=== PATIENT | female | born 1970 | race Two or more races ===

== ENCOUNTER 2017-01-31 11:36 | Inpatient (IN) | payer OTHER ==
[2017-01-30 14:07] VITALS: BMI 27.3
[2017-01-31] MEDS ORDERED: GENTAMICIN SO4 80 MG/2 ML VIAL ONE ×2 (12:17→13:50)
[2017-01-31] MEDS ORDERED: THROMBIN (BOVINE) 5,000 UNIT VIAL TP ONE ×2 (12:18→15:56)
[2017-01-31] MEDS ORDERED: BUPIVACAINE HCL/PF 0.5% (5MG/ML) 10 ML VIAL ONE (12:18)
[2017-01-31] MEDS ORDERED: LIDOCAINE 1%/EPI 1:100000 (20 ML MULTI DOSE VIAL) ONE (12:22)
[2017-01-31] MEDS ORDERED: DEXAMETHASONE SOD PHOSPHATE 4 MG/1 ML VIAL IVPUSH PRN (13:38)
[2017-01-31] MEDS ORDERED: PROMETHAZINE HCL 25 MG/1 ML VIAL IVPB PRN (13:38)
[2017-01-31] MEDS ORDERED: HYDROmorphone *PCA* 10MG/50ML DISP.SYRIN PCA SCH (13:45)
[2017-01-31] MEDS ORDERED: VANCOMYCIN 1,000 MG VIAL (RESTRICTED TO ID ONLY) ONE (13:51)
[2017-01-31] MEDS ORDERED: fentaNYL CITRATE 250 MCG/5 ML VIAL ONE (14:29)
[2017-01-31] MEDS ORDERED: PROPOFOL 20 ML ONE (14:29)
[2017-01-31] MEDS ORDERED: MIDAZOLAM HCL 2 MG/2 ML SINGLE DOSE VIAL ONE (14:29)
[2017-01-31] MEDS ORDERED: ROCURONIUM BROMIDE 50 MG/5 ML VIAL ONE ×2 (14:29→16:26)
[2017-01-31] MEDS ORDERED: LIDOCAINE HCL/PF 2% SDV 5ML VIAL ONE (14:30)
[2017-01-31] MEDS ORDERED: SODIUM CHLORIDE 0.9% P/F 10 ML VIAL IJ ONE ×2 (14:59→18:39)
[2017-01-31] MEDS ORDERED: ceFAZolin SODIUM 1 GM VIAL ONE ×2 (14:59→18:39)
[2017-01-31] MEDS ORDERED: GELATIN, ABSORBABLE 100 EACH SPONGE TP ONE (15:00)
[2017-01-31] MEDS ORDERED: ONDANSETRON 4 MG/2 ML VIAL ONE (15:02)
[2017-01-31] MEDS ORDERED: DEXAMETHASONE SOD PHOSPHATE 4 MG/1 ML VIAL ONE (15:02)
[2017-01-31] MEDS ORDERED: ceFAZolin SODIUM 1 GM VIAL IVPB ONE ×2 (15:12→18:40)
[2017-01-31] MEDS ORDERED: LIDOCAINE 1%/EPI 1:100000 (20 ML MULTI DOSE VIAL) IJ ONE ×2 (15:30)
[2017-01-31] MEDS ORDERED: BACITRACIN 50,000 UNITS VIAL TP ONE (15:56)
[2017-01-31] MEDS ORDERED: GENTAMICIN SO4 80 MG/2 ML VIAL IVPB ONE (16:47)
[2017-01-31] MEDS ORDERED: ePHEDrine SULFATE 50 MG/1 ML AMPULE ONE (17:22)
[2017-01-31] MEDS ORDERED: BUPIVACAINE HCL/PF 0.5% (5MG/ML) 10 ML VIAL IJ ONE (18:13)
[2017-01-31] MEDS ORDERED: GLYCOPYRROLATE 0.2 MG/1 ML VIAL ONE (18:27)
[2017-01-31] MEDS ORDERED: NEOSTIGMINE METHYLSULFATE 0.5 MG/ML - 10 ML MDV ONE (18:27)
[2017-01-31] MEDS ORDERED: oxyCODONE HCL 5 MG TABLET PO PRN ×2 (19:22)
[2017-01-31] MEDS ORDERED: LORATADINE 10 MG TABLET PO PRN (19:30)
[2017-01-31] MEDS ORDERED: HYDROmorphone *PCA* 10MG/50ML DISP.SYRIN PCA ONE (19:46)
[2017-01-31] MEDS: LACTATED RINGERS SOLUTION 1,000 ML IV SCH ×3 (20:35→22:47)
--- NOTE | 2017-01-31 20:51 | OP ---
Operative Note - Note: Operative Date: 01/31/17 Pre-Operative Diagnosis: Lumbar pseudoarthrosis with rostral instability and stenosis Operation: Exploration of spinal fusion with removal of hardware and reoperative L4/5 laminectomies with L3/4 laminectomies and transforaminal interbody cage and L3/5 PSF and repair of pseudomeningocele with bilateral soft tissue advancement flaps Post-Operative Diagnosis: Same as Pre-op Surgeon: Kimo Brown Driver Supervisor: Steven Rivers Anesthesiologist/BIOCHEMIST: Franko Blackburn Anesthesia: General Estimated Blood Loss (mls): 150 Fluid Volume Replaced (mls): 1,700 Operative Report Dictated: Yes
--- NOTE | 2017-01-31 20:52 | SURG ---
Surgery Business Information Analyst Note Business Information Analyst: Steven Rivers PA-C Date of Service: 01/31/17 Diagnosis: LUMBAR PSEUDOARTHOSIS WITH ROSTRAL INSTABILITY AND STENOSIS Procedure: Exploration of spinal fusion with removal of hardware and reoperative L4/5 laminectomies with L3/4 laminectomies and transforaminal interbody cage and L3/ 5 PSF and repair of pseudomeningocele with bilateral soft tissue advancement flaps I was present for the entirety of the operative procedure. For further detail, please refer to operative report. Visit type - Case Type Case Type: Scheduled Admission - New patient This patient is new to me today: Yes Date on this admission: 01/31/17
[2017-01-31] MEDS: diazePAM 2 MG TABLET PO SCH (22:47)
[2017-02-01] MEDS ORDERED: CEFAZOLIN 1 GM/D5W 1 GM/50 ML BAG IVPB SCH (02:00)
[2017-02-01] MEDS: CEFAZOLIN 1 GM PUSH 1 GM/10 ML DISP.SYRIN IVPUSH SCH ×3 (02:34→18:41)
[2017-02-01 08:09] LABS: MCH 33.3 pg (25.7-33.7); MCHC 34.5 g/dl (32.0-36.0); MEAN CELL VOLUME 96.7 fl (80-96); MEAN PLT VOLUME 8.6 fl (7.5-11.1); PLATELET COUNT 226 K/MM3 (134-434); RDW 12.6 % (11.6-15.6); WHITE BLOOD COUNT 7.1 K/mm3 (4.0-10.0)
[2017-02-01 08:48] LABS: ANION GAP 6 (8-16); CALCIUM 7.9 mg/dL (8.5-10.1); CO2 29 mmol/L (21-32); GLUCOSE,RANDOM 102 mg/dL (74-106)
--- NOTE | 2017-02-01 08:50 | PN ---
Progress Note (short form) - Note Progress Note: POD #1 46yo female s/p Exploration of spinal fusion with removal of hardware and reoperative L4/5 laminectomies with L3/4 laminectomies and transforaminal interbody cage and L3/5 PSF and repair of pseudomeningocele with bilateral soft tissue advancement flaps . Patient seen and examined at bedside, states pain with movement controlled with BELT CLEANER. Patient has not ambulated with PT yet. She Denies any b/l LE radicular pain or paresthesias, CP,SOB, N/V, fever or chills and she has not passed gas or had a BM. Vital Signs Temp 98.6 F 02/01/17 06:27 Pulse 84 02/01/17 06:27 Resp 20 02/01/17 06:27 BP 92/52 02/01/17 06:27 Pulse Ox 100 01/31/17 22:00 Intake & Output 01/31/17 01/31/17 02/01/17 11:59 23:59 11:59 Intake Total 1500 875 Output Total 665 605 Balance 835 270 Intake: IV 1500 875 Lactated Ringers Solution 875 1,000 ml @ 125 mls/hr IV ASDIR MENG Rx#: [id number] Output: Drainage 65 205 Right Lower Back 205 Urine 450 400 Patel 400 Estimated Blood Loss 150 Other: Voiding Method Indwelling Catheter CBC, BMP 02/01/17 06:00 PE: VSS, unlabored resp on RA Lumbar spine, dressing c/d/i with no evidence of d/c or tracking erythema in surrounding tissue, TOMASA drain right lumbar area, putting out serosanginous d/c 205ml post op-midnight. B/L LE compartments soft supple and non-tender to palpation, + dorsi and plantar flexion 5/5 bilaterally, NVID with sensation to light touch and +1 pedal pulses. feet are warm to touch and well perfused. POD #1 revision lumbar fusion and repair of pseudomeningocele doing well with stable post op anemia currently asymptomatic 1) OOB today with PT-OK without brace until available, then TLSO brace when OOB 2) D/c patel 3) Pain control with BELT CLEANER 4) DVT prophylaxis, b/l teds, scds and heparin 5) trend daily labs- Iron, folate and colace added Evaluation and plan discussed with Dr. Brown
[2017-02-01 08:51] LABS: CREATININE 0.5 mg/dL (0.55-1.02)
--- NOTE | 2017-02-01 09:17 | PN ---
Progress Note, Physician Chief Complaint: s/p lumbar revision fusion under general anesthesia History of Present Illness: post op day one, dilaudid landscape engineer for post op pain control - Current Medication List Current Medications: Active Medications Dexamethasone Sodium Phosphate (Decadron Injection -) 4 mg IVPUSH ONCE PRN PRN Reason: NAUSEA AND/OR VOMITING Diazepam (Valium -) 2 mg PO BID [facility] Last Admin: 01/31/17 22:47 Dose: 2 mg Diphenhydramine HCl (Benadryl Injection -) 12.5 mg IVPUSH ONCE PRN PRN Reason: FOR ITCHING Docusate Sodium (Colace -) 100 mg PO BID [facility] Fentanyl (Sublimaze Injection -) 50 mcg IVPUSH [id number] PRN PRN Reason: PAIN Ferrous Sulfate (Feosol -) 325 mg PO BIDWM [facility] Folic Acid (Folic Acid -) 1 mg PO DAILY [facility] Heparin Sodium (Porcine) (Heparin -) 5,000 unit SQ TID [facility] Hydromorphone HCl (Dilaudid Poultry Husbandman -) 0 mg FIRST PRESS OPERATOR FIRST PRESS OPERATOR [facility] PRN Reason: Protocol Stop: 02/07/17 13:39 Last Admin: 01/31/17 22:47 Dose: Not Given Lactated Ringer's (Lactated Ringers Solution) 1,000 mls @ 125 mls/hr IV ASDIR [facility] Last Admin: 01/31/17 22:47 Dose: 125 mls/hr Lactated Ringer's (Lactated Ringers Solution) 1,000 mls @ 125 mls/hr IV ASDIR [facility] Last Admin: 01/31/17 22:47 Dose: Not Given Cefazolin Sodium (Ancef -) 1 gm in 10 mls @ 120 mls/hr IVPUSH Q8H-IV [facility] Stop: 02/02/17 01:59 Last Admin: 02/01/17 02:34 Dose: 120 mls/hr Loratadine (Claritin -) 10 mg PO DAILY PRN PRN Reason: ALLERGIES Ondansetron HCl (Zofran Injection) 4 mg IVPUSH Q4H PRN PRN Reason: NAUSEA AND/OR VOMITING Promethazine HCl (Phenergan Injection -) 12.5 mg IVPB Q6H PRN PRN Reason: NAUSEA AND/OR VOMITING Valsartan (Diovan -) 160 mg PO DAILY [facility] - Objective Vital Signs: Vital Signs Temperature 98.6 F 11/30/17 06:27 Pulse Rate 84 02/01/17 06:27 Respiratory Rate 20 02/01/17 06:27 Blood Pressure 92/52 02/01/17 06:27 O2 Sat by Pulse Oximetry (%) 100 01/31/17 22:00 Constitutional: Yes: Well Nourished, No Distress Cardiovascular: Yes: WNL Respiratory: Yes: WNL Gastrointestinal: Yes: WNL Neurological: Yes: WNL Labs: CBC, BMP 02/01/17 06:00 02/01/17 06:00 Assessment/Plan No adverse effects of anesthetic, no nausea or vomiting, pain controlled with landscape engineer, not on diet yet. will continue landscape engineer until patient is tolerating PO. No other anesthetic concerns. Dept of anesthesia will continue to manage FIRST PRESS OPERATOR.
[2017-02-01] MEDS: HEPARIN NA (PORCINE) 5,000 UNITS/ML 1ML VIAL SQ SCH ×3 (10:02→21:51)
[2017-02-01] MEDS: DOCUSATE SODIUM 100 MG CAPSULE (FP) PO SCH ×2 (10:02→21:51)
[2017-02-01] MEDS: diazePAM 2 MG TABLET PO SCH ×2 (10:02→21:51)
[2017-02-01] MEDS: VALSARTAN 160 MG TABLET (UD) PO SCH (10:02)
[2017-02-01] MEDS: FERROUS SO4 325 MG TABLET (FP) PO SCH ×2 (10:02→18:33)
[2017-02-01] MEDS: FOLIC ACID 1 MG TABLET (FP) PO SCH ×2 (10:03)
[2017-02-01] MEDS: ACETAMINOPHEN 325 MG TABLET (FP) PO PRN ×2 (11:35→18:46)
[2017-02-01] MEDS: LACTATED RINGERS SOLUTION 1,000 ML IV SCH ×3 (11:40→21:12)
[2017-02-01] MEDS: ONDANSETRON 4 MG/2 ML VIAL IVPUSH PRN ×2 (11:41→17:06)
[2017-02-01] MEDS: HYDROmorphone *PCA* 10MG/50ML DISP.SYRIN PCA SCH (12:07)
--- NOTE | 2017-02-01 17:27 | PROC ---
Procedure Note Procedure: Patient seen and examined at bedside with Dr Martin. C/o headache and nausea. Drain to gravity with bloody CSF 300cc over 4 hours. Drain pulled with tip fully intact. Patient tolerated procedure and dry dressing applied to drain site. Surgery to follow.
[2017-02-01] MEDS ORDERED: PT OWN MED DRAWER 7, Y5N ONE (18:30)
[2017-02-02] MEDS: HEPARIN NA (PORCINE) 5,000 UNITS/ML 1ML VIAL SQ SCH ×3 (07:02→22:39)
[2017-02-02] MEDS: ACETAMINOPHEN 325 MG TABLET (FP) PO PRN ×2 (07:42→19:49)
[2017-02-02 08:06] LABS: BASOPHIL 0.4 % (0-2.0); EOSINOPHIL 0.1 % (0-4.5); MCH 32.8 pg (25.7-33.7); MCHC 34.2 g/dl (32.0-36.0); MEAN CELL VOLUME 95.8 fl (80-96); MEAN PLT VOLUME 8.7 fl (7.5-11.1); NEUTROPHILS 82.3 % (42.8-82.8); PLATELET COUNT 180 K/MM3 (134-434); WHITE BLOOD COUNT 7.8 K/mm3 (4.0-10.0)
[2017-02-02] MEDS ORDERED: VANCOMYCIN 1,000 MG in DEXTROSE 5%-WATER - 250 ML IVPB ONE (08:11)
[2017-02-02 08:32] LABS: ANION GAP 6 (8-16); CALCIUM 7.3 mg/dL (8.5-10.1); CO2 26 mmol/L (21-32); CREATININE 0.3 mg/dL (0.55-1.02); GLUCOSE,RANDOM 103 mg/dL (74-106)
[2017-02-02] MEDS: FOLIC ACID 1 MG TABLET (FP) PO SCH (09:36)
[2017-02-02] MEDS: VALSARTAN 160 MG TABLET (UD) PO SCH (09:36)
[2017-02-02] MEDS: diazePAM 2 MG TABLET PO SCH ×2 (09:36→22:38)
[2017-02-02] MEDS: DOCUSATE SODIUM 100 MG CAPSULE (FP) PO SCH ×2 (09:36→22:38)
[2017-02-02] MEDS: FERROUS SO4 325 MG TABLET (FP) PO SCH ×2 (09:37→18:41)
[2017-02-02 09:42] LABS: URINE APPEARANCE SLCLOUDY; URINE BILIRUBIN NEGATIVE (NEGATIVE); URINE BLOOD 3+ (NEGATIVE); URINE COLOR LTYELLOW; URINE GLUCOSE (UA) NEGATIVE (NEGATIVE); URINE KETONE TRACE (NEGATIVE); URINE NITRITE NEGATIVE (NEGATIVE); URINE PROTEIN NEGATIVE (NEGATIVE); URINE UROBILINOGEN NEGATIVE mg/dL (0.2-1.0)
[2017-02-02 09:47] LABS: URINE MUCUS RARE; URINE WBC 3 /hpf (3-5)
[2017-02-02] MEDS: HYDROmorphone *PCA* 10MG/50ML DISP.SYRIN PCA SCH ×2 (09:51→16:00)
--- NOTE | 2017-02-02 10:18 | PN ---
Progress Note (short form) - Note Progress Note: POD #2 46yo female s/p Exploration of spinal fusion with removal of hardware and reoperative L4/5 laminectomies with L3/4 laminectomies and transforaminal interbody cage and L3/5 PSF and repair of pseudomeningocele with bilateral soft tissue advancement flaps . Patient seen and examined at bedside, states Headache improved overnight and she was able to ambulate to the bathroom 2x last night without worsening symptoms. She is still using INSTRUCTIONAL DESIGN SPECIALIST but now states her headache has worsened this morning and she is having lots of pain with movement of her neck and worsening headache with head flexion. She is also having fever and chills this morning. She Denies any b/l LE radicular pain or paresthesias, CP, or SOB. Vital Signs Temp 101 F H 02/02/17 09:52 Pulse 112 H 02/02/17 09:52 Resp 18 02/02/17 09:52 BP 153/75 02/02/17 09:52 Pulse Ox 100 02/01/17 21:00 Intake & Output 02/01/17 02/01/17 02/02/17 11:59 23:59 11:59 Intake Total 875 1925 875 Output Total 605 1800 400 Balance 270 125 475 Intake: IV 875 1625 875 Lactated Ringers Solution 875 1625 875 1,000 ml @ 125 mls/hr IV ASDIR MENG Rx#: [id number] Oral 300 Output: Drainage 205 300 Right Lower Back 205 300 Urine 400 1300 400 [place] 400 Void 1300 400 Emesis 200 Other: Voiding Method Toilet Toilet CBC, BMP 02/02/17 06:00 02/02/17 06:00 PE: A&Ox3, with mild distress 2/2 pain unlabored resp on RA Febrile at 101.9 @ 7:30 this morning Lumbar spine, dressing removed and incision c/d/i with no evidence of d/c or tracking erythema in surrounding tissue, no fluctuance or evidence of collection , mild TTP at midline proximal to incision and over c-spine- pt unable to fully cooperate with c spine examination 2/2 pain. previous drain site dry with no active d/c. incision redressed with 4x4 and op sites. B/L LE compartments soft supple and non-tender to palpation, + dorsi and plantar flexion 5/5 bilaterally, NVID with sensation to light touch and +1 pedal pulses. feet are warm to touch and well perfused. A/P POD #2 revision lumbar fusion and repair of pseudomeningocele with headache and fever 1) Blood cultures x2 sites 2) U/A and urine cultures 3) vancomycin x 1 dose 4) OOB today with PT if stable 4) Pain control with INSTRUCTIONAL DESIGN SPECIALIST 5) DVT prophylaxis, b/l teds, scds and heparin 5) trend daily labs and follow up cultures and U/A Evaluation and plan discussed with Dr. Brown
--- NOTE | 2017-02-02 10:41 | PN ---
Progress Note, Physician Chief Complaint: Pt complains of BRUNO and neck pain that has worsened today. She also has a fever and was given tylenol this am. - Current Medication List Current Medications: Active Medications Acetaminophen (Tylenol -) 650 mg PO Q6H PRN PRN Reason: FEVER OR PAIN Last Admin: 02/02/17 07:42 Dose: 650 mg Dexamethasone Sodium Phosphate (Decadron Injection -) 4 mg IVPUSH ONCE PRN PRN Reason: NAUSEA AND/OR VOMITING Diazepam (Valium -) 2 mg PO BID [facility] Last Admin: 02/02/17 09:36 Dose: 2 mg Diphenhydramine HCl (Benadryl Injection -) 12.5 mg IVPUSH ONCE PRN PRN Reason: FOR ITCHING Docusate Sodium (Colace -) 100 mg PO BID [facility] Last Admin: 02/02/17 09:36 Dose: 100 mg Ferrous Sulfate (Feosol -) 325 mg PO BIDWM [facility] Last Admin: 02/02/17 09:37 Dose: Not Given Folic Acid (Folic Acid -) 1 mg PO DAILY [facility] Last Admin: 02/02/17 09:36 Dose: 1 mg Heparin Sodium (Porcine) (Heparin -) 5,000 unit SQ TID [facility] Last Admin: 02/02/17 07:02 Dose: 5,000 unit Hydromorphone HCl (Dilaudid Inward Toll Operator -) 10 mg SPRAY RIG OPERATOR SPRAY RIG OPERATOR [facility] PRN Reason: Protocol Stop: 02/07/17 13:39 Last Admin: 02/02/17 09:51 Dose: Not Given Lactated Ringer's (Lactated Ringers Solution) 1,000 mls @ 125 mls/hr IV ASDIR [facility] Last Admin: 02/01/17 14:09 Dose: Not Given Lactated Ringer's (Lactated Ringers Solution) 1,000 mls @ 125 mls/hr IV ASDIR [facility] Last Admin: 02/01/17 21:12 Dose: 125 mls/hr Loratadine (Claritin -) 10 mg PO DAILY PRN PRN Reason: ALLERGIES Last Admin: 02/02/17 09:36 Dose: 10 mg Ondansetron HCl (Zofran Injection) 4 mg IVPUSH Q4H PRN PRN Reason: NAUSEA AND/OR VOMITING Last Admin: 02/01/17 17:06 Dose: 4 mg Potassium Chloride (K-Dur -) 20 meq PO BID [facility] Stop: 02/03/17 22:01 Promethazine HCl (Phenergan Injection -) 12.5 mg IVPB Q6H PRN PRN Reason: NAUSEA AND/OR VOMITING Valsartan (Diovan -) 160 mg PO DAILY [facility] Last Admin: 02/02/17 09:36 Dose: 160 mg - Objective Vital Signs: Vital Signs Temperature 101 F H 02/02/17 09:52 Pulse Rate 112 H 02/02/17 09:52 Respiratory Rate 18 02/02/17 09:52 Blood Pressure 153/75 02/02/17 09:52 O2 Sat by Pulse Oximetry (%) 100 02/01/17 21:00 Constitutional: Yes: Well Nourished, No Distress, Calm Neurological: Yes: WNL, Alert, Oriented ...Motor Strength: WNL Labs: CBC, BMP 02/02/17 06:00 02/02/17 06:00 Assessment/Plan POD#2 s/p L3-5 posterior decompressionwith removal of hardware L3-4, instrumentation, fusion, and cage placement under GA. Dilaudid SPRAY RIG OPERATOR for pain. Having increasing headaches, neck pain, and fever. Treated with tylenol and Dr. Hensley notified. Continue SPRAY RIG OPERATOR
[2017-02-02] MEDS: POTASSIUM CHLORIDE TABS 20 MEQ TABLET.ER (FP) PO SCH ×2 (11:30→22:39)
[2017-02-02 12:49] LABS: URINE LEUK ESTERASE Negative (NEGATIVE)
--- NOTE | 2017-02-02 15:22 | PATH ---
Surgical Pathology Report Patient Name: CARLOS A GONG Med. Rec. #: [id number] /Age/Gender: 1970 (Age: 46) / F Account: [id number] Location: [facility] MED/SURG Taken: 01/31/2017 Received: 02/01/2017 Reported: 02/02/2017 Physicians: Kimo Poole M.D. 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 Electronically Signed Kana Becerril M.D. Gross Description Received in formalin labeled "juxta facet cyst," are 2 gillette-jack, irregular portions of soft tissue measuring 0.9 x 0.5 x 0.3 cm and 1.3 x 0.8 x 0.3 cm. The specimens are submitted in toto in one cassette. 02/01/201702/01/2017
[2017-02-02] MEDS: LACTATED RINGERS SOLUTION 1,000 ML IV SCH ×3 (15:54→22:00)
--- NOTE | 2017-02-02 20:49 | CONSULT ---
Consult - text type - Consultation Consultation Note: 46yo female with PMH of HTN (-well controlled on current meds), and chronic back pain, admitted for elective revision of laminectomy. She is s/p Exploration of spinal fusion with removal of hardware and reoperative L4/5 laminectomies with L3/4 laminectomies and transforaminal interbody cage and L3/ 5 PSF and repair of pseudomeningocele with bilateral soft tissue advancement flaps. She reports, except for severe headache, feeling much better w/r/t her back and her legs. She was able to ambulate POD #1 several times with minimal discomfort but developed progressively intense headache ( unlike previous migraines). These associated with nausea and vomiting -- no vomiting today, but remains nauseous. PMH HTN well controlled as out patient allergies Codeine Vital Signs Period Temp Pulse Resp BP Sys/Cook Pulse Ox Last 24 Hr 98.6 F-101.9 F 76-112 16-20 105-153/50-75 96-100 Patient examined in bed sitting at 45degrees ++ headaches neck supple -- lateral movements increases headache heart s1/S2 reg lungs clear bilat with deep inspiration abd soft non tender ext no calf tenderness / + pulses no edema FROM CBC, BMP 02/02/17 06:00 02/02/17 06:00 K replaced earlier today Active Medications Acetaminophen (Tylenol -) 650 mg PO Q6H PRN PRN Reason: FEVER OR PAIN Last Admin: 02/02/17 19:49 Dose: 650 mg Acetaminophen/Butalbital/Caffeine (Fioricet -) 1 tablet PO Q4H PRN PRN Reason: FEVER OR PAIN Dexamethasone Sodium Phosphate (Decadron Injection -) 4 mg IVPUSH ONCE PRN PRN Reason: NAUSEA AND/OR VOMITING Diazepam (Valium -) 2 mg PO BID [facility] Last Admin: 02/02/17 09:36 Dose: 2 mg Diphenhydramine HCl (Benadryl Injection -) 12.5 mg IVPUSH ONCE PRN PRN Reason: FOR ITCHING Docusate Sodium (Colace -) 100 mg PO BID [facility] Last Admin: 02/02/17 09:36 Dose: 100 mg Ferrous Sulfate (Feosol -) 325 mg PO BIDWM [facility] Last Admin: 02/02/17 18:41 Dose: Not Given Folic Acid (Folic Acid -) 1 mg PO DAILY [facility] Last Admin: 02/02/17 09:36 Dose: 1 mg Heparin Sodium (Porcine) (Heparin -) 5,000 unit SQ TID [facility] Last Admin: 02/02/17 16:12 Dose: 5,000 unit Hydromorphone HCl (Dilaudid Inspector Soldering -) 10 mg DATA COLLECTION ASSOCIATE DATA COLLECTION ASSOCIATE MENG PRN Reason: Protocol Stop: 02/07/17 13:39 Last Admin: 02/02/17 09:51 Dose: Not Given Lactated Ringer's (Lactated Ringers Solution) 1,000 mls @ 125 mls/hr IV ASDIR [facility] Last Admin: 02/02/17 15:54 Dose: 125 mls/hr Lactated Ringer's (Lactated Ringers Solution) 1,000 mls @ 125 mls/hr IV ASDIR [facility] Last Admin: 02/02/17 19:13 Dose: Not Given Loratadine (Claritin -) 10 mg PO DAILY PRN PRN Reason: ALLERGIES Last Admin: 02/02/17 09:36 Dose: 10 mg Ondansetron HCl (Zofran Injection) 4 mg IVPUSH Q4H PRN PRN Reason: NAUSEA AND/OR VOMITING Last Admin: 02/01/17 17:06 Dose: 4 mg Potassium Chloride (K-Dur -) 20 meq PO BID [facility] Stop: 02/03/17 22:01 Last Admin: 02/02/17 11:30 Dose: 20 meq Promethazine HCl (Phenergan Injection -) 12.5 mg IVPB Q6H PRN PRN Reason: NAUSEA AND/OR VOMITING Valsartan (Diovan -) 160 mg PO DAILY [facility] Last Admin: 02/02/17 09:36 Dose: 160 mg # POD #2 activity as per surgery pain management via DATA COLLECTION ASSOCIATE incentive spirometry -if poor compliance will recommend nebulizer tx # headache bp remains stable spinal fluid leak ? / on IV fluids / instructed to lay flat trial of Fiorcet # fever 101.9 incentive spirometry activity as per surgery if fever repeats c/s # HTN resume HTM meds Valsatran 160 qd # hypokalemia replaced ck Magnesium replace lytes PRN
[2017-02-02] MEDS: ACETAMINOPHEN/CAFFEINE/BUTALBITAL 1 TAB PO PRN (22:39)
[2017-02-03] MEDS: ACETAMINOPHEN 325 MG TABLET (FP) PO PRN ×3 (01:49→21:29)
[2017-02-03] MEDS: HEPARIN NA (PORCINE) 5,000 UNITS/ML 1ML VIAL SQ SCH ×3 (05:56→21:29)
[2017-02-03 08:17] LABS: BASOPHIL 0.2 % (0-2.0); MCH 32.8 pg (25.7-33.7); MCHC 34.1 g/dl (32.0-36.0); MEAN CELL VOLUME 96.3 fl (80-96); NEUTROPHILS 81.2 % (42.8-82.8); PLATELET COUNT 186 K/MM3 (134-434); RDW 11.9 % (11.6-15.6)
[2017-02-03 08:27] LABS: ANION GAP 8 (8-16); CALCIUM 8.1 mg/dL (8.5-10.1); CO2 29 mmol/L (21-32); GLUCOSE,RANDOM 96 mg/dL (74-106); MAGNESIUM 1.8 mg/dL (1.8-2.4)
[2017-02-03 08:29] LABS: CREATININE 0.4 mg/dL (0.55-1.02); PHOSPHOROUS 1.9 mg/dL (2.5-4.9)
--- NOTE | 2017-02-03 09:06 | PN ---
Progress Note (short form) - Note Progress Note: Anesthesia Post op/Pain Pt seen and examined S:awake and alert, c/o headache O: Vital Signs Temperature 101.1 F H 02/03/17 05:00 Pulse Rate 102 H 02/02/17 16:30 Respiratory Rate 20 02/03/17 05:00 Blood Pressure 129/75 02/03/17 05:00 O2 Sat by Pulse Oximetry (%) 96 02/02/17 21:00 CBC, BMP 02/03/17 06:00 02/03/17 06:00 A/P:s/p l3-L5 posterior decompression instrumentation Hypokalemia,Mild fever Condition guarded Continue STAINLESS STEEL FINISHER Derrick Rush MD
[2017-02-03] MEDS: FOLIC ACID 1 MG TABLET (FP) PO SCH (10:10)
[2017-02-03] MEDS: diazePAM 2 MG TABLET PO SCH ×2 (10:11→21:29)
[2017-02-03] MEDS: VALSARTAN 160 MG TABLET (UD) PO SCH (10:11)
[2017-02-03] MEDS: DOCUSATE SODIUM 100 MG CAPSULE (FP) PO SCH ×2 (10:11→21:29)
[2017-02-03] MEDS: POTASSIUM CHLORIDE TABS 20 MEQ TABLET.ER (FP) PO SCH (10:11)
[2017-02-03] MEDS: FERROUS SO4 325 MG TABLET (FP) PO SCH ×2 (10:12→18:28)
[2017-02-03] MEDS: POTASSIUM CHLORIDE ORAL LIQUID 20 MEQ/15 ML PO SCH ×3 (10:15→21:30)
[2017-02-03] MEDS: ACETAMINOPHEN/CAFFEINE/BUTALBITAL 1 TAB PO PRN ×2 (10:15→17:04)
[2017-02-03] MEDS: LACTATED RINGERS SOLUTION 1,000 ML IV SCH ×2 (14:20→23:23)
--- NOTE | 2017-02-03 14:50 | PN ---
Progress Note (short form) - Note Progress Note: Patient with fevers. Currently 101.8 with Tmax 102.7 All cultures negative. WBC is 11 Patient continues to have low ICP headaches but states that it is "a little better." Wound clean, dry and intact. Patient asking for coffee. I feel that her diet can be advanced as tolerated and have no objections to letting her have coffee. Patient with CSF drainage after repair of pseudomeningocele and with low ICP syndrome. Hopefully, with hydration, time and caffeine, these symptoms will leona. Fevers may be due to meningeal irritation from low ICP. Will continue to monitor and support with Acetominophen. Agree with Potassium supplementation. For now, would not transfuse PRBC, rather would continue Iron/Folate/Colace.
[2017-02-04] MEDS: ACETAMINOPHEN 325 MG TABLET (FP) PO PRN ×3 (05:56→17:20)
[2017-02-04] MEDS: HEPARIN NA (PORCINE) 5,000 UNITS/ML 1ML VIAL SQ SCH ×3 (05:56→22:09)
[2017-02-04 08:24] LABS: ANION GAP 6 (8-16); BASOPHIL 0.2 % (0-2.0); CALCIUM 7.6 mg/dL (8.5-10.1); CO2 26 mmol/L (21-32); CREATININE 0.4 mg/dL (0.55-1.02); EOSINOPHIL 0.2 % (0-4.5); GLUCOSE,RANDOM 106 mg/dL (74-106); MCH 32.9 pg (25.7-33.7); MCHC 34.6 g/dl (32.0-36.0); MEAN CELL VOLUME 95.2 fl (80-96); MEAN PLT VOLUME 9.2 fl (7.5-11.1); NEUTROPHILS 85.3 % (42.8-82.8); PLATELET COUNT 205 K/MM3 (134-434); WHITE BLOOD COUNT 12.5 K/mm3 (4.0-10.0)
[2017-02-04] MEDS: diazePAM 2 MG TABLET PO SCH ×2 (09:22→22:05)
[2017-02-04] MEDS: DOCUSATE SODIUM 100 MG CAPSULE (FP) PO SCH ×2 (09:23→22:05)
[2017-02-04] MEDS: VALSARTAN 160 MG TABLET (UD) PO SCH (09:23)
[2017-02-04] MEDS: NAPH,MB-DB/K PH,MBDB POWDER PACKET PO SCH ×3 (09:24→22:09)
[2017-02-04] MEDS: FOLIC ACID 1 MG TABLET (FP) PO SCH (09:24)
[2017-02-04] MEDS: FERROUS SO4 325 MG TABLET (FP) PO SCH ×2 (09:24→17:20)
[2017-02-04] MEDS: LACTATED RINGERS SOLUTION 1,000 ML IV SCH ×2 (09:26→14:12)
--- NOTE | 2017-02-04 10:44 | PN ---
Progress Note (short form) - Note Progress Note: POD #4 s/p L3-L5 decompression/instrumentation. On dilaudid RESIDENT MANAGER for post-op pain management. Headache and fever improved. Will discontinue RESIDENT MANAGER today and order po oxycodone. Continue current care.
[2017-02-04] MEDS: oxyCODONE HCL 5 MG TABLET PO PRN ×3 (12:27→22:06)
--- NOTE | 2017-02-04 15:47 | PN ---
Progress Note (short form) - Note Progress Note: seen and examined in room daughter at bedside headache much improved / was ambulating around well - using brace however fever 103 earlier today + chills Vital Signs Period Temp Pulse Resp BP Sys/Cook Pulse Ox Last 24 Hr 98.9 F-102.2 F 92-97 18-20 106-125/64-86 98 neck suppl e heart S1/S2 regular Lungs clear bilat no wheezing / bases clear abd soft non tender ext no calf tenderness no edema CBC, BMP 02/04/17 06:00 02/04/17 06:00 Phosphorus 1.9 K replacement again today Active Medications Acetaminophen (Tylenol -) 650 mg PO Q6H PRN PRN Reason: FEVER OR PAIN Last Admin: 02/04/17 12:28 Dose: 650 mg Acetaminophen/Butalbital/Caffeine (Fioricet -) 1 tablet PO Q4H PRN PRN Reason: FEVER OR PAIN Last Admin: 02/03/17 17:04 Dose: 1 tablet Dexamethasone Sodium Phosphate (Decadron Injection -) 4 mg IVPUSH ONCE PRN PRN Reason: NAUSEA AND/OR VOMITING Diazepam (Valium -) 2 mg PO BID [facility] Last Admin: 02/04/17 09:22 Dose: 2 mg Diphenhydramine HCl (Benadryl Injection -) 12.5 mg IVPUSH ONCE PRN PRN Reason: FOR ITCHING Docusate Sodium (Colace -) 100 mg PO BID [facility] Last Admin: 02/04/17 09:23 Dose: 100 mg Ferrous Sulfate (Feosol -) 325 mg PO BIDWM [facility] Last Admin: 02/04/17 09:24 Dose: 325 mg Folic Acid (Folic Acid -) 1 mg PO DAILY [facility] Last Admin: 02/04/17 09:24 Dose: 1 mg Heparin Sodium (Porcine) (Heparin -) 5,000 unit SQ TID [facility] Last Admin: 02/04/17 05:56 Dose: 5,000 unit Lactated Ringer's (Lactated Ringers Solution) 1,000 mls @ 125 mls/hr IV ASDIR [facility] Last Admin: 02/04/17 14:12 Dose: Not Given Lactated Ringer's (Lactated Ringers Solution) 1,000 mls @ 125 mls/hr IV ASDIR [facility] Last Admin: 02/03/17 23:23 Dose: 125 mls/hr Loratadine (Claritin -) 10 mg PO DAILY PRN PRN Reason: ALLERGIES Last Admin: 02/02/17 09:36 Dose: 10 mg Ondansetron HCl (Zofran Injection) 4 mg IVPUSH Q4H PRN PRN Reason: NAUSEA AND/OR VOMITING Last Admin: 02/01/17 17:06 Dose: 4 mg Oxycodone HCl (Roxicodone -) 5 mg PO Q4H PRN PRN Reason: PAIN Last Admin: 02/04/17 12:27 Dose: 5 mg Oxycodone HCl (Roxicodone -) 10 mg PO Q4H PRN PRN Reason: PAIN Potassium Chloride (Potassium Chloride Oral Liquid) 40 meq PO TID [facility] Potassium Phos/Sodium Phos (Phos-Nak Packet -) 1 packet PO BID [facility] Last Admin: 02/04/17 11:03 Dose: Not Given Promethazine HCl (Phenergan Injection -) 12.5 mg IVPB Q6H PRN PRN Reason: NAUSEA AND/OR VOMITING Valsartan (Diovan -) 160 mg PO DAILY [facility] Last Admin: 02/04/17 09:23 Dose: 160 mg Microbiology 02/02/17 08:30 Blood - Peripheral Venous Blood Culture - Preliminary NO GROWTH OBTAINED AFTER 48 HOURS, INCUBATION TO CONTINUE FOR 3 DAYS. 02/02/17 08:30 Blood - Peripheral Venous Blood Culture - Preliminary NO GROWTH OBTAINED AFTER 48 HOURS, INCUBATION TO CONTINUE FOR 3 DAYS. 02/02/17 09:00 Urine - Urine - Catheterized Urine Culture - Final NO GROWTH OBTAINED # POD #4 activity as per surgery pain management via MARINE INSULATOR incentive spirometry -good compliance lung exam clear will request CXR in am # headache improved -- almost resolved bp remains stable ICP / on IV fluids / instructed to lay flat On Fiorcet # fever 102.9 incentive spirometry activity as per surgery follow c/s # HTN resumed HTM meds Valsatran 160 qd # hypokalemia replaced yet remains low--add replacemet today ck Magnesium Low Phosphorus replace lytes PRN
[2017-02-04] MEDS: POTASSIUM CHLORIDE ORAL LIQUID 20 MEQ/15 ML PO SCH ×2 (15:49→22:12)
--- NOTE | 2017-02-04 19:24 | PN ---
Progress Note (short form) - Note Progress Note: Patient improved since yesterday in terms of headaches and incisional pain. Tolerating discontinuation of HEAD FILTER TANK TENDER HELPER. Incision is clean, dry and intact. Nuchal rigidity and photophobia reduced. All cultures negative to date. Patient continues to have fevers to 102.2 Although these likely are associated with menigismus from CSF drainage, agree with surveillance for potential infectious etiologies. Agree with Dr. Estrada' s plan for CXR in AM. Will continue with hydration and caffeine and I expect her menigismus will leona with CSF repletion.
[2017-02-05] MEDS: LACTATED RINGERS SOLUTION 1,000 ML IV SCH ×2 (02:16→02:17)
[2017-02-05] MEDS: oxyCODONE HCL 5 MG TABLET PO PRN ×2 (03:48→15:59)
[2017-02-05] MEDS: HEPARIN NA (PORCINE) 5,000 UNITS/ML 1ML VIAL SQ SCH ×3 (06:44→21:59)
[2017-02-05] MEDS: ACETAMINOPHEN 325 MG TABLET (FP) PO PRN (06:45)
[2017-02-05] MEDS: POTASSIUM CHLORIDE ORAL LIQUID 20 MEQ/15 ML PO SCH ×3 (06:45→21:58)
[2017-02-05] MEDS: ACETAMINOPHEN/CAFFEINE/BUTALBITAL 1 TAB PO PRN ×2 (06:53→14:29)
[2017-02-05 07:49] LABS: BASOPHIL 0.3 % (0-2.0); MCH 33.3 pg (25.7-33.7); MCHC 34.9 g/dl (32.0-36.0); MEAN CELL VOLUME 95.6 fl (80-96); MEAN PLT VOLUME 8.4 fl (7.5-11.1); NEUTROPHILS 75.2 % (42.8-82.8); PLATELET COUNT 222 K/MM3 (134-434); RDW 12.1 % (11.6-15.6); WHITE BLOOD COUNT 9.7 K/mm3 (4.0-10.0)
[2017-02-05 08:22] LABS: ANION GAP 8 (8-16); CALCIUM 7.5 mg/dL (8.5-10.1); CO2 24 mmol/L (21-32); GLUCOSE,RANDOM 94 mg/dL (74-106); MAGNESIUM 1.9 mg/dL (1.8-2.4)
[2017-02-05 08:24] LABS: CREATININE 0.4 mg/dL (0.55-1.02); PHOSPHOROUS 2.4 mg/dL (2.5-4.9)
[2017-02-05] MEDS: DOCUSATE SODIUM 100 MG CAPSULE (FP) PO SCH ×2 (09:51→21:59)
[2017-02-05] MEDS: FOLIC ACID 1 MG TABLET (FP) PO SCH (09:51)
[2017-02-05] MEDS: NAPH,MB-DB/K PH,MBDB POWDER PACKET PO SCH ×3 (09:52→21:59)
[2017-02-05] MEDS: VALSARTAN 160 MG TABLET (UD) PO SCH (09:52)
[2017-02-05] MEDS: FERROUS SO4 325 MG TABLET (FP) PO SCH ×2 (09:52→17:36)
[2017-02-05] MEDS: diazePAM 2 MG TABLET PO SCH ×2 (09:53→21:59)
[2017-02-05] MEDS ORDERED: SODIUM PHOSPHATE/NA BIPHOS 133 ML ENEMA RC ONE (17:00)
--- NOTE | 2017-02-05 18:19 | PN ---
Progress Note (short form) - Note Progress Note: Patient sitting comfortably in chair with complaints of constipation. Headaches are significantly improved. CXR is clear and patient is currently afebrile although she had a Tmax of 101.3 earlier today. Cultures are all negative to date. Incision is clean, dry and intact. Patient with only mild incisional/back pain and some discomfort in the gluteal region which she associates with her consitpation. Patient ambulating with assistance and feels better in TLSO brace. Plan - laxative regimen - follow cultures - follow wound healing - oral hydration (can heplock IV) - continue incentive spirometry - continue TLSO - continue Physical Therapy - will plan discharge after consultation with Dr. Estrada
[2017-02-05] MEDS ORDERED: MAGNESIUM CITRATE 300 ML BOTTLE PO SCH (19:23)
--- NOTE | 2017-02-05 23:39 | PN ---
Progress Note (short form) - Note Progress Note: sitting in bed no brace in place was able to ambulate within room c/o constipation -- no BM 5 days feels fatigued Vital Signs Period Temp Pulse Resp BP Sys/Cook Pulse Ox Last 24 Hr 98.3 F-101.3 F 82-96 18-18 100-106/60-63 97 neck suppl e heart S1/S2 regular Lungs clear bilat no wheezing / bases clear abd soft non tender ext no calf tenderness no edema CBC, BMP 02/05/17 06:40 02/05/17 06:40 phosphorus 2.4 K replacement Active Medications Acetaminophen (Tylenol -) 650 mg PO Q6H PRN PRN Reason: FEVER OR PAIN Last Admin: 02/05/17 06:45 Dose: 650 mg Acetaminophen/Butalbital/Caffeine (Fioricet -) 1 tablet PO Q4H PRN PRN Reason: FEVER OR PAIN Last Admin: 02/05/17 14:29 Dose: 1 tablet Dexamethasone Sodium Phosphate (Decadron Injection -) 4 mg IVPUSH ONCE PRN PRN Reason: NAUSEA AND/OR VOMITING Diazepam (Valium -) 2 mg PO BID [facility] Last Admin: 02/05/17 21:59 Dose: 2 mg Diphenhydramine HCl (Benadryl Injection -) 12.5 mg IVPUSH ONCE PRN PRN Reason: FOR ITCHING Docusate Sodium (Colace -) 100 mg PO BID [facility] Last Admin: 02/05/17 21:59 Dose: 100 mg Ferrous Sulfate (Feosol -) 325 mg PO BIDWM [facility] Last Admin: 02/05/17 17:36 Dose: 325 mg Folic Acid (Folic Acid -) 1 mg PO DAILY [facility] Last Admin: 02/05/17 09:51 Dose: 1 mg Heparin Sodium (Porcine) (Heparin -) 5,000 unit SQ TID [facility] Last Admin: 02/05/17 21:59 Dose: 5,000 unit Loratadine (Claritin -) 10 mg PO DAILY PRN PRN Reason: ALLERGIES Last Admin: 02/02/17 09:36 Dose: 10 mg Magnesium Citrate (Citroma -) 300 ml PO Q48H [facility] Stop: 02/07/17 19:24 Last Admin: 02/05/17 20:16 Dose: 300 ml Ondansetron HCl (Zofran Injection) 4 mg IVPUSH Q4H PRN PRN Reason: NAUSEA AND/OR VOMITING Last Admin: 02/01/17 17:06 Dose: 4 mg Oxycodone HCl (Roxicodone -) 5 mg PO Q4H PRN PRN Reason: PAIN Last Admin: 02/04/17 17:20 Dose: 5 mg Oxycodone HCl (Roxicodone -) 10 mg PO Q4H PRN PRN Reason: PAIN Last Admin: 02/05/17 15:59 Dose: 10 mg Polyethylene Glycol (Miralax (For Daily Use) -) 17 gm PO DAILY [facility] Potassium Chloride (Potassium Chloride Oral Liquid) 40 meq PO TID [facility] Last Admin: 02/05/17 21:58 Dose: 40 meq Potassium Phos/Sodium Phos (Phos-Nak Packet -) 1 packet PO TID [facility] Last Admin: 02/05/17 21:59 Dose: 1 packet Promethazine HCl (Phenergan Injection -) 12.5 mg IVPB Q6H PRN PRN Reason: NAUSEA AND/OR VOMITING Valsartan (Diovan -) 160 mg PO DAILY [facility] Last Admin: 02/05/17 09:52 Dose: Not Given Microbiology 02/02/17 08:30 Blood - Peripheral Venous Blood Culture - Preliminary NO GROWTH OBTAINED AFTER 48 HOURS, INCUBATION TO CONTINUE FOR 3 DAYS. 02/02/17 08:30 Blood - Peripheral Venous Blood Culture - Preliminary NO GROWTH OBTAINED AFTER 48 HOURS, INCUBATION TO CONTINUE FOR 3 DAYS. 02/02/17 09:00 Urine - Urine - Catheterized Urine Culture - Final NO GROWTH OBTAINED # POD activity as per surgery off [employer] incentive spirometry -good compliance lung exam clear c/o constipation -- 2/2 pain meds / fe supplement miralax / colace / mag citrte X1 today # headache almost resolved bp remains stable tylenol PRN # fever 102.9 incentive spirometry activity as per surgery follow c/s # HTN resumed HTM meds Valsatran 160 qd # hypokalemia replaced yet remain / MVI
[2017-02-05] MEDS ORDERED: POTASSIUM CHLORIDE ORAL LIQUID 20 MEQ/15 ML PO ONE (23:55)
[2017-02-06] MEDS: POTASSIUM CHLORIDE ORAL LIQUID 20 MEQ/15 ML PO SCH ×2 (06:34→13:27)
[2017-02-06] MEDS: HEPARIN NA (PORCINE) 5,000 UNITS/ML 1ML VIAL SQ SCH ×2 (06:34→13:27)
[2017-02-06] MEDS: oxyCODONE HCL 5 MG TABLET PO PRN ×2 (08:10→12:33)
[2017-02-06] MEDS: ACETAMINOPHEN/CAFFEINE/BUTALBITAL 1 TAB PO PRN ×2 (08:10→12:33)
[2017-02-06] MEDS: FERROUS SO4 325 MG TABLET (FP) PO SCH (10:00)
[2017-02-06] MEDS ORDERED: NAPH,MB-DB/K PH,MBDB POWDER PACKET PO SCH (10:00)
[2017-02-06] MEDS: FOLIC ACID 1 MG TABLET (FP) PO SCH (10:00)
[2017-02-06] MEDS: DOCUSATE SODIUM 100 MG CAPSULE (FP) PO SCH (10:00)
[2017-02-06] MEDS: diazePAM 2 MG TABLET PO SCH (10:00)
[2017-02-06] MEDS ORDERED: POLYETHYLENE GLYCOL 3350 119 GM BTL PO SCH (10:00)
[2017-02-06] MEDS: VALSARTAN 160 MG TABLET (UD) PO SCH (10:00)
--- NOTE | 2017-02-06 10:35 | PN ---
Progress Note (short form) - Note Progress Note: sitting in bed -- brace in place ambulating within room BM X3 overnight feeling much better Vital Signs Period Temp Pulse Resp BP Sys/Cook Pulse Ox Last 24 Hr 98.3 F-98.4 F 74-82 18-20 100-125/60-79 97 has remained afebrile neck -- able to move laterally without pain heart S1/S2 regular Lungs clear bilat no wheezing / bases clear abd soft non tender ext no calf tenderness no edema CBC, BMP 02/05/17 06:40 02/05/17 06:40 phosphorus 2.4 K replacement Active Medications Acetaminophen (Tylenol -) 650 mg PO Q6H PRN PRN Reason: FEVER OR PAIN Last Admin: 02/05/17 06:45 Dose: 650 mg Acetaminophen/Butalbital/Caffeine (Fioricet -) 1 tablet PO Q4H PRN PRN Reason: FEVER OR PAIN Last Admin: 02/05/17 14:29 Dose: 1 tablet Dexamethasone Sodium Phosphate (Decadron Injection -) 4 mg IVPUSH ONCE PRN PRN Reason: NAUSEA AND/OR VOMITING Diazepam (Valium -) 2 mg PO BID [facility] Last Admin: 02/05/17 21:59 Dose: 2 mg Diphenhydramine HCl (Benadryl Injection -) 12.5 mg IVPUSH ONCE PRN PRN Reason: FOR ITCHING Docusate Sodium (Colace -) 100 mg PO BID [facility] Last Admin: 02/05/17 21:59 Dose: 100 mg Ferrous Sulfate (Feosol -) 325 mg PO BIDWM [facility] Last Admin: 02/05/17 17:36 Dose: 325 mg Folic Acid (Folic Acid -) 1 mg PO DAILY [facility] Last Admin: 02/05/17 09:51 Dose: 1 mg Heparin Sodium (Porcine) (Heparin -) 5,000 unit SQ TID [facility] Last Admin: 02/05/17 21:59 Dose: 5,000 unit Loratadine (Claritin -) 10 mg PO DAILY PRN PRN Reason: ALLERGIES Last Admin: 02/02/17 09:36 Dose: 10 mg Magnesium Citrate (Citroma -) 300 ml PO Q48H [facility] Stop: 02/07/17 19:24 Last Admin: 02/05/17 20:16 Dose: 300 ml Ondansetron HCl (Zofran Injection) 4 mg IVPUSH Q4H PRN PRN Reason: NAUSEA AND/OR VOMITING Last Admin: 02/01/17 17:06 Dose: 4 mg Oxycodone HCl (Roxicodone -) 5 mg PO Q4H PRN PRN Reason: PAIN Last Admin: 02/04/17 17:20 Dose: 5 mg Oxycodone HCl (Roxicodone -) 10 mg PO Q4H PRN PRN Reason: PAIN Last Admin: 02/05/17 15:59 Dose: 10 mg Polyethylene Glycol (Miralax (For Daily Use) -) 17 gm PO DAILY [facility] Potassium Chloride (Potassium Chloride Oral Liquid) 40 meq PO TID [facility] Last Admin: 02/05/17 21:58 Dose: 40 meq Potassium Phos/Sodium Phos (Phos-Nak Packet -) 1 packet PO TID [facility] Last Admin: 02/05/17 21:59 Dose: 1 packet Promethazine HCl (Phenergan Injection -) 12.5 mg IVPB Q6H PRN PRN Reason: NAUSEA AND/OR VOMITING Valsartan (Diovan -) 160 mg PO DAILY [facility] Last Admin: 02/05/17 09:52 Dose: Not Given Microbiology 02/02/17 08:30 Blood - Peripheral Venous Blood Culture - Preliminary NO GROWTH OBTAINED AFTER 48 HOURS, INCUBATION TO CONTINUE FOR 3 DAYS. 02/02/17 08:30 Blood - Peripheral Venous Blood Culture - Preliminary NO GROWTH OBTAINED AFTER 48 HOURS, INCUBATION TO CONTINUE FOR 3 DAYS. 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
[2017-02-06 11:25] LABS: BASOPHIL 0.5 % (0-2.0); EOSINOPHIL 2.8 % (0-4.5); MCH 32.6 pg (25.7-33.7); MCHC 33.7 g/dl (32.0-36.0); MEAN CELL VOLUME 96.8 fl (80-96); MEAN PLT VOLUME 8.5 fl (7.5-11.1); NEUTROPHILS 76.6 % (42.8-82.8); PLATELET COUNT 366 K/MM3 (134-434); RDW 12.3 % (11.6-15.6); WHITE BLOOD COUNT 6.4 K/mm3 (4.0-10.0)
[2017-02-06 11:50] LABS: CALCIUM 8.5 mg/dL (8.5-10.1)
[2017-02-06 11:53] LABS: ANION GAP 6 (8-16); CO2 26 mmol/L (21-32); CREATININE 0.5 mg/dL (0.55-1.02); GLUCOSE,RANDOM 106 mg/dL (74-106); PHOSPHOROUS 3.1 mg/dL (2.5-4.9)
[2017-02-06 15:09] VITALS: BP 106/75; PULSE 76; TEMP 98.2
--- NOTE | 2017-02-06 15:09 | PN ---
Progress Note (short form) - Note Progress Note: Pt seen with Dr. Brown today. Her headache has improved. Last dressing changed yesterday after noon. Vital Signs Period Temp Pulse Resp BP Sys/Cook Pulse Ox Last 24 Hr 98.3 F-98.6 F 74-82 18-20 100-125/60-79 97 GEN: Appears comfortable, sitting upright at edge of bed eating lunch. Back: Incision dressing changed. Dressing dry, small to scant(dime sized) to superior aspect. No erythema, kelly intact. No bulging to the incision/skin. Dermabond and aquacel dressing reapplied. CBC, BMP 02/06/17 11:13 02/06/17 11:13 A/P: 46 yo female s/p exploration of spinal fusion with removal of hardware and reoperative L4/5 laminectomies with L3/4 laminectomies and transforaminal interbody cage and L3/5 PSF and repair of pseudomeningocele with bilateral soft tissue advancement flaps She remains afebrile with normal WBC count D/w Dr. Brown and plan is for discharge to home today, script given for pain medications, she has been tolerating oxycodone. The patient can continue iron and folic acid, stool softners over the counter Dressing care instruction and follow-up care completed
== END 2017-02-06 15:52 | disposition home or self-care (01) | DRG 455 ==
LOC: JSAMEDAYSX 11:36 → EDSTATUS 13:00 → J8W 21:41
PROVIDERS: ADMIT Neurological Surgery; ATTEND Neurological Surgery
PROC: 0SG1071 Fusion of 2 or more Lumbar Vertebral Joints with Autologous Tissue Substitute, Posterior Approach, Posterior Column, Open Approach (ICD-10-PCS; 2017-01-31)
PROC: 0SP20JZ Removal of Synthetic Substitute from Lumbar Vertebral Disc, Open Approach (ICD-10-PCS; 2017-01-31)
PROC: 00QT0ZZ Repair Spinal Meninges, Open Approach (ICD-10-PCS; 2017-01-31)
PROC: 0SB20ZZ Excision of Lumbar Vertebral Disc, Open Approach (ICD-10-PCS; 2017-01-31)
PROC: 0HX6XZZ Transfer Back Skin, External Approach (ICD-10-PCS; 2017-01-31)
PROC: 0SG10AJ Fusion of 2 or more Lumbar Vertebral Joints with Interbody Fusion Device, Posterior Approach, Anterior Column, Open Approach (ICD-10-PCS; principal; 2017-01-31 13:00)
DX: M51.26 Other intervertebral disc displacement, lumbar region (principal); M48.061 Spinal stenosis, lumbar region without neurogenic claudication; G96.19 Other disorders of meninges, not elsewhere classified; M47.896 Other spondylosis, lumbar region; R50.9 Fever, unspecified; R51 Headache; I10 Essential (primary) hypertension; M54.2 Cervicalgia; E87.6 Hypokalemia; D64.9 Anemia, unspecified; K59.09 Other constipation
CPT/HCPCS: 36415; 71010-TC; 72131-TC; 76000-TC; 80048; 81003; 81015; 83735; 84100; 84703; 85025; 85027; 86850; 86900; 86901; 87040; 87086; 88304-TC; 94760; 97116-GP; 97161-GP; J1644

== ENCOUNTER 2017-03-16 11:49 | Inpatient (IN) | payer OTHER ==
--- NOTE | 2017-03-16 13:27 | PDOC ---
History of Present Illness <Stacy Ball - Last Filed: 03/16/17 16:38> <Tim Turner - Last Filed: 03/16/17 18:57> - General History Source: Patient Exam Limitations: No Limitations - History of Present Illness Initial Comments: 03/16/17 13:15 46 yr female with neck pressure for one month after having neck surgery on 01/31. sent to ER by for ct head. Pt denies fever or any trauma. <Chanel Kimball - Last Filed: 03/20/17 15:00> - General Chief Complaint: Head/Neck problem Stated Complaint: NECK PRESSURE Time Seen by Provider: 03/16/17 12:24 Past History <Stacy Ball - Last Filed: 03/16/17 16:38> <Tim Turner - Last Filed: 03/16/17 18:57> - Past Medical History Anemia: No Asthma: No Cancer: No Cardiac Disorders: No CVA: No COPD: No CHF: No Dementia: No Diabetes: No GI Disorders: No Disorders: No HTN: Yes Hypercholesterolemia: No Liver Disease: No Seizures: No Thyroid Disease: No - Surgical History Abdominal Surgery: No Appendectomy: No Cardiac Surgery: No Cholecystectomy: No Lung Surgery: No Neurologic Surgery: Yes (BACK SURGERIES/neck surgery ) Orthopedic Surgery: No - Suicide/Smoking/Psychosocial Hx Smoking History: Never smoked Have you smoked in the past 12 months: No Hx Alcohol Use: Yes (OCCASIONAL) Drug/Substance Use Hx: No Substance Use Type: Alcohol Hx Substance Use Treatment: No <Chanel Kimball - Last Filed: 03/20/17 15:00> - Past Medical History Allergies/Adverse Reactions: Allergies Allergy/AdvReac Type Severity Reaction Status Date / Time codeine Allergy Severe Itching Verified 03/16/17 12:05 Home Medications: Ambulatory Orders Oxycodone HCl/Acetaminophen [Percocet 5-325 mg Tablet] 1 - 2 tab PO Q4H PRN #30 tablet MDD 8 02/06/17 Review of Systems - Review of Systems Able to Perform ROS?: Yes Is the patient limited Luxembourgish proficient: No Constitutional: No: Symptoms Reported HEENTM: No: Symptoms Reported Respiratory: No: Symptoms reported Cardiac (ROS): No: Symptoms Reported ABD/GI: No: Symptoms Reported Musculoskeletal: Yes: Symptoms Reported <Chanel Kimball - Last Filed: 03/20/17 15:00> *Physical Exam - Vital Signs Last Vital Signs Temp Pulse Resp BP Pulse Ox 98.7 F 77 19 103/69 100 03/16/17 12:05 03/16/17 12:05 03/16/17 12:05 03/16/17 12:05 03/16/17 12:05 <Stacy Ball - Last Filed: 03/16/17 16:38> - Vital Signs Last Vital Signs Temp Pulse Resp BP Pulse Ox 98.7 F 77 19 103/69 100 03/16/17 12:05 03/16/17 12:05 03/16/17 12:05 03/16/17 12:05 03/16/17 12:05 <Tim Turner - Last Filed: 03/16/17 18:57> - Vital Signs Last Vital Signs Temp Pulse Resp BP Pulse Ox 98.7 F 77 19 103/69 100 03/16/17 12:05 03/16/17 12:05 03/16/17 12:05 03/16/17 12:05 03/16/17 12:05 - Physical Exam General Appearance: Yes: Nourished, Other (appears uncomfortable ) HEENT: positive: EOMI, RANDELL, Normal ENT Inspection, TMs Normal, Pharynx Normal Neck: positive: Supple, Decreased range of motion, Tender midline Respiratory/Chest: positive: Lungs Clear, Normal Breath Sounds. negative: Chest Tender Cardiovascular: positive: Regular Rhythm, Regular Rate <Chanel Kimball - Last Filed: 03/20/17 15:00> ED Treatment Course - LABORATORY CBC & Chemistry Diagram: 03/16/17 16:00 03/16/17 16:00 - ADDITIONAL ORDERS Additional order review: Laboratory Results 03/16/17 01:45 Urine HCG, Qual Negative <Stacy Ball - Last Filed: 03/16/17 16:38> - LABORATORY CBC & Chemistry Diagram: 03/16/17 16:00 03/16/17 16:00 - ADDITIONAL ORDERS Additional order review: Laboratory Results 03/16/17 01:45 Urine HCG, Qual Negative - Medications Given in the ED: ED Medications Discontinued Medications Generic Name Dose Route Start Last Admin Trade Name Freq PRN Reason Stop Dose Admin Dexamethasone Sodium Phosphate 4 mg 03/16/17 15:17 03/16/17 15:50 Decadron Injection - IVPUSH 03/16/17 15:18 4 mg ONCE ONE Administration <Tim Turner - Last Filed: 03/16/17 18:57> - LABORATORY CBC & Chemistry Diagram: 03/19/17 06:00 03/20/17 06:00 <Chanel Kimball - Last Filed: 03/20/17 15:00> Medical Decision Making - Medical Decision Making 03/16/17 15:32 Dr. 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 Second page was placed at 16:38. <Stacy Ball - Last Filed: 03/16/17 16:38> - Medical Decision Making 03/16/17 18:[address] Martinez. Plan is or tomorrow for decompression of subdural hematoma Patient admitted to care of Dr. hanna. Preoperative labs have been ordered. Type and screen has been ordered. Patient made nothing by mouth. Patient updated on plan, all findings discussed at length with patient <Tim Turner - Last Filed: 03/16/17 18:57> - Medical Decision Making 03/16/17 13:28 cc: neck pain pressure for one month with intermittent headache no fever, denies any foreign travel or trauma in ER examined pt, would like head CT non contrast. pt to give urine and the ct if negative pt took percocet at home without relief 03/16/17 15:27 ct has been resulted and reviewed with , discussed on the phone, he will come see pt and admit her Pt transfered to the Main ER and endorsed to who will assume care in ED. <Chanel Kimball - Last Filed: 03/20/17 15:00> *DC/Admit/Observation/Transfer <Stacy Ball - Last Filed: 03/16/17 16:38> - Discharge Dispostion Admit: Yes <Tim Turner - Last Filed: 03/16/17 18:57> <Chanel Kimball - Last Filed: 03/20/17 15:00> Diagnosis at time of Disposition: Subdural hematoma - Discharge Dispostion Condition at time of disposition: Stable
[2017-03-16] MEDS ORDERED: DEXAMETHASONE SOD PHOSPHATE 4 MG/1 ML VIAL IVPUSH ONE (15:17)
[2017-03-16] MEDS ORDERED: DEXAMETHASONE SOD PHOSPHATE 4 MG/1 ML VIAL ONE (15:51)
[2017-03-16 16:20] LABS: BASO % 0.6 % (0-2.0); EOS % 1.3 % (0-4.5); HEMATOCRIT 33.3 % (32.4-45.2); HEMOGLOBIN 11.2 GM/dL (10.7-15.3); LYMPH % 23.4 % (8-40); MCH 31.5 pg (25.7-33.7); MCHC 33.5 g/dl (32.0-36.0); MEAN CELL VOLUME 94.1 fl (80-96); MEAN PLT VOLUME 8.2 fl (7.5-11.1); MONO % 9.6 % (3.8-10.2); NEUT % 65.1 % (42.8-82.8); PLATELET COUNT 403 K/MM3 (134-434); RBC 3.54 M/mm3 (3.60-5.2); WHITE BLOOD COUNT 3.5 K/mm3 (4.0-10.0)
[2017-03-16 16:43] LABS: INR 0.99 (0.82-1.09); PROTHROMBIN TIME (PATIENT) 11.2 SEC (9.98-11.88)
[2017-03-16 16:46] LABS: ACTIVATED PTT 23.8 SECONDS (26.9-34.4)
[2017-03-16 16:59] LABS: ALBUMIN 4.3 g/dl (3.4-5.0); ANION GAP 7 (8-16); BLOOD UREA NITROGEN 12 mg/dL (7-18); CALCIUM 9.2 mg/dL (8.5-10.1); CHLORIDE 106 mmol/L (98-107); CO2 26 mmol/L (21-32); CREATININE 0.6 mg/dL (0.55-1.02); GLUCOSE,RANDOM 100 mg/dL (74-106); POTASSIUM 3.3 mmol/L (3.5-5.1); SGOT/AST 10 U/L (15-37); SGPT/ALT 19 U/L (12-78); SODIUM 139 mmol/L (136-145)
[2017-03-16 17:01] LABS: ALK PHOS 91 U/L (45-117); BILIRUBIN,TOTAL 0.6 mg/dL (0.2-1.0); TOT PROT 8.8 g/dl (6.4-8.2)
--- NOTE | 2017-03-16 17:04 | PDOC ---
*Physical Exam - Vital Signs Last Vital Signs Temp Pulse Resp BP Pulse Ox 98.7 F 77 19 103/69 100 03/16/17 12:05 03/16/17 12:05 03/16/17 12:05 03/16/17 12:05 03/16/17 12:05 ED Treatment Course - LABORATORY CBC & Chemistry Diagram: 03/16/17 16:00 03/16/17 16:00 - ADDITIONAL ORDERS Additional order review: Laboratory Results 03/16/17 03/16/17 16:00 01:45 PT with INR 11.20 INR 0.99 PTT (Actin FS) 23.8 L Urine HCG, Qual Negative 03/16/17 16:00 RBC 3.54 L D MCV 94.1 MCHC 33.5 RDW 13.0 MPV 8.2 Neutrophils % 65.1 Lymphocytes % 23.4 D Monocytes % 9.6 Eosinophils % 1.3 Basophils % 0.6 - Medications Given in the ED: ED Medications Discontinued Medications Generic Name Dose Route Start Last Admin Trade Name Freq PRN Reason Stop Dose Admin Dexamethasone Sodium Phosphate 4 mg 03/16/17 15:17 03/16/17 15:50 Decadron Injection - IVPUSH 03/16/17 15:18 4 mg ONCE ONE Administration Medical Decision Making - Medical Decision Making 03/16/17 17:02 Subdural hematoma which shift. Patient complaining of headache. Otherwise neurovascularly intact Case discussed with surgery. Plan is for operating room tomorrow morning Decadron IV given. Coags screening ordered. Patient made nothing by mouth. Doctor Yonny to admit patient *DC/Admit/Observation/Transfer Diagnosis at time of Disposition: Subdural hematoma - Discharge Dispostion Condition at time of disposition: Stable Decision to Admit order Date/Time: Decision to Admit Order Category Date Time Status Decision to Admit to Hospital Routine Admission 03/16/17 16:44 Active - Referrals Referrals: Kimo Brown MD, [facility] [Staff Physician] - Kacey Estrada MD [Primary Care Provider] - - Patient Instructions - Post Discharge Activity
--- NOTE | 2017-03-16 19:29 | HP ---
Admitting History and Physical - Admission Chief Complaint: headache History of Present Illness: 46 y/o female s/p lumbar laminectomy 01/29/17--who developed post up headache which has persisted since discharge. She was referred for repeat CT of head by NS, done today which reviled subdural hematoma. Patient was referred to ER for further evaluation.- She shows no neurological deficits, only complaint of headache. NS to evacuate subdural in am. 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) ...LMP: 01/29/17 - Past Surgical History Past Surgical History: Yes: Laminectomy - Smoking History Smoking history: Never smoked Have you smoked in the past 12 months: No - Alcohol/Substance Use Hx Alcohol Use: Yes (OCCASIONAL) History of Substance Use: reports: None - Social History Usual Living Arrangement: Yes: With Spouse ADL: Independent History of Recent Travel: No Home Medications - Allergies Allergies/Adverse Reactions: Allergies Allergy/AdvReac Type Severity Reaction Status Date / Time codeine Allergy Severe Itching Verified 03/16/17 12:05 - Home Medications Home Medications: Ambulatory Orders Oxycodone HCl/Acetaminophen [Percocet 5-325 mg Tablet] 1 - 2 tab PO Q4H PRN #30 tablet MDD 8 02/06/17 Review of Systems - Review of Systems Constitutional: reports: No Symptoms Eyes: reports: No Symptoms HENT: reports: No Symptoms Neck: reports: No Symptoms Cardiovascular: reports: No Symptoms Respiratory: reports: No Symptoms Gastrointestinal: reports: No Symptoms Genitourinary: reports: No Symptoms Breasts: reports: No Symptoms Reported Musculoskeletal: reports: No Symptoms Integumentary: reports: No Symptoms Neurological: reports: Headache Endocrine: reports: No Symptoms Hematology/Lymphatic: reports: No Symptoms Psychiatric: reports: No Symptoms Physical Examination Vital Signs: Vital Signs Temperature 98.7 F 03/16/17 12:05 Pulse Rate 82 03/16/17 17:48 Respiratory Rate 19 03/16/17 12:05 Blood Pressure 127/83 03/16/17 17:48 O2 Sat by Pulse Oximetry (%) 100 03/16/17 12:05 Constitutional: Yes: Well Nourished, No Distress (bearly able to move her head due to pain orhostatic changes aggravate symptoms), Moderate Distress Eyes: Yes: Conjunctiva Clear, EOM Intact HENT: Yes: Atraumatic Neck: Yes: Supple, Trachea Midline Cardiovascular: Yes: Regular Rate and Rhythm Respiratory: Yes: Regular, CTA Bilaterally, Diminished, Hyperresonant Gastrointestinal: Yes: Normal Bowel Sounds, Soft ...Rectal Exam: Yes: Deferred Renal/: Yes: WNL Breast(s): Yes: WNL Musculoskeletal: Yes: WNL Extremities: Yes: WNL Edema: No Peripheral Pulses: Left Radial: 2+, Right Radial: 2+, Left Doralis Pedis: 2+, Right Dorsalis Pedis: 2+, Left Femoral: 2+, Right Femoral: 2+ Integumentary: Yes: WNL Wound/Incision: Yes: Clean/Dry, Well Approximated Neurological: Yes: Alert, Oriented ...Motor Strength: WNL Labs: CBC, BMP 03/16/17 16:00 03/16/17 16:00 Problem List - Problems (1) Subdural hematoma Assessment/Plan: CT with subdural hematoma Neurosurgical consult for evacuation in am NPO after midnight Iv fluids over night labs / coags / ekg Code(s): I62.00 - NONTRAUMATIC SUBDURAL HEMORRHAGE, UNSPECIFIED
[2017-03-16] MEDS ORDERED: ACETAMINOPHEN 1000 MG/100 ML VIAL (NON FORMULARY) IVPB ONE (20:24)
[2017-03-16] MEDS ORDERED: ACETAMINOPHEN INJECTION 100 ML IVPB ONE (20:26)
[2017-03-16] MEDS ORDERED: POTASSIUM CHLORIDE TABS 20 MEQ TABLET.ER (FP) PO ONE ×2 (20:26→20:30)
[2017-03-16] MEDS ORDERED: DEXTROSE 5%-0.45% SALINE 1,000 ML IV SCH (23:00)
[2017-03-17 08:17] LABS: ANION GAP 9 (8-16); BLOOD UREA NITROGEN 14 mg/dL (7-18); CALCIUM 8.6 mg/dL (8.5-10.1); CHLORIDE 109 mmol/L (98-107); CO2 21 mmol/L (21-32); CREATININE 0.5 mg/dL (0.55-1.02); GLUCOSE,RANDOM 103 mg/dL (74-106); MAGNESIUM 1.9 mg/dL (1.8-2.4); POTASSIUM 3.6 mmol/L (3.5-5.1); SODIUM 139 mmol/L (136-145)
[2017-03-17 08:23] LABS: PROTHROMBIN TIME (PATIENT) 11.3 SEC (9.98-11.88)
[2017-03-17 08:26] LABS: ACTIVATED PTT 23.6 SECONDS (26.9-34.4)
[2017-03-17 08:34] LABS: HEMATOCRIT 30.4 % (32.4-45.2); HEMOGLOBIN 10.1 GM/dL (10.7-15.3); MCH 31.4 pg (25.7-33.7); MCHC 33.3 g/dl (32.0-36.0); MEAN CELL VOLUME 94.1 fl (80-96); MEAN PLT VOLUME 8.2 fl (7.5-11.1); PLATELET COUNT 355 K/MM3 (134-434); RBC 3.23 M/mm3 (3.60-5.2); RDW 12.7 % (11.6-15.6); WHITE BLOOD COUNT 3.3 K/mm3 (4.0-10.0)
[2017-03-17] MEDS ORDERED: LIDOCAINE 1%/EPI 1:100000 (20 ML MULTI DOSE VIAL) ONE (09:27)
[2017-03-17] MEDS ORDERED: THROMBIN (BOVINE) 5,000 UNIT VIAL TP ONE ×2 (09:27→11:19)
[2017-03-17] MEDS ORDERED: ROCURONIUM BROMIDE 50 MG/5 ML VIAL ONE (10:55)
[2017-03-17] MEDS ORDERED: PROPOFOL 20 ML ONE (10:55)
[2017-03-17] MEDS ORDERED: LIDOCAINE HCL/PF 2% SDV 5ML VIAL ONE (10:55)
[2017-03-17] MEDS ORDERED: ceFAZolin SODIUM 1 GM VIAL IVPB ONE (11:14)
[2017-03-17] MEDS ORDERED: LIDOCAINE 1%/EPI 1:100000 (20 ML MULTI DOSE VIAL) INF ONE (11:19)
[2017-03-17] MEDS ORDERED: GLYCOPYRROLATE 0.2 MG/1 ML VIAL ONE ×2 (11:38)
[2017-03-17] MEDS ORDERED: KETOROLAC TROMETHAMINE 30 MG/1 ML VIAL ONE (11:38)
[2017-03-17] MEDS ORDERED: DEXAMETHASONE SOD PHOSPHATE 4 MG/1 ML VIAL ONE (11:38)
[2017-03-17] MEDS ORDERED: ONDANSETRON 4 MG/2 ML VIAL ONE (11:38)
[2017-03-17] MEDS ORDERED: NEOSTIGMINE METHYLSULFATE 0.5 MG/ML - 10 ML MDV ONE (11:38)
[2017-03-17] MEDS ORDERED: PROMETHAZINE HCL 25 MG/1 ML VIAL IVPUSH PRN (11:53)
[2017-03-17] MEDS ORDERED: ONDANSETRON 4 MG/2 ML VIAL IVPUSH PRN (11:53)
[2017-03-17] MEDS ORDERED: LACTATED RINGERS SOLUTION 1,000 ML IV SCH (12:00)
--- NOTE | 2017-03-17 17:00 | EKG ---
Test Reason : Blood Pressure : / mmHG Vent. Rate : 080 BPM Atrial Rate : 080 BPM P-R Int : 168 ms QRS Dur : 078 ms QT Int : 412 ms P-R-T Axes : 086 049 051 degrees QTc Int : 475 ms NORMAL SINUS RHYTHM NORMAL ECG NO PREVIOUS ECGS AVAILABLE Confirmed by SHELIA REDMOND MD ([id number]) on 03/17/2017 5:00:19 PM Referred By: Confirmed By:SHELIA REDMOND MD
--- NOTE | 2017-03-17 17:27 | PN ---
Progress Note (short form) - Note Progress Note: PostOp today Sitting up in bed tolerating PO liquids well significantly improved headache able to move her head laterally without pain No neurological deficitis Vital Signs Period Temp Pulse Resp BP Sys/Cook Pulse Ox Last 24 Hr 97.8 F-98.7 F 66-106 16-28 112-145/59-100 97-100 scalp dressing to parietal area no facial asymmetry neck supple heart S1/S2 reg lungs clear bilat abd soft non tender ext no edema / FROM CBC, BMP 03/17/17 06:00 03/17/17 06:00 s/p evacuation of subdural resolution of most of her symptoms continue to monitor pain management as needed Problem List - Problems (1) Subdural hematoma Code(s): I62.00 - NONTRAUMATIC SUBDURAL HEMORRHAGE, UNSPECIFIED
[2017-03-17] MEDS: oxyCODONE HCL 5 MG TABLET PO PRN (19:30)
[2017-03-17] MEDS: ACETAMINOPHEN 325 MG TABLET (FP) PO PRN ×2 (19:31→21:13)
[2017-03-18] MEDS: oxyCODONE HCL 5 MG TABLET PO PRN ×5 (00:11→22:49)
[2017-03-18] MEDS: ACETAMINOPHEN 325 MG TABLET (FP) PO PRN ×6 (00:13→22:48)
--- NOTE | 2017-03-18 10:30 | PN ---
Progress Note (short form) - Note Progress Note: pt day #1 s/p evacuation of subdural hematoma. Doing well, resting comfortably. Continue current care
--- NOTE | 2017-03-18 12:40 | PN ---
Progress Note (short form) - Note Progress Note: seen and examined in room per RN severe headaches last night emergent CT of head done today NS follow up this am now on 100% NRB still with headache / in bed mild -mod distress 2/2 to headache Vital Signs Period Temp Pulse Resp BP Sys/Cook Pulse Ox Last 24 Hr 97.7 F-98.9 F 52-75 18-20 119-152/67-84 100-100 in Bed in position mask in place neck + pain on movement heart reg S1/S2 lungs clear bilat abd soft on tender ext no edema / calf tenderness CBC, BMP 03/17/17 06:00 03/17/17 06:00 s/p evacuation of subdural resolution on back pain / now with severe BRUNO repeat CT done discussed with NS 100% NRB continue to monitor pain management as needed Problem List - Problems (1) Subdural hematoma Code(s): I62.00 - NONTRAUMATIC SUBDURAL HEMORRHAGE, UNSPECIFIED
[2017-03-19] MEDS: oxyCODONE HCL 5 MG TABLET PO PRN ×3 (05:33→19:38)
[2017-03-19] MEDS: ACETAMINOPHEN 325 MG TABLET (FP) PO PRN ×3 (05:34→19:39)
[2017-03-19 07:56] LABS: BASO % 0.5 % (0-2.0); HEMOGLOBIN 10.4 GM/dL (10.7-15.3); LYMPH % 18.6 % (8-40); MCH 31.3 pg (25.7-33.7); MCHC 33.7 g/dl (32.0-36.0); MEAN PLT VOLUME 8.6 fl (7.5-11.1); MONO % 12.5 % (3.8-10.2); NEUT % 62.4 % (42.8-82.8); PLATELET COUNT 315 K/MM3 (134-434); RBC 3.34 M/mm3 (3.60-5.2); RDW 12.7 % (11.6-15.6); WHITE BLOOD COUNT 5.5 K/mm3 (4.0-10.0)
[2017-03-19 08:21] LABS: ANION GAP 10 (8-16); BLOOD UREA NITROGEN 7 mg/dL (7-18); CALCIUM 8.8 mg/dL (8.5-10.1); CHLORIDE 103 mmol/L (98-107); CO2 26 mmol/L (21-32); CREATININE 0.4 mg/dL (0.55-1.02); GLUCOSE,RANDOM 98 mg/dL (74-106); POTASSIUM 3.1 mmol/L (3.5-5.1); SODIUM 139 mmol/L (136-145)
--- NOTE | 2017-03-19 08:40 | PN ---
Progress Note (short form) - Note Progress Note: Patient resting in bed. When awakened, patient complains of headache, which she feels is somewhat better. She was doing extremely well after drainage of Left Subdural Hygroma on Sunday, however, overnight developed significant headaches which she describes as "pressure." CT done yesterday demonstrates no acute blood and some persisting air. Patient placed on 100% Oxygen with non- rebreather to help quench the Nitrogen in this collection and patient indicates that it does help. Patient also with partial response to Percocet 10/325. PLAN -continue supportive care with 100% Oxygen -will follow exam -Repeat CT planned for Sunday (March 20, 2017)
--- NOTE | 2017-03-19 11:21 | PN ---
Progress Note (short form) - Note Progress Note: seen and examined in room persistent headache although clinically appears more comfortable continues with NRB case discussed with NS yesterday further explained to patient Vital Signs Period Temp Pulse Resp BP Sys/Cook Pulse Ox Last 24 Hr 97.7 F-98.9 F 52-75 18-20 119-152/67-84 100-100 in Bed HOB elevated mask in place heart reg S1/S2 lungs clear bilat abd soft on tender ext no edema / calf tenderness CBC, BMP 03/19/17 06:00 03/19/17 06:00 s/p evacuation of subdural Headaches post op clinically improved continue with 100% NRB HypoKalemia replace PO CK MAG Problem List - Problems (1) Subdural hematoma Code(s): I62.00 - NONTRAUMATIC SUBDURAL HEMORRHAGE, UNSPECIFIED
[2017-03-19] MEDS: POTASSIUM CHLORIDE TABS 20 MEQ TABLET.ER (FP) PO SCH ×2 (12:31→21:14)
[2017-03-20] MEDS: oxyCODONE HCL 5 MG TABLET PO PRN ×3 (00:24→20:05)
[2017-03-20] MEDS: ACETAMINOPHEN 325 MG TABLET (FP) PO PRN ×3 (00:25→20:06)
[2017-03-20 08:04] LABS: ANION GAP 8 (8-16); BLOOD UREA NITROGEN 9 mg/dL (7-18); CALCIUM 8.6 mg/dL (8.5-10.1); CHLORIDE 107 mmol/L (98-107); CO2 24 mmol/L (21-32); GLUCOSE,RANDOM 86 mg/dL (74-106); POTASSIUM 4.2 mmol/L (3.5-5.1); SODIUM 139 mmol/L (136-145)
[2017-03-20 08:05] LABS: CREATININE 0.4 mg/dL (0.55-1.02); MAGNESIUM 2.1 mg/dL (1.8-2.4)
--- NOTE | 2017-03-20 10:29 | PN ---
Progress Note (short form) - Note Progress Note: seen and examined in room persistent headache although clinically appears improved continues with NRB c/o constipation discussed care with RN Vital Signs Period Temp Pulse Resp BP Sys/Cook Pulse Ox Last 24 Hr 97.7 F-98.9 F 52-75 18-20 119-152/67-84 100-100 in Bed HOB elevated mask in place heart reg S1/S2 lungs clear bilat abd soft on tender ext no edema / calf tenderness / FROM motor / sensory intact CBC, BMP 03/19/17 06:00 03/20/17 06:00 # s/p evacuation of subdural Headaches post op clinically improved continue with 100% NRB # constipation miralax colace further management per NS Problem List - Problems (1) Subdural hematoma Code(s): I62.00 - NONTRAUMATIC SUBDURAL HEMORRHAGE, UNSPECIFIED
[2017-03-20] MEDS: POTASSIUM CHLORIDE TABS 20 MEQ TABLET.ER (FP) PO SCH (10:38)
[2017-03-20] MEDS: POLYETHYLENE GLYCOL 3350 119 GM BTL PO SCH ×2 (10:38→23:06)
[2017-03-20] MEDS: DOCUSATE SODIUM 100 MG CAPSULE (FP) PO SCH ×2 (10:40→23:06)
--- NOTE | 2017-03-20 11:06 | PN ---
Progress Note (short form) - Note Progress Note: Patient resting comfortably and when asked how she is feeling, states: "I'm much better." She is declining pain medication since she feels that she is improving. Dressing clean, dry and intact. Lumbar wound is well healed and flat, however, the patient reports that she noted swelling when she went to the bathroom. PLAN -continue supportive care -abdominal binder with foam over Lumbar wound to reduce possible pseudomeningocele filling upon standing/exertion which may be contributing to intermittent low pressure (ICP). -GI/DVT prophylaxis -Will evaluate in AM and consider repeat CT. If patient continues to improve, she may be ready for discharge soon
[2017-03-21] MEDS: oxyCODONE HCL 5 MG TABLET PO PRN ×5 (00:13→22:28)
[2017-03-21] MEDS: ACETAMINOPHEN 325 MG TABLET (FP) PO PRN ×4 (00:13→18:44)
[2017-03-21] MEDS: POLYETHYLENE GLYCOL 3350 119 GM BTL PO SCH ×2 (10:47→21:27)
[2017-03-21] MEDS: DOCUSATE SODIUM 100 MG CAPSULE (FP) PO SCH ×2 (10:48→21:28)
--- NOTE | 2017-03-21 11:53 | PN ---
Progress Note (short form) - Note Progress Note: seen and examined in room persistent headache seems worse today continues with NRB constipation resolved discussed care with RN Vital Signs Period Temp Pulse Resp BP Sys/Cook Pulse Ox Last 24 Hr 97.7 F-98.9 F 52-75 18-20 119-152/67-84 100-100 in Bed HOB elevated mask in place heart reg S1/S2 lungs clear bilat abd soft on tender ext no edema / calf tenderness / FROM motor / sensory intact CBC, BMP 03/19/17 06:00 03/20/17 06:00 # s/p evacuation of subdural Headaches post op continue with 100% NRB agree with repeat CT of head today # constipation - resolved miralax colace further management per NS Problem List - Problems (1) Subdural hematoma Code(s): I62.00 - NONTRAUMATIC SUBDURAL HEMORRHAGE, UNSPECIFIED
--- NOTE | 2017-03-21 12:17 | PN ---
Progress Note (short form) - Note Progress Note: POD #4 46 y/o female s/p lumbar laminectomy 01/29/17--who developed post up headache which has persisted since discharge. Now s/p drainage of subdural hyfroma. She continues to c/o BRUNO which has progressively gotten worse since I examined her yesterday. States bright lights make it worse. Unable to get out of supine position secondary to pain. If she tries to stand it increases the BRUNO. Denies n/v Last Vital Signs Temp Pulse Resp BP Pulse Ox 98.3 F 61 20 125/76 100 03/21/17 05:35 03/21/17 05:35 03/21/17 05:35 03/21/17 05:35 03/20/17 21:00 Problem List - Problems (1) Subdural hematoma Assessment/Plan: Recommend HEAD CT Medical management Above discussed with Dr. Brown and agrees Code(s): I62.00 - NONTRAUMATIC SUBDURAL HEMORRHAGE, UNSPECIFIED
[2017-03-21] MEDS ORDERED: ACETAMINOPHEN 325 MG TABLET (FP) PO PRN (21:19)
[2017-03-22] MEDS ORDERED: VANCOMYCIN 1,000 MG VIAL (RESTRICTED TO ID ONLY) IVPB ONE
[2017-03-22 07:27] LABS: BASO % 1.2 % (0-2.0); EOS % 2.4 % (0-4.5); HEMATOCRIT 31.8 % (32.4-45.2); HEMOGLOBIN 10.6 GM/dL (10.7-15.3); LYMPH % 24.4 % (8-40); MCHC 33.3 g/dl (32.0-36.0); MEAN CELL VOLUME 93.1 fl (80-96); MEAN PLT VOLUME 8.6 fl (7.5-11.1); PLATELET COUNT 298 K/MM3 (134-434); RBC 3.41 M/mm3 (3.60-5.2); RDW 12.4 % (11.6-15.6); WHITE BLOOD COUNT 4.1 K/mm3 (4.0-10.0)
[2017-03-22 08:22] LABS: ANION GAP 9 (8-16); BLOOD UREA NITROGEN 7 mg/dL (7-18); CALCIUM 9.2 mg/dL (8.5-10.1); CHLORIDE 101 mmol/L (98-107); CO2 28 mmol/L (21-32); CREATININE 0.5 mg/dL (0.55-1.02); GLUCOSE,RANDOM 103 mg/dL (74-106); POTASSIUM 4.2 mmol/L (3.5-5.1); SODIUM 138 mmol/L (136-145)
[2017-03-22] MEDS: POLYETHYLENE GLYCOL 3350 119 GM BTL PO SCH ×2 (10:00→21:45)
[2017-03-22] MEDS: DOCUSATE SODIUM 100 MG CAPSULE (FP) PO SCH ×2 (10:00→21:45)
[2017-03-22] MEDS ORDERED: GENTAMICIN SO4 80 MG/2 ML VIAL ONE (10:37)
[2017-03-22] MEDS ORDERED: LIDOCAINE 1%/EPI 1:100000 (20 ML MULTI DOSE VIAL) ONE (10:37)
[2017-03-22] MEDS ORDERED: VANCOMYCIN 1,000 MG VIAL (RESTRICTED TO ID ONLY) ONE (10:38)
[2017-03-22] MEDS ORDERED: BUPIVACAINE HCL/PF 0.5% (5MG/ML) 10 ML VIAL ONE (10:38)
[2017-03-22] MEDS ORDERED: THROMBIN (BOVINE) 5,000 UNIT VIAL TP ONE ×3 (10:38→17:29)
[2017-03-22] MEDS ORDERED: CHLORHEXIDINE GLUCONATE 4% CLEANSER FOR DECOLONIZATION TP SCH (11:00)
[2017-03-22] MEDS: ACETAMINOPHEN 325 MG TABLET (FP) PO PRN (12:49)
[2017-03-22] MEDS: oxyCODONE HCL 5 MG TABLET PO PRN ×2 (12:50→22:00)
[2017-03-22] MEDS ORDERED: MIDAZOLAM HCL 2 MG/2 ML SINGLE DOSE VIAL ONE (14:48)
[2017-03-22] MEDS ORDERED: ROCURONIUM BROMIDE 50 MG/5 ML VIAL ONE ×2 (14:48→16:34)
[2017-03-22] MEDS ORDERED: LIDOCAINE HCL/PF 2% SDV 5ML VIAL ONE (14:48)
[2017-03-22] MEDS ORDERED: fentaNYL CITRATE 250 MCG/5 ML VIAL ONE (14:48)
[2017-03-22] MEDS ORDERED: PROPOFOL 20 ML ONE ×2 (14:48)
[2017-03-22] MEDS ORDERED: ceFAZolin SODIUM 1 GM VIAL ONE (15:42)
[2017-03-22] MEDS ORDERED: ONDANSETRON 4 MG/2 ML VIAL ONE (15:43)
[2017-03-22] MEDS ORDERED: DEXAMETHASONE SOD PHOSPHATE 4 MG/1 ML VIAL ONE (15:43)
[2017-03-22] MEDS ORDERED: ceFAZolin SODIUM 1 GM VIAL IVPB ONE ×2 (15:55)
[2017-03-22] MEDS ORDERED: LIDOCAINE 1%/EPI 1:100000 (50 ML MULTI DOSE VIAL) INF ONE ×2 (16:05)
[2017-03-22] MEDS ORDERED: NEOSTIGMINE METHYLSULFATE 0.5 MG/ML - 10 ML MDV ONE (17:54)
[2017-03-22] MEDS ORDERED: ONDANSETRON 4 MG/2 ML VIAL IVPUSH PRN (18:54)
[2017-03-22] MEDS ORDERED: LACTATED RINGERS SOLUTION 1,000 ML IV SCH (19:00)
--- NOTE | 2017-03-22 19:04 | OP ---
Operative Note - Note: Operative Date: 03/22/17 Pre-Operative Diagnosis: Arachnoid cyst Operation: Left craniotomy and fenestration or arachnoid cyst. Post-Operative Diagnosis: Same as Pre-op Surgeon: Kimo Brown Skeins Yarn Examiner: Kelly Chavez Anesthesia: General Specimens Removed: hydroma membrane Estimated Blood Loss (mls): 100 Drains & Tubes with Location: Size 7 TOMASA Fluid Volume Replaced (mls): 900 Operative Report Dictated: Yes
--- NOTE | 2017-03-22 19:08 | SURG ---
Surgery Bat Boy/Girl Note Bat Boy/Girl: Kelly Chavez PA-C Date of Service: 03/22/17 Diagnosis: arachnoid cyst Procedure: left craniotomy and fenestration of arachnoid cyst I was present for the entirety of the operative procedure. For further detail, please refer to operative report. Visit type - Case Type Case Type: ED Admission - Emergency Emergency Visit: Yes ED Registration Date: 03/16/17 Care time: The patient presented to the Emergency Department on the above date and was hospitalized for further evaluation of their emergent condition. - New patient This patient is new to me today: Yes Date on this admission: 03/22/17
[2017-03-22] MEDS ORDERED: ACETAMINOPHEN 1000 MG/100 ML VIAL (NON FORMULARY) IVPB ONE (19:16)
[2017-03-22] MEDS: LACTATED RINGERS SOLUTION 1,000 ML/1,000 ML INFUS.BAG IV SCH ×2 (19:45→21:44)
[2017-03-22] MEDS: MUPIROCIN 2% TOPICAL OINTMENT FOR DECOLONIZATION NS SCH (21:44)
[2017-03-22] MEDS: CHLORHEXIDINE GLUCONATE 4% CLEANSER FOR DECOLONIZATION TP SCH (21:45)
[2017-03-22 21:55] LABS: HEMATOCRIT 29.8 % (32.4-45.2); HEMOGLOBIN 9.9 GM/dL (10.7-15.3); MCH 30.9 pg (25.7-33.7); MCHC 33.2 g/dl (32.0-36.0); MEAN CELL VOLUME 93.3 fl (80-96); MEAN PLT VOLUME 8.5 fl (7.5-11.1); PLATELET COUNT 315 K/MM3 (134-434); RDW 12.3 % (11.6-15.6); WHITE BLOOD COUNT 5.9 K/mm3 (4.0-10.0)
[2017-03-22 22:35] LABS: ALBUMIN 3.3 g/dl (3.4-5.0); ANION GAP 6 (8-16); BILIRUBIN,TOTAL 0.5 mg/dL (0.2-1.0); BLOOD UREA NITROGEN 10 mg/dL (7-18); CALCIUM 8.5 mg/dL (8.5-10.1); CHLORIDE 103 mmol/L (98-107); CO2 27 mmol/L (21-32); CREATININE 0.6 mg/dL (0.55-1.02); GLUCOSE,RANDOM 113 mg/dL (74-106); POTASSIUM 4.5 mmol/L (3.5-5.1); SGOT/AST 16 U/L (15-37); SGPT/ALT 29 U/L (12-78); SODIUM 136 mmol/L (136-145); TOT PROT 7.5 g/dl (6.4-8.2)
[2017-03-22 22:36] LABS: ALK PHOS 87 U/L (45-117)
--- NOTE | 2017-03-22 23:04 | CONSULT ---
Consult Consult Specialty:: PULM/CCM Referred by:: Dr. Kacey Estrada Reason for Consultation:: SDH now s/p Crani - History of Present Illness Chief Complaint: BRUNO History of Present Illness: Ms. Cabrera is a 46 y/o woman s/p lumbar laminectomy 01/29/17. Pt presents to the ED on 03/16 for a BRUNO (which has persisted since d/c from spinal Sx). NCHCT shows SDH. Pt is is now s/p Left craniotomy and fenestration of arachnoid cyst, extubated, doing well, no neurological deficit. Pt is admitted to the ICU O/N for frequent NEURO checks. 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) ...LMP: 01/29/17 - Past Surgical History Past Surgical History: Yes: Laminectomy - Alcohol/Substance Use Hx Alcohol Use: Yes (OCCASIONAL) History of Substance Use: reports: None - Smoking History Smoking history: Never smoked Have you smoked in the past 12 months: No If you are a former smoker, when did you quit?: 15 yrs ago - Social History ADL: Independent History of Recent Travel: No Home Medications - Allergies Allergies/Adverse Reactions: Allergies Allergy/AdvReac Type Severity Reaction Status Date / Time codeine Allergy Severe Itching Verified 03/16/17 12:05 - Home Medications Home Medications: Ambulatory Orders Oxycodone HCl/Acetaminophen [Percocet 5-325 mg Tablet] 1 - 2 tab PO Q4H PRN #30 tablet MDD 8 02/06/17 Family Disease History - Family Disease History Family History: Unremarkable Review of Systems - Review of Systems Constitutional: reports: Loss of Appetite Eyes: reports: No Symptoms HENT: reports: No Symptoms, Other (BRUNO) Neck: reports: No Symptoms Cardiovascular: reports: No Symptoms Respiratory: reports: No Symptoms Gastrointestinal: denies: Abdominal Pain, Nausea, Vomiting Genitourinary: reports: No Symptoms Breasts: reports: No Symptoms Reported Musculoskeletal: reports: No Symptoms Integumentary: reports: No Symptoms Neurological: reports: Headache Endocrine: reports: No Symptoms Hematology/Lymphatic: reports: No Symptoms Psychiatric: reports: No Symptoms Pain Intensity: 10 Physical Exam Vital Signs: Vital Signs Temperature 98.7 F 03/22/17 21:00 Pulse Rate 68 03/22/17 21:00 Respiratory Rate 12 03/22/17 21:00 Blood Pressure 146/75 03/22/17 21:00 O2 Sat by Pulse Oximetry (%) 100 03/22/17 22:14 Constitutional: Yes: Well Nourished, No Distress, Calm Eyes: Yes: Conjunctiva Clear, EOM Intact HENT: Yes: Other (Carniotomy Bandage.) Cardiovascular: Yes: WNL, Regular Rate and Rhythm Respiratory: Yes: WNL, Regular, CTA Bilaterally Gastrointestinal: Yes: WNL, Normal Bowel Sounds, Soft ...Rectal Exam: Yes: Deferred Renal/: Yes: WNL Breast(s): Yes: WNL, Skin Changes Extremities: Yes: WNL Edema: No Peripheral Pulses WNL: No Integumentary: Yes: Incision, Laceration Wound/Incision: Yes: Clean/Dry, Well Approximated, Sutures Intact, [place] Intact, Dressing Dry and Intact. No: Draining, Reddened, Bleeding, Excoriated Neurological: Yes: WNL, Alert, Oriented ...Motor Strength: WNL Psychiatric: Yes: WNL, Alert, Oriented Labs: CBC, BMP 03/22/17 21:35 03/22/17 21:35 Imaging - Results Chest X-ray: Image Reviewed (CXR 02/05: Imaging reveals clear lungs, prominent mediastinum and sharp angles. The bones and soft tissues are intact. Impression : No acute chest pathology.) Cat Scan: Report Reviewed ([facility] 03/21: 1. Interval reaccumulation of hypoattenuating fluid within the left frontoparietal convexity subdural fluid collection, measuring up to 16 mm in maximum thickness (previously measured up to 7 mm in maximum thickness), most likely a subdural hygroma. Increased mass effects on the left cerebral hemisphere with compression of the left frontoparietal parenchyma, effacement of the left cerebral sulci, partial effacement of the left lateral ventricle and 10 mm left to right midline shift (previously measured up to 4 mm). No hydrocephalus. 2. Approximately 1.2 x 0.8 cm rounded fat attenuation lesion in the right cavernous sinus is presumably an epidermoid. Retrospectively this is similar dating back to 2016 cervical spine MRI.) EKG: Image Reviewed (12-Lead EKG 1/12: RSR in the 80's w/o ectopy, normal axis, no ST or T-wave aberration, QTc = 475ms, no acute process (my Read).) Problem List - Problems (1) Subdural hematoma Code(s): I62.00 - NONTRAUMATIC SUBDURAL HEMORRHAGE, UNSPECIFIED Assessment/Plan ASSESS: This is a 46 y/o woman s/p lumbar laminectomy 01/29/17 c/b SDH, now s/p Left craniotomy and fenestration of arachnoid cyst, extubated, doing well, no neurological deficit. Pt is admitted to the ICU O/N for frequent NEURO checks. PLAN: -Supp FiO2 for an SpO2 > 92% -HOB > 309 -Dressing care a/p NS -Tylenol for mild Post-Op Pain -OXY for mod -IV Dilaudid for breakthrough -IV Labetalol for Breakthrough ZIA control -FSs -Advance Diet a/p NS -Ancef -Zofran -BR -SQH -Pepcid -NS Following -Transfer to NEURO SDU [facility] - ICU 44
[2017-03-22] MEDS ORDERED: HYDROmorphone HCL CARPU-JECT 1 MG/1 ML DISP.SYRIN ONE (23:07)
[2017-03-22] MEDS ORDERED: HYDROmorphone HCL CARPU-JECT 2 MG/1 ML DISP.SYRIN IVPUSH ONE (23:15)
--- NOTE | 2017-03-23 00:26 | PN ---
Progress Note (short form) - Note Progress Note: s/p craniotomy --now in ICU feeling much better alert awake interactive Vital Signs Period Temp Pulse Resp BP Sys/Cook Pulse Ox Last 24 Hr 98.1 F-99.1 F 53-81 10-20 115-165/63-98 100-100 in Bed HOB elevated head dressing in place / drain with bloody d/c neck supple heart reg S1/S2 lungs clear bilat abd soft on tender ext no edema / calf tenderness / FROM motor / sensory intact CBC, BMP 03/22/17 21:35 03/22/17 21:35 # Left craniotomy and fenestration of arachnoid cyst. in ICU monitor status pain management significant clinical improvement further management per NS Problem List - Problems (1) Subdural hematoma Code(s): I62.00 - NONTRAUMATIC SUBDURAL HEMORRHAGE, UNSPECIFIED
[2017-03-23] MEDS: CEFAZOLIN 1 GM PUSH 1 GM/10 ML DISP.SYRIN IVPUSH SCH ×3 (00:28→19:29)
[2017-03-23] MEDS: HYDROmorphone HCL CARPU-JECT 2 MG/1 ML DISP.SYRIN IVPUSH PRN ×5 (02:25→22:16)
[2017-03-23] MEDS: HEPARIN NA (PORCINE) 5,000 UNITS/ML 1ML VIAL SQ SCH ×2 (06:20→14:47)
[2017-03-23] MEDS: LACTATED RINGERS SOLUTION 1,000 ML/1,000 ML INFUS.BAG IV SCH ×2 (06:21→22:20)
[2017-03-23] MEDS: LABETALOL HCL 5 MG/1 ML (100MG/20 ML VIAL) IVPUSH PRN ×3 (08:16→15:59)
[2017-03-23] MEDS: ACETAMINOPHEN 325 MG TABLET (FP) PO PRN ×2 (08:24→14:51)
[2017-03-23] MEDS: oxyCODONE HCL 5 MG TABLET PO PRN ×3 (08:24→19:37)
--- NOTE | 2017-03-23 08:37 | PN ---
Physical Exam: SUBJECTIVE: Patient seen and examined this am. On her way for a repeat CT head. Still complained of headache, but is awake, oriented, able to communicate and move all limbs. OBJECTIVE: Vital Signs Period Temp Pulse Resp BP Sys/Cook Pulse Ox Last 24 Hr 98 F-99.1 F 56-81 10-20 115-165/69-98 100-100 Vital Signs Temp 98 F 03/23/17 06:00 Pulse 56 L 03/23/17 06:00 Resp 14 03/23/17 06:00 BP 158/87 03/23/17 06:00 Pulse Ox 100 03/22/17 22:14 Intake & Output 03/22/17 03/22/17 03/23/17 11:59 23:59 11:59 Intake Total 0 1150 1150 Output Total 620 1040 Balance 0 530 110 Weight 64.892 kg Intake: IV 1150 750 Lactated Ringers Solution 750 1,000 ml @ 75 mls/hr IV ASDIR MENG Rx#:[id number] IVPB 0 Oral 400 Output: Drainage 20 40 Left Head 40 Urine 500 1000 Patel 1000 Estimated Blood Loss 100 Other: Voiding Method Bedpan Indwelling Catheter Bowel Movement No Weight Measurement Method Built in [facility] GENERAL: The patient is awake, alert, and fully oriented, in no acute distress. HEAD: Head wrapped with drain containing serosanguinous fluid from back of the head . EYES: PERRL, extraocular movements intact, no ptosis. ENT: NC, sating well NECK: supple. LUNGS: Breath sounds equal bilaterally, no wheezes, no crackles, no accessory muscle use. HEART: Regular rate and rhythm, S1, S2 without murmur, rub or gallop. ABDOMEN: Soft, nontender, nondistended, normoactive bowel sounds EXTREMITIES: 2+ pulses, warm, well-perfused, no edema. NEUROLOGICAL: No facial droop, able to move all extremities. Normal speech, gait not observed. PSYCH: Normal mood, normal affect. Lines: NC, L posterior head drain, patel in place Laboratory Results - last [address] head 03/23/16: Smaller anterior/lateral /frontal subdural collection with decreased mass effect . Extra-axial subdural air is present. 03/22/17 03/22/17 03/22/17 06:30 06:30 06:30 WBC 4.1 RBC 3.41 L Hgb 10.6 L Hct 31.8 L MCV 93.1 MCH 31.0 MCHC 33.3 RDW 12.4 Plt Count 298 MPV 8.6 Neutrophils % 65.0 Lymphocytes % 24.4 D Monocytes % 7.0 Eosinophils % 2.4 Basophils % 1.2 Sodium 138 Potassium 4.2 Chloride 101 Carbon Dioxide 28 Anion Gap 9 BUN 7 Creatinine 0.5 L Creat Clearance w eGFR Random Glucose 103 Calcium 9.2 Total Bilirubin AST ALT Alkaline Phosphatase Total Protein Albumin Blood Type O NEGATIVE Antibody Screen Negative 03/22/17 03/22/17 21:35 21:35 WBC 5.9 D RBC 3.20 L Hgb 9.9 L Hct 29.8 L MCV 93.3 MCH 30.9 MCHC 33.2 RDW 12.3 Plt Count 315 MPV 8.5 Neutrophils % Lymphocytes % Monocytes % Eosinophils % Basophils % Sodium 136 Potassium 4.5 Chloride 103 Carbon Dioxide 27 Anion Gap 6 L BUN 10 Creatinine 0.6 Creat Clearance w eGFR > 60 Random Glucose 113 H Calcium 8.5 Total Bilirubin 0.5 AST 16 ALT 29 Alkaline Phosphatase 87 Total Protein 7.5 Albumin 3.3 L Blood Type Antibody Screen Active Medications Generic Name Dose Route Start Last Admin Trade Name Freq PRN Reason Stop Dose Admin Acetaminophen 650 mg 03/22/17 19:12 Tylenol - PO Q6H PRN PAIN LEVEL 1-5 (MILD PAIN) Chlorhexidine Gluconate 1 applic 03/22/17 22:00 03/22/17 21:45 Hibiclens For Decolonization - TP 1 applic HS MENG Administration Docusate Sodium 200 mg 03/22/17 22:00 03/22/17 21:45 Colace - PO Not Given BID MENG Heparin Sodium (Porcine) 5,000 unit 03/23/17 06:00 03/23/17 06:20 Heparin - SQ 5,000 unit TID MENG Administration Hydromorphone HCl 1 mg 03/22/17 23:06 03/23/17 06:20 Dilaudid Injection - IVPUSH 1 mg Q4H PRN Administration HEADACHE Lactated Ringer's 1,000 ml in 1,000 mls @ 75 mls/hr 03/22/17 18:45 03/23/17 06:21 Lactated Ringers Solution IV 75 mls/hr ASDIR MENG Administration Cefazolin Sodium 1 gm in 10 mls @ 120 mls/hr 03/22/17 23:45 03/23/17 00:28 Ancef - IVPUSH 120 mls/hr Q8H-IV MENG Administration Labetalol HCl 10 mg 03/22/17 19:09 Normodyne Injection - IVPUSH Q1H PRN systolic b/p over 160 Mupirocin 1 applic 03/22/17 22:00 03/22/17 21:44 Bactroban Ointment (For Decolonization) - NS 03/27/17 21:59 1 applic BID MENG Administration Ondansetron HCl 4 mg 03/22/17 18:54 Zofran Injection IVPUSH Q6H PRN NAUSEA AND/OR VOMITING Oxycodone HCl 10 mg 03/22/17 19:12 03/22/17 22:00 Roxicodone - PO 10 mg Q4H PRN Administration PAIN LEVEL 6-10 Polyethylene Glycol 17 gm 03/22/17 22:00 03/22/17 21:45 Miralax (For Daily Use) - PO Not Given BID MENG ASSESSMENT/PLAN: 46 y/o woman s/p lumbar laminectomy 01/29/17. Pt presented to the ED on 03/16 for a persistent BRUNO post- spinal Sx, now s/p Left craniotomy, evacuation of subdural hematoma 03/18/17 and fenestration of arachnoid cyst, extubated, no neurological deficit. Neuro: Headaches s/p lumbar laminectomy 01/29/17 s/p Left craniotomy, evacuation of subdural hematoma 03/18/17 and fenestration of arachnoid cyst AAOx3 , no lateralizing signs CT -decrased subdural collection on CT Pain mx- D/W Dr Poole Continue ICU mx To commence heparin SQ tomorrow Resume feeds Incentive Spirometry Continue Cefazolin Cont LR @ 75/hr FEN: Cont LR @ 75/hr Monitor lytes and replete KCL PO 40meq stat CMP Resume regular diet Prophylaxis: Mechanical prophylaxis for today- per Dr Poole Resume heparin SQ tomorrow Dispo: Monitor ICU Visit type - Emergency Visit Emergency Visit: Yes ED Registration Date: 03/16/17 Care time: The patient presented to the Emergency Department on the above date and was hospitalized for further evaluation of their emergent condition. - New Patient This patient is new to me today: Yes Date on this admission: 03/23/17 - Critical Care Critical Care patient: Yes Total Critical Care Time (in minutes): 45 Critical Care Statement: The care of this patient involved high complexity decision making to prevent further life threatening deterioration of the patient 's condition and/or to evaluate & treat vital organ system(s) failure or risk of failure. - Discharge Referral Referred to [facility] Med P.C.: No
[2017-03-23 09:01] LABS: BASO % 0.5 % (0-2.0); EOS % 1.4 % (0-4.5); HEMATOCRIT 28.3 % (32.4-45.2); HEMOGLOBIN 9.3 GM/dL (10.7-15.3); LYMPH % 17.5 % (8-40); MCH 30.7 pg (25.7-33.7); MCHC 32.8 g/dl (32.0-36.0); MEAN CELL VOLUME 93.5 fl (80-96); MEAN PLT VOLUME 8.4 fl (7.5-11.1); MONO % 10.1 % (3.8-10.2); NEUT % 70.5 % (42.8-82.8); PLATELET COUNT 285 K/MM3 (134-434); RBC 3.03 M/mm3 (3.60-5.2); RDW 12.2 % (11.6-15.6); WHITE BLOOD COUNT 7.7 K/mm3 (4.0-10.0)
[2017-03-23] MEDS: MUPIROCIN 2% TOPICAL OINTMENT FOR DECOLONIZATION NS SCH ×2 (09:28→22:19)
[2017-03-23 09:31] LABS: ALBUMIN 3.1 g/dl (3.4-5.0); ANION GAP 7 (8-16); BILIRUBIN,TOTAL 0.4 mg/dL (0.2-1.0); BLOOD UREA NITROGEN 7 mg/dL (7-18); CALCIUM 8.2 mg/dL (8.5-10.1); CHLORIDE 102 mmol/L (98-107); CO2 29 mmol/L (21-32); CREATININE 0.4 mg/dL (0.55-1.02); GLUCOSE,RANDOM 94 mg/dL (74-106); POTASSIUM 3.4 mmol/L (3.5-5.1); SGOT/AST 17 U/L (15-37); SGPT/ALT 27 U/L (12-78); SODIUM 138 mmol/L (136-145); TOT PROT 6.9 g/dl (6.4-8.2)
[2017-03-23 09:32] LABS: ALK PHOS 82 U/L (45-117)
[2017-03-23] MEDS: DOCUSATE SODIUM 100 MG CAPSULE (FP) PO SCH ×2 (09:34→22:18)
[2017-03-23] MEDS: POLYETHYLENE GLYCOL 3350 119 GM BTL PO SCH ×2 (09:41→22:18)
[2017-03-23 10:24] LABS: MAGNESIUM 1.8 mg/dL (1.8-2.4); PHOSPHOROUS 3.6 mg/dL (2.5-4.9)
--- NOTE | 2017-03-23 10:50 | PN ---
Progress Note (short form) - Note Progress Note: Anesthesia post op note, POD#1. S/P craniotomy. Pat seen and examined. VSS. AAOX3 .No apparent anesthesia related complications. Signed off.
--- NOTE | 2017-03-23 12:06 | PN ---
Teaching Attending Note Name of Resident: Dori King ATTENDING PHYSICIAN STATEMENT I saw and evaluated the patient. I reviewed the resident's note and discussed the case with the resident. I agree with the resident's findings and plan as documented. SUBJECTIVE: Patient seen and examined in the ICU. Awake and alert. BRUNO somewhat better. No CP or SOB. CT Head: decreased size of SDH / post op air noted. Constitutional: Yes: Well Nourished, No Distress, Calm Eyes: Yes: Conjunctiva Clear, EOM Intact HENT: Yes: Other (Carniotomy Bandage.) Cardiovascular: Yes: WNL, Regular Rate and Rhythm Respiratory: Yes: WNL, Regular, CTA Bilaterally Gastrointestinal: Yes: WNL, Normal Bowel Sounds, Soft ...Rectal Exam: Yes: Deferred Renal/: Yes: WNL Breast(s): Yes: WNL, Skin Changes Extremities: Yes: WNL Edema: No Peripheral Pulses WNL: No Integumentary: Yes: Incision, Laceration Wound/Incision: Yes: Clean/Dry, Well Approximated, Sutures Intact, [place] Intact, Dressing Dry and Intact. No: Draining, Reddened, Bleeding, Excoriated Neurological: Yes: WNL, Alert, Oriented ...Motor Strength: WNL Psychiatric: Yes: WNL, Alert, Oriented Labs: Laboratory Results - last 24 hr 03/22/17 03/22/17 03/23/17 21:35 21:35 08:48 WBC 5.9 D RBC 3.20 L Hgb 9.9 L Hct 29.8 L MCV 93.3 MCH 30.9 MCHC 33.2 RDW 12.3 Plt Count 315 MPV 8.5 Neutrophils % Lymphocytes % Monocytes % Eosinophils % Basophils % Sodium 136 Potassium 4.5 Chloride 103 Carbon Dioxide 27 Anion Gap 6 L BUN 10 Creatinine 0.6 Creat Clearance w eGFR > 60 Random Glucose 113 H Calcium 8.5 Phosphorus Cancelled Magnesium Cancelled Total Bilirubin 0.5 AST 16 ALT 29 Alkaline Phosphatase 87 Total Protein 7.5 Albumin 3.3 L 03/23/17 03/23/17 08:48 08:48 WBC 7.7 D RBC 3.03 L Hgb 9.3 L Hct 28.3 L MCV 93.5 MCH 30.7 MCHC 32.8 RDW 12.2 Plt Count 285 MPV 8.4 Neutrophils % 70.5 Lymphocytes % 17.5 D Monocytes % 10.1 Eosinophils % 1.4 Basophils % 0.5 Sodium 138 Potassium 3.4 L Chloride 102 Carbon Dioxide 29 Anion Gap 7 L BUN 7 Creatinine 0.4 L Creat Clearance w eGFR > 60 Random Glucose 94 Calcium 8.2 L Phosphorus 3.6 Magnesium 1.8 Total Bilirubin 0.4 AST 17 ALT 27 Alkaline Phosphatase 82 Total Protein 6.9 Albumin 3.1 L Problem List - Problems (1) Subdural hematoma Code(s): I62.00 - NONTRAUMATIC SUBDURAL HEMORRHAGE, UNSPECIFIED Assessment/Plan HOB elevation Pain control Follow Neuro exam O2 as needed Incentive Spirometry PO per Neurosurgery Monitor Blood Pressure SCDs for mechanical VTE prophylaxis Dr Foote Critical care time spent in reviewing chart, evaluating patient and formulating plan - 36 minutes.
[2017-03-23] MEDS ORDERED: POTASSIUM CHLORIDE TABS 20 MEQ TABLET.ER (FP) PO ONE (14:11)
[2017-03-23] MEDS ORDERED: PT OWN MED DRAWER 7, Y5N ONE (19:06)
[2017-03-23 21:24] LABS: HEMATOCRIT 27.9 % (32.4-45.2); HEMOGLOBIN 9.4 GM/dL (10.7-15.3); MCH 31.2 pg (25.7-33.7); MCHC 33.7 g/dl (32.0-36.0); MEAN CELL VOLUME 92.4 fl (80-96); MEAN PLT VOLUME 8.3 fl (7.5-11.1); PLATELET COUNT 283 K/MM3 (134-434); RBC 3.02 M/mm3 (3.60-5.2); RDW 12.3 % (11.6-15.6); WHITE BLOOD COUNT 6.1 K/mm3 (4.0-10.0)
[2017-03-23 21:55] LABS: ALBUMIN 3.2 g/dl (3.4-5.0); ANION GAP 8 (8-16); BILIRUBIN,TOTAL 0.5 mg/dL (0.2-1.0); BLOOD UREA NITROGEN 6 mg/dL (7-18); CALCIUM 8.3 mg/dL (8.5-10.1); CHLORIDE 96 mmol/L (98-107); CO2 29 mmol/L (21-32); CREATININE 0.5 mg/dL (0.55-1.02); GLUCOSE,RANDOM 123 mg/dL (74-106); POTASSIUM 3.9 mmol/L (3.5-5.1); SGOT/AST 19 U/L (15-37); SGPT/ALT 29 U/L (12-78); SODIUM 133 mmol/L (136-145)
[2017-03-23 21:57] LABS: ALK PHOS 90 U/L (45-117); TOT PROT 7.3 g/dl (6.4-8.2)
[2017-03-23] MEDS: CHLORHEXIDINE GLUCONATE 4% CLEANSER FOR DECOLONIZATION TP SCH (22:18)
[2017-03-24] MEDS ORDERED: PT OWN MED DRAWER 7, Y5N ONE ×3 (00:40→19:58)
[2017-03-24] MEDS: oxyCODONE HCL 5 MG TABLET PO PRN ×4 (00:41→22:48)
[2017-03-24] MEDS: CEFAZOLIN 1 GM PUSH 1 GM/10 ML DISP.SYRIN IVPUSH SCH ×3 (02:00→17:32)
--- NOTE | 2017-03-24 02:07 | PN ---
Progress Note (short form) - Note Progress Note: s/p craniotomy - in ICU reports development of headache - similar to preop no nausea / vomiting Vital Signs Period Temp Pulse Resp BP Sys/Cook Pulse Ox Last 24 Hr 98.1 F-99.1 F 53-81 10-20 115-165/63-98 100-100 in Bed HOB elevated head dressing in place / drain with bloody d/c neck supple heart reg S1/S2 lungs clear bilat abd soft on tender ext no edema / calf tenderness / FROM motor / sensory intact CBC, BMP 03/23/17 19:50 03/23/17 19:50 # Left craniotomy and fenestration of arachnoid cyst. in ICU reoccurance of headache CT of head repeat ordered to discuss with NS monitor status pain management would continue to manage in ICU further management per NS Problem List - Problems (1) Subdural hematoma Code(s): I62.00 - NONTRAUMATIC SUBDURAL HEMORRHAGE, UNSPECIFIED
[2017-03-24 06:46] LABS: MAGNESIUM 1.9 mg/dL (1.8-2.4); PHOSPHOROUS 3.1 mg/dL (2.5-4.9)
[2017-03-24] MEDS: HEPARIN NA (PORCINE) 5,000 UNITS/ML 1ML VIAL SQ SCH ×3 (07:04→22:48)
--- NOTE | 2017-03-24 09:21 | PN ---
Progress Note (short form) - Note Progress Note: Patient seen and examined in the ICU. Awake and alert. BRUNO somewhat better. Slight with light sensitivity. No CP or SOB. Intake & Output 03/21/17 03/22/17 03/23/17 03/24/17 23:59 23:59 23:59 23:59 Intake Total 240 1150 1750 480 Output Total 620 1885 820 Balance 240 530 -135 -340 Weight 143 lb 1 oz Last Vital Signs Temp Pulse Resp BP Pulse Ox 98.8 F 62 14 153/72 100 03/24/17 02:00 03/24/17 06:00 03/24/17 06:00 03/24/17 06:00 03/23/17 21:00 Active Medications Acetaminophen (Tylenol -) 650 mg PO Q6H PRN PRN Reason: PAIN LEVEL 1-5 (MILD PAIN) Last Admin: 03/23/17 14:51 Dose: 650 mg Chlorhexidine Gluconate (Hibiclens For Decolonization -) 1 applic TP HS [facility] Last Admin: 03/23/17 22:18 Dose: 1 applic Docusate Sodium (Colace -) 200 mg PO BID [facility] Last Admin: 03/23/17 22:18 Dose: 200 mg Heparin Sodium (Porcine) (Heparin -) 5,000 unit SQ TID [facility] Last Admin: 03/24/17 07:04 Dose: 5,000 unit Hydromorphone HCl (Dilaudid Injection -) 1 mg IVPUSH Q4H PRN PRN Reason: HEADACHE Last Admin: 03/23/17 22:16 Dose: 1 mg Lactated Ringer's (Lactated Ringers Solution) 1,000 ml in 1,000 mls @ 75 mls/ hr IV ASDIR [facility] Last Admin: 03/23/17 22:20 Dose: 75 mls/hr Cefazolin Sodium (Ancef -) 1 gm in 10 mls @ 120 mls/hr IVPUSH Q8H-IV [facility] Last Admin: 03/24/17 02:00 Dose: 120 mls/hr Labetalol HCl (Normodyne Injection -) 10 mg IVPUSH Q1H PRN PRN Reason: systolic b/p over 160 Last Admin: 03/23/17 15:59 Dose: 10 mg Mupirocin (Bactroban Ointment (For Decolonization) -) 1 applic NS BID [facility] Stop: 03/27/17 21:59 Last Admin: 03/23/17 22:19 Dose: 1 applic Ondansetron HCl (Zofran Injection) 4 mg IVPUSH Q6H PRN PRN Reason: NAUSEA AND/OR VOMITING Last Admin: 03/23/17 09:27 Dose: 4 mg Oxycodone HCl (Roxicodone -) 10 mg PO Q4H PRN PRN Reason: PAIN LEVEL 6-10 Last Admin: 03/24/17 00:41 Dose: 10 mg Polyethylene Glycol (Miralax (For Daily Use) -) 17 gm PO BID [facility] Last Admin: 03/23/17 22:18 Dose: Not Given Constitutional: Yes: Well Nourished, No Distress, Calm Eyes: Yes: Conjunctiva Clear, EOM Intact HENT: Yes: Other (Carniotomy Bandage.) Cardiovascular: Yes: WNL, Regular Rate and Rhythm Respiratory: Yes: WNL, Regular, CTA Bilaterally Gastrointestinal: Yes: WNL, Normal Bowel Sounds, Soft ...Rectal Exam: Yes: Deferred Renal/: Yes: WNL Breast(s): Yes: WNL, Skin Changes Extremities: Yes: WNL Edema: No Peripheral Pulses WNL: No Integumentary: Yes: Incision, Laceration Wound/Incision: Yes: Clean/Dry, Well Approximated, Sutures Intact, [place] Intact, Dressing Dry and Intact. No: Draining, Reddened, Bleeding, Excoriated Neurological: Yes: WNL, Alert, Oriented ...Motor Strength: WNL Psychiatric: Yes: WNL, Alert, Oriented Labs: Laboratory Results - last 24 hr 03/23/17 03/23/17 03/23/17 08:48 08:48 19:50 WBC 7.7 D 6.1 RBC 3.03 L 3.02 L Hgb 9.3 L 9.4 L Hct 28.3 L 27.9 L MCV 93.5 92.4 MCH 30.7 31.2 MCHC 32.8 33.7 RDW 12.2 12.3 Plt Count 285 283 MPV 8.4 8.3 Neutrophils % 70.5 Lymphocytes % 17.5 D Monocytes % 10.1 Eosinophils % 1.4 Basophils % 0.5 Sodium 138 Potassium 3.4 L Chloride 102 Carbon Dioxide 29 Anion Gap 7 L BUN 7 Creatinine 0.4 L Creat Clearance w eGFR > 60 Random Glucose 94 Calcium 8.2 L Phosphorus 3.6 Magnesium 1.8 Total Bilirubin 0.4 AST 17 ALT 27 Alkaline Phosphatase 82 Total Protein 6.9 Albumin 3.1 L 03/23/17 03/24/17 19:50 05:30 WBC RBC Hgb Hct MCV MCH MCHC RDW Plt Count MPV Neutrophils % Lymphocytes % Monocytes % Eosinophils % Basophils % Sodium 133 L Potassium 3.9 Chloride 96 L Carbon Dioxide 29 Anion Gap 8 BUN 6 L Creatinine 0.5 L Creat Clearance w eGFR > 60 Random Glucose 123 H Calcium 8.3 L Phosphorus 3.1 Magnesium 1.9 Total Bilirubin 0.5 D AST 19 ALT 29 Alkaline Phosphatase 90 Total Protein 7.3 Albumin 3.2 L Problem List - Problems (1) Subdural hematoma Code(s): I62.00 - NONTRAUMATIC SUBDURAL HEMORRHAGE, UNSPECIFIED Assessment/Plan HOB elevation Pain control Follow Neuro exam O2 as needed Incentive Spirometry PO per Neurosurgery Close monitoring of Blood Pressure SCDs for mechanical VTE prophylaxis Dr Foote Critical care time spent in reviewing chart, evaluating patient and formulating plan - 36 minutes.
[2017-03-24] MEDS: DOCUSATE SODIUM 100 MG CAPSULE (FP) PO SCH ×2 (10:24→22:50)
[2017-03-24] MEDS: MUPIROCIN 2% TOPICAL OINTMENT FOR DECOLONIZATION NS SCH ×2 (10:24→22:50)
[2017-03-24] MEDS: POLYETHYLENE GLYCOL 3350 119 GM BTL PO SCH ×2 (10:25→22:52)
[2017-03-24 19:10] LABS: HEMATOCRIT 29.9 % (32.4-45.2); HEMOGLOBIN 10.1 GM/dL (10.7-15.3); MCH 30.9 pg (25.7-33.7); MCHC 33.8 g/dl (32.0-36.0); MEAN CELL VOLUME 91.6 fl (80-96); MEAN PLT VOLUME 8.8 fl (7.5-11.1); PLATELET COUNT 280 K/MM3 (134-434); RBC 3.27 M/mm3 (3.60-5.2); RDW 12.1 % (11.6-15.6); WHITE BLOOD COUNT 5.8 K/mm3 (4.0-10.0)
[2017-03-24 19:50] LABS: ALBUMIN 3.4 g/dl (3.4-5.0); ANION GAP 8 (8-16); BILIRUBIN,TOTAL 0.5 mg/dL (0.2-1.0); BLOOD UREA NITROGEN 5 mg/dL (7-18); CALCIUM 8.3 mg/dL (8.5-10.1); CHLORIDE 100 mmol/L (98-107); CO2 29 mmol/L (21-32); CREATININE 0.5 mg/dL (0.55-1.02); GLUCOSE,RANDOM 118 mg/dL (74-106); POTASSIUM 3.6 mmol/L (3.5-5.1); SGOT/AST 21 U/L (15-37); SGPT/ALT 33 U/L (12-78); SODIUM 137 mmol/L (136-145); TOT PROT 7.4 g/dl (6.4-8.2)
[2017-03-24 19:51] LABS: ALK PHOS 94 U/L (45-117)
[2017-03-24] MEDS: ACETAMINOPHEN 325 MG TABLET (FP) PO PRN (22:47)
[2017-03-24] MEDS: CHLORHEXIDINE GLUCONATE 4% CLEANSER FOR DECOLONIZATION TP SCH (22:51)
--- NOTE | 2017-03-24 23:40 | PN ---
Progress Note (short form) - Note Progress Note: s/p craniotomy - in ICU case discussed with NS yesterday Head ache persisted / eyes closed + photophobia no nausea / vomiting Vital Signs Period Temp Pulse Resp BP Sys/Cook Pulse Ox Last 24 Hr 98.1 F-99.1 F 53-81 10-20 115-165/63-98 100-100 in Bed HOB elevated head dressing in place / drain with bloody d/c neck supple heart reg S1/S2 lungs clear bilat abd soft on tender ext no edema / calf tenderness / FROM motor / sensory intact CBC, BMP 03/24/17 18:20 03/24/17 18:20 # Left craniotomy and fenestration of arachnoid cyst. in ICU reoccurance of headache continue to monitor status ICU pain management imaging per NS further management per NS Problem List - Problems (1) Subdural hematoma Code(s): I62.00 - NONTRAUMATIC SUBDURAL HEMORRHAGE, UNSPECIFIED
[2017-03-25] MEDS: CEFAZOLIN 1 GM PUSH 1 GM/10 ML DISP.SYRIN IVPUSH SCH ×3 (02:06→18:37)
[2017-03-25 06:02] LABS: HEMATOCRIT 28.9 % (32.4-45.2); HEMOGLOBIN 9.6 GM/dL (10.7-15.3); MCHC 33.4 g/dl (32.0-36.0); MEAN CELL VOLUME 92.8 fl (80-96); MEAN PLT VOLUME 9.3 fl (7.5-11.1); PLATELET COUNT 282 K/MM3 (134-434); RBC 3.11 M/mm3 (3.60-5.2); RDW 12.3 % (11.6-15.6); WHITE BLOOD COUNT 6.4 K/mm3 (4.0-10.0)
[2017-03-25 06:51] LABS: ALBUMIN 3.2 g/dl (3.4-5.0); ALK PHOS 92 U/L (45-117); ANION GAP 8 (8-16); BILIRUBIN,TOTAL 0.5 mg/dL (0.2-1.0); BLOOD UREA NITROGEN 7 mg/dL (7-18); CALCIUM 8.3 mg/dL (8.5-10.1); CHLORIDE 101 mmol/L (98-107); CO2 30 mmol/L (21-32); CREATININE 0.5 mg/dL (0.55-1.02); GLUCOSE,RANDOM 82 mg/dL (74-106); MAGNESIUM 2.2 mg/dL (1.8-2.4); PHOSPHOROUS 3.7 mg/dL (2.5-4.9); POTASSIUM 3.4 mmol/L (3.5-5.1); SGOT/AST 19 U/L (15-37); SGPT/ALT 32 U/L (12-78); SODIUM 139 mmol/L (136-145); TOT PROT 7.2 g/dl (6.4-8.2)
[2017-03-25] MEDS: HEPARIN NA (PORCINE) 5,000 UNITS/ML 1ML VIAL SQ SCH ×3 (06:59→21:45)
--- NOTE | 2017-03-25 09:16 | PN ---
Progress Note (short form) - Note Progress Note: Patient seen and examined in the ICU. Awake and alert. BRUNO about the same. Slight with light sensitivity. No gross change in Neuro exam. No CP or SOB. Intake & Output 03/22/17 03/23/17 03/24/17 03/25/17 23:59 23:59 23:59 23:59 Intake Total 1150 1750 1020 120 Output Total 620 1885 1890 310 Balance 530 -135 -870 -190 Weight 143 lb 1 oz Last Vital Signs Temp Pulse Resp BP Pulse Ox 98 F 69 16 130/94 100 03/25/17 02:00 03/25/17 06:00 03/25/17 06:00 03/25/17 06:00 03/24/17 19:36 Active Medications Acetaminophen (Tylenol -) 650 mg PO Q6H PRN PRN Reason: PAIN LEVEL 1-5 (MILD PAIN) Last Admin: 03/24/17 22:47 Dose: 650 mg Chlorhexidine Gluconate (Hibiclens For Decolonization -) 1 applic TP HS [facility] Last Admin: 03/24/17 22:51 Dose: 1 applic Docusate Sodium (Colace -) 200 mg PO BID [facility] Last Admin: 03/24/17 22:50 Dose: 200 mg Heparin Sodium (Porcine) (Heparin -) 5,000 unit SQ TID [facility] Last Admin: 03/25/17 06:59 Dose: 5,000 unit Hydromorphone HCl (Dilaudid Injection -) 1 mg IVPUSH Q4H PRN PRN Reason: HEADACHE Last Admin: 03/23/17 22:16 Dose: 1 mg Cefazolin Sodium (Ancef -) 1 gm in 10 mls @ 120 mls/hr IVPUSH Q8H-IV [facility] Last Admin: 03/25/17 02:06 Dose: 120 mls/hr Labetalol HCl (Normodyne Injection -) 10 mg IVPUSH Q1H PRN PRN Reason: systolic b/p over 160 Last Admin: 03/23/17 15:59 Dose: 10 mg Mupirocin (Bactroban Ointment (For Decolonization) -) 1 applic NS BID [facility] Stop: 03/27/17 21:59 Last Admin: 03/24/17 22:50 Dose: 1 applic Ondansetron HCl (Zofran Injection) 4 mg IVPUSH Q6H PRN PRN Reason: NAUSEA AND/OR VOMITING Last Admin: 03/23/17 09:27 Dose: 4 mg Oxycodone HCl (Roxicodone -) 10 mg PO Q4H PRN PRN Reason: PAIN LEVEL 6-10 Last Admin: 03/24/17 22:48 Dose: 10 mg Polyethylene Glycol (Miralax (For Daily Use) -) 17 gm PO BID [facility] Last Admin: 03/24/17 22:52 Dose: Not Given Constitutional: Yes: Well Nourished, No Distress, Calm Eyes: Yes: Conjunctiva Clear, EOM Intact HENT: Yes: Other (Carniotomy Bandage.) Cardiovascular: Yes: WNL, Regular Rate and Rhythm Respiratory: Yes: WNL, Regular, CTA Bilaterally Gastrointestinal: Yes: WNL, Normal Bowel Sounds, Soft ...Rectal Exam: Yes: Deferred Renal/: Yes: WNL Breast(s): Yes: WNL, Skin Changes Extremities: Yes: WNL Edema: No Peripheral Pulses WNL: No Integumentary: Yes: Incision, Laceration Wound/Incision: Yes: Clean/Dry, Well Approximated, Sutures Intact, Warren Intact, Dressing Dry and Intact. No: Draining, Reddened, Bleeding, Excoriated Neurological: Yes: WNL, Alert, Oriented ...Motor Strength: WNL Psychiatric: Yes: WNL, Alert, Oriented Labs: Laboratory Results - last 24 hr 03/24/17 03/24/17 03/25/17 18:20 18:20 05:00 WBC 5.8 6.4 RBC 3.27 L 3.11 L Hgb 10.1 L 9.6 L Hct 29.9 L 28.9 L MCV 91.6 92.8 MCH 30.9 31.0 MCHC 33.8 33.4 RDW 12.1 12.3 Plt Count 280 282 MPV 8.8 9.3 Sodium 137 Potassium 3.6 Chloride 100 Carbon Dioxide 29 Anion Gap 8 BUN 5 L Creatinine 0.5 L Creat Clearance w eGFR > 60 Random Glucose 118 H Calcium 8.3 L Phosphorus Magnesium Total Bilirubin 0.5 AST 21 ALT 33 Alkaline Phosphatase 94 Total Protein 7.4 Albumin 3.4 03/25/17 05:00 WBC RBC Hgb Hct MCV MCH MCHC RDW Plt Count MPV Sodium 139 Potassium 3.4 L Chloride 101 Carbon Dioxide 30 Anion Gap 8 BUN 7 Creatinine 0.5 L Creat Clearance w eGFR > 60 Random Glucose 82 Calcium 8.3 L Phosphorus 3.7 Magnesium 2.2 Total Bilirubin 0.5 AST 19 ALT 32 Alkaline Phosphatase 92 Total Protein 7.2 Albumin 3.2 L Problem List - Problems (1) Subdural hematoma Code(s): I62.00 - NONTRAUMATIC SUBDURAL HEMORRHAGE, UNSPECIFIED Assessment/Plan HOB elevation Pain control Follow Neuro exam O2 as needed Incentive Spirometry PO per Neurosurgery Close monitoring of Blood Pressure SCDs for mechanical VTE prophylaxis Replace misha Foote Critical care time spent in reviewing chart, evaluating patient and formulating plan - 36 minutes.
[2017-03-25] MEDS ORDERED: POTASSIUM CHLORIDE TABS 20 MEQ TABLET.ER (FP) PO ONE (10:00)
[2017-03-25] MEDS ORDERED: PT OWN MED DRAWER 7, Y5N ONE (10:24)
[2017-03-25] MEDS: oxyCODONE HCL 5 MG TABLET PO PRN ×2 (10:29→18:35)
[2017-03-25] MEDS: MUPIROCIN 2% TOPICAL OINTMENT FOR DECOLONIZATION NS SCH ×2 (10:30→21:45)
[2017-03-25] MEDS: DOCUSATE SODIUM 100 MG CAPSULE (FP) PO SCH ×2 (10:36→21:45)
[2017-03-25] MEDS: POLYETHYLENE GLYCOL 3350 119 GM BTL PO SCH ×2 (10:47→21:46)
[2017-03-25] MEDS: ACETAMINOPHEN 325 MG TABLET (FP) PO PRN (14:11)
--- NOTE | 2017-03-25 14:59 | PN ---
Progress Note (short form) - Note Progress Note: s/p craniotomy - in ICU case discussed with NS yesterday Head ache persisted / eyes closed + photophobia no nausea / vomiting Vital Signs Period Temp Pulse Resp BP Sys/Cook Pulse Ox Last 24 Hr 98.1 F-99.1 F 53-81 10-20 115-165/63-98 100-100 in Bed HOB elevated head dressing in place / drain with bloody d/c neck supple heart reg S1/S2 lungs clear bilat abd soft on tender ext no edema / calf tenderness / FROM motor / sensory intact CBC, BMP 03/25/17 05:00 03/25/17 05:00 # Left craniotomy and fenestration of arachnoid cyst. in ICU reoccurance of headache continue to monitor status ICU pain management imaging per NS # hypokalemia replace further management per NS Problem List - Problems (1) Subdural hematoma Code(s): I62.00 - NONTRAUMATIC SUBDURAL HEMORRHAGE, UNSPECIFIED
[2017-03-25] MEDS: CHLORHEXIDINE GLUCONATE 4% CLEANSER FOR DECOLONIZATION TP SCH (21:45)
[2017-03-26] MEDS: CEFAZOLIN 1 GM PUSH 1 GM/10 ML DISP.SYRIN IVPUSH SCH ×3 (02:00→17:44)
[2017-03-26] MEDS: HEPARIN NA (PORCINE) 5,000 UNITS/ML 1ML VIAL SQ SCH ×3 (06:16→21:39)
[2017-03-26 06:29] LABS: EOS % 10.5 % (0-4.5); HEMOGLOBIN 9.5 GM/dL (10.7-15.3); LYMPH % 23.3 % (8-40); MCH 30.7 pg (25.7-33.7); MCHC 32.8 g/dl (32.0-36.0); MEAN CELL VOLUME 93.6 fl (80-96); MEAN PLT VOLUME 9.3 fl (7.5-11.1); MONO % 14.1 % (3.8-10.2); NEUT % 51.1 % (42.8-82.8); PLATELET COUNT 292 K/MM3 (134-434); RBC 3.09 M/mm3 (3.60-5.2); RDW 12.1 % (11.6-15.6); WHITE BLOOD COUNT 6.2 K/mm3 (4.0-10.0)
[2017-03-26 06:54] LABS: ANION GAP 7 (8-16); BLOOD UREA NITROGEN 8 mg/dL (7-18); CALCIUM 8.9 mg/dL (8.5-10.1); CHLORIDE 102 mmol/L (98-107); CO2 30 mmol/L (21-32); CREATININE 0.5 mg/dL (0.55-1.02); GLUCOSE,RANDOM 94 mg/dL (74-106); POTASSIUM 3.8 mmol/L (3.5-5.1); SODIUM 139 mmol/L (136-145)
[2017-03-26] MEDS ORDERED: PT OWN MED DRAWER 7, Y5N ONE ×2 (09:22→17:30)
[2017-03-26] MEDS: MUPIROCIN 2% TOPICAL OINTMENT FOR DECOLONIZATION NS SCH (09:44)
[2017-03-26] MEDS: ACETAMINOPHEN 325 MG TABLET (FP) PO PRN ×2 (09:45→16:49)
[2017-03-26] MEDS: POLYETHYLENE GLYCOL 3350 119 GM BTL PO SCH ×2 (09:45→21:40)
[2017-03-26] MEDS: DOCUSATE SODIUM 100 MG CAPSULE (FP) PO SCH ×2 (09:45→21:39)
--- NOTE | 2017-03-26 12:00 | PN ---
Teaching Attending Note Name of Resident: Zeyad Robert ATTENDING PHYSICIAN STATEMENT I saw and evaluated the patient. I reviewed the resident's note and discussed the case with the resident. I agree with the resident's findings and plan as documented. SUBJECTIVE: Patient seen and examined in the ICU. Awake and alert. Looks clinically better today. BRUNO is also better. Less light sensitivity. No CP or SOB. Intake & Output 03/23/17 03/24/17 03/25/17 03/26/17 23:59 23:59 23:59 23:59 Intake Total 1750 1020 970 50 Output Total 1885 1890 1210 10 Balance -693 -870 -240 40 Weight 143 lb 1 oz Last Vital Signs Temp Pulse Resp BP Pulse Ox 98.7 F 83 13 116/72 100 03/26/17 10:00 03/26/17 10:00 03/26/17 10:00 03/26/17 10:00 03/25/17 19:48 Active Medications Acetaminophen (Tylenol -) 650 mg PO Q6H PRN PRN Reason: PAIN LEVEL 1-5 (MILD PAIN) Last Admin: 03/26/17 09:45 Dose: 650 mg Chlorhexidine Gluconate (Hibiclens For Decolonization -) 1 applic TP HS [facility] Last Admin: 03/25/17 21:45 Dose: 1 applic Docusate Sodium (Colace -) 200 mg PO BID [facility] Last Admin: 03/26/17 09:45 Dose: 200 mg Heparin Sodium (Porcine) (Heparin -) 5,000 unit SQ TID [facility] Last Admin: 03/26/17 06:16 Dose: 5,000 unit Cefazolin Sodium (Ancef -) 1 gm in 10 mls @ 120 mls/hr IVPUSH Q8H-IV [facility] Last Admin: 03/26/17 09:44 Dose: 120 mls/hr Labetalol HCl (Normodyne Injection -) 10 mg IVPUSH Q1H PRN PRN Reason: systolic b/p over 160 Last Admin: 03/23/17 15:59 Dose: 10 mg Mupirocin (Bactroban Ointment (For Decolonization) -) 1 applic NS BID [facility] Stop: 03/27/17 21:59 Last Admin: 03/26/17 09:44 Dose: 1 applic Ondansetron HCl (Zofran Injection) 4 mg IVPUSH Q6H PRN PRN Reason: NAUSEA AND/OR VOMITING Last Admin: 03/23/17 09:27 Dose: 4 mg Polyethylene Glycol (Miralax (For Daily Use) -) 17 gm PO BID [facility] Last Admin: 03/26/17 09:45 Dose: 17 gm Constitutional: Yes: Well Nourished, No Distress, Calm Eyes: Yes: Conjunctiva Clear, EOM Intact HENT: Yes: Other (Carniotomy Bandage.) Cardiovascular: Yes: WNL, Regular Rate and Rhythm Respiratory: Yes: WNL, Regular, CTA Bilaterally Gastrointestinal: Yes: WNL, Normal Bowel Sounds, Soft ...Rectal Exam: Yes: Deferred Renal/: Yes: WNL Breast(s): Yes: WNL, Skin Changes Extremities: Yes: WNL Edema: No Peripheral Pulses WNL: No Integumentary: Yes: Incision, Laceration Wound/Incision: Yes: Clean/Dry, Well Approximated, Sutures Intact, Charity Intact, Dressing Dry and Intact. No: Draining, Reddened, Bleeding, Excoriated Neurological: Yes: WNL, Alert, Oriented ...Motor Strength: WNL Psychiatric: Yes: WNL, Alert, Oriented Labs: Laboratory Results - last 24 hr 03/26/17 03/26/17 05:10 05:10 WBC 6.2 RBC 3.09 L Hgb 9.5 L Hct 29.0 L MCV 93.6 MCH 30.7 MCHC 32.8 RDW 12.1 Plt Count 292 MPV 9.3 Neutrophils % 51.1 D Lymphocytes % 23.3 D Monocytes % 14.1 H Eosinophils % 10.5 H D Basophils % 1.0 Sodium 139 Potassium 3.8 Chloride 102 Carbon Dioxide 30 Anion Gap 7 L BUN 8 Creatinine 0.5 L Random Glucose 94 Calcium 8.9 Problem List - Problems (1) Subdural hematoma Code(s): I62.00 - NONTRAUMATIC SUBDURAL HEMORRHAGE, UNSPECIFIED Assessment/Plan HOB elevation Pain control Follow Neuro exam O2 as needed Incentive Spirometry PO as tolerated SCDs for mechanical VTE prophylaxis Dr Foote
--- NOTE | 2017-03-26 12:03 | PN ---
Progress Note (short form) - Note Progress Note: s/p craniotomy - in ICU significant improvement able to engage in conversation less photophobia still with residual BRUNO and "somr" neck pain has been OOB to chair and ambulated to bathroom Vital Signs Period Temp Pulse Resp BP Sys/Cook Pulse Ox Last 24 Hr 98.1 F-99.1 F 53-81 10-20 115-165/63-98 100-100 in Bed HOB elevated head dressing in place / drain with bloody d/c neck supple heart reg S1/S2 lungs clear bilat abd soft on tender ext no edema / calf tenderness / FROM motor / sensory intact CBC, BMP 03/26/17 05:10 03/26/17 05:10 # Left craniotomy and fenestration of arachnoid cyst. in ICU reoccurance of headache clinically improved pain management imaging per NS # hypokalemia replace further management per NS Problem List - Problems (1) Subdural hematoma Code(s): I62.00 - NONTRAUMATIC SUBDURAL HEMORRHAGE, UNSPECIFIED
--- NOTE | 2017-03-26 13:09 | PN ---
Physical Exam: SUBJECTIVE: Patient seen and examined in ICU. Patient feels much better today. Patient states headache is improved and photophobia has also improved. OBJECTIVE: Vital Signs Period Temp Pulse Resp BP Sys/Cook Pulse Ox Last 24 Hr 98 F-98.7 F 63-83 13-20 97-150/53-94 100-100 GENERAL: The patient is awake, alert, and fully oriented, in no acute distress. HEAD: Normal with no signs of trauma. EYES: PERRL, extraocular movements intact, sclera anicteric, conjunctiva clear. No ptosis. ENT: Ears normal, nares patent, oropharynx clear without exudates, moist mucous membranes. NECK: Trachea midline, full range of motion, supple. LUNGS: Breath sounds equal, clear to auscultation bilaterally, no wheezes, no crackles, no accessory muscle use. HEART: Regular rate and rhythm, S1, S2 without murmur, rub or gallop. ABDOMEN: Soft, nontender, nondistended, normoactive bowel sounds, no guarding, no rebound, no hepatosplenomegaly, no masses. EXTREMITIES: 2+ pulses, warm, well-perfused, no edema. NEUROLOGICAL: Cranial nerves II through XII grossly intact. Normal speech, gait not observed. PSYCH: Normal mood, normal affect. SKIN: Warm, dry, normal turgor, no rashes or lesions noted Laboratory Results - last 24 hr 03/26/17 03/26/17 05:10 05:10 WBC 6.2 RBC 3.09 L Hgb 9.5 L Hct 29.0 L MCV 93.6 MCH 30.7 MCHC 32.8 RDW 12.1 Plt Count 292 MPV 9.3 Neutrophils % 51.1 D Lymphocytes % 23.3 D Monocytes % 14.1 H Eosinophils % 10.5 H D Basophils % 1.0 Sodium 139 Potassium 3.8 Chloride 102 Carbon Dioxide 30 Anion Gap 7 L BUN 8 Creatinine 0.5 L Random Glucose 94 Calcium 8.9 Active Medications Generic Name Dose Route Start Last Admin Trade Name Freq PRN Reason Stop Dose Admin Acetaminophen 650 mg 03/22/17 19:12 03/26/17 09:45 Tylenol - PO 650 mg Q6H PRN Administration PAIN LEVEL 1-5 (MILD PAIN) Chlorhexidine Gluconate 1 applic 03/22/17 22:00 03/25/17 21:45 Hibiclens For Decolonization - TP 1 applic HS [facility] Administration Docusate Sodium 200 mg 03/22/17 22:00 03/26/17 09:45 Colace - PO 200 mg BID [facility] Administration Heparin Sodium (Porcine) 5,000 unit 03/23/17 06:00 03/26/17 06:16 Heparin - SQ 5,000 unit TID [facility] Administration Cefazolin Sodium 1 gm in 10 mls @ 120 mls/hr 03/22/17 23:45 03/26/17 09:44 Ancef - IVPUSH 120 mls/hr Q8H-IV [facility] Administration Labetalol HCl 10 mg 03/22/17 19:09 03/23/17 15:59 Normodyne Injection - IVPUSH 10 mg Q1H PRN Administration systolic b/p over 160 Mupirocin 1 applic 03/22/17 22:00 03/26/17 09:44 Bactroban Ointment (For Decolonization) - NS 03/27/17 21:59 1 applic BID [facility] Administration Ondansetron HCl 4 mg 03/22/17 18:54 03/23/17 09:27 Zofran Injection IVPUSH 4 mg Q6H PRN Administration NAUSEA AND/OR VOMITING Polyethylene Glycol 17 gm 03/22/17 22:00 03/26/17 09:45 Miralax (For Daily Use) - PO 17 gm BID [facility] Administration ASSESSMENT/PLAN: 46 y/o woman s/p lumbar laminectomy 01/29/17. Pt presented to the ED on 03/16 for a persistent BRUNO post- spinal Sx, now s/p Left craniotomy, evacuation of subdural hematoma 03/18/17 and fenestration of arachnoid cyst, extubated, no neurological deficit. Neuro: Headaches improved s/p lumbar laminectomy 01/29/17 s/p Left craniotomy, evacuation of subdural hematoma 03/18/17 and fenestration of arachnoid cyst -Incentive Spirometer -Continue Cefazolin 1g q8h IV -No IVF -Neuro checks -Tylenol 650 mg po q6h prn FEN: -No IVF -Wnl -Regular diet Prophylaxis: -Heparin sq TID Dispo: -Transfer to M/S Visit type - Emergency Visit Emergency Visit: Yes ED Registration Date: 03/16/17 Care time: The patient presented to the Emergency Department on the above date and was hospitalized for further evaluation of their emergent condition. - New Patient This patient is new to me today: Yes Date on this admission: 03/26/17 - Critical Care Critical Care patient: Yes Total Critical Care Time (in minutes): 35 Critical Care Statement: The care of this patient involved high complexity decision making to prevent further life threatening deterioration of the patient 's condition and/or to evaluate & treat vital organ system(s) failure or risk of failure.
--- NOTE | 2017-03-26 14:22 | PN ---
Progress Note (short form) - Note Progress Note: Pt with improved headaches today. OOB and ambulating. Had bowel movement today. Vital Signs Period Temp Pulse Resp BP Sys/Cook Pulse Ox Last 24 Hr 98 F-98.7 F 66-83 13-20 103-150/59-94 100-100 TOMASA-20 ml serosangrenous GEN: appears comfortable Inc: c/d/i with kelly. No drainage or erythema. Tomasa removed intact and new dressing and dermabond to wound applied. back : incision healed well. no evidence of drainage or fullness. CBC, BMP 03/26/17 05:10 03/26/17 05:10 A/P: 46 yo female s/p Left craniotomy and fenestration or arachnoid cyst pt with improved headaches D/w Dr Brown-TOMASA removed S/w ICU team, may transfer pt to monitored floor when cleared by the ICU team
--- NOTE | 2017-03-26 17:28 | PN ---
Progress Note (short form) - Note Progress Note: Patient sitting up in no distress. Alert and awake, smiling and states : "I feel , much, much better." CT shows resolving arachnoid cyst PLAN -Transfer to regular room -continue abdominal binder and foam over Lumbar incision -TOMASA removed, continue dry sterile dressing -Physical Therapy -Will follow exam
[2017-03-26] MEDS ORDERED: LABETALOL HCL 5 MG/1 ML (100MG/20 ML VIAL) IVPUSH PRN (19:07)
[2017-03-26] MEDS ORDERED: ONDANSETRON 4 MG/2 ML VIAL IVPUSH PRN (19:07)
[2017-03-26] MEDS ORDERED: HYDROmorphone HCL CARPU-JECT 1 MG/1 ML DISP.SYRIN ONE (21:18)
[2017-03-26] MEDS ORDERED: HYDROmorphone HCL CARPU-JECT 1 MG/1 ML DISP.SYRIN IVPUSH ONE (21:27)
[2017-03-27] MEDS: ACETAMINOPHEN 325 MG TABLET (FP) PO PRN ×2 (00:25→21:26)
[2017-03-27] MEDS ORDERED: CEFAZOLIN 1 GM PUSH 1 GM/10 ML DISP.SYRIN IVPUSH SCH (02:00)
[2017-03-27] MEDS: HEPARIN NA (PORCINE) 5,000 UNITS/ML 1ML VIAL SQ SCH ×3 (06:06→21:25)
--- NOTE | 2017-03-27 08:33 | PN ---
Progress Note (short form) - Note Progress Note: surgery POD #5 craniotomy with arachnoid cyst excision. Patient seen and examined at the bedside. Patient states that her headache continues to improve and is dull this morning. She also states there is pain and fullness around the incision sites. She has been tolerating a regular diet, voiding and having bowel movements. She denies any radicular symptoms in any extremities, CP, SOB, N/V/D , Blurred vision or dizziness. She is not wearing he abdominal binder and I reminded her of the importance of wearing the binder 23 hours/day. Vital Signs Temp 98.2 F 03/27/17 05:47 Pulse 68 03/27/17 05:47 Resp 20 03/27/17 05:47 BP 124/72 03/27/17 05:47 Pulse Ox 100 03/26/17 21:00 Intake & Output 03/26/17 03/26/17 03/27/17 11:59 23:59 11:59 Intake Total 50 840 Output Total 10 Balance 40 840 Intake: IVPB 0 Oral 50 840 Output: Drainage 10 Left Head 10 Other: Voiding Method Toilet Toilet # Unmeasured Voids Void 1 2 1 Bowel Movement No No # Bowel Movements 1 PE: A&O x 3 NAD unlabored resp on RA CN grossly intact, EOM WNL with no evidence of nystagmus, Tounge protrudes at midline with no deviation. No facial edema, trachea midline incisions, C/D/I with no evidence of edema, erythema or d/c, kelly insitu Moving all extremities without restriction or limitation. Problem List - Problems (1) Subdural hematoma Assessment/Plan: POD # 5 craniotomy with excision of arachnoid cyst doing well. 1) continue dvt prophylaxis with b/l scds and SQ heaprin 2) OOB as tolerated 3) May shower but should not submerge the incision, can keep open to air or cover with dry dressing. 4) abdominal binder 23 hours/day 5) d/c planing Code(s): I62.00 - NONTRAUMATIC SUBDURAL HEMORRHAGE, UNSPECIFIED
[2017-03-27 08:52] LABS: BASO % 1.1 % (0-2.0); EOS % 11.5 % (0-4.5); HEMATOCRIT 27.4 % (32.4-45.2); MCH 30.4 pg (25.7-33.7); MCHC 32.7 g/dl (32.0-36.0); MEAN CELL VOLUME 93.1 fl (80-96); MEAN PLT VOLUME 8.9 fl (7.5-11.1); MONO % 13.5 % (3.8-10.2); NEUT % 45.9 % (42.8-82.8); PLATELET COUNT 303 K/MM3 (134-434); RBC 2.95 M/mm3 (3.60-5.2); RDW 12.3 % (11.6-15.6); WHITE BLOOD COUNT 5.3 K/mm3 (4.0-10.0)
[2017-03-27 09:24] LABS: ANION GAP 9 (8-16); BLOOD UREA NITROGEN 6 mg/dL (7-18); CALCIUM 8.8 mg/dL (8.5-10.1); CHLORIDE 104 mmol/L (98-107); CO2 26 mmol/L (21-32); GLUCOSE,RANDOM 80 mg/dL (74-106); POTASSIUM 3.9 mmol/L (3.5-5.1); SODIUM 139 mmol/L (136-145)
[2017-03-27 09:27] LABS: CREATININE 0.4 mg/dL (0.55-1.02)
[2017-03-27] MEDS: oxyCODONE HCL 5 MG TABLET PO PRN ×3 (11:20→21:27)
[2017-03-27] MEDS: DOCUSATE SODIUM 100 MG CAPSULE (FP) PO SCH ×2 (11:22→21:24)
[2017-03-27] MEDS: POLYETHYLENE GLYCOL 3350 119 GM BTL PO SCH ×2 (11:23→21:30)
--- NOTE | 2017-03-27 12:23 | PN ---
Progress Note (short form) - Note Progress Note: transfered to med /surg floor headache resolved residual surgical site pain Vital Signs Period Temp Pulse Resp BP Sys/Cook Pulse Ox Last 24 Hr 98.1 F-99.1 F 53-81 10-20 115-165/63-98 100-100 in Bed neck supple FROM heart reg S1/S2 lungs clear bilat abd soft on tender ext no edema / calf tenderness / FROM motor / sensory intact CBC, BMP 03/27/17 07:30 03/27/17 07:30 # Left craniotomy and fenestration of arachnoid cyst. headache resolved clinically improved pain management inc activity as tolerated continued improvement possible d/c in am Problem List - Problems (1) Subdural hematoma Code(s): I62.00 - NONTRAUMATIC SUBDURAL HEMORRHAGE, UNSPECIFIED
--- NOTE | 2017-03-27 14:35 | PN ---
Progress Note (short form) - Note Progress Note: Patient doing very well. Incision is clean, dry and intact. Pain level appropriate given nature of surgery. Discussed wound care and bathing regimen. PLAN -pain control -Physical Therapy -Consider discharge in AM if she continues to do well -Skin clip removal in my office the week of April 09
[2017-03-28] MEDS: HEPARIN NA (PORCINE) 5,000 UNITS/ML 1ML VIAL SQ SCH ×3 (06:29→21:10)
[2017-03-28] MEDS: oxyCODONE HCL 5 MG TABLET PO PRN ×4 (07:44→21:09)
[2017-03-28] MEDS: ACETAMINOPHEN 325 MG TABLET (FP) PO PRN (07:45)
--- NOTE | 2017-03-28 11:28 | PN ---
Progress Note (short form) - Note Progress Note: transfered to med /surg floor developed headache and neck pain early this am good response to pain meds -- unlike previously no nausea / vomiting residual surgical site pain Vital Signs Period Temp Pulse Resp BP Sys/Cook Pulse Ox Last 24 Hr 98.1 F-99.1 F 53-81 10-20 115-165/63-98 100-100 in Bed neck supple limited lateral movement 2/2 to pain worse on left side heart reg S1/S2 lungs clear bilat abd soft on tender ext no edema / calf tenderness / FROM motor / sensory intact CBC, BMP 03/27/17 07:30 03/27/17 07:30 # Left craniotomy and fenestration of arachnoid cyst. headache / neck pain discussed with NS pain management / continue to monitor inc activity as tolerated Problem List - Problems (1) Subdural hematoma Code(s): I62.00 - NONTRAUMATIC SUBDURAL HEMORRHAGE, UNSPECIFIED
[2017-03-28] MEDS: POLYETHYLENE GLYCOL 3350 119 GM BTL PO SCH ×2 (11:40→21:09)
[2017-03-28] MEDS: DOCUSATE SODIUM 100 MG CAPSULE (FP) PO SCH ×2 (12:37→21:08)
--- NOTE | 2017-03-28 13:23 | PATH ---
Surgical Pathology Report Patient Name: CARLOS A GONG Med. Rec. #: [id number] /Age/Gender: 1970 (Age: 46) / F Account: [id number] Location: [facility] MED/SURG Taken: 03/22/2017 Received: 03/23/2017 Reported: 03/28/2017 Physicians: Bridger Rangel MD Specimen(s) Received SUBDURAL HYGROMA MEMBRANE Clinical History Left hygroma arachnoid cyst Final Diagnosis SUBDURAL HYGROMA MEMBRANE, EXCISION: GRANULATION TISSUE WITH PROMINENT LYMPHOID AND EOSINOPHILIC INFILTRATE. Comment: Recommend correlation with clinical and radiologic findings and follow up as clinically indicated. Electronically Signed Kana Becerril M.D. Gross Description Received in formalin labeled "subdural hygroma membrane," is a 1.7 x 1.3 x 0.2 cm portion of gillette-jack soft tissue, possibly consistent with a disrupted cyst. The specimen is sectioned and entirely submitted in one cassette. /03/23/2017 [facility]03/23/2017
[2017-03-29] MEDS: oxyCODONE HCL 5 MG TABLET PO PRN ×5 (00:13→22:06)
[2017-03-29] MEDS: HEPARIN NA (PORCINE) 5,000 UNITS/ML 1ML VIAL SQ SCH ×3 (06:59→22:07)
[2017-03-29] MEDS: POLYETHYLENE GLYCOL 3350 119 GM BTL PO SCH ×2 (09:34→22:06)
[2017-03-29] MEDS: DOCUSATE SODIUM 100 MG CAPSULE (FP) PO SCH ×2 (09:34→22:06)
--- NOTE | 2017-03-29 13:41 | PN ---
Progress Note (short form) - Note Progress Note: Pt found sitting on edge of bed. MD and residents present and report change in speech. Pt going for stat CT scan of head. Neuro exam normal except Triceps 4/5. 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 Intact Ext- Neg Edema CBC, BMP 03/27/17 07:30 03/27/17 07:30 Active Medications Acetaminophen (Tylenol -) 650 mg PO Q6H PRN PRN Reason: PAIN LEVEL 1-5 (MILD PAIN) Last Admin: 03/28/17 07:45 Dose: 650 mg Docusate Sodium (Colace -) 200 mg PO BID [facility] Last Admin: 03/29/17 09:34 Dose: 200 mg Heparin Sodium (Porcine) (Heparin -) 5,000 unit SQ TID [facility] Last Admin: 03/29/17 13:30 Dose: 5,000 unit Labetalol HCl (Normodyne Injection -) 10 mg IVPUSH Q1H PRN PRN Reason: systolic b/p over 160 Ondansetron HCl (Zofran Injection) 4 mg IVPUSH Q6H PRN PRN Reason: NAUSEA AND/OR VOMITING Oxycodone HCl (Roxicodone -) 5 mg PO Q4H PRN PRN Reason: PAIN LEVEL 1-5 Last Admin: 03/29/17 11:59 Dose: 5 mg Oxycodone HCl (Roxicodone -) 10 mg PO Q4H PRN PRN Reason: PAIN LEVEL 6-10 Last Admin: 03/29/17 00:13 Dose: 10 mg Polyethylene Glycol (Miralax (For Daily Use) -) 17 gm PO BID [facility] Last Admin: 03/29/17 09:34 Dose: 17 gm #Altered Speech Stat CT scan Shows decrease in lt subdural extra axial air at surgical site No acute hemorrhage #Left Craniotomy and Fenestration of Arachnoid Cyst Continue to assess pain mgmt/ mental / Neuro status Subdural Hematomas Code I62.00- Nontraumatic Subdural Hemorrhage
--- NOTE | 2017-03-29 16:34 | PN ---
Progress Note (short form) - Note Progress Note: Events of the day noted. Patient was apparently up and about this AM preparing to go home. Reported to be in a cheerful mood. After her activity which was described as somewhat vigorous, patient returned to the bed and wasn't feeling well. She denied headache or neck pain, but complained of incisional pain and was medicated for this. Abdominal binder and foam were in place. Patient was found to be somewhat confused when conversing with her spouse and caregivers and had some difficulty in finding the correct words to say. Patient taken for stat Head CT which showed interval improvement in her fluid collection and no worrisome findings. I saw her around 2 PM and she was awake and alert and smiling in bed. She had a supple neck and denied headaches. She did appear to have slight difficulty in word finding and some degree of confusion, but her speech was clear to me. Incision was clean, dry and intact. PLAN -follow exam -pain control -await Dr. Estrada's opinion on her mental state
--- NOTE | 2017-03-29 18:29 | HOSP ---
Subjective - Review of Symptoms Events since last encounter: Rapid response was called around 11am. Per nurse, patient's speech was becoming garbled and her mental status also deviated from her baseline. Arrived at scene and patient to be hemodynamically stable, AAO x 3, neuro exam essential normal except 4/5 tricep strength. Neurosurgery (Dr. Brown) made aware and stat head CT was ordered. Nurse practioner later arrived at scene and case was signed out to her. She took over the patient management subsequently. HEENT: No: Head Aches, Visual Changes, Dysphasia Cardiovascular: No: Chest Pain, Palpitations Gastrointestinal: No: Nausea, Vomiting Musculoskeletal: Yes: No Symptoms Neurological: Yes: Change in speech. No: Weakness, Numbness Physical Examination Vital Signs: Vital Signs Temperature 997.9 F H 03/29/17 16:20 Pulse Rate 84 03/29/17 16:20 Respiratory Rate 20 03/29/17 16:20 Blood Pressure 129/79 03/29/17 16:20 O2 Sat by Pulse Oximetry (%) 100 03/29/17 09:00 Constitutional: Yes: Calm HENT: Yes: Atraumatic, Normocephalic Neck: Yes: Trachea Midline Cardiovascular: Yes: Regular Rate and Rhythm Respiratory: Yes: CTA Bilaterally Neurological: Yes: Alert, Oriented, Cran Nerves II-XII Intact, Weakness (4/5 L tricep). No: Aphasia, Confusion, Dysarthria, Facial Droop, Loss of Sensation, Numbness ...Motor Strength: WNL Psychiatric: Yes: Alert, Oriented. No: Agitated Labs: CBC, BMP 03/27/17 07:30 03/27/17 07:30 Hospitalist Encounter Assessment: Slurred speech - Clinically unremarkable - Edema vs. stroke vs. incracranial bleed vs. Language barrier - Stat head CT Visit type - Emergency Visit Emergency Visit: No - New Patient This patient is new to me today: Yes Date on this admission: 03/29/17 - Critical Care Critical Care patient: No
[2017-03-29] MEDS: ACETAMINOPHEN 325 MG TABLET (FP) PO PRN (22:07)
[2017-03-30] MEDS: HEPARIN NA (PORCINE) 5,000 UNITS/ML 1ML VIAL SQ SCH ×3 (06:56→23:48)
[2017-03-30] MEDS: oxyCODONE HCL 5 MG TABLET PO PRN (06:56)
[2017-03-30] MEDS: POLYETHYLENE GLYCOL 3350 119 GM BTL PO SCH ×2 (09:31→23:48)
[2017-03-30] MEDS: DOCUSATE SODIUM 100 MG CAPSULE (FP) PO SCH ×2 (09:31→23:47)
[2017-03-30] MEDS ORDERED: levETIRAcetam 500 MG TABLET (FP) PO SCH (12:00)
--- NOTE | 2017-03-30 13:40 | PN ---
Progress Note (short form) - Note Progress Note: examined in room aphasic follows commands / motor intact answers by nodding her head Vital Signs Period Temp Pulse Resp BP Sys/Cook Pulse Ox Last 24 Hr 98.1 F-99.1 F 53-81 10-20 115-165/63-98 100-100 in Bed heart reg S1/S2 lungs clear bilat abd soft on tender ext no edema / calf tenderness / FROM motor / sensory intact CBC, BMP 03/27/17 07:30 03/27/17 07:30 # aphasic ? increased ICP / imflammatory / ischemic event ? discussed with NS consult with neurology consult with speech start Keppra - 1st dose now MRI ? kelly in place s/p craniotomy # Left craniotomy and fenestration of arachnoid cyst. headache / neck pain discussed with NS pain management / continue to monitor inc activity as tolerated Problem List - Problems (1) Subdural hematoma Code(s): I62.00 - NONTRAUMATIC SUBDURAL HEMORRHAGE, UNSPECIFIED (2) Aphasia determined by examination Code(s): R47.01 - APHASIA
--- NOTE | 2017-03-30 18:37 | PN ---
Progress Note (short form) - Note Progress Note: Patient is awake and alert, yet is demonstrating progressive aphasia. Yesterday she was a bit confused and had some word finding difficulty, but could name objects and speak clearly. Today she cannot state her name and cannot protrude her tongue. I am concerned for possible seizures. Agree with plans for Neurology evaluation. I discussed the case in detail with Dr. Rome Will follow
--- NOTE | 2017-03-30 20:15 | CON.NEURO ---
Consult Consult Specialty:: NEUROLOGY-RADHA DE DIOS Reason for Consultation:: Aphasia - History of Present Illness History of Present Illness: Chart/hx. reviewed.Admission note 03/16/17-46 y/o female s/p lumbar laminectomy 01/29/17--who developed post up headache which has persisted since discharge. She was referred for repeat CT of head by NS, done today which reviled subdural hematoma. Patient was referred to ER for further evaluation.- She shows no neurological deficits, only complaint of headache. NS to evacuate subdural in am. Hx. obtained from Dr. Delgado, NS- pt. had a lumbar fusion in [place] 3 years ago followed by a dural tear and headaches, 2 months later was dx,with a pseudomeningocoele that was operated upon a few weeks ago and repaired. She subsequently developed headaches, a CT head revealed a large left SDH with mass effect that was evacuated on 03/16/17(no dural tear noted). She felt well but BRUNO recurred, the next day she developed BRUNO again-she was found on CT head to have another collection at site of left SDH-Dr. Delgado perceived a possible arachnoid cyst given clarity of fluid- a left pterional craniotomy performed a few days ago with drainage of cyst in to basal cistern. She improved, yesterday was well untyil 1030 am when her noted she was not able to complete sentences, thought to have a motor aphasia with likely etiology being electrical (seizures)-placed on Keppra. As per she has been completely mute since this morning, follows command, comprehends well but has no speech. Pt. is unable to relate hx. just smiles and follows commands. - Past Medical History [employer]: Yes: Other (headache) ...LMP: 01/29/17 - Past Surgical History Past Surgical History: Yes: Laminectomy - Alcohol/Substance Use Hx Alcohol Use: Yes (OCCASIONAL) History of Substance Use: reports: None - Smoking History Smoking history: Never smoked Have you smoked in the past 12 months: No If you are a former smoker, when did you quit?: 15 yrs ago - Social History ADL: Independent History of Recent Travel: No Home Medications - Allergies Allergies/Adverse Reactions: Allergies Allergy/AdvReac Type Severity Reaction Status Date / Time codeine Allergy Severe Itching Verified 03/16/17 12:05 - Home Medications Home Medications: Ambulatory Orders Oxycodone HCl/Acetaminophen [Percocet 5-325 mg Tablet] 1 - 2 tab PO Q4H PRN #30 tablet MDD 8 02/06/17 Physical Exam-Neuro Vital Signs: Vital Signs Temperature 99.9 F H 03/30/17 15:41 Pulse Rate 67 03/30/17 15:41 Respiratory Rate 20 03/30/17 15:41 Blood Pressure 123/54 03/30/17 15:41 O2 Sat by Pulse Oximetry (%) 100 03/30/17 09:00 Labs: CBC, BMP 03/27/17 07:30 03/27/17 07:30 INR, PTT INR 1.00 (0.82-1.09) 03/17/17 06:00 - Neuro Exam Level Of Consciousness: Yes: Alert (Mute) Eyes: Yes: PERRL (?? right homonymous hemianposia) Speech: Other (Pt. is mute, her comprehension is intact, does not even mouth words when prompted.) Dominant Hand: Right Mini Mental Exam: Awake, alert, unable to test rest of MS details Cranial Nerves II-XII Intact: Yes Gag: Present DTR's: 2+ Left Bicep, 2+ Right Bicep, 2+ Left Tricep, 2+ Right Tricep, 2+ Left Brachioradialis, 2+ Right Brachioradialis, 2+ Left Achilles, 2+ Right Achilles ( Right knee jerk is trace present, left is 3+) Babinski: Present (Bilateral upgoing toes) Response to light touch: Normal (Sensation symmetrically intact to touch/pin) Motor Strength: 4/5: Right Leg ( Right IP-4/5, rest 5/5, Left- at least 4/5 but pt. not exerting enough effort.), 5/5: Left Arm, Right Arm, Left Leg Gait: Deferred Imaging - Results Cat Scan: Report Reviewed (No sig. interval change from previous scan. A left SDH seen with mass effect and mild shift of midline structures without gross interval change. Slight decrease in amount of previously visualized left SDH/ extraaxial air at surgical site.) Assessment/Plan Pt. with left SDH with recurrent accumulation of fluid in SD space, now with what appears to have been a pure motor aphasia yesterday, now mute with bilateral upgoing toes, motor strength as per exam, right UE sensory drift. CSF with eosinophils?? reactive processPt. has increased intracranial pressure, the ddx.for her aphasia/mutism includes focal seizures(less likely) ischemic event now presenting with aphemia, simple pressure on language area causing current state and very less likely "catatonic mutism(can be seen in bifrontal pathology, increase in ICP). + peripheral eosinophilia- 11.5%. CT Head with air compressing temporal lobe tip? to my review. Suggest: 1) Cont Keppra but at 750mg bid 2) Ativan 1mg hs. 3) MRI/MRA(if she can have it with cranial kelly, if not repeat CT head 4) CSF analysis-cell count, chemistry. 5) Will d/w Dr. Brown possibility of CSF drainage/shunting. Thanks, will follow. Rui Rome MD [phone]
[2017-03-30] MEDS ORDERED: LORazepam 1 MG TABLET PO ONE ×2 (21:30→23:45)
[2017-03-30] MEDS: levETIRAcetam 500 MG TABLET (FP) PO SCH (23:48)
[2017-03-30] MEDS: levETIRAcetam 250 MG TABLET (FP) PO SCH (23:48)
[2017-03-31] MEDS: HEPARIN NA (PORCINE) 5,000 UNITS/ML 1ML VIAL SQ SCH ×3 (07:05→21:48)
[2017-03-31] MEDS: DOCUSATE SODIUM 100 MG CAPSULE (FP) PO SCH ×2 (10:23→21:48)
[2017-03-31] MEDS: levETIRAcetam 500 MG TABLET (FP) PO SCH ×2 (10:23→21:49)
[2017-03-31] MEDS: POLYETHYLENE GLYCOL 3350 119 GM BTL PO SCH ×2 (10:23→21:49)
[2017-03-31] MEDS: levETIRAcetam 250 MG TABLET (FP) PO SCH ×2 (10:23→21:49)
--- NOTE | 2017-03-31 14:27 | PN ---
Progress Note (short form) - Note Progress Note: examined in room aphasic daughter at bedside follows commands / motor intact answers by nodding her head / speaks yes and No appropriately Vital Signs Period Temp Pulse Resp BP Sys/Cook Pulse Ox Last 24 Hr 98.1 F-99.1 F 53-81 10-20 115-165/63-98 100-100 in Bed heart reg S1/S2 lungs clear bilat abd soft on tender ext no edema / calf tenderness / FROM motor / sensory intact CBC, BMP 03/27/17 07:30 03/27/17 07:30 # aphasic ? increased ICP / imflammatory / ischemic event ? discussed with NS / and Neurology consult with speech Continue Keppra -increased dose per neuro MRI today # Left craniotomy and fenestration of arachnoid cyst. aphasic discussed with NS pain management / continue to monitor Problem List - Problems (1) Subdural hematoma Code(s): I62.00 - NONTRAUMATIC SUBDURAL HEMORRHAGE, UNSPECIFIED (2) Aphasia determined by examination Code(s): R47.01 - APHASIA
[2017-03-31 16:04] LABS: COCAINE, UR NEGATIVE ng/ml (CUTOFF=300); METHADONE, UR NEGATIVE ng/ml (CUTOFF=300); OPIATES, URI NEGATIVE ng/ml (CUTOFF=300); PHENCYCLIDINE,URINE NEGATIVE ng/ml (CUTOFF=25); URINE AMPHETAMINES NEGATIVE ng/ml (CUTOFF=500); URINE BARBITURATES NEGATIVE ng/ml (CUTOFF=200); URINE BENZODIAZEPINES NEGATIVE ng/ml (CUTOFF=200)
[2017-03-31] MEDS ORDERED: LORazepam 2 MG/ML SDV VIAL ONE (17:31)
--- NOTE | 2017-03-31 19:15 | PN ---
Progress Note, Physician History of Present Illness: Chart/hx. reviewed.Admission note 03/16/17-46 y/o female s/p lumbar laminectomy 01/29/17--who developed post up headache which has persisted since discharge. She was referred for repeat CT of head by NS, done today which reviled subdural hematoma. Patient was referred to ER for further evaluation.- She shows no neurological deficits, only complaint of headache. NS to evacuate subdural in am. Hx. obtained from [facility] [place]- pt. had a lumbar fusion in [place] 3 years ago followed by a dural tear and headaches, 2 months later was dx,with a pseudomeningocoele that was operated upon a few weeks ago and repaired. She subsequently developed headaches, a CT head revealed a large left SDH with mass effect that was evacuated on 03/16/17(no dural tear noted). She felt well but BRUNO recurred, the next day she developed BRUNO again-she was found on CT head to have another collection at site of left SDH-Dr. Delgado perceived a possible arachnoid cyst given clarity of fluid- a left pterional craniotomy performed a few days ago with drainage of cyst in to basal cistern. She improved, yesterday was well untyil 1030 am when her noted she was not able to complete sentences, thought to have a motor aphasia with likely etiology being electrical (seizures)-placed on Keppra. As per she has been completely mute since this morning, follows command, comprehends well but has no speech. Pt. is unable to relate hx. just smiles and follows commands. 03/31/17 As per pt. attempted to mouth words today, she was also pointing at objects and could name a few. At this time sedated fro Ativan given for MRI, pt. still did not tolerate it. Is asleep, easily arousable but falls asleep, inattentive. -Given pts. attempts to talk (as compared to yesterday when she was mute) she may very well have aphemia due to pessure on the articulatory area of the mouth. Plan: 1) Will attempt MRI brain again tomorrow, if unable to tolerate will obtain CT head. 2) Empiric steroids- Decadron 6mg ivss with gastric protection- may help reduce edema -D/W pts. . - Current Medication List Current Medications: Active Medications Acetaminophen (Tylenol -) 650 mg PO Q6H PRN PRN Reason: PAIN LEVEL 1-5 (MILD PAIN) Last Admin: 03/29/17 22:07 Dose: 650 mg Docusate Sodium (Colace -) 200 mg PO BID [facility] Last Admin: 03/31/17 10:23 Dose: 200 mg Heparin Sodium (Porcine) (Heparin -) 5,000 unit SQ TID [facility] Last Admin: 03/31/17 14:16 Dose: 5,000 unit Labetalol HCl (Normodyne Injection -) 10 mg IVPUSH Q1H PRN PRN Reason: systolic b/p over 160 Levetiracetam (Keppra -) 500 mg PO BID [facility] Last Admin: 03/31/17 10:23 Dose: 500 mg Levetiracetam (Keppra -) 250 mg PO BID [facility] Last Admin: 03/31/17 10:23 Dose: 250 mg Ondansetron HCl (Zofran Injection) 4 mg IVPUSH Q6H PRN PRN Reason: NAUSEA AND/OR VOMITING Polyethylene Glycol (Miralax (For Daily Use) -) 17 gm PO BID [facility] Last Admin: 03/31/17 10:23 Dose: 17 gm - Objective Vital Signs: Vital Signs Temperature 97.5 F L 03/31/17 15:32 Pulse Rate 79 03/31/17 15:32 Respiratory Rate 18 03/31/17 15:32 Blood Pressure 111/74 03/31/17 15:32 O2 Sat by Pulse Oximetry (%) 100 03/31/17 09:00 Labs: CBC, BMP 03/27/17 07:30 03/27/17 07:30 INR, PTT INR 1.00 (0.82-1.09) 03/17/17 06:00
[2017-03-31] MEDS: PANTOPRAZOLE SOD 40 MG SUSPENSION PACKET PO SCH (20:07)
[2017-03-31] MEDS: DEXAMETHASONE SOD PHOSPHATE 10 MG/1 ML VIAL IVPB SCH (20:08)
[2017-03-31] MEDS: ACETAMINOPHEN 325 MG TABLET (FP) PO PRN (22:42)
[2017-04-01] MEDS: DEXAMETHASONE SOD PHOSPHATE 10 MG/1 ML VIAL IVPB SCH ×4 (02:22→21:28)
[2017-04-01] MEDS: HEPARIN NA (PORCINE) 5,000 UNITS/ML 1ML VIAL SQ SCH ×3 (06:37→21:29)
[2017-04-01] MEDS: levETIRAcetam 500 MG TABLET (FP) PO SCH ×2 (09:49→21:30)
[2017-04-01] MEDS: ACETAMINOPHEN 325 MG TABLET (FP) PO PRN ×2 (09:49→18:34)
[2017-04-01] MEDS: PANTOPRAZOLE SOD 40 MG SUSPENSION PACKET PO SCH (09:49)
[2017-04-01] MEDS: DOCUSATE SODIUM 100 MG CAPSULE (FP) PO SCH ×2 (09:50→21:28)
[2017-04-01] MEDS: levETIRAcetam 250 MG TABLET (FP) PO SCH ×2 (09:50→21:30)
[2017-04-01] MEDS: POLYETHYLENE GLYCOL 3350 119 GM BTL PO SCH ×2 (10:01→21:30)
--- NOTE | 2017-04-01 12:44 | PN ---
Progress Note (short form) - Note Progress Note: Patient seen and examined. She is ambulating in bhatia fluidly with minimal assist for safety. Back wound is clean, dry and intact and the patient continues to use the abdominal binder and foam to reduce potential for sudden intracranial hypotension. No complaints of back pain. The patient has mild headaches, but moves her neck freely. Patient has slight improvement in her aphasia and says a few simple words. She appears cognizant of her difficulties and is able to answer yes/no questions appropriately. She is able to stick out her tongue which she wasn't able to do on Sunday. Dr. Rome's input is greatly appreciated. MRI was not possible yesterday and attempts will be made again today. I informed the patient that I will be away for several days, but will continue to monitor her care and discuss the plans and review studies with Drs. Estrada and Latricia. No Neurosurgical intervention is planned and treatment for her aphasia will be primarily medical for the upcoming few days. Hopefully, she will continue to show improvement and be able to go to Rehabilitation. Her skin clips can be removed the week of April 09. If she is in Rehabilitation, the treating physician should contact our office to coordinate, otherwise, I will see her in the office to remove them myself.
--- NOTE | 2017-04-01 14:26 | PN ---
Progress Note, Physician History of Present Illness: Pt. condition appears improved further today, she is able to mouth words and verbalizes broken sentences. ambulates without assistance. Unable to have MRI yesterday.Awake, alert, follows all commands. Will hold off on MRI if patient continues to improve as far as her aphemia/ aphasia is concerned. Cont Decadron/Keppra. - Current Medication List Current Medications: Active Medications Acetaminophen (Tylenol -) 650 mg PO Q6H PRN PRN Reason: PAIN LEVEL 1-5 (MILD PAIN) Last Admin: 04/01/17 09:49 Dose: 650 mg Dexamethasone Sodium Phosphate (Decadron Injection -) 6 mg IVPB Q6H-IV [facility] Last Admin: 04/01/17 09:49 Dose: 6 mg Docusate Sodium (Colace -) 200 mg PO BID [facility] Last Admin: 04/01/17 09:50 Dose: 200 mg Heparin Sodium (Porcine) (Heparin -) 5,000 unit SQ TID [facility] Last Admin: 04/01/17 06:37 Dose: 5,000 unit Labetalol HCl (Normodyne Injection -) 10 mg IVPUSH Q1H PRN PRN Reason: systolic b/p over 160 Levetiracetam (Keppra -) 500 mg PO BID [facility] Last Admin: 04/01/17 09:49 Dose: 500 mg Levetiracetam (Keppra -) 250 mg PO BID [facility] Last Admin: 04/01/17 09:50 Dose: 250 mg Ondansetron HCl (Zofran Injection) 4 mg IVPUSH Q6H PRN PRN Reason: NAUSEA AND/OR VOMITING Pantoprazole Sodium (Protonix Packets For Oral Suspension -) 40 mg PO DAILY [facility] Last Admin: 04/01/17 09:49 Dose: 40 mg Polyethylene Glycol (Miralax (For Daily Use) -) 17 gm PO BID [facility] Last Admin: 04/01/17 10:01 Dose: 17 gm - Objective Vital Signs: Vital Signs Temperature 98.4 F 04/01/17 10:00 Pulse Rate 79 04/01/17 10:00 Respiratory Rate 16 04/01/17 10:00 Blood Pressure 103/62 04/01/17 10:00 O2 Sat by Pulse Oximetry (%) 100 03/31/17 21:00 Labs: CBC, BMP 03/27/17 07:30 03/27/17 07:30 INR, PTT INR 1.00 (0.82-1.09) 03/17/17 06:00
--- NOTE | 2017-04-01 14:28 | PN ---
Progress Note (short form) - Note Progress Note: examined in room at bedside case discussed with NS and neurology able to speak isolated words follows commands / motor intact attempts to talk / communicate Vital Signs Period Temp Pulse Resp BP Sys/Cook Pulse Ox Last 24 Hr 98.1 F-99.1 F 53-81 10-20 115-165/63-98 100-100 in Bed heart reg S1/S2 lungs clear bilat abd soft on tender ext no edema / calf tenderness / FROM motor / sensory intact CBC, BMP 03/27/17 07:30 03/27/17 07:30 # aphemia / aphasia ? increased ICP / imflammatory / ischemic event -less likely as patietn is improving discussed with NS / and Neurology consult with speech Continue Keppra -increased dose per neuro started on decadron yesterday unable to do MRI yesterday IF needed will arrange with anesthesia with conscious sedation / if continued improvement will d/c # Left craniotomy and fenestration of arachnoid cyst. Problem List - Problems (1) Subdural hematoma Code(s): I62.00 - NONTRAUMATIC SUBDURAL HEMORRHAGE, UNSPECIFIED (2) Aphasia determined by examination Code(s): R47.01 - APHASIA
[2017-04-02] MEDS: ACETAMINOPHEN 325 MG TABLET (FP) PO PRN ×2 (02:08→20:13)
[2017-04-02] MEDS: DEXAMETHASONE SOD PHOSPHATE 10 MG/1 ML VIAL IVPB SCH ×4 (03:15→21:36)
[2017-04-02] MEDS: HEPARIN NA (PORCINE) 5,000 UNITS/ML 1ML VIAL SQ SCH ×2 (06:14→15:04)
--- NOTE | 2017-04-02 08:46 | PN ---
Progress Note (short form) - Note Progress Note: Chart/hx. reviewed.Admission note 03/16/17-46 y/o female s/p lumbar laminectomy 01/29/17--who developed post up headache which has persisted since discharge. She was referred for repeat CT of head by NS, done today which reviled subdural hematoma. Patient was referred to ER for further evaluation.- NS to evacuate subdural in am. NS- pt. had a lumbar fusion in [place] 3 years ago followed by a dural tear and headaches, 2 months later was dx,with a pseudomeningocoele that was operated upon a few weeks ago and repaired. She subsequently developed headaches , a CT head revealed a large left SDH with mass effect that was evacuated on 02/19(no dural tear noted). She felt well but BRUNO recurred, the next day she developed RBUNO again-she was found on CT head to have another collection at site of left SDH-Dr. Delgado perceived a possible arachnoid cyst given clarity of fluid- a left pterional craniotomy performed a few days ago with drainage of cyst in to basal cistern. 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 As per she has been completely mute since follows command, comprehends well but has no speech. Pt. is unable to relate hx. just smiles and follows commands. FU : as of 04/01/17 was Awake, alert, follows all commands. this AM, doing well, able to converse, + Naming, min issue with repetition (vs language barrrier), follows 3 steps, no focal weakness CT HD 03/29/17 IMPRESSION: No significant interval change. A left subdural collection is again seen with mass effect and mild shift of the midline structures , without gross interval change. Slight decrease in the amount of previously visualized left subdural/extra-axial air at the site of surgery. No interval acute intracranial hemorrhage is seen. Continued close follow-up is needed - Past Medical History [employer]: Yes: Other (headache) ...LMP: 01/29/17 - Past Surgical History Past Surgical History: Yes: Laminectomy - Alcohol/Substance Use Hx Alcohol Use: Yes (OCCASIONAL) History of Substance Use: reports: None - Smoking History Smoking history: Never smoked Have you smoked in the past 12 months: No If you are a former smoker, when did you quit?: 15 yrs ago - Social History ADL: Independent History of Recent Travel: No Home Medications - Allergies Allergies/Adverse Reactions: Allergies Allergy/AdvReac Type Severity Reaction Status Date / Time codeine Allergy Severe Itching Verified 03/16/17 12:05 - Home Medications Home Medications: Ambulatory Orders Oxycodone HCl/Acetaminophen [Percocet 5-325 mg Tablet] 1 - 2 tab PO Q4H PRN #30 tablet MDD 8 02/06/17 Physical Exam-Neuro Vital Signs: Vital Signs Temperature 97.7 F 04/02/17 06:22 Pulse Rate 72 04/02/17 06:22 Respiratory Rate 20 04/02/17 06:22 Blood Pressure 98/58 04/01/17 22:00 O2 Sat by Pulse Oximetry (%) 98 04/01/17 21:00 Labs: 03/27/17 07:30 03/27/17 07:30 - Neuro Exam on 03/30/17 Level Of Consciousness: Yes: Alert Eyes: Yes: PERRL (?? right homonymous hemianposia) Speech: Other (Pt. is mute, her comprehension is intact, does not even mouth words when prompted.) Dominant Hand: Right Mini Mental Exam: Awake, alert, unable to test rest of MS details Cranial Nerves II-XII Intact: Yes Gag: Present DTR's: 2+ Left Bicep, 2+ Right Bicep, 2+ Left Tricep, 2+ Right Tricep, 2+ Left Brachioradialis, 2+ Right Brachioradialis, 2+ Left Achilles, 2+ Right Achilles ( Right knee jerk is trace present, left is 3+) Babinski: Present (Bilateral upgoing toes) Response to light touch: Normal (Sensation symmetrically intact to touch/pin) Motor Strength: 4/5: Right Leg ( Right IP-4/5, rest 5/5, Left- at least 4/5 but pt. not exerting enough effort.), 5/5: Left Arm, Right Arm, Left Leg Gait: Deferred exam : see above 04/01/17 Imaging - Results Cat Scan: Report Reviewed (No sig. interval change from previous scan. A left SDH seen with mass effect and mild shift of midline structures without gross interval change. Slight decrease in amount of previously visualized left SDH/ extraaxial air at surgical site.) Assessment/Plan Pt. with left SDH with recurrent accumulation of fluid in SD space, now with what appears to have been a pure motor aphasia 03/30/17, now mute with bilateral upgoing toes, motor strength as per exam, right UE sensory drift. the ddx.for her aphasia/mutism includes focal seizures(less likely) ischemic event now presenting with aphemia, simple pressure on language area causing current state + peripheral eosinophilia- 11.5%. CT Head with air compressing temporal lobe tip? to my review. she appears to be doing much better and minimal aphasia seen now --close to baseline compressive effects vs cortical irritation vs seizure Cont Keppra 750mg bid and will do slow taper decadron Dr Dugan
[2017-04-02] MEDS: DOCUSATE SODIUM 100 MG CAPSULE (FP) PO SCH ×2 (11:06→21:37)
[2017-04-02] MEDS: levETIRAcetam 500 MG TABLET (FP) PO SCH ×2 (11:06→21:37)
[2017-04-02] MEDS: PANTOPRAZOLE 40 MG TABLET (FP) PO SCH ×2 (11:07→21:38)
[2017-04-02] MEDS: levETIRAcetam 250 MG TABLET (FP) PO SCH ×2 (11:07→21:37)
[2017-04-02] MEDS: POLYETHYLENE GLYCOL 3350 119 GM BTL PO SCH ×2 (12:25→21:38)
--- NOTE | 2017-04-02 17:30 | PN ---
Progress Note (short form) - Note Progress Note: examined in room case discussed with neurology able to speak isolated partial sentences follows commands / motor intact attempts to talk / communicate ambulates well Vital Signs Period Temp Pulse Resp BP Sys/Cook Pulse Ox Last 24 Hr 97.7 F-98.0 F 58-73 18-20 98-109/58-69 98 in Bed comfortable / able to c/o headache heart reg S1/S2 lungs clear bilat abd soft on tender ext no edema / calf tenderness / FROM motor / sensory intact CBC, BMP 03/27/17 07:30 03/27/17 07:30 # aphemia / aphasia ? increased ICP / imflammatory / ischemic event -less likely as patietn is improving discussed with Neurology consult with speech Continue Kekevin / Jeramy will defer MRI in view of clinical improvement IF needed will arrange with anesthesia with conscious sedation # s/p Left craniotomy and fenestration of arachnoid cyst. Problem List - Problems (1) Subdural hematoma Code(s): I62.00 - NONTRAUMATIC SUBDURAL HEMORRHAGE, UNSPECIFIED (2) Aphasia determined by examination Code(s): R47.01 - APHASIA
[2017-04-03] MEDS: DEXAMETHASONE SOD PHOSPHATE 10 MG/1 ML VIAL IVPB SCH ×4 (02:12→21:49)
[2017-04-03] MEDS: DOCUSATE SODIUM 100 MG CAPSULE (FP) PO SCH ×2 (10:32→21:50)
[2017-04-03] MEDS: POLYETHYLENE GLYCOL 3350 119 GM BTL PO SCH ×2 (10:32→21:51)
[2017-04-03] MEDS: levETIRAcetam 250 MG TABLET (FP) PO SCH ×2 (10:32→21:49)
[2017-04-03] MEDS: levETIRAcetam 500 MG TABLET (FP) PO SCH ×2 (10:32→21:49)
[2017-04-03] MEDS: PANTOPRAZOLE 40 MG TABLET (FP) PO SCH ×2 (10:32→21:49)
--- NOTE | 2017-04-03 10:38 | PN ---
Progress Note (short form) - Note Progress Note: examined in room case discussed with nurse able to speak isolated partial sentences follows commands / motor intact able to converse with short answers both Citizen Of [place] and [place] ambulates well Vital Signs Period Temp Pulse Resp BP Sys/Cook Pulse Ox Last 24 Hr 98.0 F-98.3 F 58-77 18-58 101-135/64-95 [address] gait normal / no motor deficits noted neck supple - nodes heart reg S1/S2 lungs clear bilat abd soft on tender ext no edema / calf tenderness / FROM motor / sensory intact CBC, BMP 03/27/17 07:30 03/27/17 07:30 # aphemia / aphasia ? increased ICP / imflammatory / ischemic event -less likely as patient is improving will discussed with Neurology need for MRI consult with speech Continue Keppra / Decadron / PPI will defer MRI in view of clinical improvement IF needed will arrange with anesthesia with conscious sedation # s/p Left craniotomy and fenestration of arachnoid cyst. Problem List - Problems (1) Subdural hematoma Code(s): I62.00 - NONTRAUMATIC SUBDURAL HEMORRHAGE, UNSPECIFIED (2) Aphasia determined by examination Code(s): R47.01 - APHASIA
[2017-04-03] MEDS: ACETAMINOPHEN 325 MG TABLET (FP) PO PRN (10:39)
--- NOTE | 2017-04-03 11:02 | PN ---
Progress Note (short form) - Note Progress Note: Progress Note: Chart/hx. reviewed.Admission note 03/16/17-46 y/o female s/p lumbar laminectomy 01/29/17--who developed post up headache which has persisted since discharge. She was referred for repeat CT of head by NS, done today which reviled subdural hematoma. Patient was referred to ER for further evaluation.- NS to evacuate subdural in am. NS- pt. had a lumbar fusion in [place] 3 years ago followed by a dural tear and headaches, 2 months later was dx,with a pseudomeningocoele that was operated upon a few weeks ago and repaired. She subsequently developed headaches , a CT head revealed a large left SDH with mass effect that was evacuated on 02/19(no dural tear noted). She felt well but BRUNO recurred, the next day she developed BRUNO again-she was found on CT head to have another collection at site of left SDH-Dr. Delgado perceived a possible arachnoid cyst given clarity of fluid- a left pterional craniotomy performed a few days ago with drainage of cyst in to basal cistern. 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 As per she has been completely mute since follows command, comprehends well but has no speech. Pt. is unable to relate hx. just smiles and follows commands. FU : as of 04/01/17 was Awake, alert, follows all commands. Yesterday AM, doing well, able to converse, + Naming, min issue with repetition (vs language barrrier), follows 3 steps, no focal weakness 04/03 continued improvement in language, no motor deficit. CT HD 03/29/17 IMPRESSION: No significant interval change. A left subdural collection is again seen with mass effect and mild shift of the midline structures , without gross interval change. Slight decrease in the amount of previously visualized left subdural/extra-axial air at the site of surgery. No interval acute intracranial hemorrhage is seen. 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 [employer]: Yes: Other (headache) ...LMP: 01/29/17 - Past Surgical History Past Surgical History: Yes: Laminectomy - Alcohol/Substance Use Hx Alcohol Use: Yes (OCCASIONAL) History of Substance Use: reports: None - Smoking History Smoking history: Never smoked Have you smoked in the past 12 months: No If you are a former smoker, when did you quit?: 15 yrs ago - Social History ADL: Independent History of Recent Travel: No Home Medications - Allergies Allergies/Adverse Reactions: Allergies Allergy/AdvReac Type Severity Reaction Status Date / Time codeine Allergy Severe Itching Verified 03/16/17 12:05 - Home Medications Home Medications: Ambulatory Orders Oxycodone HCl/Acetaminophen [Percocet 5-325 mg Tablet] 1 - 2 tab PO Q4H PRN #30 tablet MDD 8 02/06/17 Physical Exam-Neuro Vital Signs: Vital Signs Temperature 97.7 F 04/02/17 06:22 Pulse Rate 72 04/02/17 06:22 Respiratory Rate 20 04/02/17 06:22 Blood Pressure 98/58 04/01/17 22:00 O2 Sat by Pulse Oximetry (%) 98 04/01/17 21:00 Labs: 03/27/17 07:30 03/27/17 07:30 - Neuro Exam on 03/30/17 Level Of Consciousness: Yes: Alert Eyes: Yes: PERRL (?? right homonymous hemianposia) Speech: Other (Pt. is mute, her comprehension is intact, does not even mouth words when prompted.) Dominant Hand: Right Mini Mental Exam: Awake, alert, unable to test rest of MS details Cranial Nerves II-XII Intact: Yes Gag: Present DTR's: 2+ Left Bicep, 2+ Right Bicep, 2+ Left Tricep, 2+ Right Tricep, 2+ Left Brachioradialis, 2+ Right Brachioradialis, 2+ Left Achilles, 2+ Right Achilles ( Right knee jerk is trace present, left is 3+) Babinski: Present (Bilateral upgoing toes) Response to light touch: Normal (Sensation symmetrically intact to touch/pin) Motor Strength: 4/5: Right Leg ( Right IP-4/5, rest 5/5, Left- at least 4/5 but pt. not exerting enough effort.), 5/5: Left Arm, Right Arm, Left Leg Gait: Deferred exam : see above 04/01/17 Imaging - Results Cat Scan: Report Reviewed (No sig. interval change from previous scan. A left SDH seen with mass effect and mild shift of midline structures without gross interval change. Slight decrease in amount of previously visualized left SDH/ extraaxial air at surgical site.) Assessment/Plan Pt. with left SDH with recurrent accumulation of fluid in SD space, now with what appears to have been a pure motor aphasia 03/30/17, now mute with bilateral upgoing toes, motor strength as per exam, right UE sensory drift. the ddx.for her aphasia/mutism includes focal seizures(less likely) ischemic event now presenting with aphemia, simple pressure on language area causing current state + peripheral eosinophilia- 11.5%. CT Head with air compressing temporal lobe tip? to my review. she appears to be doing much better and aphasia appears to be resolving --close to baseline compressive effects vs cortical irritation vs seizure Cont Keppra 750mg bid and will do slow taper decadron Discussed issue of MRI with Dr. Estrada. She would require sedation for MRI and as she is clinically improving, risk benefit ratio favors avoiding sedation and getting repeat CT scan instead. I ordered this and we'll follow up. Kailee covering Sun, and I'll be back and Sunday.
--- NOTE | 2017-04-03 11:47 | CONSULT ---
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 History of Recent Travel: No History - Admission Reason For Visit: SUBDURAL HEMATOMA - Diagnostics X-ray: Report Reviewed CT Scan: Report Reviewed (Left subdural collection. Repeat pending.) - General Mental Status: Awake and Alert, Able to Follow Commands (1 stage, not 2 stage simple commands) Attention: Intact Ability to Follow Directions: Fair Head/Neck Control: WFL - Hearing Hearing: Functional Hearing: Normal Speech Evaluation - Communication Primary Language: NEPALESE Secondary Language: TRINIDADIAN Communication: Yes: Aphasia Oral Expression Ability: Yes: Moderate Impairment - Speech Production Able to Make Needs Known: Yes: Mildly Impaired, Moderately Impaired Intelligibility: Yes: WNL - Speech Characteristics Voice Loudness: Normal Voice Pitch: Yes: Normal Voice Phonatory-based Quality: Yes: Normal Speech Pattern: Impaired Speech Clarity: < 100% Nasal Resonance: Normal Articulation: Yes: Precise - Language/Auditory Comprehension Follows: Yes: 1 Stage Simple Commands Observation: Comprehends Conversational Speech: Yes (1 stage, not 2 stage commands), Benefits from Slow Speech: Yes, Benefits from Repetiton: Yes, Benefits from Increased Volume of Speech: No - Language/Verbal Expression Aphasia: Yes: Nonfluent, Anomia, Impaired Repetition, Grammatic Errors Able to Respond to Simple Queries: Yes: Mildly Impaired, Moderately Impaired Able to Communicate Wants and Needs: Yes: Mildly Impaired, Moderately Impaired Functional Communication Status: Yes: Mildly Impaired, Moderately Impaired Aware of Errors: No Attempts to Correct Errors: No Written Expression: Unable to write in ENG or Croatian. A few letters, unable to complete words. Attention: Yes: Intact - Swallow Evaluation/Bedside Assessment Current Nutritional Intake: Regular Oral Secretions: Yes: WFL Dentition: Yes: Adequate Facial Symmetry at Rest: Symmetrical Facial Symmetry on Retraction: Symmetrical Sensation: Normal Against Resistance Opening: Normal Against Resistance Closing: Normal Pucker Lips: Normal Smile: Normal Lingual Movement: Normal, Symmetric Lingual Speed of Movement: Normal Lingual Movement Strgth Against Opposition: Normal Lingual Movement Characteristics: Normal Velopharyngeal Movement: Normal Laryngeal Elevation: WFL Laryngeal Movement: Able to Palpate Rate of Intake: WFL Bolus Size: WFL Labial Seal: WFL Chewing: WFL Oral Prep Time: WFL A-P Transit: WFL Pocketing: None Timing of Swallow: WFL Coughing/Throat Clear: No Change in Voice: No Recommendations - Speech Evaluation, Impression/Plan Impression: Significant improvement in speech production, language expression. Although pt's primary language is Croatian, she is unable to respond in Croatian or name. She can repeat on sentence level but with errors. Interestingly, language expression is much more functional in Bahamian, with non fluent pattern , with impaired grammar, and frequent omission of Subject in sentence,2-4 word sentences, anomia. Graphic skills are non functional, producing letters but unable to write her thoughts. Auditory comprehension is impaired, unable to follow 2 step commands eg "Throw a kiss but first raise your hand" No dysarthria /Apraxia noted. Swallowing intact. Good prognosis for continued improvement. Recommended Therapies: Language - Dysphagia Impressions/Plan Swallowing Skills: WFL Dysphagia Impressions: No Impairment *Silent aspiration: cannot be R/O at bedside Recommendations: Other (Intensive Language therapy including auditory comprehension, language formulation in both Bahamian and Croatian, Graphic formulation,naming etc. Will benfeit from tx upon d/c via homecare or local out pt reheb in [place].)
[2017-04-04] MEDS: DEXAMETHASONE SOD PHOSPHATE 10 MG/1 ML VIAL IVPB SCH ×2 (02:47→09:23)
[2017-04-04] MEDS ORDERED: PT OWN MED DRAWER 7, Y5N ONE (09:19)
[2017-04-04] MEDS: DOCUSATE SODIUM 100 MG CAPSULE (FP) PO SCH ×2 (09:24→22:00)
[2017-04-04] MEDS: PANTOPRAZOLE 40 MG TABLET (FP) PO SCH ×2 (09:24→22:00)
[2017-04-04] MEDS: levETIRAcetam 250 MG TABLET (FP) PO SCH ×2 (09:24→22:00)
[2017-04-04] MEDS: levETIRAcetam 500 MG TABLET (FP) PO SCH ×2 (09:24→22:00)
[2017-04-04] MEDS: ACETAMINOPHEN 325 MG TABLET (FP) PO PRN (09:24)
[2017-04-04] MEDS: POLYETHYLENE GLYCOL 3350 119 GM BTL PO SCH ×2 (09:33→22:01)
--- NOTE | 2017-04-04 10:43 | PN ---
Progress Note (short form) - Note Progress Note: Chart/hx. reviewed.Admission note 03/16/17-46 y/o female s/p lumbar laminectomy 01/29/17--who developed post up headache which has persisted since discharge. She was referred for repeat CT of head by NS, done today which reviled subdural hematoma. Patient was referred to ER for further evaluation.- NS to evacuate subdural in am. NS- pt. had a lumbar fusion in [place] 3 years ago followed by a dural tear and headaches, 2 months later was dx,with a pseudomeningocoele that was operated upon a few weeks ago and repaired. She subsequently developed headaches , a CT head revealed a large left SDH with mass effect that was evacuated on 02/19(no dural tear noted). She felt well but BRUNO recurred, the next day she developed BRUNO again-she was found on CT head to have another collection at site of left SDH-Dr. Delgado perceived a possible arachnoid cyst given clarity of fluid- a left pterional craniotomy performed a few days ago with drainage of cyst in to basal cistern. 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 As per she has been completely mute since follows command, comprehends well but has no speech. Pt. is unable to relate hx. just smiles and follows commands. FU : pt awake but has some residual verbal outpt--speaks in few words , but limited sentence structure residual mild expressive aphasia , no focal weakness, field cut CT HD 04/03/17 IMPRESSION: Interval decrease in size of previously visualized left subdural collection now measuring 6 mm in width with interval decrease in the degree of mass effect and shift of the midline structures. Residual minimal shift of the midline structures towards the right side is present as well as residual minimal extra-axial air at the site of surgery No interval acute intracranial hemorrhage is seen. Continued follow-up is needed CT HD 03/29/17 IMPRESSION: No significant interval change. A left subdural collection is again seen with mass effect and mild shift of the midline structures , without gross interval change. Slight decrease in the amount of previously visualized left subdural/extra-axial air at the site of surgery. No interval acute intracranial hemorrhage is seen. Continued close follow-up is needed - Past Medical History SLPS: Yes: Other (headache) ...LMP: 01/29/17 - Past Surgical History Past Surgical History: Yes: Laminectomy - Alcohol/Substance Use Hx Alcohol Use: Yes (OCCASIONAL) History of Substance Use: reports: None - Smoking History Smoking history: Never smoked Have you smoked in the past 12 months: No If you are a former smoker, when did you quit?: 15 yrs ago - Social History ADL: Independent History of Recent Travel: No Home Medications - Allergies Allergies/Adverse Reactions: Allergies Allergy/AdvReac Type Severity Reaction Status Date / Time codeine Allergy Severe Itching Verified 03/16/17 12:05 - Home Medications Home Medications: Ambulatory Orders Oxycodone HCl/Acetaminophen [Percocet 5-325 mg Tablet] 1 - 2 tab PO Q4H PRN #30 tablet MDD 8 02/06/17 Physical Exam-Neuro Vital Signs: Vital Signs Temperature 98.5 F 04/04/17 08:52 Pulse Rate 76 04/04/17 08:52 Respiratory Rate 18 04/04/17 08:52 Blood Pressure 133/94 04/04/17 08:52 O2 Sat by Pulse Oximetry (%) 98 04/03/17 21:00 Labs: 03/27/17 07:30 03/27/17 07:30 - Neuro Exam on 03/30/17 Level Of Consciousness: Yes: Alert Eyes: Yes: PERRL (?? right homonymous hemianposia) Speech: Other (Pt. is mute, her comprehension is intact, does not even mouth words when prompted.) Dominant Hand: Right Mini Mental Exam: Awake, alert, unable to test rest of MS details Cranial Nerves II-XII Intact: Yes Gag: Present DTR's: 2+ Left Bicep, 2+ Right Bicep, 2+ Left Tricep, 2+ Right Tricep, 2+ Left Brachioradialis, 2+ Right Brachioradialis, 2+ Left Achilles, 2+ Right Achilles ( Right knee jerk is trace present, left is 3+) Babinski: Present (Bilateral upgoing toes) Response to light touch: Normal (Sensation symmetrically intact to touch/pin) Motor Strength: 4/5: Right Leg ( Right IP-4/5, rest 5/5, Left- at least 4/5 but pt. not exerting enough effort.), 5/5: Left Arm, Right Arm, Left Leg Gait: Deferred exam : see above 04/01/17 Imaging - Results Cat Scan: Report Reviewed (No sig. interval change from previous scan. A left SDH seen with mass effect and mild shift of midline structures without gross interval change. Slight decrease in amount of previously visualized left SDH/ extraaxial air at surgical site.) Assessment/Plan Pt. with left SDH with recurrent accumulation of fluid in SD space, now with what appears to have been a pure motor aphasia 03/30/17, now mute with bilateral upgoing toes, motor strength as per exam, right UE sensory drift. the ddx.for her aphasia/mutism includes focal seizures(less likely) ischemic event now presenting with aphemia, simple pressure on language area causing current state + peripheral eosinophilia- 11.5%. CT Head with air compressing temporal lobe tip? to my review. mild residual expressive aphasia will start taper DECAdron 4 q8 can maintain keppra suggest REHAB, needs speech tx Dr Dugan
[2017-04-04] MEDS: DEXAMETHASONE SOD PHOSPHATE 4 MG/1 ML VIAL IVPUSH SCH ×2 (11:51→17:41)
--- NOTE | 2017-04-04 12:24 | PN ---
Progress Note (short form) - Note Progress Note: Patient seen at bedside today and evaluated. She is ambulating well with some assistance. She denies pain or discomfort; rate 2/10 headache otherwise feeling well. She was able to engage in conversation and reported recognizing GOLD CHARMER from ED. Answered questions appropriately. Her surgical incision is clean and dry; no exudate; tenderness with light palpation; or erythema. Granulation tissue noted. She had head CT on 04/03/17 - Impression: Interval decrease in size of previously visualized left subdural collection now measuring 6 mm in width with interval decrease in the degree of mass effect and shift of the midline structures. Residual minimal shift of the midline structures towards the right side is present as well as residual minimal extra-axial air at the site of surgery. no interval acute intracranial hemorrhage is seen. She was seen by Dr. Dugan this morning who will make his recommendation after his evaluation. Neurosurgery will continue to monitor. Awaiting decision for rehab vs. home.
--- NOTE | 2017-04-04 12:33 | PN ---
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 Pt was unable to respond to questions regarding work, how she got there, what she did. Difficulty comprehending wh-questions. Language function in Peruvian has improved significantly, from mute to Moderate Aphasia. Sammarinese expressive language is rarely elicited. W/u for cognitive deficits is also indicated. Perceptual deficits noted, drawing a clock with nos. 1-9 only, all skewed around without pt awareness. Prognosis for improvement is excellent. Pt will benefit from intensive language/ cognitive tx upon d/c.
[2017-04-05] MEDS: DEXAMETHASONE SOD PHOSPHATE 4 MG/1 ML VIAL IVPUSH SCH ×3 (02:55→17:44)
[2017-04-05] MEDS: ACETAMINOPHEN 325 MG TABLET (FP) PO PRN ×4 (04:20→22:28)
[2017-04-05 07:52] LABS: BASO % 0.1 % (0-2.0); HEMATOCRIT 30.8 % (32.4-45.2); HEMOGLOBIN 10.2 GM/dL (10.7-15.3); LYMPH % 19.9 % (8-40); MCHC 33.1 g/dl (32.0-36.0); MEAN CELL VOLUME 90.8 fl (80-96); MEAN PLT VOLUME 8.4 fl (7.5-11.1); PLATELET COUNT 446 K/MM3 (134-434); RBC 3.39 M/mm3 (3.60-5.2); RDW 12.3 % (11.6-15.6); WHITE BLOOD COUNT 6.1 K/mm3 (4.0-10.0)
[2017-04-05 08:18] LABS: ANION GAP 11 (8-16); BLOOD UREA NITROGEN 21 mg/dL (7-18); CALCIUM 8.6 mg/dL (8.5-10.1); CHLORIDE 106 mmol/L (98-107); CO2 22 mmol/L (21-32); CREATININE 0.6 mg/dL (0.55-1.02); GLUCOSE,RANDOM 96 mg/dL (74-106); MAGNESIUM 2.5 mg/dL (1.8-2.4); POTASSIUM 4.3 mmol/L (3.5-5.1); SODIUM 139 mmol/L (136-145)
[2017-04-05] MEDS ORDERED: levETIRAcetam 250 MG TABLET (FP) PO ONE (09:43)
[2017-04-05] MEDS: levETIRAcetam 250 MG TABLET (FP) PO SCH ×2 (09:57→22:27)
[2017-04-05] MEDS: PANTOPRAZOLE 40 MG TABLET (FP) PO SCH ×2 (09:58→22:27)
[2017-04-05] MEDS: DOCUSATE SODIUM 100 MG CAPSULE (FP) PO SCH ×2 (09:58→22:27)
[2017-04-05] MEDS: levETIRAcetam 500 MG TABLET (FP) PO SCH ×2 (09:59→22:27)
[2017-04-05] MEDS: POLYETHYLENE GLYCOL 3350 119 GM BTL PO SCH ×2 (10:02→22:27)
--- NOTE | 2017-04-05 11:08 | PN ---
Progress Note (short form) - Note Progress Note: Patient seen at bedside and evaluated. She reported doing well. Denies pain or discomfort. Surgical incisions are healing well; no noted signs and symptoms of infection. Granulation tissue noted. Patient on telephone speaking with family. Nursing reported persistent expressive and receptive verbiage deficits moreso when asking generalized questions, regarding weather; what is going on outside of her current environment. She has been ambulating well with minimal assistance and remain stable otherwise. Awaiting discharge to rehab as soon as bed is available - possible today. If discharged to rehab, team can coordinate with Dr. Brown or BECCA Laguerre for staple/skin clips removal for next week.
[2017-04-05] MEDS ORDERED: LORazepam 1 MG TABLET PO PRN (11:33)
--- NOTE | 2017-04-05 11:44 | PN ---
Progress Note (short form) - Note Progress Note: Pt found sitting in bed , looking at papers/ bills. She states that she feels better. Able to follow simple commands but expressive aphasia continues. Reports unable to sleep x 4 days. Vital Signs Period Temp Pulse Resp BP Sys/Cook Pulse Ox Last 24 Hr 98.1 F-98.4 F 46-75 16-20 99-151/65-97 98 HEENT- Normocephalic Neck-supple Lungs- CTAB Heart- RRR ABd- Soft, NT, pos BS x 4 Ext- Neg LE edema CBC, BMP 04/05/17 06:15 04/05/17 06:15 Active Medications Acetaminophen (Tylenol -) 650 mg PO Q6H PRN PRN Reason: PAIN LEVEL 1-5 (MILD PAIN) Last Admin: 04/05/17 09:58 Dose: 650 mg Dexamethasone Sodium Phosphate (Decadron Injection -) 4 mg IVPUSH Q8H-IV [facility] Last Admin: 04/05/17 10:00 Dose: 4 mg Docusate Sodium (Colace -) 200 mg PO BID [facility] Last Admin: 04/05/17 09:58 Dose: 200 mg Labetalol HCl (Normodyne Injection -) 10 mg IVPUSH Q1H PRN PRN Reason: systolic b/p over 160 Levetiracetam (Keppra -) 500 mg PO BID [facility] Last Admin: 04/05/17 09:59 Dose: 500 mg Levetiracetam (Keppra -) 250 mg PO BID [facility] Last Admin: 04/05/17 09:57 Dose: 250 mg Lorazepam (Ativan -) 1 mg PO DAILY PRN PRN Reason: INSOMNIA Ondansetron HCl (Zofran Injection) 4 mg IVPUSH Q6H PRN PRN Reason: NAUSEA AND/OR VOMITING Pantoprazole Sodium (Protonix -) 40 mg PO BID [facility] Last Admin: 04/05/17 09:58 Dose: 40 mg Polyethylene Glycol (Miralax (For Daily Use) -) 17 gm PO BID [facility] Last Admin: 04/05/17 10:02 Dose: 17 gm # Insomnia Ativan 1 mg ordered # aphemia / aphasia Continues but improving Speech consult appreciated Continue Keppra / Decadron / PPI # s/p Left craniotomy and fenestration of arachnoid cyst. Problem List - Problems (1) Subdural hematoma Code(s): I62.00 - NONTRAUMATIC SUBDURAL HEMORRHAGE, UNSPECIFIED (2) Aphasia determined by examination Code(s): R47.01 - APHASIA
--- NOTE | 2017-04-05 12:52 | PN ---
Progress Note, FISH HEADER - Note Progress Note: Persistent expressive and receptive language deficits, especially evident in conversation. Pt was unable to respond to questions regarding work, how she got there, what she did. Difficulty comprehending wh-questions. Language function in Rwandan has improved significantly, from mute to Moderate Aphasia. Sammarinese expressive language is rarely elicited. Continues to be unable to retrieve words in Sammarinese, upon confrontation naming or spontaneously or in social speech. She can repeat Sammarinese words but with no retention. W/u for cognitive deficits is also indicated. Perceptual deficits noted Prognosis for improvement is excellent. Pt will benefit from intensive language/ cognitive tx upon d/c. Suggest d/c with homecare speech tx to start, followed by referral to out speech /cognitive pt tx at local head injury center or hospital.
[2017-04-06] MEDS: DEXAMETHASONE SOD PHOSPHATE 4 MG/1 ML VIAL IVPUSH SCH ×3 (02:11→17:20)
--- NOTE | 2017-04-06 07:22 | PN ---
Progress Note (short form) - Note Progress Note: Progress Note: Chart/hx. reviewed.Admission note 03/16/17-46 y/o female s/p lumbar laminectomy 01/29/17--who developed post up headache which has persisted since discharge. She was referred for repeat CT of head by NS, done today which reviled subdural hematoma. Patient was referred to ER for further evaluation.- NS to evacuate subdural in am. NS- pt. had a lumbar fusion in [place] 3 years ago followed by a dural tear and headaches, 2 months later was dx,with a pseudomeningocoele that was operated upon a few weeks ago and repaired. She subsequently developed headaches , a CT head revealed a large left SDH with mass effect that was evacuated on 02/19(no dural tear noted). She felt well but BRUNO recurred, the next day she developed BRUNO again-she was found on CT head to have another collection at site of left SDH-Dr. Delgado perceived a possible arachnoid cyst given clarity of fluid- a left pterional craniotomy performed a few days ago with drainage of cyst in to basal cistern. 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 As per she has been completely mute since follows command, comprehends well but has no speech. Pt. is unable to relate hx. just smiles and follows commands. FU : as of 04/01/17 was Awake, alert, follows all commands. Yesterday AM, doing well, able to converse, + Naming, min issue with repetition (vs language barrrier), follows 3 steps, no focal weakness 04/03 continued improvement in language, no motor deficit. CT HD 03/29/17 IMPRESSION: No significant interval change. A left subdural collection is again seen with mass effect and mild shift of the midline structures , without gross interval change. Slight decrease in the amount of previously visualized left subdural/extra-axial air at the site of surgery. No interval acute intracranial hemorrhage is seen. 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) ...LMP: 01/29/17 - Past Surgical History Past Surgical History: Yes: Laminectomy - Alcohol/Substance Use Hx Alcohol Use: Yes (OCCASIONAL) History of Substance Use: reports: None - Smoking History Smoking history: Never smoked Have you smoked in the past 12 months: No If you are a former smoker, when did you quit?: 15 yrs ago - Social History ADL: Independent History of Recent Travel: No Home Medications - Allergies Allergies/Adverse Reactions: Allergies Allergy/AdvReac Type Severity Reaction Status Date / Time codeine Allergy Severe Itching Verified 03/16/17 12:05 - Home Medications Home Medications: Ambulatory Orders Oxycodone HCl/Acetaminophen [Percocet 5-325 mg Tablet] 1 - 2 tab PO Q4H PRN #30 tablet MDD 8 02/06/17 Physical Exam-Neuro Vital Signs: Vital Signs Temperature 97.7 F 04/02/17 06:22 Pulse Rate 72 04/02/17 06:22 Respiratory Rate 20 04/02/17 06:22 Blood Pressure 98/58 04/01/17 22:00 O2 Sat by Pulse Oximetry (%) 98 04/01/17 21:00 Labs: - Neuro Exam on 03/30/17 Level Of Consciousness: Yes: Alert Eyes: Yes: PERRL (?? right homonymous hemianposia) Speech: Other (Pt. is mute, her comprehension is intact, does not even mouth words when prompted.) Dominant Hand: Right Mini Mental Exam: Awake, alert, some telegraphing of speech. Some stuttering. Much improved. Cranial Nerves II-XII Intact: Yes Gag: Present DTR's: 2+ Left Bicep, 2+ Right Bicep, 2+ Left Tricep, 2+ Right Tricep, 2+ Left Brachioradialis, 2+ Right Brachioradialis, 2+ Left Achilles, 2+ Right Achilles ( Right knee jerk is trace present, left is 3+) Babinski: Present (Bilateral upgoing toes) Response to light touch: Normal (Sensation symmetrically intact to touch/pin) Motor Strength: 4/5: Right Leg ( Right IP-4/5, rest 5/5, Left- at least 4/5 but pt. not exerting enough effort.), 5/5: Left Arm, Right Arm, Left Leg Gait: Deferred exam : see above 04/01/17 Imaging - Results Cat Scan: Report Reviewed reduced size of subdural collection Assessment/Plan Pt. with left SDH with recurrent accumulation of fluid in SD space, now with what appears to have been a pure motor aphasia 03/30/17, now mute with bilateral upgoing toes, motor strength as per exam, right UE sensory drift. the ddx.for her aphasia/mutism includes focal seizures(less likely) ischemic event now presenting with aphemia, simple pressure on language area causing current state + peripheral eosinophilia- 11.5%. CT Head with air compressing temporal lobe tip? to my review. she appears to be doing much better and aphasia appears to be resolving --close to baseline, aphasia most likely due to compressive effects. Cont Keppra 750mg bid and will do slow taper decadron
[2017-04-06] MEDS: ACETAMINOPHEN 325 MG TABLET (FP) PO PRN ×3 (08:35→21:42)
[2017-04-06] MEDS: levETIRAcetam 500 MG TABLET (FP) PO SCH ×2 (09:29→21:41)
[2017-04-06] MEDS: DOCUSATE SODIUM 100 MG CAPSULE (FP) PO SCH ×2 (09:29→21:41)
[2017-04-06] MEDS: PANTOPRAZOLE 40 MG TABLET (FP) PO SCH ×2 (09:29→21:41)
[2017-04-06] MEDS: POLYETHYLENE GLYCOL 3350 119 GM BTL PO SCH ×2 (09:29→21:41)
[2017-04-06] MEDS: levETIRAcetam 250 MG TABLET (FP) PO SCH ×2 (09:29→21:41)
--- NOTE | 2017-04-06 10:49 | PN ---
Progress Note, LINE LEAD - Note Progress Note: Improving verbal expression, with more difficulty with propositional language tasks on more complex level. Beginning to respond with some social speech in [place]. Still unable to name objects in [place], but can repeat. Poor ability to retain and name following 30 sec without distraction. Pt will benefit from speech tx upon d/c, ideally from a bilingual speech pathologist.
--- NOTE | 2017-04-06 16:23 | PN ---
Progress Note (short form) - Note Progress Note: examined in room case discussed with nurse speech improved however does not speak in burkinan which is primary language follows commands / motor intact able to converse with short sentences ambulates well Vital Signs Period Temp Pulse Resp BP Sys/Cook Pulse Ox Last 24 Hr 98.0 F-98.3 F 58-77 18-58 101-135/64-95 [address] in [address] gait normal / no motor deficits noted neck supple - nodes heart reg S1/S2 lungs clear bilat abd soft on tender ext no edema / calf tenderness / FROM motor / sensory intact CBC, BMP 03/27/17 07:30 03/27/17 07:30 # aphemia / aphasia ? increased ICP / imflammatory / ischemic event -less likely as patient is improving consult with speech Continue Keppra / Decadron / PPI will defer MRI in view of clinical improvement taper decadron slowly # s/p Left craniotomy and fenestration of arachnoid cyst. Problem List - Problems (1) Subdural hematoma Code(s): I62.00 - NONTRAUMATIC SUBDURAL HEMORRHAGE, UNSPECIFIED (2) Aphasia determined by examination Code(s): R47.01 - APHASIA
[2017-04-07] MEDS: DEXAMETHASONE SOD PHOSPHATE 4 MG/1 ML VIAL IVPUSH SCH ×3 (01:40→22:43)
[2017-04-07] MEDS: ACETAMINOPHEN 325 MG TABLET (FP) PO PRN (07:42)
[2017-04-07] MEDS: levETIRAcetam 500 MG TABLET (FP) PO SCH ×2 (09:33→22:43)
[2017-04-07] MEDS: DOCUSATE SODIUM 100 MG CAPSULE (FP) PO SCH ×2 (09:33→22:43)
[2017-04-07] MEDS: POLYETHYLENE GLYCOL 3350 119 GM BTL PO SCH ×2 (09:33→22:44)
[2017-04-07] MEDS: PANTOPRAZOLE 40 MG TABLET (FP) PO SCH ×2 (09:33→22:43)
[2017-04-07] MEDS: levETIRAcetam 250 MG TABLET (FP) PO SCH ×2 (09:33→22:43)
--- NOTE | 2017-04-07 09:59 | PN ---
Progress Note (short form) - Note Progress Note: examined in room case discussed with nurse speech improved however does not speak in vietnamese which is primary language will repeat phrases in vietnamese/ but all answers in Kazakh follows commands / motor intact able to converse with short sentences ambulates well Vital Signs Period Temp Pulse Resp BP Sys/Cook Pulse Ox Last 24 Hr 98.0 F-98.3 F 58-77 18-58 101-135/64-95 98 [address] in hallway gait normal / no motor deficits noted neck supple - nodes heart reg S1/S2 lungs clear bilat abd soft on tender ext no edema / calf tenderness / FROM motor / sensory intact CBC, BMP 03/27/17 07:30 03/27/17 07:30 # aphemia / aphasia ? increased ICP / imflammatory / ischemic event -less likely as patient is improving consult with speech Continue Keppra / Decadron / PPI will defer MRI in view of clinical improvement taper decadron slowly # s/p Left craniotomy and fenestration of arachnoid cyst. Problem List - Problems (1) Subdural hematoma Code(s): I62.00 - NONTRAUMATIC SUBDURAL HEMORRHAGE, UNSPECIFIED (2) Aphasia determined by examination Code(s): R47.01 - APHASIA
--- NOTE | 2017-04-07 13:25 | PN ---
Progress Note (short form) - Note Progress Note: Chart/hx. reviewed.Admission note 03/16/17-46 y/o female s/p lumbar laminectomy 01/29/17--who developed post up headache which has persisted since discharge. She was referred for repeat CT of head by NS, done today which reviled subdural hematoma. Patient was referred to ER for further evaluation.- NS to evacuate subdural in am. NS- pt. had a lumbar fusion in [place] 3 years ago followed by a dural tear and headaches, 2 months later was dx,with a pseudomeningocoele that was operated upon a few weeks ago and repaired. She subsequently developed headaches , a CT head revealed a large left SDH with mass effect that was evacuated on 02/19(no dural tear noted). She felt well but BRUNO recurred, the next day she developed BRUNO again-she was found on CT head to have another collection at site of left SDH-Dr. Delgado perceived a possible arachnoid cyst given clarity of fluid- a left pterional craniotomy performed a few days ago with drainage of cyst in to basal cistern. 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 As per she has been completely mute since follows command, comprehends well but has no speech. Pt. is unable to relate hx. just smiles and follows commands. FU : pt awake but has some residual verbal outpt--speaks in few words , but limited sentence structure residual mild expressive aphasia, difficulty with sentence structure , no focal weakness or field cut CT HD 04/03/17 IMPRESSION: Interval decrease in size of previously visualized left subdural collection now measuring 6 mm in width with interval decrease in the degree of mass effect and shift of the midline structures. Residual minimal shift of the midline structures towards the right side is present as well as residual minimal extra-axial air at the site of surgery No interval acute intracranial hemorrhage is seen. Continued follow-up is needed CT HD 03/29/17 IMPRESSION: No significant interval change. A left subdural collection is again seen with mass effect and mild shift of the midline structures , without gross interval change. Slight decrease in the amount of previously visualized left subdural/extra-axial air at the site of surgery. No interval acute intracranial hemorrhage is seen. 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) ...LMP: 01/29/17 - Past Surgical History Past Surgical History: Yes: Laminectomy - Alcohol/Substance Use Hx Alcohol Use: Yes (OCCASIONAL) History of Substance Use: reports: None - Smoking History Smoking history: Never smoked Have you smoked in the past 12 months: No If you are a former smoker, when did you quit?: 15 yrs ago - Social History ADL: Independent History of Recent Travel: No Home Medications - Allergies Allergies/Adverse Reactions: Allergies Allergy/AdvReac Type Severity Reaction Status Date / Time codeine Allergy Severe Itching Verified 03/16/17 12:05 - Home Medications Home Medications: Ambulatory Orders Oxycodone HCl/Acetaminophen [Percocet 5-325 mg Tablet] 1 - 2 tab PO Q4H PRN #30 tablet MDD 8 02/06/17 Physical Exam-Neuro Vital Signs: Vital Signs Temperature 97.4 F L 04/07/17 10:00 Pulse Rate 81 04/07/17 10:00 Respiratory Rate 18 04/07/17 10:00 Blood Pressure 111/66 04/07/17 10:00 O2 Sat by Pulse Oximetry (%) 100 04/07/17 09:00 Labs: CBCD WBC 6.1 K/mm3 (4.0-10.0) 04/05/17 06:15 RBC 3.39 M/mm3 (3.60-5.2) L 04/05/17 06:15 Hgb 10.2 GM/dL (10.7-15.3) L D 04/05/17 06:15 Hct 30.8 % (32.4-45.2) L 04/05/17 06:15 MCV 90.8 fl (80-96) 04/05/17 06:15 MCHC 33.1 g/dl (32.0-36.0) 04/05/17 06:15 RDW 12.3 % (11.6-15.6) 04/05/17 06:15 Plt Count 446 K/MM3 (134-434) H D 04/05/17 06:15 MPV 8.4 fl (7.5-11.1) 04/05/17 06:15 CMP Sodium 139 mmol/L (136-145) 04/05/17 06:15 Potassium 4.3 mmol/L (3.5-5.1) 04/05/17 06:15 Chloride 106 mmol/L (98-107) 04/05/17 06:15 Carbon Dioxide 22 mmol/L (21-32) 04/05/17 06:15 Anion Gap 11 (8-16) 04/05/17 06:15 BUN 21 mg/dL (7-18) H 04/05/17 06:15 Creatinine 0.6 mg/dL (0.55-1.02) 04/05/17 06:15 Creat Clearance w eGFR > 60 (>60) 03/25/17 05:00 Calcium 8.6 mg/dL (8.5-10.1) 04/05/17 06:15 Total Bilirubin 0.5 mg/dL (0.2-1.0) 03/25/17 05:00 AST 19 U/L (15-37) 03/25/17 05:00 ALT 32 U/L (12-78) 03/25/17 05:00 Alkaline Phosphatase 92 U/L (45-117) 03/25/17 05:00 Total Protein 7.2 g/dl (6.4-8.2) 03/25/17 05:00 Albumin 3.2 g/dl (3.4-5.0) L 03/25/17 05:00 - Neuro Exam on 03/30/17 Level Of Consciousness: Yes: Alert Eyes: Yes: PERRL (?? right homonymous hemianposia) Speech: Other (Pt. is mute, her comprehension is intact, does not even mouth words when prompted.) Dominant Hand: Right Mini Mental Exam: Awake, alert, unable to test rest of MS details Cranial Nerves II-XII Intact: Yes Gag: Present DTR's: 2+ Left Bicep, 2+ Right Bicep, 2+ Left Tricep, 2+ Right Tricep, 2+ Left Brachioradialis, 2+ Right Brachioradialis, 2+ Left Achilles, 2+ Right Achilles ( Right knee jerk is trace present, left is 3+) Babinski: Present (Bilateral upgoing toes) Response to light touch: Normal (Sensation symmetrically intact to touch/pin) Motor Strength: 4/5: Right Leg ( Right IP-4/5, rest 5/5, Left- at least 4/5 but pt. not exerting enough effort.), 07/07: Left Arm, Right Arm, Left Leg Gait: Deferred exam : see above 04/01/17 Imaging - Results Cat Scan: Report Reviewed (No sig. interval change from previous scan. A left SDH seen with mass effect and mild shift of midline structures without gross interval change. Slight decrease in amount of previously visualized left SDH/ extraaxial air at surgical site.) Assessment/Plan Pt. with left SDH with recurrent accumulation of fluid in SD space, now with what appears to have been a pure motor aphasia 03/30/17, now mute with bilateral upgoing toes, motor strength as per exam, right UE sensory drift. the ddx.for her aphasia/mutism includes focal seizures(less likely) ischemic event now presenting with aphemia, simple pressure on language area causing current state + peripheral eosinophilia- 11.5%. CT Head with air compressing temporal lobe tip to review. mild residual expressive aphasia to get MRI BRAIN when sutures removed (Can be done outpt) will need speech rehab Dr Dugan
[2017-04-08] MEDS: levETIRAcetam 250 MG TABLET (FP) PO SCH ×2 (09:34→21:10)
[2017-04-08] MEDS: DOCUSATE SODIUM 100 MG CAPSULE (FP) PO SCH ×2 (09:34→21:10)
[2017-04-08] MEDS: POLYETHYLENE GLYCOL 3350 119 GM BTL PO SCH ×2 (09:34→21:10)
[2017-04-08] MEDS: PANTOPRAZOLE 40 MG TABLET (FP) PO SCH ×2 (09:34→21:10)
[2017-04-08] MEDS: DEXAMETHASONE SOD PHOSPHATE 4 MG/1 ML VIAL IVPUSH SCH ×2 (09:34→21:10)
[2017-04-08] MEDS: levETIRAcetam 500 MG TABLET (FP) PO SCH ×2 (09:34→21:10)
--- NOTE | 2017-04-08 20:40 | PN ---
Progress Note (short form) - Note Progress Note: seen and examined in room present case discussed plans for d/c in am -- will need therapy at home and close follow up Vital Signs Period Temp Pulse Resp BP Sys/Cook Pulse Ox Last 24 Hr 97.9 F-98.5 F 64-85 16-20 100-111/59-71 100-100 stated to speak short sentences in paraguayan remains more fluent in [place] although unable to complete sentences ambulating in hallway gait normal / no motor deficits noted neck supple - nodes heart reg S1/S2 lungs clear bilat abd soft on tender ext no edema / calf tenderness / FROM motor / sensory intact CBC, BMP 03/27/17 07:30 03/27/17 07:30 # aphasia 2/2 increased ICP / imflammatory / ischemic event -less likely as patient is improving Continue Keppra / Decadron / PPI will defer MRI --will schedule as out patient taping decadron slowly possible d/c in am # s/p Left craniotomy and fenestration of arachnoid cyst. Problem List - Problems (1) Subdural hematoma Code(s): I62.00 - NONTRAUMATIC SUBDURAL HEMORRHAGE, UNSPECIFIED (2) Aphasia determined by examination Code(s): R47.01 - APHASIA
--- NOTE | 2017-04-09 08:57 | DS ---
Physical Examination Vital Signs: Vital Signs Temperature 97.9 F 04/09/17 07:51 Pulse Rate 67 04/09/17 07:51 Respiratory Rate 20 04/09/17 07:51 Blood Pressure 139/78 04/09/17 07:51 O2 Sat by Pulse Oximetry (%) 97 04/08/17 21:00 Findings/Remarks: 46 y/o female s/p lumbar laminectomy 01/29/17--who developed post up headache which had persisted since discharge. She was referred for repeat CT of head by NS, done which reviled subdural hematoma. Patient was referred to ER for further evaluation.- She shows no neurological deficits, only complaint of headache. NS evacuated subdural following am Distant hx --- pt. had a lumbar fusion in [place] 3 years ago followed by a dural tear and headaches, 2 months later was dx,with a pseudomeningocoele that was operated upon a few weeks later and repaired. She underwent laminectomy 01/29/17 and subsequently developed headaches,which lasted several weeks, a CT head revealed a large left SDH with mass effect that was evacuated on 03/16/17(no dural tear noted). She felt well but BRUNO recurred, the next day she developed BRUNO again-she was found on CT head to have another collection at site of left SDH-Dr. Delgado perceived a possible arachnoid cyst given clarity of fluid- a left pterional craniotomy performed with drainage of cyst in to basal cistern. 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 She was able to follows command, comprehends well but had no speech. CT of head was repeated with persistent SD collection, started on Decadron-- will slow recovery of speech. Remains non fluent / but improved. Decadon tapered slowly, without regression of symptoms. Case discussed extensively on several occasion with . Both, Patient and , understand for need for close follow up and intensive speech therapy-- arrangements in process at time of discharge. Plans for neuro follow up and out patient imaging also discussed with . Plans for MRI as out patient. Constitutional: Yes: Well Nourished, No Distress, Calm Eyes: Yes: Conjunctiva Clear, EOM Intact HENT: Yes: Other (craniotomy / charity in place) Neck: Yes: Supple, Trachea Midline Cardiovascular: Yes: WNL, Regular Rate and Rhythm Respiratory: Yes: Regular, CTA Bilaterally Gastrointestinal: Yes: Normal Bowel Sounds, Soft ...Rectal Exam: Yes: WNL Renal/: Yes: WNL Breast(s): Yes: WNL Musculoskeletal: Yes: WNL Extremities: Yes: WNL Edema: No Peripheral Pulses: Left Radial: 2+, Right Radial: 2+, Left Doralis Pedis: 2+, Right Dorsalis Pedis: 2+, Left Femoral: 2+, Right Femoral: 2+ Integumentary: Yes: WNL Wound/Incision: Yes: Clean/Dry, Well Approximated, Charity Intact Neurological: Yes: Alert, Oriented, Aphasia. No: Facial Droop, Loss of Sensation, Numbness, Unsteady Gait ...Motor Strength: WNL Psychiatric: Yes: Alert, Oriented Labs: CBC, BMP 04/05/17 06:15 04/05/17 06:15 Discharge Summary Reason For Visit: SUBDURAL HEMATOMA Current Active Problems Aphasia determined by examination (Acute) Subdural hematoma (Acute) Other Procedures: craniotomy Hospital Course: see above Condition: Stable - Instructions Referrals: Kimo Brown MD, FA[facility] [Staff Physician] - Kacey Estrada MD [Primary Care Provider] - Tyler Rome MD [Staff Physician] - Disposition: HOME - Home Medications Comprehensive Discharge Medication List: Ambulatory Orders Oxycodone HCl/Acetaminophen [Percocet 5-325 mg Tablet] 1 - 2 tab PO Q4H PRN #30 tablet MDD 8 02/06/17
[2017-04-09] MEDS: DEXAMETHASONE SOD PHOSPHATE 4 MG/1 ML VIAL IVPUSH SCH (10:48)
[2017-04-09] MEDS: PANTOPRAZOLE 40 MG TABLET (FP) PO SCH (10:48)
[2017-04-09] MEDS: levETIRAcetam 500 MG TABLET (FP) PO SCH (10:48)
[2017-04-09] MEDS: levETIRAcetam 250 MG TABLET (FP) PO SCH (10:48)
[2017-04-09] MEDS: DOCUSATE SODIUM 100 MG CAPSULE (FP) PO SCH (10:48)
[2017-04-09] MEDS: POLYETHYLENE GLYCOL 3350 119 GM BTL PO SCH (11:04)
[2017-04-09 16:58] VITALS: BP 117/72; PULSE 64; TEMP 98.2
== END 2017-04-09 13:25 | disposition home or self-care (01) | DRG 27 ==
LOC: JERFT 11:49 → JER 11:49 → JERBED 16:44 → J7W 03-17 00:09 → JSAMEDAYSX 03-22 13:00 → JICU 03-22 20:44 → J8W 03-26 22:44
PROVIDERS: ADMIT Family Medicine; ATTEND Family Medicine
PROC: 00940ZZ Drainage of Intracranial Subdural Space, Open Approach (ICD-10-PCS; 2017-03-17)
PROC: 00C40ZZ Extirpation of Matter from Intracranial Subdural Space, Open Approach (ICD-10-PCS; principal; 2017-03-17 11:13)
DX: I62.00 Nontraumatic subdural hemorrhage, unspecified (principal); G93.0 Cerebral cysts; R47.01 Aphasia; D18.1 Lymphangioma, any site; G89.18 Other acute postprocedural pain; E87.6 Hypokalemia; K59.09 Other constipation; G44.89 Other headache syndrome; M54.2 Cervicalgia; R47.81 Slurred speech; G47.09 Other insomnia; D72.1 Eosinophilia
CPT/HCPCS: 36415; 70450-TC; 80048; 80053; 80307; 83735; 84100; 84703; 85025; 85027; 85610; 85730; 86850; 86900; 86901; 93005; 93010; 94760; 97116-GP; 97161-GP; 99285-25; J1100; J1644

== ENCOUNTER 2018-12-24 06:38 | Inpatient (IN) | payer BC ==
[2018-12-24] MEDS ORDERED: VANCOMYCIN 1,000 MG VIAL (RESTRICTED TO ID ONLY) ONE ×2 (07:09→09:28)
[2018-12-24] MEDS ORDERED: THROMBIN (BOVINE) 5,000 UNIT VIAL TP ONE ×2 (07:09→09:20)
[2018-12-24] MEDS ORDERED: BUPIVACAINE HCL/PF 0.5% (5 MG/ML) 30 ML VIAL IJ ONE (07:09)
[2018-12-24] MEDS ORDERED: GENTAMICIN SO4 80 MG/2 ML VIAL ONE (07:11)
[2018-12-24] MEDS ORDERED: NEOSTIGMINE METHYLSULFATE 0.5 MG/1 ML - 10 ML MDV ONE (07:30)
[2018-12-24] MEDS ORDERED: MIDAZOLAM HCL 2 MG/2 ML SINGLE DOSE VIAL ONE ×2 (07:31→12:24)
[2018-12-24] MEDS ORDERED: PROPOFOL 20 ML ONE ×5 (07:31→10:28)
[2018-12-24] MEDS ORDERED: fentaNYL CITRATE 250 MCG/5 ML VIAL ONE (07:31)
[2018-12-24] MEDS ORDERED: ROCURONIUM BROMIDE 50 MG/5 ML SYRINGE ONE ×2 (07:31→09:28)
[2018-12-24] MEDS ORDERED: LIDOCAINE 1%-EPI 1:100,000 30 ML MDV IJ ONE (07:55)
[2018-12-24] MEDS ORDERED: BUPIVACAINE LIPOSOME/PF (EXPAREL) 266 MG/20 ML VIAL ONE (07:55)
--- NOTE | 2018-12-24 08:09 | HP ---
History & Physical Update - History History: No Change - Physical Physical: No Change - Assessment Assessment: No Change - Plan Plan: No Change
[2018-12-24] MEDS ORDERED: ceFAZolin SODIUM 1 GM VIAL IVPB ONE (08:40)
[2018-12-24] MEDS ORDERED: VANCOMYCIN 1,000 MG VIAL (RESTRICTED TO ID ONLY) IVPB ONE (08:42)
[2018-12-24] MEDS ORDERED: LIDOCAINE HCL 1%, 10 MG/ML (20ML VIAL) NR ONE (09:20)
[2018-12-24] MEDS ORDERED: BUPIVACAINE HCL/PF 0.25% (2.5MG/ML) 10 ML VIAL ONE (09:21)
[2018-12-24] MEDS ORDERED: BUPIVACAINE HCL/PF 2.5 MG/ML - 30 ML VIAL IJ ONE ×2 (09:26→10:19)
[2018-12-24] MEDS ORDERED: BUPIVACAINE LIPOSOME/PF (EXPAREL) 266 MG/20 ML VIAL NR ONE ×2 (09:27→10:19)
[2018-12-24] MEDS ORDERED: BACITRACIN 50,000 UNITS VIAL NR ONE (09:27)
[2018-12-24] MEDS ORDERED: GENTAMICIN SO4 80 MG/2 ML VIAL IVPB ONE (09:27)
[2018-12-24] MEDS ORDERED: ONDANSETRON 4 MG/2 ML VIAL ONE (09:28)
[2018-12-24] MEDS ORDERED: ceFAZolin SODIUM 1 GM VIAL ONE ×4 (09:28→23:30)
[2018-12-24] MEDS ORDERED: LIDOCAINE HCL/PF 2% SDV 5ML VIAL ONE (09:28)
[2018-12-24] MEDS ORDERED: DEXAMETHASONE SOD PHOSPHATE 4 MG/1 ML VIAL ONE (09:28)
[2018-12-24] MEDS ORDERED: LIDOCAINE HCL 2% JELLY (5 ML/TUBE) ONE (09:29)
[2018-12-24] MEDS ORDERED: GLYCOPYRROLATE 0.2 MG/1 ML VIAL ONE ×2 (09:30)
[2018-12-24] MEDS ORDERED: EPHEDRINE SULFATE/0.9% NACL/PF 50 MG/10 ML SYRINGE NR ONE (10:28)
[2018-12-24] MEDS ORDERED: ONDANSETRON 4 MG/2 ML VIAL IVPUSH PRN (11:20)
[2018-12-24] MEDS ORDERED: diphenhydrAMINE HCL 25 MG CAPSULE (FP) PO PRN (11:20)
[2018-12-24] MEDS ORDERED: ACETAMINOPHEN 1000 MG/100 ML VIAL (NON FORMULARY) IVPB ONE ×2 (11:20→11:52)
--- NOTE | 2018-12-24 11:37 | OP ---
Operative Note - Note: Operative Date: 12/24/18 Pre-Operative Diagnosis: pseudomenigocele Operation: spinal fusion wound exploration, removal of hardware L3 thru L5, repair of pseudomenigocele with duraseal. Surgeon: Kimo Brown Uke Driver: Lola Bryant Anesthesiologist/STONE POLISHER HAND: Carmelita Gay Anesthesia: General Specimens Removed: L3 thru L5 hardware Estimated Blood Loss (mls): 15 Drains, Volume Out (mls): 900 (patel) Fluid Volume Replaced (mls): 1,500 Operative Report Dictated: Yes
[2018-12-24] MEDS ORDERED: ACETAMINOPHEN INJECTION 100 ML IVPB ONE (11:41)
[2018-12-24] MEDS ORDERED: levETIRAcetam 500 MG/5 ML INJECTION VIAL IVPB ONE ×2 (12:14→12:21)
[2018-12-24] MEDS: LACTATED RINGERS SOLUTION 1,000 ML/1,000 ML INFUS.BAG IV SCH (12:55)
[2018-12-24 13:22] LABS: BLOOD UREA NITROGEN 8.8 mg/dL (7-18); CALCIUM 8.7 mg/dL (8.5-10.1); CREATININE 0.8 mg/dL (0.55-1.3); MAGNESIUM 1.8 mg/dL (1.8-2.4); PHOSPHOROUS 2.4 mg/dL (2.5-4.9); POTASSIUM 3.7 mmol/L (3.5-5.1)
--- NOTE | 2018-12-24 13:32 | HP ---
CHIEF COMPLAINT: PCP: HISTORY OF PRESENT ILLNESS: Galina Cabrera is a 48yF w PMHx hx lumbar vertebral fractures s/p repair, brain clot s/p removal, seizures, HTN admitted for elective pseudomeningocele drainage and repair w duraseal, removal of hardware L3 - L5, POD 1. In PACU, staff noted progressively worsening involuntary twitching R arm, stiffness L arm while pt was lucid. No post ictal period. Seizure like episode broken w propofol and 500 IV keppra. Subsequent head CT did not show acute bleed/infarct/ lesion/fracture. Currently complaining of back pain at surgical site. Denies CP, SOB, AB pain. Recent Travel: none PAST MEDICAL HISTORY: lumbar vertebral fractures, brain clot, HTN. Had 1 episode of seizure last year s/p brain surgery. PAST SURGICAL HISTORY: lumbar vertebral repair, brain clot removal Social History: Smoking: none Alcohol: social Drugs: none Allergies codeine Allergy (Severe, Verified 12/24/18 07:18) Itching pollen extracts Allergy (Severe, Verified 12/24/18 07:18) Itching HOME MEDICATIONS: Home Medications Medication Instructions Recorded levETIRAcetam [Keppra -] 500 mg PO BID #60 tablet 04/09/17 Acetaminophen [Tylenol -] 1,000 mg PO Q6H 12/23/18 Levothyroxine [Synthroid -] 100 mcg PO DAILY 12/23/18 REVIEW OF SYSTEMS CONSTITUTIONAL: Absent: fever, chills, malaise, HEENT: Absent: rhinorrhea, nasal congestion, ear pain, eye pain, visual changes CARDIOVASCULAR: Absent: chest pain, syncope, palpitations, RESPIRATORY: Absent: cough, shortness of breath, GASTROINTESTINAL: Absent: abdominal pain, abdominal distension, nausea, vomiting GENITOURINARY: Absent: dysuria, frequency, urgency MUSCULOSKELETAL: Positive: back pain Absent: myalgia, neck pain SKIN: Absent: rash, itching, pallor HEMATOLOGIC/IMMUNOLOGIC: Absent: easy bleeding, easy bruising ENDOCRINE: Absent: heat intolerance, cold intolerance NEUROLOGIC: Absent: headache, focal weakness or paresthesias PSYCHIATRIC: Absent: anxiety, depression, hallucinations. PHYSICAL EXAMINATION Vital Signs - 24 hr 12/24/18 12/24/18 07:12 07:13 Temperature 98.3 F Pulse Rate 64 Respiratory 16 Rate Blood Pressure 123/77 O2 Sat by Pulse 100 Oximetry (%) GENERAL: Sleepy, in no acute distress. HEAD: Normal with no signs of trauma. EYES: Pupils equal, round and reactive to light, extraocular movements intact, sclera anicteric, conjunctiva clear. No lid lag. LUNGS: Breath sounds equal, clear to auscultation bilaterally. No wheezes, and no crackles. No accessory muscle use. HEART: Regular rate and rhythm, normal S1 and S2 without murmur, rub or gallop. ABDOMEN: Soft, nontender, not distended, normoactive bowel sounds, no guarding, no rebound, no masses. No hepatomegaly or splenomegaly. In abdominal binder BACK: bloody drainage in drain from lumbar surgical site NEUROLOGICAL: A&Ox3, normal speech. SKIN: Warm, dry, normal turgor, no rashes or lesions noted, normal capillary refill. Laboratory Results - last 24 hr 12/24/18 12/24/18 12/24/18 06:48 06:48 12:00 Sodium 138 Potassium 3.7 Chloride 106 Carbon Dioxide 25 Anion Gap 7 L BUN 8.8 Creatinine 0.8 Est GFR (CKD-EPI)AfAm 100.33 Est GFR (CKD-EPI)NonAf 86.57 Random Glucose 147 H Calcium 8.7 Phosphorus 2.4 L Magnesium 1.8 Serum , Qual Negative Blood Type O NEGATIVE Antibody Screen Negative ASSESSMENT/PLAN: Galina Cabrera is a 48yF w PMHx hx lumbar vertebral fractures s/p repair, brain clot s/p removal, seizures, HTN admitted for elective pseudomeningocele drainage and repair w duraseal, removal of hardware L3 - L5, POD 1. Cardiac - normotensive, no active issues - DVT ppx Pulm - normal O2sat on RA, no active issues - incentive spirometry Neuro - post op seizure episode d/t true seizure vs medication side effect ( lidocaine and exparel) vs CSF drainage (100mL removed) - Head CT 12/24 did not show acute bleed/infarct/lesion/fracture - pain control w oxycodone PRN - keppra 500 BID - pending keppra level - appreciate neuro recs GI - NPO, advance diet after flatus/BM - colace PRN constipation Endo - levothyroxine 100 qD - LR @125mL/hr, 1000mL - I/O - patel in place ID - 1g ancef q8h FEN - Fluids: LR @125mL/hr, 1000mL - Electrolyte abnormalities: none - Nutrition: NPO PPX DVT - SCDs, heparin SQ GI - none Dispo - ICU Jc MAJOR Resident PGY1 Discussed w attending Dr Foote Visit type - Emergency Visit Emergency Visit: Yes ED Registration Date: 12/24/18 Care time: The patient presented to the Emergency Department on the above date and was hospitalized for further evaluation of their emergent condition. - New Patient This patient is new to me today: Yes Date on this admission: 12/24/18 - Critical Care Critical Care patient: Yes Total Critical Care Time (in minutes): 36 Critical Care Statement: The care of this patient involved high complexity decision making to prevent further life threatening deterioration of the patient 's condition and/or to evaluate & treat vital organ system(s) failure or risk of failure. ATTENDING PHYSICIAN STATEMENT I saw and evaluated the patient. I reviewed the resident's note and discussed the case with the resident. I agree with the resident's findings and plan as documented. SUBJECTIVE: OBJECTIVE: ASSESSMENT AND PLAN:
--- NOTE | 2018-12-24 14:05 | SURG ---
Surgery Director Of Consulting Services Note Director Of Consulting Services: Lola Bryant PA-C Date of Service: 12/24/18 Diagnosis: pseudomenigocele Procedure: spinal fusion wound exploration, removal of hardware L3 thru L5, repair of pseudomenigocele with duraseal. I was present for the entirety of the operative procedure. For further detail, please refer to operative report. Visit type - Case Type Case Type: Scheduled - Emergency Emergency Visit: No - New patient This patient is new to me today: Yes Date on this admission: 12/24/18
[2018-12-24] MEDS ORDERED: oxyCODONE HCL 5 MG TABLET PO PRN (14:15)
--- NOTE | 2018-12-24 15:17 | PN ---
Teaching Attending Note Name of Resident: Jc Batista ATTENDING PHYSICIAN STATEMENT I saw and evaluated the patient. I reviewed the resident's note and discussed the case with the resident. I agree with the resident's findings and plan as documented. SUBJECTIVE: Patient seen and examined in the ICU. POD #0: spinal fusion wound exploration, removal of hardware L3 thru L5, repair of pseudomenigocele with duraseal. In PACU developed focal seizure of the RUE. She was apparently lucid during the event. The event was terminated with propofol and Keppra. CT Head; No acute process. Intake & Output 12/21/18 12/22/18 12/23/18 12/24/18 23:59 23:59 23:59 23:59 Intake Total 1700 Output Total 2115 Balance -415 Weight 115 lb Last Vital Signs Temp Pulse Resp BP Pulse Ox 98.6 F 84 16 145/80 100 12/24/18 12:30 12/24/18 12:30 12/24/18 12:30 12/24/18 12:30 12/24/18 13:48 Active Medications Acetaminophen (Ofirmev Injection -) 1,000 mg IVPB Q6H MENG Stop: 12/25/18 04:01 Chlorhexidine Gluconate (Hibiclens For Decolonization -) 1 applic TP HS MENG Diphenhydramine HCl (Benadryl -) 25 mg PO Q6H PRN PRN Reason: FOR ITCHING Docusate Sodium (Colace -) 100 mg PO TID MENG Heparin Sodium (Porcine) (Heparin -) 5,000 unit SQ TID MENG Cefazolin Sodium 1 gm/ (Dextrose) 50 mls @ 100 mls/hr IVPB Q8H MENG Stop: 12/25/18 16:29 Lactated Ringer's (Lactated Ringers Solution) 1,000 ml in 1,000 mls @ 125 mls/ hr IV ASDIR MENG Levetiracetam (Keppra -) 500 mg PO BID MENG Levothyroxine Sodium (Synthroid -) 100 mcg PO DAILY@0700 MENG Mupirocin (Bactroban Ointment (For Decolonization) -) 1 applic NS BID [facility]1983 Stop: 12/29/18 21:59 Ondansetron HCl (Zofran Injection) 4 mg IVPUSH Q6H PRN PRN Reason: NAUSEA Oxycodone HCl (Roxicodone -) 5 mg PO Q6H PRN PRN Reason: PAIN LEVEL 1-5 Oxycodone HCl (Roxicodone -) 10 mg PO Q6H PRN PRN Reason: PAIN LEVEL 6-10 GENERAL: Sleepy, in no acute distress. HEAD: Normal with no signs of trauma. EYES: Pupils equal, round and reactive to light, extraocular movements intact, sclera anicteric, conjunctiva clear. No lid lag. LUNGS: Breath sounds equal, clear to auscultation bilaterally. No wheezes, and no crackles. No accessory muscle use. HEART: Regular rate and rhythm, normal S1 and S2 without murmur, rub or gallop. ABDOMEN: Soft, nontender, not distended, normoactive bowel sounds, no guarding, no rebound, no masses. No hepatomegaly or splenomegaly. In abdominal binder BACK: bloody drainage in drain from lumbar surgical site NEUROLOGICAL: A&Ox3, nonfocal SKIN: Warm, dry, normal turgor, no rashes or lesions noted, normal capillary refill. Laboratory Results - last 24 hr 12/24/18 12/24/18 12/24/18 06:48 06:48 12:00 Sodium 138 Potassium 3.7 Chloride 106 Carbon Dioxide 25 Anion Gap 7 L BUN 8.8 Creatinine 0.8 Est GFR (CKD-EPI)AfAm 100.33 Est GFR (CKD-EPI)NonAf 86.57 Random Glucose 147 H Calcium 8.7 Phosphorus 2.4 L Magnesium 1.8 Serum , Qual Negative Blood Type O NEGATIVE Antibody Screen Negative ASSESSMENT/PLAN: POD #0: spinal fusion wound exploration, removal of hardware L3 thru L5, repair of pseudomenigocele with duraseal. History of lumbar vertebral fractures s/p repair History of cerebral hemorrhage S/P removal Seizure DO HTN Pain control O2 as needed Neurology evaluation has been called VTE prophylaxis Continue home meds PO as tolerated once more awake [facility] Monitored setting for frequent Neuro checks and for recurrent seizures Dr Foote
[2018-12-24] MEDS ORDERED: DEXTROSE 5%-WATER - 50 ML IVPB ONE ×2 (15:30→23:30)
[2018-12-24] MEDS: ACETAMINOPHEN 1000 MG/100 ML VIAL (NON FORMULARY) IVPB SCH ×2 (15:38→22:10)
[2018-12-24] MEDS: DOCUSATE SODIUM 100 MG CAPSULE (FP) PO SCH ×2 (16:09→22:10)
[2018-12-24] MEDS: CEFAZOLIN 1 GM in DEXTROSE 5%-WATER - 50 ML IVPB SCH ×2 (16:10→23:36)
--- NOTE | 2018-12-24 16:18 | CON.NEURO ---
Consult Consult Specialty:: NEUROLOGY-RADHA DE DIOS - History of Present Illness History of Present Illness: Galina Cabrera is a 48yF w PMHx hx lumbar vertebral fractures s/p repair, brain clot s/p removal, seizures, HTN admitted for elective pseudomeningocele drainage and repair w duraseal, removal of hardware L3 - L5, POD 1. In PACU, staff noted progressively worsening involuntary twitching R arm, stiffness L arm while pt was lucid. No post ictal period. Seizure like episode broken w propofol and 500 IV keppra. Subsequent head CT did not show acute bleed/infarct/ lesion/fracture.Today s/p-spinal fusion wound exploration, removal of hardware L3 thru L5, repair of pseudomenigocele with duraseal. c/o back pain at sx. site only. States she does not feel confused. 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 History of Recent Travel: No Home Medications - Allergies Allergies/Adverse Reactions: Allergies Allergy/AdvReac Type Severity Reaction Status Date / Time codeine Allergy Severe Itching Verified 12/24/18 07:18 pollen extracts Allergy Severe Itching Verified 12/24/18 07:18 - Home Medications Home Medications: Ambulatory Orders levETIRAcetam [Keppra -] 500 mg PO BID #60 tablet 04/09/17 Acetaminophen [Tylenol -] 1,000 mg PO Q6H 12/23/18 Levothyroxine [Synthroid -] 100 mcg PO DAILY 12/23/18 Physical Exam-Neuro Vital Signs: Vital Signs Temperature 98.6 F 12/24/18 12:30 Pulse Rate 84 12/24/18 12:30 Respiratory Rate 16 12/24/18 12:30 Blood Pressure 145/80 12/24/18 12:30 O2 Sat by Pulse Oximetry (%) 100 12/24/18 13:48 Labs: CBC, BMP 12/24/18 12:00 - Neuro Exam Level Of Consciousness: Yes: Alert, Oriented to Person, Oriented to Place Eyes: Yes: RANDELL Speech: WNL Dominant Hand: Right Mini Mental Exam: Impaired concentration only. DTR's: 0 Left Achilles, 0 Right Achilles, 2+ Left Bicep, 2+ Right Bicep, 2+ Left Tricep, 2+ Right Tricep, 2+ Left Brachioradialis, 2+ Right Brachioradialis (Right knee-2+ absent left knee jerk) Motor Strength: 5/5: Left Arm, Right Arm, Left Leg, Right Leg Gait: Deferred Assessment/Plan S/P-removal of hardware L3 thru L5, repair of pseudomenigocele with duraseal. Pt. appears to be recovering well. Would keep on Keppra 750mg bid, her mental status has improved since right after anesthesia. Thank you, Rui Rome MD
[2018-12-24] MEDS: oxyCODONE HCL 5 MG TABLET PO PRN ×2 (17:31→23:35)
[2018-12-24] MEDS ORDERED: levETIRAcetam 500 MG TABLET (FP) PO SCH ×2 (22:00)
[2018-12-24] MEDS: MUPIROCIN 2% TOPICAL OINTMENT FOR DECOLONIZATION NS SCH (22:09)
[2018-12-24] MEDS: HEPARIN NA (PORCINE) 5,000 UNITS/ML 1ML VIAL SQ SCH (22:10)
[2018-12-24] MEDS: CHLORHEXIDINE GLUCONATE 4% CLEANSER FOR DECOLONIZATION TP SCH (22:14)
--- NOTE | 2018-12-25 00:13 | CONSULT ---
Consult - History of Present Illness History of Present Illness: History of Present Illness: Galina Cabrera is a 48yF w PMHx hx lumbar vertebral fractures s/p repair, brain clot s/p removal, seizures, HTN admitted for elective pseudomeningocele drainage and repair w duraseal, removal of hardware L3 - L5, POD 1. In PACU, staff noted progressively worsening involuntary twitching R arm, stiffness L arm while pt was lucid. No post ictal period. Seizure like episode broken w propofol and 500 IV keppra[address] Subsequent head CT did not show acute bleed/infarct/ lesion/fracture.Today s/p-spinal fusion wound exploration, removal of hardware L3 thru L5, repair of pseudomenigocele with duraseal. c/o back pain at sx. site only. States she does not feel confused. Denies weakness/numbness Patient seen and examined late in the evening -- report all uncontrolled activity seized in right arm she is Lucid / able to move all extremities / speech intact both Latvian and Portuguese - History Source History Provided By: Patient, Medical Record Limitations to Obtaining History: No Limitations - Past Medical History Cardio/Vascular: Yes: HTN ...LMP: 12/16/18 ...: No Endocrine: Yes: Hypothyroidism - Past Surgical History Past Surgical History: Yes: Laminectomy - Alcohol/Substance Use Hx Alcohol Use: No History of Substance Use: reports: None - Smoking History Smoking history: Never smoked Have you smoked in the past 12 months: No If you are a former smoker, when did you quit?: 15 yrs ago - Social History ADL: Independent 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 History of Recent Travel: No Home Medications - Allergies Allergies/Adverse Reactions: Allergies Allergy/AdvReac Type Severity Reaction Status Date / Time codeine Allergy Severe Itching Verified 12/24/18 07:18 pollen extracts Allergy Severe Itching Verified 12/24/18 07:18 - Home Medications Home Medications: Ambulatory Orders levETIRAcetam [Keppra -] 500 mg PO BID #60 tablet 04/09/17 Acetaminophen [Tylenol -] 1,000 mg PO Q6H 12/23/18 Levothyroxine [Synthroid -] 100 mcg PO DAILY 12/23/18 Review of Systems - Review of Systems Constitutional: reports: Weakness (LE), Other (headaches) Eyes: reports: No Symptoms Neck: reports: No Symptoms Cardiovascular: reports: No Symptoms Respiratory: reports: No Symptoms Gastrointestinal: reports: No Symptoms Genitourinary: reports: No Symptoms Breasts: reports: No Symptoms Reported Musculoskeletal: reports: Back Pain, Muscle Pain, Muscle Cramps Integumentary: reports: No Symptoms Neurological: reports: Parasthesia Endocrine: reports: No Symptoms Hematology/Lymphatic: reports: No Symptoms Psychiatric: reports: No Symptoms Physical Exam Vital Signs: Vital Signs Temperature 98.3 F 12/24/18 22:00 Pulse Rate 71 12/24/18 22:00 Respiratory Rate 14 12/24/18 22:00 Blood Pressure 146/83 12/24/18 22:00 O2 Sat by Pulse Oximetry (%) 100 12/24/18 20:42 Constitutional: Yes: Well Nourished, No Distress, Calm Eyes: Yes: Conjunctiva Clear, EOM Intact HENT: Yes: Atraumatic, Normocephalic Neck: Yes: Supple, Trachea Midline Cardiovascular: Yes: Regular Rate and Rhythm Respiratory: Yes: Regular, CTA Bilaterally Gastrointestinal: Yes: Normal Bowel Sounds, Soft ...Rectal Exam: Yes: Deferred Renal/: Yes: WNL Breast(s): Yes: WNL Musculoskeletal: Yes: Back Pain (appropriate surgery ealier today) Extremities: Yes: WNL Edema: No Peripheral Pulses WNL: Yes Wound/Incision: Yes: Other (surgical site not visiualized drainage with bloody d/c) Neurological: Yes: Alert, Oriented. No: Aphasia, Confusion, Dysarthria, Loss of Sensation, Tremors Psychiatric: Yes: Alert, Oriented Labs: CBC, BMP 12/24/18 12:00 Problem List - Problems (1) History of lumbar laminectomy for spinal cord decompression Code(s): Z98.890 - OTHER SPECIFIED POSTPROCEDURAL STATES (2) H/O laminectomy Code(s): Z98.890 - OTHER SPECIFIED POSTPROCEDURAL STATES (3) HTN (hypertension) Code(s): I10 - ESSENTIAL (PRIMARY) HYPERTENSION (4) Hypothyroid Code(s): E03.9 - HYPOTHYROIDISM, UNSPECIFIED (5) Seizure Code(s): R56.9 - UNSPECIFIED CONVULSIONS Assessment/Plan Galina Cabrera is a 48yF w PMHx HTN / Hypothyroid / hx lumbar vertebral fractures s/p repair, brain clot s/p removal, seizures, admitted for elective pseudomeningocele drainage and repair w duraseal, removal of hardware L3 - L5, POD 0. In PACU, staff noted progressively worsening involuntary twitching R arm , stiffness L arm while pt was lucid. No post ictal period. Seizure like episode broken w propofol and 500 [address]ra[address] Subsequent head CT did not show acute bleed/infarct/lesion/fracture.Today s/p-spinal fusion wound exploration, removal of hardware L3 thru L5, repair of pseudomenigocele with duraseal. c/o back pain at sx. site only. States she does not feel confused. Denies weakness/ numbness At time of exam - late evening, all uncontrolled movement seized. able to move all extremities equally / speech fluent
[2018-12-25] MEDS: ACETAMINOPHEN 1000 MG/100 ML VIAL (NON FORMULARY) IVPB SCH ×4 (03:44→21:17)
[2018-12-25] MEDS: LACTATED RINGERS SOLUTION 1,000 ML/1,000 ML INFUS.BAG IV SCH ×2 (06:00→17:05)
[2018-12-25] MEDS ORDERED: PT OWN MED DRAWER 7, Y5N ONE ×2 (06:08→21:14)
[2018-12-25] MEDS: HEPARIN NA (PORCINE) 5,000 UNITS/ML 1ML VIAL SQ SCH ×3 (06:12→21:21)
[2018-12-25] MEDS: DOCUSATE SODIUM 100 MG CAPSULE (FP) PO SCH ×3 (06:12→21:21)
[2018-12-25] MEDS: LEVOTHYROXINE NA 100 MCG TABLET (FP) PO SCH (06:12)
[2018-12-25 06:21] LABS: HEMATOCRIT 29.9 % (32.4-45.2); HEMOGLOBIN 10.3 GM/dL (10.7-15.3); MCH 33.8 pg (25.7-33.7); MCHC 34.6 g/dl (32.0-36.0); MEAN CELL VOLUME 97.7 fl (80-96); MEAN PLT VOLUME 8.8 fl (7.5-11.1); PLATELET COUNT 229 K/MM3 (134-434); RBC 3.06 M/mm3 (3.60-5.2); RDW 12.5 % (11.6-15.6); WHITE BLOOD COUNT 6.7 K/mm3 (4.0-10.0)
[2018-12-25 07:10] LABS: CALCIUM 8.3 mg/dL (8.5-10.1); CREATININE 0.6 mg/dL (0.55-1.3); PHOSPHOROUS 3.8 mg/dL (2.5-4.9); POTASSIUM 3.5 mmol/L (3.5-5.1)
--- NOTE | 2018-12-25 08:11 | PN ---
Progress Note (short form) - Note Progress Note: Anesthesia post op Pt seen and examined S:alert and awake O: Vital Signs Temperature 98.1 F 12/25/18 06:00 Pulse Rate 59 L 12/25/18 06:00 Respiratory Rate 14 12/25/18 06:00 Blood Pressure 140/77 12/25/18 06:00 O2 Sat by Pulse Oximetry (%) 100 12/24/18 20:42 CBC, BMP 12/25/18 05:50 a/p: Current Active Problems H/O laminectomy (Acute) HTN (hypertension) (Acute) History of lumbar laminectomy for spinal cord decompression (Acute) Hypothyroid (Acute) Seizure (Acute) s/p L3-5 TLIF redo post op seizure doing well in ICU Continue current care Derrick Rush MD
[2018-12-25] MEDS ORDERED: ceFAZolin SODIUM 1 GM VIAL ONE ×2 (08:26→16:52)
[2018-12-25] MEDS ORDERED: DEXTROSE 5%-WATER - 50 ML IVPB ONE ×2 (08:26→16:52)
--- NOTE | 2018-12-25 08:26 | PN ---
Progress Note (short form) - Note Progress Note: POD 1, s/p spinal fusion wound exploration, removal of hardware L3 thru L5, repair of pseudomenigocele with duraseal Pt seen and examined. Reports she doing "okay" this morning. Has not been oob yet. Tolerating clears. Reports incisional pain. Had a h/a overnight which has resolved with an ice pack to the back of her neck. Drain and patel in place. Denies cp/sob, n/v/d, calf pain, h/a, dizziness. Vital Signs Temp 98.1 F 12/25/18 06:00 Pulse 68 12/25/18 08:00 Resp 12 12/25/18 08:00 BP 140/71 12/25/18 08:00 Pulse Ox 99 12/25/18 08:20 Intake & Output 12/24/18 12/24/18 12/25/18 11:59 23:59 11:59 Intake Total 1500 1700 1035 Output Total 915 3020 1020 Balance 585 -1320 15 Weight 122 lb 9.6 oz Intake: IV 1500 1450 875 LACTATED RINGERS SOLUTION 1250 875 1,000 ml In 1,000 ml @ 125 mls/hr IV ASDIR MENG Rx#:[id number] IVPB 250 150 Oral 0 10 Output: Drainage 220 120 Lower Back 220 120 Urine 900 2800 900 Patel 1600 900 Estimated Blood Loss 15 Other: Voiding Method Indwelling Catheter Indwelling Catheter Bowel Movement No No Weight Measurement Method Built in [facility] CBC, BMP 12/25/18 05:50 12/25/18 05:50 Gen: awake, alert, nad Resp: Unlabored on RA Back: dressing c/d/i, drain in place to bile bag with minimal serosanguinous drainage in bag. Neuro: 5/5 dorsi/plantarflexion, SILT b/l les. A/P: 48 y/o F w/ PMHx hx lumbar vertebral fractures s/p repair, brain clot s/p removal, seizures, HTN admitted for elective pseudomeningocele drainage and repair w duraseal, now POD 1, s/p spinal fusion wound exploration, removal of hardware L3 thru L5, repair of pseudomenigocele with duraseal c/b seizure like episode in PACU. Stable this AM. No issues overnight Afebrile, VSS Labs stable -Continue to monitor in ICU until tomorrow -D/C patel -Pain regimen with Oxy 5/10 q4h prn, Ofirmev 1g q6hrs scheduled -OOB with PT -Keep drain to bile bag -Monitor and record I&Os -Continue Ancef 1g q8h while drain is in place -DVT prophylaxis with Heparin 5000 units TID, b/l scds d/w attending Dr Abbasi
[2018-12-25] MEDS: CEFAZOLIN 1 GM in DEXTROSE 5%-WATER - 50 ML IVPB SCH ×2 (08:34→16:53)
[2018-12-25] MEDS ORDERED: levETIRAcetam 500 MG TABLET (FP) PO ONE ×2 (09:48→21:14)
[2018-12-25] MEDS ORDERED: levETIRAcetam 250 MG TABLET (FP) PO ONE ×2 (09:48→21:14)
[2018-12-25] MEDS: oxyCODONE HCL 5 MG TABLET PO PRN ×2 (10:02→14:44)
[2018-12-25] MEDS: MUPIROCIN 2% TOPICAL OINTMENT FOR DECOLONIZATION NS SCH ×2 (10:03→21:21)
--- NOTE | 2018-12-25 11:39 | PN ---
Progress Note (short form) - Note Progress Note: 48yF w PMHx hx lumbar vertebral fractures s/p repair, brain clot s/p removal, seizures, HTN admitted for elective pseudomeningocele drainage and repair w duraseal, removal of hardware L3 - L5, POD 1. In PACU, staff noted progressively worsening involuntary twitching R arm, stiffness L arm while pt was lucid. No post ictal period. Seizure like episode broken w propofol and 500 [address]ra[address] Subsequent head CT did not show acute bleed/infarct/lesion/ fracture.Today s/p-spinal fusion wound exploration, removal of hardware L3 thru L5, repair of pseudomenigocele with duraseal. c/o back pain at sx. site only. States she does not feel confused. 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 History of Recent Travel: No Home Medications - Allergies Allergies/Adverse Reactions: Allergies Allergy/AdvReac Type Severity Reaction Status Date / Time codeine Allergy Severe Itching Verified 12/24/18 07:18 pollen extracts Allergy Severe Itching Verified 12/24/18 07:18 - Home Medications Home Medications: Ambulatory Orders levETIRAcetam [Keppra -] 500 mg PO BID #60 tablet 04/09/17 Acetaminophen [Tylenol -] 1,000 mg PO Q6H 12/23/18 Levothyroxine [Synthroid -] 100 mcg PO DAILY 12/23/18 Physical Exam-Neuro Vital Signs: Vital Signs Temperature 98.4 F 12/25/18 10:00 Pulse Rate 60 12/25/18 10:00 Respiratory Rate 12 12/25/18 10:00 Blood Pressure 148/83 12/25/18 10:00 O2 Sat by Pulse Oximetry (%) 99 12/25/18 08:20 Labs: CBC, BMP 12/24/18 12:00 - Neuro Exam Level Of Consciousness: Yes: Alert, Oriented to Person, Oriented to Place Eyes: Yes: RANDELL Speech: WNL Dominant Hand: Right Mini Mental Exam: Impaired concentration only. DTR's: 0 Left Achilles, 0 Right Achilles, 2+ Left Bicep, 2+ Right Bicep, 2+ Left Tricep, 2+ Right Tricep, 2+ Left Brachioradialis, 2+ Right Brachioradialis (Right knee-2+ absent left knee jerk) Motor Strength: 5/5: Left Arm, Right Arm, Left Leg, Right Leg Gait: Deferred Assessment/Plan S/P-removal of hardware L3 thru L5, repair of pseudomenigocele with duraseal. Pt. appears to be recovering well. POD 1 maintain Keppra 750mg bid, continue pain control and wound /post op care DR BROWN
--- NOTE | 2018-12-25 11:44 | PN ---
Teaching Attending Note Name of Resident: Nuha Riggins ATTENDING PHYSICIAN STATEMENT I saw and evaluated the patient. I reviewed the resident's note and discussed the case with the resident. I agree with the resident's findings and plan as documented. SUBJECTIVE: Pt seen and examined in the ICU. Had seizure episode overnight. c/o nausea. OBJECTIVE: Vital Signs Period Temp Pulse Resp BP Sys/Cook Pulse Ox Last 24 Hr 97.8 F-98.7 F 53-86 11-16 107-169/60-100 99-100 Intake & Output 12/22/18 12/23/18 12/24/18 12/25/18 23:59 23:59 23:59 23:59 Intake Total 3200 1035 Output Total 3935 1020 Balance -735 15 Weight 52.163 kg 55.61 kg Gen: NAD at rest Heart: RRR Lung: decreased breath sounds at the bases Abd: soft, nontender Ext: no edema CBC, BMP 12/25/18 05:50 12/25/18 05:50 Active Medications Acetaminophen (Ofirmev Injection -) 1,000 mg IVPB Q6H [facility] Stop: 12/26/18 03:01 Last Admin: 12/25/18 10:00 Dose: 1,000 mg Chlorhexidine Gluconate (Hibiclens For Decolonization -) 1 applic TP HS [facility] Last Admin: 12/24/18 22:14 Dose: 1 applic Diphenhydramine HCl (Benadryl -) 25 mg PO Q6H PRN PRN Reason: FOR ITCHING Docusate Sodium (Colace -) 100 mg PO TID [facility] Last Admin: 12/25/18 06:12 Dose: 100 mg Heparin Sodium (Porcine) (Heparin -) 5,000 unit SQ TID [facility] Last Admin: 12/25/18 06:12 Dose: 5,000 unit Cefazolin Sodium 1 gm/ (Dextrose) 50 mls @ 100 mls/hr IVPB Q8H [facility] Stop: 12/25/18 16:29 Last Admin: 12/25/18 08:34 Dose: 100 mls/hr Lactated Ringer's (Lactated Ringers Solution) 1,000 ml in 1,000 mls @ 125 mls/ hr IV ASDIR [facility] Last Admin: 12/25/18 06:00 Dose: 125 mls/hr Levetiracetam 250 mg/ (Levetiracetam 500 mg) 750 mg PO BID [facility] Last Admin: 12/25/18 09:58 Dose: 750 mg Levothyroxine Sodium (Synthroid -) 100 mcg PO DAILY@0700 [facility] Last Admin: 12/25/18 06:12 Dose: 100 mcg Mupirocin (Bactroban Ointment (For Decolonization) -) 1 applic NS BID [facility] Stop: 12/29/18 21:59 Last Admin: 12/25/18 10:03 Dose: 1 applic Ondansetron HCl (Zofran Injection) 4 mg IVPUSH Q6H PRN PRN Reason: NAUSEA Last Admin: 12/25/18 08:39 Dose: 4 mg Oxycodone HCl (Roxicodone -) 5 mg PO Q4H PRN PRN Reason: PAIN LEVEL 1-5 Oxycodone HCl (Roxicodone -) 10 mg PO Q4H PRN PRN Reason: PAIN LEVEL 6-10 Last Admin: 12/25/18 10:02 Dose: 10 mg ASSESSMENT AND PLAN: s/p Pseudomeningocele Drainage/Repair/GEORGE L3-L5 Seizure Disorder Hypothyroidism HTN Anemia - continue antiepileptics - antiemetics - IVF - PO as tolerated - d/c patel when OOB - monitor drain output - pain control - incentive spirometry - DVT prophylaxis
--- NOTE | 2018-12-25 11:46 | PN ---
Physical Exam: SUBJECTIVE: Patient seen and examined. No events overnight. Patient now eating. POD# 1 OBJECTIVE: Vital Signs Period Temp Pulse Resp BP Sys/Cook Pulse Ox Last 24 Hr 97.8 F-98.7 F 53-88 11-16 107-169/60-100 99-100 GENERAL: a/o x 3 HEAD: Normal with no signs of trauma. EYES: Pupils equal, round and reactive to light, extraocular movements intact, sclera anicteric, conjunctiva clear. No lid lag. LUNGS: Breath sounds equal, clear to auscultation bilaterally. No wheezes, and no crackles. No accessory muscle use. HEART: RRR, no MGR ABDOMEN: Soft, nontender, not distended, +BS. +abdominal binder BACK: bloody drainage in drain from lumbar surgical site NEUROLOGICAL: A&Ox3, normal speech. SKIN: Warm, dry, normal turgor, no rashes or lesions noted, normal capillary refill. Laboratory Results - last 24 hr 12/24/18 12/25/18 12/25/18 12:00 05:50 05:50 WBC 6.7 RBC 3.06 L Hgb 10.3 L Hct 29.9 L MCV 97.7 H MCH 33.8 H D MCHC 34.6 RDW 12.5 Plt Count 229 D MPV 8.8 Sodium 138 138 Potassium 3.7 3.5 Chloride 106 104 Carbon Dioxide 25 26 Anion Gap 7 L 7 L BUN 8.8 6.0 L Creatinine 0.8 0.6 Est GFR (CKD-EPI)AfAm 100.33 124.05 Est GFR (CKD-EPI)NonAf 86.57 107.03 Random Glucose 147 H 90 Calcium 8.7 8.3 L Phosphorus 2.4 L 3.8 Magnesium 1.8 2.0 Active Medications Generic Name Dose Route Start Last Admin Trade Name Freq PRN Reason Stop Dose Admin Acetaminophen 1,000 mg 12/25/18 09:00 12/25/18 10:00 Ofirmev Injection - IVPB 12/26/18 03:01 1,000 mg Q6H [facility]ENG Administration Chlorhexidine Gluconate 1 applic 12/24/18 22:00 12/24/18 22:14 Hibiclens For Decolonization - TP 1 applic HS MENG Administration Diphenhydramine HCl 25 mg 12/24/18 11:20 Benadryl - PO Q6H PRN FOR ITCHING Docusate Sodium 100 mg 12/24/18 14:00 12/25/18 06:12 Colace - PO 100 mg TID [facility]ENG Administration Heparin Sodium (Porcine) 5,000 unit 12/24/18 22:00 12/25/18 06:12 Heparin - SQ 5,000 unit TID [facility]ENG Administration Cefazolin Sodium 1 gm/ 50 mls @ 100 mls/hr 12/24/18 16:00 12/25/18 08:34 Dextrose IVPB 12/25/18 16:29 100 mls/hr Q8H [facility] Administration Lactated Ringer's 1,000 ml in 1,000 mls @ 125 mls/hr 12/24/18 11:30 12/25/18 06:00 Lactated Ringers Solution IV 125 mls/hr ASDIR [facility]ENG Administration Levetiracetam 250 mg/ 750 mg 12/24/18 22:00 12/25/18 09:58 Levetiracetam 500 mg PO 750 mg BID [facility]ENG Administration Levothyroxine Sodium 100 mcg 12/25/18 07:00 12/25/18 06:12 Synthroid - PO 100 mcg DAILY@0700 [facility] Administration Mupirocin 1 applic 12/24/18 22:00 12/25/18 10:03 Bactroban Ointment (For Decolonization) - NS 12/29/18 21:59 1 applic BID [facility] Administration Ondansetron HCl 4 mg 12/24/18 11:20 12/25/18 08:39 Zofran Injection IVPUSH 4 mg Q6H PRN Administration NAUSEA Oxycodone HCl 5 mg 12/25/18 08:03 Roxicodone - PO Q4H PRN PAIN LEVEL 1-5 Oxycodone HCl 10 mg 12/25/18 08:03 12/25/18 10:02 Roxicodone - PO 10 mg Q4H PRN Administration PAIN LEVEL 6-10 ASSESSMENT/PLAN: Galina Cabrera is a 48yF w PMHx hx lumbar vertebral fractures s/p repair, brain clot s/p removal, seizures, HTN admitted for elective pseudomeningocele drainage and repair w duraseal, removal of hardware L3 - L5, POD 1. #Cardiac - normotensive, no active issues #Pulm - normal O2sat on RA - incentive spirometry #Neuro -POD 1, s/p spinal fusion wound exploration, removal of hardware L3 thru L5, repair of pseudomenigocele with duraseal -OOB w/ PT -pain regimen with Oxy 5/10 q4h prn -post op seizure episode. no events since -Head CT 12/24 did not show acute bleed/infarct/lesion/fracture -keppra 750 BID -neuro checks -appreciate neuro recs -PT order #GI - Now regular diet - colace PRN constipation #Endo - levothyroxine 100 qD # - IV fluids stopped. patient now eating - patel in place #FEN - IV fluids now stopped - Electrolyte abnormalities: none - Regular diet PPX DVT - SCDs, heparin SQ GI - none Dispo - continue ICU monitoring Visit type - Emergency Visit Emergency Visit: Yes ED Registration Date: 12/24/18 Care time: The patient presented to the Emergency Department on the above date and was hospitalized for further evaluation of their emergent condition. - New Patient This patient is new to me today: Yes Date on this admission: 12/25/18 - Critical Care Critical Care patient: Yes Total Critical Care Time (in minutes): 40 Critical Care Statement: The care of this patient involved high complexity decision making to prevent further life threatening deterioration of the patient 's condition and/or to evaluate & treat vital organ system(s) failure or risk of failure. ATTENDING PHYSICIAN STATEMENT I saw and evaluated the patient. I reviewed the resident's note and discussed the case with the resident. I agree with the resident's findings and plan as documented. SUBJECTIVE: OBJECTIVE: ASSESSMENT AND PLAN:
--- NOTE | 2018-12-25 12:34 | PN ---
Progress Note (short form) - Note Progress Note: seen and examined in ICU Awake O X3 moves all extremities speech intact Vital Signs Period Temp Pulse Resp BP Sys/Cook Pulse Ox Last 24 Hr 97.8 F-98.4 F 53-78 11-16 107-148/60-87 99-100 neck supple heart S1/S2 reg lungs clear bilat abd soft binder in place drain sero-sanguineous ext no edema / motor sensory intact equal CBC, BMP 12/25/18 05:50 12/25/18 05:50 Active Medications Acetaminophen (Ofirmev Injection -) 1,000 mg IVPB Q6H [facility] Stop: 12/26/18 03:01 Last Admin: 12/25/18 10:00 Dose: 1,000 mg Chlorhexidine Gluconate (Hibiclens For Decolonization -) 1 applic TP HS [facility] Last Admin: 12/24/18 22:14 Dose: 1 applic Diphenhydramine HCl (Benadryl -) 25 mg PO Q6H PRN PRN Reason: FOR ITCHING Docusate Sodium (Colace -) 100 mg PO TID [facility] Last Admin: 12/25/18 06:12 Dose: 100 mg Heparin Sodium (Porcine) (Heparin -) 5,000 unit SQ TID [facility] Last Admin: 12/25/18 06:12 Dose: 5,000 unit Cefazolin Sodium 1 gm/ (Dextrose) 50 mls @ 100 mls/hr IVPB Q8H [facility] Stop: 12/25/18 16:29 Last Admin: 12/25/18 08:34 Dose: 100 mls/hr Levetiracetam 250 mg/ (Levetiracetam 500 mg) 750 mg PO BID [facility] Last Admin: 12/25/18 09:58 Dose: 750 mg Levothyroxine Sodium (Synthroid -) 100 mcg PO DAILY@0700 [facility] Last Admin: 12/25/18 06:12 Dose: 100 mcg Mupirocin (Bactroban Ointment (For Decolonization) -) 1 applic NS BID [facility] Stop: 12/29/18 21:59 Last Admin: 12/25/18 10:03 Dose: 1 applic Ondansetron HCl (Zofran Injection) 4 mg IVPUSH Q6H PRN PRN Reason: NAUSEA Last Admin: 12/25/18 08:39 Dose: 4 mg Oxycodone HCl (Roxicodone -) 5 mg PO Q4H PRN PRN Reason: PAIN LEVEL 1-5 Oxycodone HCl (Roxicodone -) 10 mg PO Q4H PRN PRN Reason: PAIN LEVEL 6-10 Last Admin: 12/25/18 10:02 Dose: 10 mg Galina Cabrera is a 48yF w PMHx HTN / Hypothyroid / hx lumbar vertebral fractures s/p repair, brain clot s/p removal, seizures, admitted for elective pseudomeningocele drainage and repair w duraseal, removal of hardware L3 - L5, POD 0. In PACU, staff noted progressively worsening involuntary twitching R arm , stiffness L arm while pt was lucid. No post ictal period. Seizure like episode broken w propofol and 500 IV [address]ra. Subsequent head CT did not show acute bleed/infarct/lesion/fracture.Today s/p-spinal fusion wound exploration, removal of hardware L3 thru L5, repair of pseudomenigocele with duraseal. c/o back pain at sx. site only. States she does not feel confused. Denies weakness/ numbness OR 12/24/18 POD1 activity per surgery pain mamgement observe for neurological Sx d/c patel Hypothyroid HTN monitor BP - resume bp meds when stable Problem List - Problems (1) History of lumbar laminectomy for spinal cord decompression Code(s): Z98.890 - OTHER SPECIFIED POSTPROCEDURAL STATES (2) H/O laminectomy Code(s): Z98.890 - OTHER SPECIFIED POSTPROCEDURAL STATES (3) HTN (hypertension) Code(s): I10 - ESSENTIAL (PRIMARY) HYPERTENSION (4) Hypothyroid Code(s): E03.9 - HYPOTHYROIDISM, UNSPECIFIED (5) Seizure Code(s): R56.9 - UNSPECIFIED CONVULSIONS
[2018-12-25] MEDS: CHLORHEXIDINE GLUCONATE 4% CLEANSER FOR DECOLONIZATION TP SCH (21:21)
[2018-12-26] MEDS: oxyCODONE HCL 5 MG TABLET PO PRN ×5 (01:17→21:17)
[2018-12-26] MEDS: ACETAMINOPHEN 1000 MG/100 ML VIAL (NON FORMULARY) IVPB SCH (02:38)
[2018-12-26] MEDS ORDERED: PT OWN MED DRAWER 7, Y5N ONE ×3 (06:01→21:06)
[2018-12-26] MEDS: DOCUSATE SODIUM 100 MG CAPSULE (FP) PO SCH ×3 (06:09→21:16)
[2018-12-26] MEDS: HEPARIN NA (PORCINE) 5,000 UNITS/ML 1ML VIAL SQ SCH ×3 (06:10→21:16)
[2018-12-26] MEDS: LEVOTHYROXINE NA 100 MCG TABLET (FP) PO SCH (06:11)
[2018-12-26 06:43] LABS: BASO % 0.3 % (0-2.0); EOS % 0.9 % (0-4.5); HEMATOCRIT 28.5 % (32.4-45.2); HEMOGLOBIN 9.7 GM/dL (10.7-15.3); LYMPH % 20.1 % (8-40); MCH 33.6 pg (25.7-33.7); MCHC 34.2 g/dl (32.0-36.0); MEAN CELL VOLUME 98.4 fl (80-96); MEAN PLT VOLUME 8.7 fl (7.5-11.1); MONO % 10.6 % (3.8-10.2); NEUT % 68.1 % (42.8-82.8); PLATELET COUNT 206 K/MM3 (134-434); RBC 2.89 M/mm3 (3.60-5.2); RDW 12.5 % (11.6-15.6); WHITE BLOOD COUNT 6.7 K/mm3 (4.0-10.0)
[2018-12-26 07:17] LABS: BLOOD UREA NITROGEN 8.7 mg/dL (7-18); CALCIUM 7.9 mg/dL (8.5-10.1); CREATININE 0.6 mg/dL (0.55-1.3); PHOSPHOROUS 3.2 mg/dL (2.5-4.9); POTASSIUM 3.5 mmol/L (3.5-5.1)
[2018-12-26] MEDS ORDERED: levETIRAcetam 500 MG TABLET (FP) PO ONE ×2 (08:06→21:04)
[2018-12-26] MEDS ORDERED: levETIRAcetam 250 MG TABLET (FP) PO ONE ×2 (08:06→21:05)
--- NOTE | 2018-12-26 09:37 | PN ---
Progress Note (short form) - Note Progress Note: POD 2, s/p spinal fusion wound exploration, removal of hardware L3 thru L5, repair of pseudomenigocele with duraseal Pt seen and examined. Reports she doing better this morning. Has not been oob yet. Tolerating regular diet. Reports incisional pain. Drain and patel in place. Denies cp/sob, n/v/d, calf pain, h/a, dizziness. Vital Signs Temp 98.2 F 12/25/18 18:00 Pulse 75 12/26/18 08:00 Resp 15 12/26/18 08:00 BP 119/75 12/26/18 08:00 Pulse Ox 100 12/26/18 04:01 Intake & Output 12/25/18 12/25/18 12/26/18 11:59 23:59 11:59 Intake Total 1035 1595 500 Output Total 1020 1790 1100 Balance 15 -195 -600 Weight 122 lb 9.6 oz 121 lb 4.8 oz Intake: IV 875 625 30 LACTATED RINGERS SOLUTION 875 625 1,000 ml In 1,000 ml @ 125 mls/hr IV ASDIR [facility] Rx#:[id number] Saline Lock 30 IVPB 150 500 100 Oral 10 470 370 Output: Drainage 120 190 200 Lower Back 120 190 200 Urine 900 1600 900 Patel 900 1600 900 Other: Voiding Method Indwelling Catheter Indwelling Catheter Bowel Movement No No No Weight Measurement Method [facility] CBC, BMP 12/26/18 06:16 12/26/18 06:16 PE; Gen; a&O x3 Resp: breathing comfortably Back: dressin in place clean, drain in place with serosanguinous drainage Ext: no weakness or numbness Problem List - Problems (1) History of lumbar laminectomy for spinal cord decompression Assessment/Plan: Plan -pt is cleared for transfer to floor from neurosurgical standpoint -OOB/ambulate -D/C patel once ambulating -pain control -follow drain output Pt seen and examined with Dr. Brown, who agrees with plan Code(s): Z98.890 - OTHER SPECIFIED POSTPROCEDURAL STATES
[2018-12-26] MEDS: MUPIROCIN 2% TOPICAL OINTMENT FOR DECOLONIZATION NS SCH ×2 (11:00→21:17)
--- NOTE | 2018-12-26 11:09 | PN ---
Teaching Attending Note Name of Resident: Ángel Almanza ATTENDING PHYSICIAN STATEMENT I saw and evaluated the patient. I reviewed the resident's note and discussed the case with the resident. I agree with the resident's findings and plan as documented. SUBJECTIVE: Patient seen and examined in the ICU. Awake and alert. No further seizure episodes overnight. No CP or SOB. OBJECTIVE: Intake & Output 12/23/18 12/24/18 12/25/18 12/26/18 23:59 23:59 23:59 23:59 Intake Total 3200 2630 500 Output Total 3935 2810 1100 Balance -735 -180 -600 Weight 115 lb 122 lb 9.6 oz 121 lb 4.8 oz Last Vital Signs Temp Pulse Resp BP Pulse Ox 98.7 F 71 18 121/77 100 12/26/18 10:00 12/26/18 10:00 12/26/18 10:00 12/26/18 10:00 12/26/18 04:01 Active Medications Chlorhexidine Gluconate (Hibiclens For Decolonization -) 1 applic TP HS [facility] Last Admin: 12/25/18 21:21 Dose: 1 applic Diphenhydramine HCl (Benadryl -) 25 mg PO Q6H PRN PRN Reason: FOR ITCHING Docusate Sodium (Colace -) 100 mg PO TID [facility] Last Admin: 12/26/18 06:09 Dose: 100 mg Heparin Sodium (Porcine) (Heparin -) 5,000 unit SQ TID [facility] Last Admin: 12/26/18 06:10 Dose: 5,000 unit Levetiracetam 250 mg/ (Levetiracetam 500 mg) 750 mg PO BID [facility] Last Admin: 12/26/18 10:08 Dose: 750 mg Levothyroxine Sodium (Synthroid -) 100 mcg PO DAILY@0700 [facility] Last Admin: 12/26/18 06:11 Dose: 100 mcg Mupirocin (Bactroban Ointment (For Decolonization) -) 1 applic NS BID [facility] Stop: 12/29/18 21:59 Last Admin: 12/25/18 21:21 Dose: 1 applic Ondansetron HCl (Zofran Injection) 4 mg IVPUSH Q6H PRN PRN Reason: NAUSEA Last Admin: 12/25/18 08:39 Dose: 4 mg Oxycodone HCl (Roxicodone -) 5 mg PO Q4H PRN PRN Reason: PAIN LEVEL 1-5 Last Admin: 12/26/18 06:09 Dose: 5 mg Oxycodone HCl (Roxicodone -) 10 mg PO Q4H PRN PRN Reason: PAIN LEVEL 6-10 Last Admin: 12/26/18 10:12 Dose: 10 mg Gen: mildly uncomfortable due to pain, NAD a Heart: RRR Lung: decreased breath sounds at the bases Abd: soft, nontender Ext: no edema Neuro: non-focal Laboratory Results - last 24 hr 12/24/18 12/26/18 12/26/18 12:00 06:16 06:16 WBC 6.7 RBC 2.89 L Hgb 9.7 L Hct 28.5 L MCV 98.4 H MCH 33.6 MCHC 34.2 RDW 12.5 Plt Count 206 MPV 8.7 Absolute Neuts (auto) 4.6 Neutrophils % 68.1 Lymphocytes % 20.1 Monocytes % 10.6 H Eosinophils % 0.9 D Basophils % 0.3 Nucleated RBC % 0 Sodium 140 Potassium 3.5 Chloride 107 Carbon Dioxide 25 Anion Gap 7 L BUN 8.7 Creatinine 0.6 Est GFR (CKD-EPI)AfAm 124.05 Est GFR (CKD-EPI)NonAf 107.03 Random Glucose 104 Calcium 7.9 L Phosphorus 3.2 Magnesium 2.0 Levetiracetam None detected ASSESSMENT AND PLAN: s/p Pseudomeningocele Drainage/Repair/GEORGE L3-L5 Seizure Disorder Hypothyroidism HTN Anemia - continue antiepileptics - antiemetics - IVF - PO as tolerated - d/c patel when OOB - monitor drain output - pain control - incentive spirometry - DVT prophylaxis - Floor Dr Foote
[2018-12-26] MEDS ORDERED: POTASSIUM CHLORIDE TABS 20 MEQ TABLET.ER (FP) PO ONE (11:13)
--- NOTE | 2018-12-26 13:20 | PN ---
Physical Exam: SUBJECTIVE: Patient seen and examined at bedside. Complains of headache overnight that resolved on its own and back pain due to being uncomfortable in bed. No acute events overnight. No seizure episodes since being post op. POD#2. OBJECTIVE: Vital Signs Period Temp Pulse Resp BP Sys/Cook Pulse Ox Last 24 Hr 98.1 F-98.7 F 63-75 11-18 99-135/59-80 98-100 GENERAL: The patient is awake, alert, and fully oriented, in no acute distress. HEAD: Normal with no signs of trauma. EYES: PERRL, EOMI, no scleral icterus ENT: Ears normal, nares patent, oropharynx clear without exudates, moist mucous membranes. NECK: supple no cervical lymphadenopathy LUNGS: Breath sounds equal, clear to auscultation bilaterally, no wheezes, no crackles, no accessory muscle use. HEART: Regular rate and rhythm, S1, S2 without murmur, rub or gallop. ABDOMEN: Soft, nontender, nondistended, normoactive bowel sounds, no guarding, no rebound. abdominal binder in place EXTREMITIES: 2+ pulses, warm, well-perfused, no edema. NEUROLOGICAL: normal speech, gait not observed. grossly normal sensation. PSYCH: Normal mood, normal affect. SKIN: Warm, dry, normal turgor, no rashes or lesions noted Laboratory Results - last 24 hr 12/24/18 12/26/18 12/26/18 12:00 06:16 06:16 WBC 6.7 RBC 2.89 L Hgb 9.7 L Hct 28.5 L MCV 98.4 H MCH 33.6 MCHC 34.2 RDW 12.5 Plt Count 206 MPV 8.7 Absolute Neuts (auto) 4.6 Neutrophils % 68.1 Lymphocytes % 20.1 Monocytes % 10.6 H Eosinophils % 0.9 D Basophils % 0.3 Nucleated RBC % 0 Sodium 140 Potassium 3.5 Chloride 107 Carbon Dioxide 25 Anion Gap 7 L BUN 8.7 Creatinine 0.6 Est GFR (CKD-EPI)AfAm 124.05 Est GFR (CKD-EPI)NonAf 107.03 Random Glucose 104 Calcium 7.9 L Phosphorus 3.2 Magnesium 2.0 Levetiracetam None detected Active Medications Generic Name Dose Route Start Last Admin Trade Name Freq PRN Reason Stop Dose Admin Chlorhexidine Gluconate 1 applic 12/24/18 22:00 12/25/18 21:21 Hibiclens For Decolonization - TP 1 applic HS MENG Administration Diphenhydramine HCl 25 mg 12/24/18 11:20 Benadryl - PO Q6H PRN FOR ITCHING Docusate Sodium 100 mg 12/24/18 14:00 12/26/18 06:09 Colace - PO 100 mg TID [facility]ENG Administration Folic Acid/Iron 1 each 12/26/18 11:15 Folitab 500 Caplet - PO DAILY [facility] Heparin Sodium (Porcine) 5,000 unit 12/24/18 22:00 12/26/18 06:10 Heparin - SQ 5,000 unit TID [facility]ENG Administration Levetiracetam 250 mg/ 750 mg 12/24/18 22:00 12/26/18 10:08 Levetiracetam 500 mg PO 750 mg BID MENG Administration Levothyroxine Sodium 100 mcg 12/25/18 07:00 12/26/18 06:11 Synthroid - PO 100 mcg DAILY@0700 [facility]ENG Administration Mupirocin 1 applic 12/24/18 22:00 12/26/18 11:00 Bactroban Ointment (For Decolonization) - NS 12/29/18 21:59 1 applic BID [facility]ENG Administration Ondansetron HCl 4 mg 12/24/18 11:20 12/25/18 08:39 Zofran Injection IVPUSH 4 mg Q6H PRN Administration NAUSEA Oxycodone HCl 5 mg 12/25/18 08:03 12/26/18 06:09 Roxicodone - PO 5 mg Q4H PRN Administration PAIN LEVEL 1-5 Oxycodone HCl 10 mg 12/25/18 08:03 12/26/18 10:12 Roxicodone - PO 10 mg Q4H PRN Administration PAIN LEVEL 6-10 Polyethylene Glycol 17 gm 12/27/18 10:00 Miralax (For Daily Use) - PO DAILY [facility] ASSESSMENT/PLAN: Galina Cabrera is a 48yF w PMHx hx lumbar vertebral fractures s/p repair, brain clot s/p removal, seizures, HTN admitted for elective pseudomeningocele drainage and repair w duraseal, removal of hardware L3 - L5. POD#2. #Cardiac - normotensive, no active issues #Pulm - normal O2sat on RA - encouraging incentive spirometry #Neuro - POD 2, s/p spinal fusion wound exploration, removal of hardware L3 thru L5, repair of pseudomenigocele with duraseal - OOB w/ PT - pain regimen with Oxy 5/10 q4h prn - post op seizure episode. no events since - Head CT 12/24 did not show acute bleed/infarct/lesion/fracture - keppra 750 BID - neuro checks - appreciate neuro recs - PT order #GI - Regular diet - colace PRN constipation #Endo - levothyroxine 100 qD # - IV fluids stopped. patient now eating - July D/C patel. Patient states she is ambulating in room with PT #FEN - IV fluids now stopped - Regular diet #PPX - DVT - SCDs, heparin SQ #Disposition - Patient cleared to be transferred to med/surg Visit type - Emergency Visit Emergency Visit: No - New Patient This patient is new to me today: Yes Date on this admission: 12/26/18 - Critical Care Critical Care patient: Yes Total Critical Care Time (in minutes): 36 Critical Care Statement: The care of this patient involved high complexity decision making to prevent further life threatening deterioration of the patient 's condition and/or to evaluate & treat vital organ system(s) failure or risk of failure. ATTENDING PHYSICIAN STATEMENT I saw and evaluated the patient. I reviewed the resident's note and discussed the case with the resident. I agree with the resident's findings and plan as documented. SUBJECTIVE: OBJECTIVE: ASSESSMENT AND PLAN:
[2018-12-26] MEDS: FERROUS SO4/VIT C/FA 1 EACH TABLET.ER PO SCH (14:32)
[2018-12-26 14:47] VITALS: BMI 27.1
[2018-12-26] MEDS: ACETAMINOPHEN 325 MG TABLET (FP) PO PRN (19:07)
[2018-12-26] MEDS: CHLORHEXIDINE GLUCONATE 4% CLEANSER FOR DECOLONIZATION TP SCH (21:16)
--- NOTE | 2018-12-27 01:11 | PN ---
Progress Note (short form) - Note Progress Note: seen and examined in ICU Awake O X3 moves all extremities speech intact Vital Signs Period Temp Pulse Resp BP Sys/Cook Pulse Ox Last 24 Hr 98.1 F-99.6 F 62-77 12-20 99-125/57-79 100-100 neck supple heart S1/S2 reg lungs clear bilat abd soft binder in place drain sero-sanguineous ext no edema / motor sensory intact equal CBC, BMP 12/26/18 06:16 12/26/18 06:16 CBC, BMP 12/25/18 05:50 12/25/18 05:50 Active Medications Acetaminophen (Tylenol -) 650 mg PO Q4H PRN PRN Reason: Headache Last Admin: 12/26/18 19:07 Dose: 650 mg Chlorhexidine Gluconate (Hibiclens For Decolonization -) 1 applic TP HS [facility] Last Admin: 12/26/18 21:16 Dose: 1 applic Diphenhydramine HCl (Benadryl -) 25 mg PO Q6H PRN PRN Reason: FOR ITCHING Docusate Sodium (Colace -) 100 mg PO TID [facility] Last Admin: 12/26/18 21:16 Dose: 100 mg Folic Acid/Iron (Folitab 500 Caplet -) 1 each PO DAILY [facility] Last Admin: 12/26/18 14:32 Dose: 1 each Heparin Sodium (Porcine) (Heparin -) 5,000 unit SQ TID [facility] Last Admin: 12/26/18 21:16 Dose: 5,000 unit Levetiracetam 250 mg/ (Levetiracetam 500 mg) 750 mg PO BID [facility] Last Admin: 12/26/18 21:16 Dose: 750 mg Levothyroxine Sodium (Synthroid -) 100 mcg PO DAILY@0700 [facility] Last Admin: 12/26/18 06:11 Dose: 100 mcg Mupirocin (Bactroban Ointment (For Decolonization) -) 1 applic NS BID [facility] Stop: 12/29/18 21:59 Last Admin: 12/26/18 21:17 Dose: 1 applic Ondansetron HCl (Zofran Injection) 4 mg IVPUSH Q6H PRN PRN Reason: NAUSEA Last Admin: 12/25/18 08:39 Dose: 4 mg Oxycodone HCl (Roxicodone -) 5 mg PO Q4H PRN PRN Reason: PAIN LEVEL 1-5 Last Admin: 12/26/18 21:17 Dose: 5 mg Oxycodone HCl (Roxicodone -) 10 mg PO Q4H PRN PRN Reason: PAIN LEVEL 6-10 Last Admin: 12/26/18 14:21 Dose: 10 mg Polyethylene Glycol (Miralax (For Daily Use) -) 17 gm PO DAILY [facility] Hudson is a 48yF w PMHx HTN / Hypothyroid / hx lumbar vertebral fractures s/p repair, brain clot s/p removal, seizures, admitted for elective pseudomeningocele drainage and repair w duraseal, removal of hardware L3 - L5, POD 0 - In PACU, staff noted progressively worsening involuntary twitching R arm, stiffness L arm while pt was lucid. No post ictal period. Seizure like episode broken w propofol and 500 IV ke[address]ra. Subsequent head CT did not show acute bleed/infarct/lesion/fracture. POD#2 #s/p-spinal fusion wound exploration, removal of hardware L3 thru L5, repair of pseudomenigocele with duraseal. activity per surgery pain mamgement observe for neurological Sx d/c patel #Hypothyroid #HTN monitor BP - resume bp meds when stable Problem List - Problems (1) History of lumbar laminectomy for spinal cord decompression Code(s): Z98.890 - OTHER SPECIFIED POSTPROCEDURAL STATES (2) H/O laminectomy Code(s): Z98.890 - OTHER SPECIFIED POSTPROCEDURAL STATES (3) HTN (hypertension) Code(s): I10 - ESSENTIAL (PRIMARY) HYPERTENSION (4) Hypothyroid Code(s): E03.9 - HYPOTHYROIDISM, UNSPECIFIED (5) Seizure Code(s): R56.9 - UNSPECIFIED CONVULSIONS
[2018-12-27] MEDS ORDERED: ONDANSETRON 4 MG/2 ML VIAL IVPUSH PRN (03:26)
[2018-12-27] MEDS ORDERED: diphenhydrAMINE HCL 25 MG CAPSULE (FP) PO PRN (03:26)
[2018-12-27] MEDS ORDERED: oxyCODONE HCL 5 MG TABLET PO PRN (03:26)
[2018-12-27] MEDS: LEVOTHYROXINE NA 100 MCG TABLET (FP) PO SCH (06:04)
[2018-12-27] MEDS: HEPARIN NA (PORCINE) 5,000 UNITS/ML 1ML VIAL SQ SCH ×3 (06:04→21:35)
[2018-12-27] MEDS: DOCUSATE SODIUM 100 MG CAPSULE (FP) PO SCH ×3 (06:04→21:36)
[2018-12-27 07:03] LABS: HEMATOCRIT 31.2 % (32.4-45.2); HEMOGLOBIN 10.7 GM/dL (10.7-15.3); MCH 33.6 pg (25.7-33.7); MCHC 34.2 g/dl (32.0-36.0); MEAN CELL VOLUME 98.3 fl (80-96); MEAN PLT VOLUME 8.5 fl (7.5-11.1); PLATELET COUNT 234 K/MM3 (134-434); RBC 3.18 M/mm3 (3.60-5.2); RDW 12.2 % (11.6-15.6); WHITE BLOOD COUNT 6.4 K/mm3 (4.0-10.0)
[2018-12-27 07:35] LABS: BLOOD UREA NITROGEN 6.7 mg/dL (7-18); CALCIUM 8.8 mg/dL (8.5-10.1); CREATININE 0.5 mg/dL (0.55-1.3); MAGNESIUM 2.2 mg/dL (1.8-2.4); PHOSPHOROUS 3.4 mg/dL (2.5-4.9); POTASSIUM 3.9 mmol/L (3.5-5.1)
[2018-12-27] MEDS: ACETAMINOPHEN 325 MG TABLET (FP) PO PRN ×2 (07:57→18:54)
[2018-12-27] MEDS ORDERED: PT OWN MED DRAWER 7, Y5N ONE ×2 (10:36→18:37)
[2018-12-27] MEDS ORDERED: levETIRAcetam 500 MG TABLET (FP) PO ONE ×2 (10:36→21:16)
[2018-12-27] MEDS ORDERED: levETIRAcetam 250 MG TABLET (FP) PO ONE ×2 (10:36→21:17)
--- NOTE | 2018-12-27 10:37 | PN ---
Progress Note (short form) - Note Progress Note: POD # 3 spinal fusion wound exploration, removal of hardware L3 thru L5, repair of pseudomenigocele with duraseal. Patient seen and at bedside c/o a dull headache at base of skull. She is tolerating her diet and has been OOB with assist and she denies any blurred vision, CP, SOB, N,V. Vital Signs Temp 98 F 12/27/18 06:00 Pulse 72 12/27/18 06:00 Resp 18 12/27/18 06:00 BP 123/73 12/27/18 06:00 Pulse Ox 100 12/26/18 20:30 Intake & Output 12/26/18 12/26/18 12/27/18 11:59 23:59 11:59 Intake Total 500 180 Output Total 1100 1750 100 Balance -600 -1570 -100 Weight 121 lb 4.8 oz 121 lb Intake: IV 30 Saline Lock 30 IVPB 100 Oral 370 180 Output: Drainage 200 350 100 Lower Back 200 350 100 Urine 900 1400 [place] 900 1000 Void 400 Other: Voiding Method Indwelling Catheter Bedside Commode # Unmeasured Voids Void 1 Bowel Movement No No Height 4 ft 8 in Body Mass Index (BMI) 27.1 Weight Measurement Method Built in [facility] CBC, BMP 12/27/18 06:45 12/27/18 06:45 PE: A&Ox3, NAD Unlabored resp on RA Incision c/d/i with surrounding tissue intact with no tracking erythema, or evidence of collection or active d/c. Dermabond applied to wound. Drain secured in good position at Right lower paravetebral with SS d/c in bile bag B/L LE Compartments soft supple and non-tender with 5/5 trevin/plantar flexion with +2 DP pulses. Problem List - Problems (1) History of lumbar laminectomy for spinal cord decompression Assessment/Plan: POD #1 patient doing well with mild headache. -maintain bile bag -continue DVT and GI prophylaxis -OOB with TLSO brace and PT -encourage oral hydration -encourage IS -d/c planning for home sunday after drain removed Evaluation and plan discussed with Dr Brown Code(s): Z98.890 - OTHER SPECIFIED POSTPROCEDURAL STATES
[2018-12-27] MEDS: FERROUS SO4/VIT C/FA 1 EACH TABLET.ER PO SCH (10:50)
[2018-12-27] MEDS: oxyCODONE HCL 5 MG TABLET PO PRN ×2 (13:58→21:37)
[2018-12-27] MEDS: POLYETHYLENE GLYCOL 3350 119 GM BTL PO SCH (13:58)
--- NOTE | 2018-12-27 23:03 | PN ---
Progress Note (short form) - Note Progress Note: seen and examined on medical sewell speech intact ambulating in the room Vital Signs Period Temp Pulse Resp BP Sys/Cook Pulse Ox Last 24 Hr 97.9 F-98.7 F 68-72 18-20 106-123/47-73 94 neck supple heart S1/S2 reg lungs clear bilat abd soft binder in place drain sero-sanguineous ext no edema / motor sensory intact equal CBC, BMP 12/27/18 06:45 12/27/18 06:45 CBC, BMP 12/26/18 06:16 12/26/18 06:16 Active Medications Acetaminophen (Tylenol -) 650 mg PO Q4H PRN PRN Reason: Headache Last Admin: 12/27/18 18:54 Dose: 650 mg Diphenhydramine HCl (Benadryl -) 25 mg PO Q6H PRN PRN Reason: FOR ITCHING Docusate Sodium (Colace -) 100 mg PO TID [facility] Last Admin: 12/27/18 21:36 Dose: 100 mg Folic Acid/Iron (Folitab 500 Caplet -) 1 each PO DAILY [facility] Last Admin: 12/27/18 10:50 Dose: 1 each Heparin Sodium (Porcine) (Heparin -) 5,000 unit SQ TID [facility] Last Admin: 12/27/18 21:35 Dose: 5,000 unit Levetiracetam 250 mg/ (Levetiracetam 500 mg) 750 mg PO BID [facility] Last Admin: 12/27/18 21:36 Dose: 750 mg Levothyroxine Sodium (Synthroid -) 100 mcg PO DAILY@0700 [facility] Last Admin: 12/27/18 06:04 Dose: 100 mcg Ondansetron HCl (Zofran Injection) 4 mg IVPUSH Q6H PRN PRN Reason: NAUSEA Oxycodone HCl (Roxicodone -) 5 mg PO Q4H PRN PRN Reason: PAIN LEVEL 1-5 Oxycodone HCl (Roxicodone -) 10 mg PO Q4H PRN PRN Reason: PAIN LEVEL 6-10 Last Admin: 12/27/18 21:37 Dose: 10 mg Polyethylene Glycol (Miralax (For Daily Use) -) 17 gm PO DAILY [facility] Last Admin: 12/27/18 13:58 Dose: 17 grams Galina Cabrera is a 48yF w PMHx HTN / Hypothyroid / hx lumbar vertebral fractures s/p repair, brain clot s/p removal, seizures, admitted for elective pseudomeningocele drainage and repair w duraseal, removal of hardware L3 - L5, POD 0 - In PACU, staff noted progressively worsening involuntary twitching R arm, stiffness L arm while pt was lucid. No post ictal period. Seizure like episode broken w propofol and 500 IV keppra. Subsequent head CT did not show acute bleed/infarct/lesion/fracture.. POD#3 #s/p-spinal fusion wound exploration, removal of hardware L3 thru L5, repair of pseudomenigocele with duraseal. -- activity per surgery --pain management --observe for neurological Sx #Hypothyroid #HTN monitor BP - resume bp meds when stable Problem List - Problems (1) History of lumbar laminectomy for spinal cord decompression Code(s): Z98.890 - OTHER SPECIFIED POSTPROCEDURAL STATES (2) H/O laminectomy Code(s): Z98.890 - OTHER SPECIFIED POSTPROCEDURAL STATES (3) HTN (hypertension) Code(s): I10 - ESSENTIAL (PRIMARY) HYPERTENSION (4) Hypothyroid Code(s): E03.9 - HYPOTHYROIDISM, UNSPECIFIED (5) Seizure Code(s): R56.9 - UNSPECIFIED CONVULSIONS
[2018-12-28] MEDS: HEPARIN NA (PORCINE) 5,000 UNITS/ML 1ML VIAL SQ SCH ×3 (06:28→21:11)
[2018-12-28] MEDS: DOCUSATE SODIUM 100 MG CAPSULE (FP) PO SCH ×3 (06:29→21:13)
[2018-12-28] MEDS: LEVOTHYROXINE NA 100 MCG TABLET (FP) PO SCH (06:29)
[2018-12-28 08:01] LABS: BASO % 0.5 % (0-2.0); EOS % 3.8 % (0-4.5); HEMATOCRIT 30.9 % (32.4-45.2); HEMOGLOBIN 10.7 GM/dL (10.7-15.3); LYMPH % 26.1 % (8-40); MCH 33.9 pg (25.7-33.7); MCHC 34.7 g/dl (32.0-36.0); MEAN CELL VOLUME 97.8 fl (80-96); MEAN PLT VOLUME 9.3 fl (7.5-11.1); MONO % 15.8 % (3.8-10.2); NEUT % 53.8 % (42.8-82.8); PLATELET COUNT 256 K/MM3 (134-434); RBC 3.16 M/mm3 (3.60-5.2); RDW 12.1 % (11.6-15.6); WHITE BLOOD COUNT 4.6 K/mm3 (4.0-10.0)
[2018-12-28 08:17] LABS: BLOOD UREA NITROGEN 10.6 mg/dL (7-18); CALCIUM 9.1 mg/dL (8.5-10.1); CREATININE 0.5 mg/dL (0.55-1.3); POTASSIUM 3.8 mmol/L (3.5-5.1)
[2018-12-28] MEDS ORDERED: PT OWN MED DRAWER 7, Y5N ONE ×2 (09:44→10:25)
[2018-12-28] MEDS ORDERED: levETIRAcetam 500 MG TABLET (FP) PO ONE ×2 (10:25→20:30)
[2018-12-28] MEDS ORDERED: levETIRAcetam 250 MG TABLET (FP) PO ONE ×2 (10:25→20:30)
[2018-12-28] MEDS: FERROUS SO4/VIT C/FA 1 EACH TABLET.ER PO SCH (10:28)
[2018-12-28] MEDS: POLYETHYLENE GLYCOL 3350 119 GM BTL PO SCH (10:28)
[2018-12-28] MEDS: oxyCODONE HCL 5 MG TABLET PO PRN ×2 (10:28→21:12)
[2018-12-28] MEDS: ACETAMINOPHEN 325 MG TABLET (FP) PO PRN (18:12)
--- NOTE | 2018-12-28 22:17 | PN ---
Progress Note (short form) - Note Progress Note: Patient with expected discomfort after surgery. Headaches responding to cold compresses. TOMASA in place, draining as expected. Patient able to ambulate independently. Patient complains of constipation - Fleets enemas - GI/DVT prophylaxis - Continue PT - Plan to remove TOMASA Sunday morning and then patient should be clear for discharge to home from Neurosurgery standpoint - Continue dry dressing on wound
--- NOTE | 2018-12-29 00:26 | PN ---
Progress Note (short form) - Note Progress Note: seen and examined on medical sewell Awake O X3 / ambulating in the room Vital Signs Period Temp Pulse Resp BP Sys/Cook Pulse Ox Last 24 Hr 97.9 F-98.7 F 68-72 18-20 106-123/47-73 94 neck supple heart S1/S2 reg lungs clear bilat abd soft binder in place drain sero-sanguineous ext no edema / motor sensory intact equal / FROM CBC, BMP 12/28/18 06:30 12/28/18 06:30 CBC, BMP 12/27/18 06:45 12/27/18 06:45 Active Medications Acetaminophen (Tylenol -) 650 mg PO Q4H PRN PRN Reason: Headache Last Admin: 12/27/18 18:54 Dose: 650 mg Diphenhydramine HCl (Benadryl -) 25 mg PO Q6H PRN PRN Reason: FOR ITCHING Docusate Sodium (Colace -) 100 mg PO TID [facility] Last Admin: 12/27/18 21:36 Dose: 100 mg Folic Acid/Iron (Folitab 500 Caplet -) 1 each PO DAILY [facility] Last Admin: 12/27/18 10:50 Dose: 1 each Heparin Sodium (Porcine) (Heparin -) 5,000 unit SQ TID [facility] Last Admin: 12/27/18 21:35 Dose: 5,000 unit Levetiracetam 250 mg/ (Levetiracetam 500 mg) 750 mg PO BID [facility] Last Admin: 12/27/18 21:36 Dose: 750 mg Levothyroxine Sodium (Synthroid -) 100 mcg PO DAILY@0700 [facility] Last Admin: 12/27/18 06:04 Dose: 100 mcg Ondansetron HCl (Zofran Injection) 4 mg IVPUSH Q6H PRN PRN Reason: NAUSEA Oxycodone HCl (Roxicodone -) 5 mg PO Q4H PRN PRN Reason: PAIN LEVEL 1-5 Oxycodone HCl (Roxicodone -) 10 mg PO Q4H PRN PRN Reason: PAIN LEVEL 6-10 Last Admin: 12/27/18 21:37 Dose: 10 mg Polyethylene Glycol (Miralax (For Daily Use) -) 17 gm PO DAILY [facility] Last Admin: 12/27/18 13:58 Dose: 17 grams Galina Cabrera is a 48yF w PMHx HTN / Hypothyroid / hx lumbar vertebral fractures s/p repair, brain clot s/p removal, seizures, admitted for elective pseudomeningocele drainage and repair w duraseal, removal of hardware L3 - L5, POD 0 - In PACU, staff noted progressively worsening involuntary twitching R arm, stiffness L arm while pt was lucid. No post ictal period. Seizure like episode broken w propofol and 500 IV keppra. Subsequent head CT did not show acute bleed/infarct/lesion/fracture.. POD#3 #s/p-spinal fusion wound exploration, removal of hardware L3 thru L5, repair of pseudomenigocele with duraseal. -- activity per surgery --pain management --observe for neurological Sx #Hypothyroid #HTN monitor BP - resume bp meds when stable Problem List - Problems (1) History of lumbar laminectomy for spinal cord decompression Code(s): Z98.890 - OTHER SPECIFIED POSTPROCEDURAL STATES (2) H/O laminectomy Code(s): Z98.890 - OTHER SPECIFIED POSTPROCEDURAL STATES (3) HTN (hypertension) Code(s): I10 - ESSENTIAL (PRIMARY) HYPERTENSION (4) Hypothyroid Code(s): E03.9 - HYPOTHYROIDISM, UNSPECIFIED (5) Seizure Code(s): R56.9 - UNSPECIFIED CONVULSIONS
[2018-12-29] MEDS: HEPARIN NA (PORCINE) 5,000 UNITS/ML 1ML VIAL SQ SCH ×3 (06:09→21:29)
[2018-12-29] MEDS: oxyCODONE HCL 5 MG TABLET PO PRN (06:09)
[2018-12-29] MEDS: LEVOTHYROXINE NA 100 MCG TABLET (FP) PO SCH (06:09)
[2018-12-29] MEDS: DOCUSATE SODIUM 100 MG CAPSULE (FP) PO SCH ×3 (06:09→21:29)
[2018-12-29] MEDS ORDERED: levETIRAcetam 500 MG TABLET (FP) PO ONE ×2 (09:58→20:49)
[2018-12-29] MEDS ORDERED: PT OWN MED DRAWER 7, Y5N ONE (09:58)
[2018-12-29] MEDS ORDERED: levETIRAcetam 250 MG TABLET (FP) PO ONE ×2 (09:58→20:49)
[2018-12-29] MEDS ORDERED: SODIUM PHOSPHATE/NA BIPHOS 133 ML ENEMA PR SCH (10:00)
[2018-12-29] MEDS: POLYETHYLENE GLYCOL 3350 119 GM BTL PO SCH (10:02)
[2018-12-29] MEDS: FERROUS SO4/VIT C/FA 1 EACH TABLET.ER PO SCH (10:02)
[2018-12-29] MEDS ORDERED: SODIUM PHOSPHATE/NA BIPHOS 133 ML ENEMA RC PRN (14:11)
[2018-12-29] MEDS ORDERED: oxyCODONE HCL 5 MG TABLET PO PRN ×2 (19:53)
--- NOTE | 2018-12-29 20:58 | PN ---
Progress Note (short form) - Note Progress Note: seen and examined on medical sewell c/o of headache intermittently -- usually occur when ambulating today seen ambulating in hallway with clamped drain - reports no headache NS aware Vital Signs Period Temp Pulse Resp BP Sys/Cook Pulse Ox Last 24 Hr 97.9 F-98.7 F 68-72 18-20 106-123/47-73 94 neck supple heart S1/S2 reg lungs clear bilat abd soft binder in place drain sero-sanguineous-- almost clear ext no edema / motor sensory intact equal / FROM CBC, BMP 12/28/18 06:30 12/28/18 06:30 Active Medications Acetaminophen (Tylenol -) 650 mg PO Q4H PRN PRN Reason: Headache Last Admin: 12/28/18 18:12 Dose: 650 mg Diphenhydramine HCl (Benadryl -) 25 mg PO Q6H PRN PRN Reason: FOR ITCHING Docusate Sodium (Colace -) 100 mg PO TID [facility] Last Admin: 12/29/18 14:28 Dose: 100 mg Folic Acid/Iron (Folitab 500 Caplet -) 1 each PO DAILY [facility] Last Admin: 12/29/18 10:02 Dose: 1 each Heparin Sodium (Porcine) (Heparin -) 5,000 unit SQ TID [facility] Last Admin: 12/29/18 14:34 Dose: 5,000 unit Levetiracetam 250 mg/ (Levetiracetam 500 mg) 750 mg PO BID [facility] Last Admin: 12/29/18 10:02 Dose: 750 mg Levothyroxine Sodium (Synthroid -) 100 mcg PO DAILY@0700 [facility] Last Admin: 12/29/18 06:09 Dose: 100 mcg Ondansetron HCl (Zofran Injection) 4 mg IVPUSH Q6H PRN PRN Reason: NAUSEA Oxycodone HCl (Roxicodone -) 5 mg PO Q4H PRN PRN Reason: PAIN LEVEL 1-5 Oxycodone HCl (Roxicodone -) 10 mg PO Q4H PRN PRN Reason: PAIN LEVEL 6-10 Polyethylene Glycol (Miralax (For Daily Use) -) 17 gm PO DAILY [facility] Last Admin: 12/29/18 10:02 Dose: 17 grams Sodium Phosphate (Fleet Adult Rectal Enema -) 133 ml RC DAILY PRN PRN Reason: CONSTIPATION Galina Cabrera is a 48yF w PMHx HTN / Hypothyroid / hx lumbar vertebral fractures s/p repair, brain clot s/p removal, seizures, admitted for elective pseudomeningocele drainage and repair w duraseal, removal of hardware L3 - L5, POD 0 - In PACU, staff noted progressively worsening involuntary twitching R arm, stiffness L arm while pt was lucid. No post ictal period. Seizure like episode broken w propofol and 500 [address] ke[address]ra[address] Subsequent head CT did not show acute bleed/infarct/lesion/fracture.. POD#5 #s/p-spinal fusion wound exploration, removal of hardware L3 thru L5, repair of pseudomenigocele with duraseal. -- activity per surgery --pain management --observe for neurological Sx # Headache related to above ?? continue to monitor #Hypothyroid #HTN monitor BP - resume bp meds when stable Problem List - Problems (1) History of lumbar laminectomy for spinal cord decompression Code(s): Z98.890 - OTHER SPECIFIED POSTPROCEDURAL STATES (2) H/O laminectomy Code(s): Z98.890 - OTHER SPECIFIED POSTPROCEDURAL STATES (3) HTN (hypertension) Code(s): I10 - ESSENTIAL (PRIMARY) HYPERTENSION (4) Hypothyroid Code(s): E03.9 - HYPOTHYROIDISM, UNSPECIFIED (5) Seizure Code(s): R56.9 - UNSPECIFIED CONVULSIONS
[2018-12-30] MEDS: HEPARIN NA (PORCINE) 5,000 UNITS/ML 1ML VIAL SQ SCH ×2 (06:16→14:48)
[2018-12-30] MEDS: DOCUSATE SODIUM 100 MG CAPSULE (FP) PO SCH ×2 (06:16→14:47)
[2018-12-30] MEDS: LEVOTHYROXINE NA 100 MCG TABLET (FP) PO SCH (06:17)
--- NOTE | 2018-12-30 09:20 | PN ---
Progress Note (short form) - Note Progress Note: 48yo F s/p L3-L5 PLIF, pt seen and examined at bedside. Pt states that she is feeling good. Pt ambulating well, tolerating PO. Denies fever, chills, n/v, cp , sob. Last Vital Signs Temp Pulse Resp BP Pulse Ox 98 F 63 20 87/59 L 100 12/30/18 06:59 12/30/18 06:59 12/30/18 06:59 12/30/18 06:59 12/29/18 09:00 CBC, BMP 12/28/18 06:30 12/28/18 06:30 PE: Gen: A&O X3 Resp: breathing comfortably Back: incision is clean with no erythema or discharge, drain in place with serous drainage. Ext: no weakness or numbness. Problem List - Problems (1) History of lumbar laminectomy for spinal cord decompression Assessment/Plan: Plan -drain was removed at bedside without incident -pt cleared for discharge from Neurosurgery standpoint -pt should follow up with Dr. Brown in 2 weeks in the office Case discussed with Dr. Brown who agrees with plan. Code(s): Z98.890 - OTHER SPECIFIED POSTPROCEDURAL STATES
[2018-12-30] MEDS ORDERED: PT OWN MED DRAWER 7, Y5N ONE (09:48)
[2018-12-30] MEDS ORDERED: levETIRAcetam 500 MG TABLET (FP) PO ONE (09:48)
[2018-12-30] MEDS ORDERED: levETIRAcetam 250 MG TABLET (FP) PO ONE (09:48)
[2018-12-30] MEDS: FERROUS SO4/VIT C/FA 1 EACH TABLET.ER PO SCH (10:20)
[2018-12-30] MEDS: POLYETHYLENE GLYCOL 3350 119 GM BTL PO SCH (10:21)
--- NOTE | 2018-12-30 11:32 | DS ---
"Physical Examination Vital Signs: Vital Signs Temperature 98 F 12/30/18 06:59 Pulse Rate 63 12/30/18 06:59 Respiratory Rate 20 12/30/18 06:59 Blood Pressure 87/59 L 12/30/18 06:59 O2 Sat by Pulse Oximetry (%) 100 12/29/18 09:00 Findings/Remarks: Galina Cabrera is a 48yF w PMHx hx lumbar vertebral fractures s/p repair, brain clot s/p removal, seizures, HTN admitted for elective pseudomeningocele drainage and repair w duraseal, removal of hardware L3 - L5, POD in PACU, staff noted progressively worsening involuntary twitching R arm, stiffness L arm while pt was lucid. No post ictal period. Seizure like episode broken w propofol and [address] Subsequent head CT did not show acute bleed /infarct/lesion/fracture. Patient seen and examined late evening -- all uncontrolled activity seized in right arm she is Lucid / able to move all extremities / speech intact both [place] and [place] POD 2 transferred to medical sewell c/o headache / neck pain when ambulating or out of bed. Drain was clamped and headache have subsided POD5. today drain removed / patient states feeling better Discussed with surgery -- will d/c today should use binder with foam ( or small towel) for following 3 weeks to keep pressure on wound, to prevent pseudomeneigocele from forming. Constitutional: Yes: Well Nourished, No Distress, Calm Eyes: Yes: Conjunctiva Clear, EOM Intact HENT: Yes: Atraumatic, Normocephalic Neck: Yes: Supple, Trachea Midline Cardiovascular: Yes: Regular Rate and Rhythm Respiratory: Yes: Regular, CTA Bilaterally Gastrointestinal: Yes: Normal Bowel Sounds, Soft ...Rectal Exam: Yes: Deferred Renal/: Yes: WNL Breast(s): Yes: WNL Musculoskeletal: Yes: WNL Extremities: Yes: WNL Edema: No Peripheral Pulses WNL: Yes Wound/Incision: Yes: Clean/Dry, Well Approximated, Other (continue to use abdominal binder with foam ( to keep pressure on wound) for 3 weeks) Neurological: Yes: Alert, Oriented. No: Facial Droop, Loss of Sensation, Numbness ...Motor Strength: WNL Psychiatric: Yes: Alert, Oriented Labs: CBC, BMP 12/28/18 06:30 12/28/18 06:30 Discharge Summary Reason For Visit: LUMBAR STENOSIS AND INSTABILITY Current Active Problems H/O laminectomy (Acute) HTN (hypertension) (Acute) History of lumbar laminectomy for spinal cord decompression (Acute) Hypothyroid (Acute) Seizure (Acute) Condition: Improved - Instructions Diet, Activity, Other Instructions: Post Operative Instructions Physical Activity Resume your normal everyday activity as tolerated. No heavy lifting or exercise until seen by your surgeon. You may walk unlimited amounts and climb stairs. You may resume driving the car when you feel safe and comfortable behind the wheel and you are no longer wearing your brace. Do not operate a vehicle while taking narcotic medication. Brace If you had back surgery, wear TLSO Brace whenever out of bed. May remove to sleep and shower. If you had neck surgery, wear surgical collar 23 hr/day. Remove to shower only. Wound Care Keep your incision clean, dry and covered at all times. Apply an occlusive dressing (Saran wrap or Tegaderm) when showering to avoid getting your incision wet. Do not submerge incision or apply ointments or creams. The kelly will be removed in the office in 10-14 days post-op. Diet There are no dietary restrictions. Eat healthy, high-fiber foods. Drink 6-8 glasses of liquid each day. This will assist in keeping your bowels regular. Pain Management You may take Tylenol or acetaminophen. Any pain prescription medication ordered should be taken as prescribed for moderate to severe pain. Avoid any ibuprofen (Motrin, Advil, Aleve, Toradol, etc) for 3 months unless otherwise discussed with your surgeon. Call Dr Poole for any of the following: Severe pain not relieved by medication Fever of 101 or higher Excessive bleeding or drainage on dressing Inability to urinate Any chest pain or shortness of breath, seek Emergency Care. Call the office to confirm a post-operative appointment for 2-3 weeks post-op Kimo Brown MD [facility] [place] [address] This report was requested by: Lola Bryant | Reference #: [id number] 06/10/2018 06/11/2018 zolpidem tartrate 10 mg tablet 30 30 Kacey Estrada MD 06/10/2018 06/11/2018 tramadol-acetaminophen 37.5-325 mg tab 180 30 Kacey Estrada MD - Home Medications Comprehensive Discharge Medication List: Ambulatory Orders levETIRAcetam [Keppra -] 500 mg PO BID #60 tablet 04/09/17 Acetaminophen [Tylenol -] 1,000 mg PO Q6H 12/23/18 Levothyroxine [Synthroid -] 100 mcg PO DAILY 12/23/18"
[2018-12-30 16:06] VITALS: BP 105/63; PULSE 67; TEMP 97.6
== END 2018-12-30 17:29 | disposition home or self-care (01) | DRG 460 ==
LOC: JSAMEDAYSX 06:38 → JICU 13:05 → J8W 12-26 22:29
PROVIDERS: ADMIT Neurological Surgery; ATTEND Family Medicine
PROC: 0SG107J Fusion of 2 or more Lumbar Vertebral Joints with Autologous Tissue Substitute, Posterior Approach, Anterior Column, Open Approach (ICD-10-PCS; 2018-12-24)
PROC: 0QB00ZZ Excision of Lumbar Vertebra, Open Approach (ICD-10-PCS; 2018-12-24)
PROC: 01NB0ZZ Release Lumbar Nerve, Open Approach (ICD-10-PCS; 2018-12-24)
PROC: 00QT0ZZ Repair Spinal Meninges, Open Approach (ICD-10-PCS; 2018-12-24)
PROC: 00UT0KZ Supplement Spinal Meninges with Nonautologous Tissue Substitute, Open Approach (ICD-10-PCS; 2018-12-24)
PROC: 0JX70ZB Transfer Back Subcutaneous Tissue and Fascia with Skin and Subcutaneous Tissue, Open Approach (ICD-10-PCS; 2018-12-24)
PROC: B01BZZZ Fluoroscopy of Spinal Cord (ICD-10-PCS; 2018-12-24)
PROC: 0SP00AZ Removal of Interbody Fusion Device from Lumbar Vertebral Joint, Open Approach (ICD-10-PCS; principal; 2018-12-24 08:00)
DX: M47.896 Other spondylosis, lumbar region (principal); G96.19 Other disorders of meninges, not elsewhere classified; I10 Essential (primary) hypertension; E03.9 Hypothyroidism, unspecified; R56.9 Unspecified convulsions; R51 Headache; D64.9 Anemia, unspecified
CPT/HCPCS: 36415; 70450-TC; 76000-TC-FY; 80048; 80177; 83735; 84100; 84703; 85025; 85027; 86850; 86900; 86901; 94760; 97116-GP; 97162-GP; J0131; J1644

== ENCOUNTER 2019-03-28 07:31 | Inpatient (IN) | payer BC ==
[2019-03-27 12:24] VITALS: BMI 23.0
[2019-03-28] MEDS ORDERED: GENTAMICIN SO4 80 MG/2 ML VIAL ONE (07:58)
[2019-03-28] MEDS ORDERED: VANCOMYCIN 1,000 MG VIAL (RESTRICTED TO ID ONLY) ONE ×2 (07:59→09:44)
[2019-03-28] MEDS ORDERED: THROMBIN (BOVINE) 20,000 UNIT VIAL TP ONE ×2 (08:00→08:03)
[2019-03-28] MEDS ORDERED: BACITRACIN/POLYMYXIN OPH OINT 3.5 GM TUBE ONE (08:03)
[2019-03-28] MEDS ORDERED: THROMBIN (BOVINE) 5,000 UNIT VIAL TP ONE (08:03)
[2019-03-28] MEDS ORDERED: LIDOCAINE 1%-EPI 1:100,000 30 ML MDV IJ ONE ×4 (08:19→11:26)
[2019-03-28] MEDS ORDERED: LIDOCAINE HCL/PF 2% SDV 5ML VIAL ONE (08:36)
[2019-03-28] MEDS ORDERED: DEXAMETHASONE SOD PHOSPHATE 4 MG/1 ML VIAL ONE (08:36)
[2019-03-28] MEDS ORDERED: ceFAZolin SODIUM 1 GM VIAL ONE ×2 (08:36→18:57)
[2019-03-28] MEDS ORDERED: PROPOFOL 20 ML ONE ×2 (08:37→10:34)
[2019-03-28] MEDS ORDERED: ROCURONIUM BROMIDE 50 MG/5 ML SYRINGE ONE ×2 (08:37→10:33)
[2019-03-28] MEDS ORDERED: SODIUM CHLORIDE 0.9% P/F 10 ML VIAL IJ ONE (08:37)
--- NOTE | 2019-03-28 08:42 | HP ---
History & Physical Update - History History: No Change - Physical Physical: No Change - Assessment Assessment: No Change - Plan Plan: No Change (no changes since visit with Dr Estrada on 03/09/19)
[2019-03-28] MEDS ORDERED: MIDAZOLAM HCL 2 MG/2 ML SINGLE DOSE VIAL ONE (09:11)
[2019-03-28] MEDS ORDERED: ceFAZolin SODIUM 1 GM VIAL IVPB ONE (09:42)
[2019-03-28] MEDS ORDERED: VANCOMYCIN 1,000 MG VIAL (RESTRICTED TO ID ONLY) IVPB ONE (09:46)
[2019-03-28] MEDS ORDERED: LIDOCAINE 1%/EPI 1:100000 (20 ML MULTI DOSE VIAL) IJ ONE ×2 (10:06→12:00)
[2019-03-28] MEDS ORDERED: KETAMINE HCL 200 MG/20 ML VIAL ONE (10:25)
[2019-03-28] MEDS ORDERED: BACITRACIN 50,000 UNITS VIAL TP ONE ×3 (11:00)
[2019-03-28] MEDS ORDERED: GENTAMICIN SO4 80 MG/2 ML VIAL IVPB ONE (11:00)
[2019-03-28] MEDS ORDERED: BUPIVACAINE LIPOSOME/PF (EXPAREL) 266 MG/20 ML VIAL ONE (11:07)
[2019-03-28] MEDS ORDERED: BUPIVACAINE HCL/PF 0.5% (5MG/ML) 10 ML VIAL IJ ONE (11:10)
[2019-03-28] MEDS ORDERED: BUPIVACAINE LIPOSOME/PF (EXPAREL) 266 MG/20 ML VIAL IJ ONE (11:15)
[2019-03-28] MEDS ORDERED: GLYCOPYRROLATE 0.2 MG/1 ML VIAL ONE (13:13)
[2019-03-28] MEDS ORDERED: NEOSTIGMINE METHYLSULFATE 0.5 MG/1 ML - 10 ML MDV ONE (13:14)
[2019-03-28] MEDS ORDERED: ONDANSETRON 4 MG/2 ML VIAL IVPUSH PRN ×2 (13:24→13:59)
[2019-03-28] MEDS ORDERED: LACTATED RINGERS SOLUTION 1,000 ML IV SCH (13:30)
[2019-03-28] MEDS ORDERED: diphenhydrAMINE HCL 25 MG CAPSULE (FP) PO PRN (13:59)
[2019-03-28] MEDS ORDERED: morphine CARPU-JECT 4 MG/1 ML DISP.SYRIN IVPUSH PRN (13:59)
[2019-03-28] MEDS ORDERED: oxyCODONE HCL 5 MG TABLET PO PRN (13:59)
[2019-03-28] MEDS ORDERED: MAGNESIUM HYDROX 2400MG/30ML ORAL SUSPENSION 30 ML CUP PO PRN (14:12)
--- NOTE | 2019-03-28 14:29 | OP ---
Operative Note - Note: Operative Date: 03/28/19 Pre-Operative Diagnosis: pseudomenigocele Operation: Reoperative L3-L5 laminectomies with repair of pseudomeningocele, and right ventriculo-peritoneal shunt placement Post-Operative Diagnosis: Same as Pre-op Surgeon: iKmo Brown Site Operations Manager: Kelly Chavez Anesthesiologist/ELECTRICIAN SUPERVISOR SUBSTATION: Nikhil Angulo Anesthesia: General, Local Estimated Blood Loss (mls): 50 Drains, Volume Out (mls): 1,600 (patel) Fluid Volume Replaced (mls): 2,000 Operative Report Dictated: Yes
[2019-03-28] MEDS ORDERED: HYDROmorphone HCl 2 MG/ML VIAL ONE (14:47)
[2019-03-28] MEDS ORDERED: HYDROmorphone HCl 2 MG/ML VIAL IVPUSH ONE ×3 (14:50→15:55)
[2019-03-28] MEDS: HYDROmorphone *PCA* 10MG/50ML DISP.SYRIN PCA SCH ×2 (16:26→18:36)
[2019-03-28] MEDS ORDERED: CEFAZOLIN 1 GM/D5W 1 GM/50 ML BAG IVPB SCH (17:30)
--- NOTE | 2019-03-28 18:12 | HP ---
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 History of Recent Travel: No Home Medications - Allergies Allergies/Adverse Reactions: Allergies Allergy/AdvReac Type Severity Reaction Status Date / Time codeine Allergy Severe Itching Verified 12/24/18 07:18 pollen extracts Allergy Severe Itching Verified 12/24/18 07:18 oxycodone AdvReac Verified 03/27/19 12:25 - Home Medications Home Medications: Ambulatory Orders Acetaminophen [Tylenol .Extra-Strength -] 1,000 mg PO Q6H 12/23/18 Levothyroxine [Synthroid -] 100 mcg PO DAILY 12/23/18 levETIRAcetam [Keppra -] 750 mg PO BID tablet 12/30/18 Cholecalciferol (Vitamin D3) [Vitamin D3 -] 1 tab PO WEEKLY 03/27/19 Metaxalone [Skelaxin] 800 mg PO BID 03/27/19 Multivitamin [One-Daily Multi-Vitamin] 1 each PO BID 03/27/19 Naloxegol Oxalate [Movantik] 12.5 mg PO DAILY 03/27/19 Tramadol HCl/Acetaminophen [Tramadol-Acetaminophn 37.5-325] 1 each PO PRN Zolpidem Tartrate [Ambien] 10 mg PO HS 03/27/19 Review of Systems - Review of Systems Constitutional: reports: Weakness Eyes: reports: No Symptoms HENT: reports: No Symptoms Neck: reports: Pain on Movement, Tenderness Cardiovascular: reports: No Symptoms Respiratory: reports: No Symptoms Gastrointestinal: reports: No Symptoms Genitourinary: reports: No Symptoms Breasts: reports: No Symptoms Reported Musculoskeletal: reports: Back Pain, Decreased ROM Integumentary: reports: No Symptoms Neurological: reports: Headache, Parasthesia Endocrine: reports: Intolerance to Heat Hematology/Lymphatic: reports: No Symptoms Psychiatric: reports: Depression Physical Examination Vital Signs: Vital Signs Temperature 98.1 F 03/28/19 16:56 Pulse Rate 85 03/28/19 16:56 Respiratory Rate 20 03/28/19 16:56 Blood Pressure 130/82 03/28/19 16:56 O2 Sat by Pulse Oximetry (%) 100 03/28/19 16:56 Constitutional: Yes: Well Nourished, Calm Eyes: Yes: Conjunctiva Clear, EOM Intact HENT: Yes: Normocephalic Neck: Yes: Supple, Trachea Midline, Decreased ROM, Tenderness Cardiovascular: Yes: WNL, Regular Rate and Rhythm Respiratory: Yes: Regular, CTA Bilaterally Gastrointestinal: Yes: Normal Bowel Sounds, Soft ...Rectal Exam: Yes: Deferred Renal/: Yes: WNL Breast(s): Yes: WNL Musculoskeletal: Yes: Back Pain Extremities: Yes: WNL Edema: No Peripheral Pulses WNL: Yes Integumentary: Yes: Tattoos Wound/Incision: Yes: Dressing Dry and Intact Neurological: Yes: Alert, Oriented ...Motor Strength: WNL Psychiatric: Yes: Alert, Oriented Imaging - Results Cat Scan: Report Reviewed Assessment/Plan 48 y/o female has PMHx of Hypothyroidism, Sz D/O, Insomnia and Constipation. Admitted to [facility] for L3-L5 laminectomies with repair of pseudomeningocele and right ventriculo-peritoneal shunt placement. Surgical hx includes multiple back surgeries and 2 head surgeries. Dilaudid STEAM SERVICE INSPECTOR pump and Oxycodone onboard for pain and patient utilized same.
[2019-03-28] MEDS: LACTATED RINGERS SOLUTION 1,000 ML/1,000 ML INFUS.BAG IV SCH (18:35)
[2019-03-28] MEDS: DOCUSATE SODIUM 100 MG CAPSULE (FP) PO SCH ×2 (18:35→21:47)
[2019-03-28] MEDS ORDERED: DEXTROSE 5%-WATER - 50 ML IVPB ONE (18:57)
[2019-03-28] MEDS: CEFAZOLIN 1 GM in DEXTROSE 5%-WATER - 50 ML IVPB SCH (19:01)
[2019-03-28] MEDS: HEPARIN NA (PORCINE) 5,000 UNITS/ML 1ML VIAL SQ SCH (21:47)
[2019-03-28] MEDS: levETIRAcetam 250 MG TABLET PO SCH (21:47)
[2019-03-28] MEDS: ACETAMINOPHEN 325 MG TABLET (FP) PO PRN (21:49)
[2019-03-28] MEDS ORDERED: PATIENT'S OWN MEDICATION (NON-FORMULARY) (Metaxalone [Skelaxin] 800 MG) PO SCH (22:00)
[2019-03-29] MEDS ORDERED: ceFAZolin SODIUM 1 GM VIAL ONE (03:07)
[2019-03-29] MEDS ORDERED: DEXTROSE 5%-WATER - 50 ML IVPB ONE (03:08)
[2019-03-29] MEDS: HYDROmorphone *PCA* 10MG/50ML DISP.SYRIN PCA SCH (03:22)
[2019-03-29] MEDS: CEFAZOLIN 1 GM in DEXTROSE 5%-WATER - 50 ML IVPB SCH (03:30)
[2019-03-29] MEDS: HEPARIN NA (PORCINE) 5,000 UNITS/ML 1ML VIAL SQ SCH ×3 (05:54→21:18)
[2019-03-29] MEDS: DOCUSATE SODIUM 100 MG CAPSULE (FP) PO SCH ×3 (05:54→21:18)
[2019-03-29] MEDS: LEVOTHYROXINE NA 100 MCG TABLET (FP) PO SCH (06:01)
[2019-03-29 07:28] LABS: BASO % 0.2 % (0-2.0); HEMATOCRIT 29.7 % (32.4-45.2); HEMOGLOBIN 10.3 GM/dL (10.7-15.3); LYMPH % 12.2 % (8-40); MCH 33.3 pg (25.7-33.7); MCHC 34.6 g/dl (32.0-36.0); MEAN CELL VOLUME 96.3 fl (80-96); MEAN PLT VOLUME 8.2 fl (7.5-11.1); MONO % 10.8 % (3.8-10.2); NEUT % 76.8 % (42.8-82.8); PLATELET COUNT 279 K/MM3 (134-434); RBC 3.08 M/mm3 (3.60-5.2); WHITE BLOOD COUNT 8.3 K/mm3 (4.0-10.0)
[2019-03-29 08:10] LABS: BLOOD UREA NITROGEN 9.4 mg/dL (7-18); CALCIUM 8.7 mg/dL (8.5-10.1); CREATININE 0.5 mg/dL (0.55-1.3); POTASSIUM 3.6 mmol/L (3.5-5.1)
[2019-03-29] MEDS: levETIRAcetam 250 MG TABLET PO SCH ×2 (09:56→21:18)
[2019-03-29] MEDS: FOLIC ACID 1 MG TABLET (FP) PO SCH (09:56)
[2019-03-29] MEDS ORDERED: FERROUS SO4 325 MG TABLET (FP) PO SCH (10:00)
[2019-03-29] MEDS ORDERED: PATIENT'S OWN MEDICATION (NON-FORMULARY) (Naloxegol Oxalate [Movantik] 12.5 MG) PO SCH (10:00)
[2019-03-29] MEDS: LACTATED RINGERS SOLUTION 1,000 ML/1,000 ML INFUS.BAG IV SCH ×4 (10:03→20:04)
--- NOTE | 2019-03-29 12:20 | PN ---
Progress Note, Physician Chief Complaint: Patient seen and examined at the bedside, right sided headache. History of Present Illness: This 48 yr old female with hx of hypothyroidism, hypertension, seizure disorder, insomnia, constipatin admitted via ER for 3-5 laminectomies with repair of pseudomenigocele and right FOLLOW UP CLERK shunt placement. - Current Medication List Current Medications: Active Medications Acetaminophen (Tylenol -) 650 mg PO Q6H PRN PRN Reason: FEVER Last Admin: 03/28/19 21:49 Dose: 650 mg Diphenhydramine HCl (Benadryl -) 25 mg PO Q6H PRN PRN Reason: FOR ITCHING Docusate Sodium (Colace -) 100 mg PO TID [facility] Last Admin: 03/29/19 05:54 Dose: 100 mg Folic Acid (Folic Acid -) 1 mg PO DAILY [facility] Last Admin: 03/29/19 09:56 Dose: 1 mg Heparin Sodium (Porcine) (Heparin -) 5,000 unit SQ TID [facility] Last Admin: 03/29/19 05:54 Dose: 5,000 unit Hydromorphone HCl (Hydromorphone 10 Mg/50 Ml-Ns) 10 mg DEPUTY MANAGER DEPUTY MANAGER [facility]; Protocol Stop: 03/29/19 15:59 Last Admin: 03/29/19 03:22 Dose: 10 mg Lactated Ringer's (Lactated Ringers Solution) 1,000 ml in 1,000 mls @ 125 mls/ hr IV ASDIR [facility] Last Admin: 03/29/19 10:03 Dose: 125 mls/hr Levetiracetam (Keppra -) 750 mg PO BID [facility] Last Admin: 03/29/19 09:56 Dose: 750 mg Levothyroxine Sodium (Synthroid -) 100 mcg PO 0700 [facility] Last Admin: 03/29/19 06:01 Dose: 100 mcg Magnesium Hydroxide (Milk Of Magnesia -) 30 ml PO Q8H PRN PRN Reason: INDIGESTION Morphine Sulfate (Morphine Injection -) 2 mg IVPUSH Q4H PRN PRN Reason: breakthrough pain Non-Formulary Medication (Naloxegol Oxalate [Movantik]) 12.5 mg PO DAILY [facility] Ondansetron HCl (Zofran Injection) 4 mg IVPUSH Q6H PRN PRN Reason: NAUSEA AND/OR VOMITING Ondansetron HCl (Zofran Injection) 4 mg IVPUSH Q6H PRN PRN Reason: NAUSEA Oxycodone HCl (Roxicodone -) 5 mg PO Q4H PRN PRN Reason: PAIN LEVEL 1-5 Oxycodone HCl (Roxicodone -) 10 mg PO Q4H PRN PRN Reason: PAIN LEVEL 6-10 Zolpidem Tartrate (Ambien -) 10 mg PO HS PRN PRN Reason: INSOMNIA - Objective Vital Signs: Vital Signs Temperature 98.6 F 03/29/19 06:00 Pulse Rate 72 03/29/19 07:22 Respiratory Rate 18 03/29/19 07:22 Blood Pressure 118/60 03/29/19 07:22 O2 Sat by Pulse Oximetry (%) 100 03/29/19 03:22 Constitutional: Yes: Well Nourished, Calm, Mild Distress Eyes: Yes: Conjunctiva Clear, EOM Intact HENT: Yes: Atraumatic, Normocephalic Neck: Yes: Supple, Trachea Midline Cardiovascular: Yes: Regular Rate and Rhythm Respiratory: Yes: Regular, CTA Bilaterally Gastrointestinal: Yes: Normal Bowel Sounds, Soft ...Rectal Exam: Yes: Deferred Genitourinary: Yes: WNL Breast(s): Yes: WNL Musculoskeletal: Yes: WNL Extremities: Yes: WNL Edema: No Peripheral Pulses WNL: Yes Peripheral Pulses: Left Radial: 2+, Right Radial: 2+, Left Doralis Pedis: 2+, Right Dorsalis Pedis: 2+, Left Femoral: 2+, Right Femoral: 2+ Integumentary: Yes: WNL Neurological: Yes: Alert ...Motor Strength: WNL Psychiatric: Yes: Alert Labs: CBC, BMP 03/29/19 06:55 03/29/19 06:55 - ....Imaging Other: Report Reviewed (Lab data reviewed) Problem List - Problems (1) Pseudomeningocele Code(s): G96.19 - OTHER DISORDERS OF MENINGES, NOT ELSEWHERE CLASSIFIED (2) Aphasia determined by examination Code(s): R47.01 - APHASIA (3) H/O laminectomy Code(s): Z98.890 - OTHER SPECIFIED POSTPROCEDURAL STATES (4) HTN (hypertension) Code(s): I10 - ESSENTIAL (PRIMARY) HYPERTENSION (5) History of lumbar laminectomy for spinal cord decompression Code(s): Z98.890 - OTHER SPECIFIED POSTPROCEDURAL STATES (6) Hypothyroid Code(s): E03.9 - HYPOTHYROIDISM, UNSPECIFIED (7) Seizure Code(s): R56.9 - UNSPECIFIED CONVULSIONS (8) Subdural hematoma Code(s): I62.00 - NONTRAUMATIC SUBDURAL HEMORRHAGE, UNSPECIFIED Assessment/Plan Assessment/plan: status post repair of pseudomeningocele and right FOLLOW UP CLERK shunt placement; DVT prophylaxis, oxygen 4L/min via nasal cannula, incentive spirometer, oral Keppra for seizure disorder treatment, Hydromorphone DEPUTY MANAGER pump for pain control.
--- NOTE | 2019-03-29 13:23 | PN ---
Progress Note (short form) - Note Progress Note: Anesthesia post op note, ASSISTANT RESEARCH SCIENTIST round, POD#1 S/P Reoperative L3-L5 laminectomies with repair of pseudomeningocele, and right ventriculo-peritoneal shunt placement Pat seen and examined. VSS, sitting at the bed side having lunch. Reporting pain scale 5/10, well controled by ASSISTANT RESEARCH SCIENTIST. No apparent post anesthesia complications. Continue ASSISTANT RESEARCH SCIENTIST. will follow up tomorrow.
[2019-03-29] MEDS: ACETAMINOPHEN 325 MG TABLET (FP) PO PRN (19:05)
[2019-03-29] MEDS: MORPHINE SULFATE 2 MG/ML VIAL IVPUSH PRN (20:06)
[2019-03-29] MEDS: oxyCODONE HCL 5 MG TABLET PO PRN (21:43)
[2019-03-29] MEDS: ZOLPIDEM TARTRATE 5 MG TABLET PO PRN (21:47)
[2019-03-30] MEDS: ACETAMINOPHEN 325 MG TABLET (FP) PO PRN ×3 (01:31→11:46)
[2019-03-30] MEDS: oxyCODONE HCL 5 MG TABLET PO PRN ×2 (01:34→16:21)
[2019-03-30] MEDS: MORPHINE SULFATE 2 MG/ML VIAL IVPUSH PRN ×3 (02:37→17:55)
[2019-03-30] MEDS: DOCUSATE SODIUM 100 MG CAPSULE (FP) PO SCH ×3 (05:28→21:16)
[2019-03-30] MEDS: HEPARIN NA (PORCINE) 5,000 UNITS/ML 1ML VIAL SQ SCH ×3 (05:29→21:16)
[2019-03-30] MEDS: LEVOTHYROXINE NA 100 MCG TABLET (FP) PO SCH (06:06)
[2019-03-30] MEDS: ALBUTEROL SO4 2.5/IPRATROPIUM 0.5 INH SOL 3 ML VIAL.NEB. NEB SCH ×4 (07:45→20:10)
[2019-03-30 08:28] LABS: HEMATOCRIT 32.5 % (32.4-45.2); HEMOGLOBIN 11.1 GM/dL (10.7-15.3); MCH 33.2 pg (25.7-33.7); MCHC 34.2 g/dl (32.0-36.0); MEAN CELL VOLUME 97.1 fl (80-96); MEAN PLT VOLUME 8.5 fl (7.5-11.1); PLATELET COUNT 272 K/MM3 (134-434); RBC 3.34 M/mm3 (3.60-5.2); WHITE BLOOD COUNT 10.1 K/mm3 (4.0-10.0)
[2019-03-30] MEDS: FOLIC ACID 1 MG TABLET (FP) PO SCH (09:07)
[2019-03-30] MEDS: levETIRAcetam 250 MG TABLET PO SCH ×2 (09:07→21:16)
[2019-03-30 09:20] LABS: ALBUMIN 3.4 g/dl (3.4-5.0); BLOOD UREA NITROGEN 5.8 mg/dL (7-18); CREATININE 0.5 mg/dL (0.55-1.3); POTASSIUM 3.2 mmol/L (3.5-5.1); TOT PROT 7.7 g/dl (6.4-8.2)
[2019-03-30] MEDS: KCL 10 MEQ IVPB 10 MEQ/100 ML INFUS.BAG IVPB SCH ×3 (11:17→14:23)
[2019-03-30] MEDS: POTASSIUM CHLORIDE TABS 20 MEQ TABLET.ER (FP) PO SCH ×2 (13:45→21:19)
[2019-03-30] MEDS: LACTATED RINGERS SOLUTION 1,000 ML/1,000 ML INFUS.BAG IV SCH (14:25)
--- NOTE | 2019-03-30 14:34 | PN ---
Progress Note, Physician Chief Complaint: Patient seen and examined at the bedside, lethargic, febrile, tachycardic, hypertensive. History of Present Illness: This 48 yr old female with hx of hypertension, seizure disorder, hypothyroidism, insomnia, and constipation admitted via ER for reoperation of L3 -L5 laminectomies with repair of pseudomeningocele and right ventriculo- peritoneal shunt placement. - Current Medication List Current Medications: Active Medications Acetaminophen (Tylenol -) 650 mg PO Q6H PRN PRN Reason: FEVER Last Admin: 03/30/19 11:46 Dose: 650 mg Albuterol/Ipratropium (Duoneb -) 1 amp NEB RQID [facility] Last Admin: 03/30/19 12:05 Dose: 1 amp Diphenhydramine HCl (Benadryl -) 25 mg PO Q6H PRN PRN Reason: FOR ITCHING Docusate Sodium (Colace -) 100 mg PO TID [facility] Last Admin: 03/30/19 14:24 Dose: 100 mg Folic Acid (Folic Acid -) 1 mg PO DAILY [facility] Last Admin: 03/30/19 09:07 Dose: 1 mg Heparin Sodium (Porcine) (Heparin -) 5,000 unit SQ TID [facility] Last Admin: 03/30/19 14:24 Dose: 5,000 unit Lactated Ringer's (Lactated Ringers Solution) 1,000 ml in 1,000 mls @ 125 mls/ hr IV ASDIR [facility] Last Admin: 03/30/19 14:25 Dose: 125 mls/hr Levetiracetam (Keppra -) 750 mg PO BID [facility] Last Admin: 03/30/19 09:07 Dose: 750 mg Levothyroxine Sodium (Synthroid -) 100 mcg PO 0700 [facility] Last Admin: 03/30/19 06:06 Dose: 100 mcg Magnesium Hydroxide (Milk Of Magnesia -) 30 ml PO Q8H PRN PRN Reason: INDIGESTION Morphine Sulfate (Morphine Sulfate) 2 mg IVPUSH Q4H PRN PRN Reason: breakthrough pain Last Admin: 03/30/19 09:08 Dose: 2 mg Non-Formulary Medication (Naloxegol Oxalate [Movantik]) 12.5 mg PO DAILY [facility] Ondansetron HCl (Zofran Injection) 4 mg IVPUSH Q6H PRN PRN Reason: NAUSEA AND/OR VOMITING Ondansetron HCl (Zofran Injection) 4 mg IVPUSH Q6H PRN PRN Reason: NAUSEA Oxycodone HCl (Roxicodone -) 5 mg PO Q4H PRN PRN Reason: PAIN LEVEL 1-5 Oxycodone HCl (Roxicodone -) 10 mg PO Q4H PRN PRN Reason: PAIN LEVEL 6-10 Last Admin: 03/30/19 01:34 Dose: 10 mg Potassium Chloride (K-Dur -) 20 meq PO BID [facility] Stop: 03/31/19 13:14 Last Admin: 03/30/19 13:45 Dose: 20 meq Zolpidem Tartrate (Ambien -) 10 mg PO HS PRN PRN Reason: INSOMNIA Last Admin: 03/29/19 21:47 Dose: 10 mg - Objective Vital Signs: Vital Signs Temperature 100.9 F H 03/30/19 09:00 Pulse Rate 110 H 03/30/19 09:00 Respiratory Rate 18 03/30/19 09:00 Blood Pressure 159/94 03/30/19 09:00 O2 Sat by Pulse Oximetry (%) 100 03/29/19 03:22 Constitutional: Yes: Well Nourished, Mild Distress Eyes: Yes: Conjunctiva Clear, EOM Intact HENT: Yes: Atraumatic, Normocephalic Neck: Yes: Supple, Trachea Midline Cardiovascular: Yes: Regular Rate and Rhythm, Tachycardia Respiratory: Yes: Regular, CTA Bilaterally, On Nasal O2 (as needed) Gastrointestinal: Yes: Normal Bowel Sounds, Soft ...Rectal Exam: Yes: Deferred Genitourinary: Yes: WNL Breast(s): Yes: WNL Musculoskeletal: Yes: WNL Extremities: Yes: WNL, Other (generalized muscle weakness) Edema: No Peripheral Pulses WNL: Yes Peripheral Pulses: Left Radial: 2+, Right Radial: 2+, Left Doralis Pedis: 2+, Right Dorsalis Pedis: 2+, Left Femoral: 2+, Right Femoral: 2+ Integumentary: Yes: WNL Neurological: Yes: Alert, Aphasia, Weakness ...Motor Strength: LUE (generalized muscle weakness) Psychiatric: Yes: Alert Labs: CBC, BMP 03/30/19 07:48 03/30/19 08:20 - ....Imaging Other: Report Reviewed (Lab data reviewed) Problem List - Problems (1) Pseudomeningocele Code(s): G96.19 - OTHER DISORDERS OF MENINGES, NOT ELSEWHERE CLASSIFIED (2) Aphasia determined by examination Code(s): R47.01 - APHASIA (3) H/O laminectomy Code(s): Z98.890 - OTHER SPECIFIED POSTPROCEDURAL STATES (4) HTN (hypertension) Code(s): I10 - ESSENTIAL (PRIMARY) HYPERTENSION (5) History of lumbar laminectomy for spinal cord decompression Code(s): Z98.890 - OTHER SPECIFIED POSTPROCEDURAL STATES (6) Hypothyroid Code(s): E03.9 - HYPOTHYROIDISM, UNSPECIFIED (7) Seizure Code(s): R56.9 - UNSPECIFIED CONVULSIONS (8) Subdural hematoma Code(s): I62.00 - NONTRAUMATIC SUBDURAL HEMORRHAGE, UNSPECIFIED (9) Fever Code(s): R50.9 - FEVER, UNSPECIFIED (10) Hypokalemia Code(s): E87.6 - HYPOKALEMIA (11) Tachycardia Code(s): R00.0 - TACHYCARDIA, UNSPECIFIED Assessment/Plan Assessment/plan: s/p reoperative of L3-L5 laminectomies with repair of pseudomeningocele and right ventriculo-peritoneal shunt placement, acute fever, acute hypokalemia; IV fluids, IV Keppra, IV analgesics, DVT prophylaxis, oxygen 4L/min via nasal cannula as needed, oral K-Dur 20meQ po bid for 3 days,
[2019-03-30] MEDS: ZOLPIDEM TARTRATE 5 MG TABLET PO PRN (21:19)
[2019-03-31] MEDS: HEPARIN NA (PORCINE) 5,000 UNITS/ML 1ML VIAL SQ SCH ×3 (05:36→21:05)
[2019-03-31] MEDS: DOCUSATE SODIUM 100 MG CAPSULE (FP) PO SCH ×3 (05:36→21:03)
[2019-03-31] MEDS: LEVOTHYROXINE NA 100 MCG TABLET (FP) PO SCH (06:10)
[2019-03-31] MEDS: MORPHINE SULFATE 2 MG/ML VIAL IVPUSH PRN (07:30)
[2019-03-31] MEDS: ALBUTEROL SO4 2.5/IPRATROPIUM 0.5 INH SOL 3 ML VIAL.NEB. NEB SCH ×4 (07:39→20:05)
[2019-03-31 07:51] LABS: BASO % 0.3 % (0-2.0); EOS % 0.1 % (0-4.5); HEMOGLOBIN 10.9 GM/dL (10.7-15.3); LYMPH % 11.6 % (8-40); MCH 32.9 pg (25.7-33.7); MCHC 33.9 g/dl (32.0-36.0); MEAN PLT VOLUME 8.2 fl (7.5-11.1); MONO % 8.6 % (3.8-10.2); NEUT % 79.4 % (42.8-82.8); PLATELET COUNT 256 K/MM3 (134-434); WHITE BLOOD COUNT 8.9 K/mm3 (4.0-10.0)
[2019-03-31 08:26] LABS: ALBUMIN 3.3 g/dl (3.4-5.0); BILIRUBIN,TOTAL 1.1 mg/dL (0.2-1); BLOOD UREA NITROGEN 7.8 mg/dL (7-18); CALCIUM 9.3 mg/dL (8.5-10.1); CREATININE 0.5 mg/dL (0.55-1.3); POTASSIUM 3.4 mmol/L (3.5-5.1); TOT PROT 7.8 g/dl (6.4-8.2)
[2019-03-31] MEDS: FOLIC ACID 1 MG TABLET (FP) PO SCH (10:23)
[2019-03-31] MEDS: levETIRAcetam 250 MG TABLET PO SCH ×2 (10:23→21:05)
[2019-03-31] MEDS: POTASSIUM CHLORIDE TABS 20 MEQ TABLET.ER (FP) PO SCH ×2 (10:32→21:09)
[2019-03-31] MEDS: oxyCODONE HCL 5 MG TABLET PO PRN ×2 (10:40→18:40)
--- NOTE | 2019-03-31 11:21 | PN ---
Progress Note (short form) - Note Progress Note: ID consult dictated POD #3 transient fever pod#2 fever yesterday- now resolved cultures pending no evidence pneumonia on cxray wbc is normal incisions OK per surgery patel has been removed encourage incentive spirometry observe off antibiotics Problem List - Problems (1) Fever postop Code(s): R50.82 - POSTPROCEDURAL FEVER (2) History of lumbar laminectomy Code(s): Z98.890 - OTHER SPECIFIED POSTPROCEDURAL STATES
--- NOTE | 2019-03-31 12:05 | PN ---
Progress Note (short form) - Note Progress Note: surgery POD#3 Reoperative L3-L5 laminectomies with repair of pseudomeningocele, and right ventriculo-peritoneal shunt placement. Patient seen and examined at bedside c/o Lower back pain and radicular pain down both LE. She states she had a slight headache yesterday but no headache today and no change in vision. She is tolerating her diet and has been ambulating to the bathroom where she is voiding and moving her bowels. Vital Signs Temp 99.5 F 03/31/19 07:13 Pulse 76 03/31/19 07:13 Resp 20 03/31/19 07:13 BP 138/73 03/31/19 07:13 Pulse Ox 98 03/30/19 21:00 Intake & Output 03/30/19 03/31/19 03/31/19 23:59 11:59 23:59 Intake Total 1870 300 Output Total 2275 700 Balance -405 -400 Intake: IV 1770 LACTATED RINGERS SOLUTION 1770 1,000 ml In 1,000 ml @ 125 mls/hr IV ASDIR [facility]ENG Rx#:[id number] IVPB 100 Oral 300 Output: Urine 2275 700 [place] 2000 Void 275 700 Other: Voiding Method Toilet Toilet # Unmeasured Voids Void 1 Bowel Movement No No CBC, BMP 03/31/19 07:15 03/31/19 07:15 PE: A&Ox3, NAD unlabored resp on RA Scalp incision c/d/i with kelly in situ, surrounding tissue with no erythema, edema or evidence of active d/c Lumbar spine: incision c/d/i with surrounding tissue intact and no evidence of tracking erythema, edema, or collection, no active d/c, ABD: incision d/c/i with surrounding tissue intact and no evidence of tracking erythema, edema, or collection, no active d/c, ABD soft, supple with mild focal TTP around incision site at RLQ. B/L LE compartments soft, supple and non-tender with +2 DP pulses and 5/5 dorsi/ plantar flexion, Sensation to light touch grossly intact. Problem List - Problems (1) Pseudomeningocele Assessment/Plan: POD #3 doing well. -OOB as tolerated -Air mattress -DVT prophylaxis -encourage IS -d/c planning form home tomorrow Code(s): G96.19 - OTHER DISORDERS OF MENINGES, NOT ELSEWHERE CLASSIFIED
--- NOTE | 2019-03-31 13:18 | PN ---
Progress Note, Physician Chief Complaint: Patient seen and examined at the bedside, feeling much better today, much less low back pain with radiation down both lower extremities, tachycardic, no labored breathing. History of Present Illness: This 48 yr old female with hx of seizure disorder, hypothyroidism, insomnia, and constipation admitted via ER for reoperative of L3-L5 laminectomies with pseudomeningocele repair and right ventriculo-peritioneal shunt placement. - Current Medication List Current Medications: Active Medications Acetaminophen (Tylenol -) 650 mg PO Q6H PRN PRN Reason: FEVER Last Admin: 03/30/19 11:46 Dose: 650 mg Albuterol/Ipratropium (Duoneb -) 1 amp NEB RQID [facility] Last Admin: 03/31/19 11:35 Dose: 1 amp Diphenhydramine HCl (Benadryl -) 25 mg PO Q6H PRN PRN Reason: FOR ITCHING Docusate Sodium (Colace -) 100 mg PO TID [facility] Last Admin: 03/31/19 05:36 Dose: 100 mg Folic Acid (Folic Acid -) 1 mg PO DAILY [facility] Last Admin: 03/31/19 10:23 Dose: 1 mg Heparin Sodium (Porcine) (Heparin -) 5,000 unit SQ TID [facility] Last Admin: 03/31/19 05:36 Dose: 5,000 unit Lactated Ringer's (Lactated Ringers Solution) 1,000 ml in 1,000 mls @ 125 mls/ hr IV ASDIR [facility] Last Admin: 03/30/19 14:25 Dose: 125 mls/hr Levetiracetam (Keppra -) 750 mg PO BID [facility] Last Admin: 03/31/19 10:23 Dose: 750 mg Levothyroxine Sodium (Synthroid -) 100 mcg PO 0700 [facility] Last Admin: 03/31/19 06:10 Dose: 100 mcg Magnesium Hydroxide (Milk Of Magnesia -) 30 ml PO Q8H PRN PRN Reason: INDIGESTION Morphine Sulfate (Morphine Sulfate) 2 mg IVPUSH Q4H PRN PRN Reason: breakthrough pain Last Admin: 03/31/19 07:30 Dose: 2 mg Non-Formulary Medication (Naloxegol Oxalate [Movantik]) 12.5 mg PO DAILY [facility] Ondansetron HCl (Zofran Injection) 4 mg IVPUSH Q6H PRN PRN Reason: NAUSEA AND/OR VOMITING Ondansetron HCl (Zofran Injection) 4 mg IVPUSH Q6H PRN PRN Reason: NAUSEA Oxycodone HCl (Roxicodone -) 5 mg PO Q4H PRN PRN Reason: PAIN LEVEL 1-5 Last Admin: 03/31/19 05:38 Dose: 5 mg Oxycodone HCl (Roxicodone -) 10 mg PO Q4H PRN PRN Reason: PAIN LEVEL 6-10 Last Admin: 03/31/19 10:40 Dose: 10 mg Potassium Chloride (K-Dur -) 20 meq PO BID [facility] Stop: 04/01/19 13:14 Last Admin: 03/31/19 10:32 Dose: 20 meq Zolpidem Tartrate (Ambien -) 10 mg PO HS PRN PRN Reason: INSOMNIA Last Admin: 03/30/19 21:19 Dose: 10 mg - Objective Vital Signs: Vital Signs Temperature 99.5 F 03/31/19 07:13 Pulse Rate 76 03/31/19 07:13 Respiratory Rate 03/31/19 07:13 Blood Pressure 138/73 03/31/19 07:13 O2 Sat by Pulse Oximetry (%) 98 03/30/19 21:00 Constitutional: Yes: No Distress, Calm Eyes: Yes: Conjunctiva Clear, EOM Intact HENT: Yes: Atraumatic, Normocephalic Neck: Yes: Supple, Trachea Midline Cardiovascular: Yes: Regular Rate and Rhythm, Tachycardia Respiratory: Yes: Regular, CTA Bilaterally, On Nasal O2 (as needed) Gastrointestinal: Yes: Normal Bowel Sounds, Soft ...Rectal Exam: Yes: Deferred Genitourinary: Yes: WNL Breast(s): Yes: WNL Musculoskeletal: Yes: Muscle Weakness Extremities: Yes: Other (generalized muscle weakness) Edema: No Peripheral Pulses WNL: Yes Integumentary: Yes: WNL Wound/Incision: Yes: Dressing Dry and Intact Neurological: Yes: Alert, Weakness ...Motor Strength: LUE (generalized muscle weakness) Psychiatric: Yes: Alert Labs: CBC, BMP 03/31/19 07:15 03/31/19 07:15 - ....Imaging Other: Report Reviewed (Lab data reviewed, Dr. Chavez's note read and appreciated) Problem List - Problems (1) Pseudomeningocele Code(s): G96.19 - OTHER DISORDERS OF MENINGES, NOT ELSEWHERE CLASSIFIED (2) Aphasia determined by examination Code(s): R47.01 - APHASIA (3) H/O laminectomy Code(s): Z98.890 - OTHER SPECIFIED POSTPROCEDURAL STATES (4) HTN (hypertension) Code(s): I10 - ESSENTIAL (PRIMARY) HYPERTENSION (5) History of lumbar laminectomy for spinal cord decompression Code(s): Z98.890 - OTHER SPECIFIED POSTPROCEDURAL STATES (6) Hypothyroid Code(s): E03.9 - HYPOTHYROIDISM, UNSPECIFIED (7) Seizure Code(s): R56.9 - UNSPECIFIED CONVULSIONS (8) Subdural hematoma Code(s): I62.00 - NONTRAUMATIC SUBDURAL HEMORRHAGE, UNSPECIFIED (9) Fever Code(s): R50.9 - FEVER, UNSPECIFIED (10) Hypokalemia Code(s): E87.6 - HYPOKALEMIA (11) Tachycardia Code(s): R00.0 - TACHYCARDIA, UNSPECIFIED Assessment/Plan Assessment/plan: reoperative of L3-L5 laminectomies with pseudomeningocele repair and right ventriculo-peritoneal shunt placement, acute hypokalemia; IV fluids, oral potassium chloride, Duoneb, oral analgesics, DVT prophylaxis, incentive spirometry.
[2019-03-31] MEDS: LACTATED RINGERS SOLUTION 1,000 ML/1,000 ML INFUS.BAG IV SCH (15:02)
[2019-03-31] MEDS ORDERED: oxyCODONE HCL 5 MG TABLET PO PRN (15:28)
--- NOTE | 2019-03-31 18:03 | CONS ---
INFECTIOUS DISEASE CONSULTATION DATE OF CONSULTATION: DATE OF DICTATION: 03/31/2019 REQUESTING PHYSICIAN: Seth Gerard MD HISTORY: This is a 48-year-old woman who has undergone multiple operative procedures. She has had 4 prior spinal surgeries. She has had a L4-L5 spinal fusion. She has had laminectomy. She was admitted electively on the for re-op L3, L5 laminectomy with repair of a meningomyelocele and placement of a right occipital ROBOTICS TECHNICIAN shunt. She had the surgery on the . She was noted on the to have fever. We are asked to see her today for her fever. She is currently resting comfortably. She is feeling improved. She had a Gamb[place] catheter that was also removed on the , and her fevers have resolved. She is alert and oriented. She states she is having her menses having bowel movements. She denies any constipation. She denies any shortness of breath. She notes pain at all her incisional sites. PAST MEDICAL HISTORY: Notable for hypertension, rheumatoid arthritis, polyarthritis, hypothyroidism. She has a history of seizure disorder, constipation, and insomnia. SURGICAL HISTORY: Mainly notable for the back surgery. She has had multiple back surgeries prior to surgery with Dr. Guillaume, and with Markell she had originally surgery in 2016, of her lumbar spine. She subsequently in 2017, she had an arachnoid cyst that was removed. In December 24, she had a pseudomeningocele. She had exploration of her spinal fusion wound, removal of hardware, and repair of the meningocele, and she now returns March 28 for re-operative laminectomy with repair of the pseudomeningocele and right ROBOTICS TECHNICIAN shunt placement. ALLERGIES: She is allergic to CODEINE, POLLEN, and OXYCODONE. MEDICATIONS: At home include Keppra, Ambien, Tramadol, Movantik, multivitamin, Skelaxin, Synthroid, vitamin D. SOCIAL HISTORY: Her PCP is Dr. Estrada. She is a former smoker. There is no history of any substance use, and she was given a flu shot in February of 2018. REVIEW OF SYSTEMS: As per HPI. She currently has menses. She denies any dysuria or shortness of breath. PHYSICAL EXAMINATION: Vital Signs: Her temperature is 99.5, pulse of 76, blood pressure 138/73, respiratory rate of 20. She is saturating 98% on room air. General: Her wounds have just been changed, dressings, surgical wounds by the surgical PA. Report no drainage from the back or the ROBOTICS TECHNICIAN shunt site. She is alert and oriented. HEENT: She has sutures on her scalp that are intact without any drainage. She has on her left temporal area a site with her prior surgery without any erythema or drainage. Lungs: Clear to auscultation. Heart: Regular rate and rhythm. Abdomen: Soft. She has a dressing on her ROBOTICS TECHNICIAN shunt site. Extremities: Without edema. Skin: She has no rash. She has no phlebitis at the IV site, and her back dressing is intact. DIAGNOSTIC DATA: White count is 8.9, hemoglobin 10.9, platelets are 256, BUN 7.8, creatinine 0.5. Urinalysis was not sent. Blood cultures are negative after 24 hours. Chest x-ray showed no infiltrate or edema. In summary, this is a 48-year-old woman postop day number 3 who had some transient postoperative fever. Appears to now be resolved. Her [place] is out. Cultures at 24 hours are negative. White count is normal. She has no evidence of pneumonia on the x-ray, and her incisions are okay, per Surgery. Would encourage incentive spirometry. Would observe her off antibiotics at this time. WALDEMAR BARRERA M.D. [id number]
[2019-03-31] MEDS: ZOLPIDEM TARTRATE 5 MG TABLET PO PRN (21:04)
[2019-03-31] MEDS: ACETAMINOPHEN 325 MG TABLET (FP) PO PRN (21:05)
--- NOTE | 2019-03-31 23:59 | FALL ---
Fall Exam - Event Witnessed fall: No Location of Fall: Patient Room Fall from: While ambulating - Pre-Fall Fall Risk: moderate Current Medications: Current Medications Generic Name Dose Route Start Last Admin Trade Name Freq PRN Reason Stop Dose Admin Acetaminophen 650 mg 03/28/19 14:19 03/31/19 21:05 Tylenol - PO 650 mg Q6H PRN Administration FEVER Albuterol/Ipratropium 1 amp 03/30/19 08:00 03/31/19 20:05 Duoneb - NEB 1 amp RQID [facility]ENG Administration Diphenhydramine HCl 25 mg 03/28/19 13:59 Benadryl - PO Q6H PRN FOR ITCHING Docusate Sodium 100 mg 03/28/19 14:00 03/31/19 21:03 Colace - PO Not Given TID MENG Folic Acid 1 mg 03/29/19 10:00 03/31/19 10:23 Folic Acid - PO 1 mg DAILY [facility] Administration Heparin Sodium (Porcine) 5,000 unit 03/28/19 22:00 03/31/19 21:05 Heparin - SQ 5,000 unit TID [facility] Administration Lactated Ringer's 1,000 ml in 1,000 mls @ 125 mls/hr 03/28/19 14:00 03/31/19 15:02 Lactated Ringers Solution IV Not Given ASDIR [facility] Levetiracetam 750 mg 03/28/19 22:00 03/31/19 21:05 Keppra - PO 750 mg BID [facility] Administration Levothyroxine Sodium 100 mcg 03/29/19 07:00 03/31/19 06:10 Synthroid - PO 100 mcg 0700 [facility] Administration Magnesium Hydroxide 30 ml 03/28/19 14:12 Milk Of Magnesia - PO Q8H PRN INDIGESTION Morphine Sulfate 2 mg 03/28/19 14:20 03/31/19 07:30 Morphine Sulfate IVPUSH 2 mg Q4H PRN Administration breakthrough pain Non-Formulary Medication 12.5 mg 03/29/19 10:00 Naloxegol Oxalate [Movantik] PO DAILY [facility] Ondansetron HCl 4 mg 03/28/19 13:24 Zofran Injection IVPUSH Q6H PRN NAUSEA AND/OR VOMITING Ondansetron HCl 4 mg 03/28/19 13:59 Zofran Injection IVPUSH Q6H PRN NAUSEA Oxycodone HCl 5 mg 03/31/19 15:28 Roxicodone - PO Q4H PRN PAIN LEVEL 1-5 Oxycodone HCl 10 mg 03/31/19 15:28 03/31/19 18:40 Roxicodone - PO 10 mg Q4H PRN Administration PAIN LEVEL 6-10 Potassium Chloride 20 meq 03/30/19 13:15 03/31/19 21:09 K-Dur - PO 04/01/19 13:14 20 meq BID [facility] Administration - Post-Fall Patient Outcome: Pain Only Exam Findings: General: awake, mildly alert. following some commands, intermittently falling asleep. Poor understanding of questioning. Cardiac: RRR no murmurs. Lungs: bilaterally clear to auscultation. Abdomen: hypoactive bowel sounds. Back: painful to palpation on the R side. Neuro: 4/5 muscle strength on the RUE. Withdraws lower extremities to pain. CN II-XII intact Treatment: None Vital Signs: Vital Signs Temperature 98.6 F 03/31/19 17:22 Pulse Rate 98 H 03/31/19 17:22 Respiratory Rate 20 03/31/19 17:22 Blood Pressure 101/69 03/31/19 17:22 O2 Sat by Pulse Oximetry (%) 98 03/31/19 09:00 LOC Post-Fall: Unchanged Identify factors for HIGH RISK for Head Injury: None of the above
--- NOTE | 2019-04-01 00:06 | PN ---
Progress Note (short form) - Note Progress Note: Overnight resident paged about fall. Arrived at the bedside. Patient was disoriented and intermittently answering questions and following commands. Roommate who witnessed the fall stated that the patient was walking around and was unsteady on her feet, appearing disoriented, and with unsteady gait prior to the fall. The roommate then noted that the patient was slowly bending over to the right side and was about to fall. The roommate then stated she came over and guided the patient to the floor and denied that the patient hit her head. On questioning the patient stated that her back hurt from surgery. Otherwise she denied acute complaints but was very disoriented and needed frequent reorientation by physicians and nursing to get back in to bed. Denied cp, sob, n /v. Refer to physical exam in fall exam chart but in short patient appeared disoriented, intermittently answering questions, poor understanding of questioning and commands. Mild LUE weakness in hand air and water filler on the R side. Assessment: Patient on large amount of pain medications and had received Ambien in addition to narcotics and fell likely due to polypharmacy and increased somnolence. Plan: EKG noting NSR, no ST segment changes, QTc 449 CT head with prelim read noting: No hemorrhage. Ventriculostomy tube is present with tip in the third ventricle. No hydrocephalus. There is low density in the right parieto-occipital region along the ventriculostomy tract. Difficult to determine if this represents infarct (of indeterminate age), encephalomalacia, or even edema if the ventriculostomy tube was placed recently. No shift or herniation. Prior left craniotomy Spoken with Dr. Trujillo of the associate professor of communication radiology service and informed of the findings. Hip and Pelvis x-ray, do not appear to have acute fractures. Will await final read in the morning. Patient currently ambulating well with assistance. [place] fall precautions, continue bed alarm Further encouraged patient to ask for nursing assistance to use the bathroom Highly recommend decreasing patient's pain regimen to avoid future episodes of falls and somnolence. Avoid polypharmacy with Ambien. Nursing endorsed to this bid writer than Dr. Estrada had been notified of the incident.
[2019-04-01] MEDS: DOCUSATE SODIUM 100 MG CAPSULE (FP) PO SCH (06:52)
[2019-04-01] MEDS: HEPARIN NA (PORCINE) 5,000 UNITS/ML 1ML VIAL SQ SCH (06:52)
[2019-04-01] MEDS: oxyCODONE HCL 5 MG TABLET PO PRN (06:53)
[2019-04-01] MEDS: LEVOTHYROXINE NA 100 MCG TABLET (FP) PO SCH (06:53)
[2019-04-01] MEDS: ALBUTEROL SO4 2.5/IPRATROPIUM 0.5 INH SOL 3 ML VIAL.NEB. NEB SCH (07:25)
--- NOTE | 2019-04-01 09:16 | PN ---
Progress Note (short form) - Note Progress Note: NEUROSURGERY POD #4 s/p Re-operative L3-L5 laminectomies with repair of pseudomeningocele, and right SKIN LIFTER BACON shunt placement Per RN notes, patient fell last night around 23:00. Fall was witnessed by patient's roommate. States that she observed said patient ambulating to bathroom. Appeared disoriented and unsteady gait prior too fall. Patient attempted to brace herself by grabbing onto arms of the chair. Roommate helped patient down to the ground. Denies CP, palpitations, LOC n/v, diaphoresis prior too or post episode. However, patient doesn't recall the event. She was assisted back to the bed without further incident. Patient sent for Head CT: no hemorrhage. Ventriculostomy tube is present with tip in the third ventricle. No hydrocephalus. There is low density in the right parieto-occipital region along the ventriculostomy tract. No shift or herniation. EKG NSR. This morning, patient in bed left lateral recumbent. Alert. C/o mild incisional tenderness. States she was oob and ambulating the halls with PT yesterday. Denies n/v/f/c, CP, palpitations, SOB or JACQUES. Last Vital Signs Temp Pulse Resp BP Pulse Ox 99.1 F 102 H 20 135/73 98 04/01/19 07:00 04/01/19 07:00 04/01/19 07:00 04/01/19 07:00 03/31/19 09:00 CBC, BMP 03/31/19 07:15 03/31/19 07:15 PE GEN: A&Ox3, NAD PULM: unlabored resp on RA HEAD: Scalp incision c/d/i with kelly in situ, surrounding tissue with no erythema, edema or evidence of active d/c BACK: incision c/d/i ABD: incision c/d/i LE: soft, supple and non-tender with +2 DP pulses and 5/5 dorsi/plantar flexion . Problem List - Problems (1) Pseudomeningocele Assessment/Plan: POD #4 s/p Re-operative L3-L5 laminectomies with repair of pseudomeningocele, and right SKIN LIFTER BACON shunt placement. Patient on large amount of pain medications and had received Ambien in addition to narcotics and fell likely due to polypharmacy and increased somnolence. Patient wants to go home today. Discussed with Dr. Brown all events that transpired and agrees that most likely her fall was attributed to polypharmacy. He is comfortable with patient going home today if she so chooses. Follow-up instructions are outlined in Discharge Plan section. On behalf of Dr. Brown, thank you for the opportunity to participate in your patient's care. Code(s): G96.19 - OTHER DISORDERS OF MENINGES, NOT ELSEWHERE CLASSIFIED
[2019-04-01] MEDS: levETIRAcetam 250 MG TABLET PO SCH (10:43)
[2019-04-01] MEDS: POTASSIUM CHLORIDE TABS 20 MEQ TABLET.ER (FP) PO SCH (10:43)
[2019-04-01] MEDS: FOLIC ACID 1 MG TABLET (FP) PO SCH (10:43)
--- NOTE | 2019-04-01 11:12 | DS ---
Physical Examination Vital Signs: Vital Signs Temperature 99.1 F 04/01/19 07:00 Pulse Rate 102 H 04/01/19 07:00 Respiratory Rate 20 04/01/19 07:00 Blood Pressure 135/73 04/01/19 07:00 O2 Sat by Pulse Oximetry (%) 98 03/31/19 09:00 Constitutional: Yes: Well Nourished, No Distress, Calm Eyes: Yes: Conjunctiva Clear, EOM Intact HENT: Yes: Atraumatic, Normocephalic Neck: Yes: Supple, Trachea Midline Cardiovascular: Yes: Regular Rate and Rhythm Respiratory: Yes: Regular, CTA Bilaterally Gastrointestinal: Yes: Normal Bowel Sounds, Soft ...Rectal Exam: Yes: Deferred Renal/: Yes: WNL Breast(s): Yes: WNL Musculoskeletal: Yes: Muscle Weakness Extremities: Yes: WNL Edema: No Peripheral Pulses WNL: Yes Integumentary: Yes: WNL Neurological: Yes: Alert ...Motor Strength: WNL Psychiatric: Yes: Alert Labs: CBC, BMP 03/31/19 07:15 03/31/19 07:15 Discharge Summary Problems reviewed: Yes Reason For Visit: LUMBAR PSEUDOMENINGOCELE Current Active Problems Fever (Acute) Hypokalemia (Acute) Pseudomeningocele (Acute) Tachycardia (Acute) Condition: Good - Instructions Diet, Activity, Other Instructions: Post Operative Instructions Physical Activity Resume your normal everyday activity as tolerated. No heavy lifting or exercise until seen by your surgeon. You may walk unlimited amounts and climb stairs. You may resume driving the car when you feel safe and comfortable behind the wheel and you are no longer wearing your brace. Do not operate a vehicle while taking narcotic medication. Wound Care Keep your incision clean, dry and covered at all times. Apply an occlusive dressing (Saran wrap or Tegaderm) when showering to avoid getting your incision wet. Do not submerge incision or apply ointments or creams. The kelly will be removed in the office in 10-14 days post-op. Diet There are no dietary restrictions. Eat healthy, high-fiber foods. Drink 6-8 glasses of liquid each day. This will assist in keeping your bowels regular. Pain Management You may take Tylenol or acetaminophen. Any pain prescription medication ordered should be taken as prescribed for moderate to severe pain. Avoid any ibuprofen (Motrin, Advil, Aleve, Toradol, etc) for 3 months unless otherwise discussed with your surgeon. Call Dr Poole for any of the following: Severe pain not relieved by medication Fever of 101 or higher Excessive bleeding or drainage on dressing Inability to urinate Any chest pain or shortness of breath, seek Emergency Care. Call the office to confirm a post-operative appointment for 2-3 weeks post-op Kimo Brown MD [facility] [address] [place] [address] Disposition: HOME - Home Medications Comprehensive Discharge Medication List: Ambulatory Orders Acetaminophen [Tylenol .Extra-Strength -] 1,000 mg PO Q6H 12/23/18 Levothyroxine [Synthroid -] 100 mcg PO DAILY 12/23/18 levETIRAcetam [Keppra -] 750 mg PO BID tablet 12/30/18 Cholecalciferol (Vitamin D3) [Vitamin D -] 1 tab PO WEEKLY 03/27/19 Metaxalone [Skelaxin] 800 mg PO BID 03/27/19 Multivitamin [One-Daily Multi-Vitamin] 1 each PO BID 03/27/19 Zolpidem Tartrate [Ambien] 10 mg PO HS 03/27/19 Acetaminophen [Tylenol .Regular Strength -] 650 mg PO Q6H PRN tablet 04/01/19 Albuterol 2.5/Ipratropium 0.5 [Duoneb -] 1 amp NEB RQID amp 04/01/19 Diphenhydramine HCl [Benadryl Capsule -] 25 mg PO Q6H PRN capsule 04/01/19 Docusate Sodium [Colace -] 100 mg PO TID capsule 04/01/19 Folic Acid - 1 mg PO DAILY tablet 04/01/19 Levothyroxine [Synthroid -] 100 mcg PO 0700 tablet 04/01/19 Magnesium Hydrox 2400MG/30Ml [Milk of Magnesia -] 30 ml PO Q8H PRN cup levETIRAcetam [Keppra -] 750 mg PO BID tablet 04/01/19
--- NOTE | 2019-04-01 11:56 | EKG ---
Test Reason : Blood Pressure : / mmHG Vent. Rate : 101 BPM Atrial Rate : 101 BPM P-R Int : 150 ms QRS Dur : 086 ms QT Int : 340 ms P-R-T Axes : 022 049 040 degrees QTc Int : 440 ms SINUS TACHYCARDIA MINIMAL VOLTAGE CRITERIA FOR LVH, MAY BE NORMAL VARIANT BORDERLINE ECG Confirmed by MD KIRA, PJ ([id number]) on 04/01/2019 11:56:01 AM Referred By: Kimo Brown Confirmed By:PJ MALONE MD
[2019-04-01 12:18] VITALS: BP 132/70
[2019-04-01 12:20] VITALS: PULSE 89; TEMP 98.5
--- NOTE | 2019-04-02 19:31 | PATH ---
Surgical Pathology Report Patient Name: CARLOS A GONG Med. Rec. #: [id number] /Age/Gender: 1970 (Age: 48) / F Account: [id number] Location: [facility] MED/SURG Taken: 03/28/2019 Received: 03/28/2019 Reported: 04/02/2019 Physicians: Kimo Poole M.D. Specimen(s) Received A: EPIDURAL SCAR B: PSEUDOMENINGOCELE WALL Clinical History Lumbar pseudomeningocele Final Diagnosis A. EPIDURAL SCAR, EXCISION: PORTION OF DENSE FIBROUS TISSUE AND ATTACHED BONE SHOWING CHRONIC INFLAMMATION WITH LYMPHOPLASMACYTIC INFILTRATE, FOCALLY INVOLVING BONE MARROW. B. PSEUDOMENINGOCELE WALL, EXCISION: DENSE FIBROCONNECTIVE TISSUE AND SKELETAL MUSCLE SHOWING CHRONIC INFLAMMATION, HISTIOCYTIC/MULTINUCLEATED GIANT CELL REACTION, AND DYSTROPHIC CALCIFICATIONS. Electronically Signed Vipul Hager M.D. Gross Description A. Received in formalin labeled "epidural scar," is a 2.4 x 1.9 x 0.3 cm aggregate of multiple portions of gillette-jack firm fibrous tissue. Frame Bander sections are submitted in one cassette. B. Received in formalin labeled "pseudomeningocele wall," is a 7.0 x 1.1 x 0.7 cm portion of gillette-jack firm fibrous tissue. Frame Bander sections are submitted in one cassette. /03/31/2019 saudi03/31/2019
--- NOTE | 2019-04-09 09:53 | SURG ---
Surgery Reservations Specialist Note Reservations Specialist: Kelly Chavez PA-C Date of Service: 03/28/19 Diagnosis: lumbar pseudomeningocele Procedure: 1) Bilateral reoperative laminectomies L34 2) Bilateral reoperative laminectomies L45 3) fluoroscopy 4) Exploration of spinal fusion 5) Repair of pseudomeningocele 6) Microdissection 7) bilateral soft tissue advancement of flaps (50cm^2) I was present for the entirety of the operative procedure. For further detail, please refer to operative report. Visit type - Case Type Case Type: Scheduled - Emergency Emergency Visit: No - New patient This patient is new to me today: Yes Date on this admission: 03/28/19
--- NOTE | 2019-04-09 09:55 | SURG ---
Surgery Virtual Recruiter Note Virtual Recruiter: Kelly Chavez PA-C Date of Service: 03/28/19 Diagnosis: pseudomeningocele with persisting CSF fistula Procedure: 1) Right Occipital Ventricular peritoneal shunt insertion I was present for the entirety of the operative procedure. For further detail, please refer to operative report. Visit type - Case Type Case Type: Scheduled - Emergency Emergency Visit: No - New patient This patient is new to me today: Yes Date on this admission: 03/28/19
== END 2019-04-01 14:15 | disposition home or self-care (01) | DRG 30 ==
LOC: JSAMEDAYSX 07:31 → J8W 18:00
PROVIDERS: ADMIT Family Medicine; ATTEND Family Medicine
PROC: 00UT0KZ Supplement Spinal Meninges with Nonautologous Tissue Substitute, Open Approach (ICD-10-PCS; 2019-03-28)
PROC: 0JX70ZB Transfer Back Subcutaneous Tissue and Fascia with Skin and Subcutaneous Tissue, Open Approach (ICD-10-PCS; 2019-03-28)
PROC: 01NB0ZZ Release Lumbar Nerve, Open Approach (ICD-10-PCS; 2019-03-28)
PROC: B01BZZZ Fluoroscopy of Spinal Cord (ICD-10-PCS; 2019-03-28)
PROC: 4A11X4G Monitoring of Peripheral Nervous Electrical Activity, Intraoperative, External Approach (ICD-10-PCS; 2019-03-28)
PROC: 00160J6 Bypass Cerebral Ventricle to Peritoneal Cavity with Synthetic Substitute, Open Approach (ICD-10-PCS; principal; 2019-03-28 09:00)
PROC: 00QT0ZZ Repair Spinal Meninges, Open Approach (ICD-10-PCS; 2019-03-28 09:00)
DX: G97.82 Other postprocedural complications and disorders of nervous system (principal); G96.19 Other disorders of meninges, not elsewhere classified; Y83.9 Surgical procedure, unspecified as the cause of abnormal reaction of the patient, or of later complication, without mention of misadventure at the time of the procedure; R50.9 Fever, unspecified; E87.6 Hypokalemia; R00.0 Tachycardia, unspecified; E03.9 Hypothyroidism, unspecified; I10 Essential (primary) hypertension
CPT/HCPCS: 36415; 70450-TC; 71045-TC-FY; 73523-TC-FY; 74190-TC-FY; 80048; 80053; 84703; 85025; 85027; 86850; 86900; 86901; 87040; 88304-TC; 93005; 93010; 94010; 94640; 94760; 97116-GP; 97162-GP; J1644

== ENCOUNTER 2020-05-14 04:09 | Day surgery (SDC) | payer OTHER, BC ==
[2020-05-11 17:01] VITALS: BMI 23.4
[2020-05-14] MEDS ORDERED: IOHEXOL 180 MG/1 ML ML IJ ONE (10:35)
[2020-05-14] MEDS ORDERED: LIDOCAINE 1% P/F 10 MG/ML VIAL INF ONE (10:35)
[2020-05-14] MEDS ORDERED: TRIAMCINOLONE ACET 40MG/1ML VIAL IM ONE (10:35)
[2020-05-14] MEDS ORDERED: BUPIVACAINE HCL/PF 0.5% (5 MG/ML) 30 ML VIAL IJ ONE (10:35)
[2020-05-14 11:55] VITALS: BP 117/72; PULSE 75; TEMP 98
== END 2020-05-14 12:12 | disposition home or self-care (01) ==
LOC: JASU-SURG 04:09
PROVIDERS: ATTEND Pain Medicine Pain Medicine
PROC: 3E0U3BZ Introduction of Anesthetic Agent into Joints, Percutaneous Approach (ICD-10-PCS; 2020-05-14)
PROC: 3E0U33Z Introduction of Anti-inflammatory into Joints, Percutaneous Approach (ICD-10-PCS; principal; 2020-05-14 09:30)
DX: M53.3 Sacrococcygeal disorders, not elsewhere classified (principal)
CPT/HCPCS: 76000-TC-FY; 81025

== ENCOUNTER 2020-06-11 04:34 | Day surgery (SDC) | payer OTHER ==
[2020-06-09 15:23] VITALS: BMI 23.6
[~2020-06-11 04:34] MED LIST: DEXAMETHASONE SOD PHOSPHATE 10 MG/1 ML VIAL IM ONE
[2020-06-11] MEDS ORDERED: DEXAMETHASONE SOD PHOSPHATE/PF 10 MG/ML SDV ONE (07:28)
[2020-06-11] MEDS ORDERED: LIDOCAINE HCL 1% PRESERVATIVE FREE - 30ML VIAL IJ ONE (12:21)
[2020-06-11] MEDS ORDERED: IOHEXOL 180 MG/1 ML ML IJ ONE (12:23)
[2020-06-11] MEDS ORDERED: DEXAMETHASONE SOD PHOSPHATE 10 MG/1 ML VIAL IM ONE (12:27)
[2020-06-11 14:03] VITALS: BP 144/79; PULSE 71; TEMP 98.2
== END 2020-06-11 14:00 | disposition home or self-care (01) ==
LOC: JASU-SURG 04:34
PROVIDERS: ATTEND Pain Medicine Pain Medicine
PROC: 3E0R33Z Introduction of Anti-inflammatory into Spinal Canal, Percutaneous Approach (ICD-10-PCS; 2020-06-11)
PROC: 3E0R3BZ Introduction of Anesthetic Agent into Spinal Canal, Percutaneous Approach (ICD-10-PCS; principal; 2020-06-11 12:00)
DX: M54.16 Radiculopathy, lumbar region (principal)
CPT/HCPCS: 76000-TC-FY; J1100

== ENCOUNTER 2020-07-14 04:12 | Day surgery (SDC) | payer OTHER, BC ==
[2020-07-09 13:41] VITALS: BMI 22.8
[2020-07-14] MEDS ORDERED: LIDOCAINE HCL 2% (50ML VIAL) INF ONE (08:29)
[2020-07-14] MEDS ORDERED: LIDOCAINE 1% P/F 10 MG/ML VIAL INF ONE (08:29)
[2020-07-14] MEDS ORDERED: LIDOCAINE HCL 1%, 10 MG/ML (20ML VIAL) ONE (08:49)
[2020-07-14] MEDS ORDERED: PROPOFOL 20 ML ONE (09:06)
[2020-07-14] MEDS ORDERED: MIDAZOLAM HCL 2 MG/2 ML SINGLE DOSE VIAL ONE ×2 (09:06→09:13)
[2020-07-14] MEDS ORDERED: BUPIVACAINE HCL/PF 0.5% (5MG/ML) 10 ML VIAL ONE (09:13)
[2020-07-14] MEDS ORDERED: LIDOCAINE HCL 2% (20ML MULTI-DOSE VIAL) ONE (09:16)
[2020-07-14] MEDS ORDERED: LIDOCAINE HCL 4% PRESERVE-FREE 5 ML AMP ONE (09:18)
[2020-07-14 12:29] VITALS: BP 122/71; PULSE 80; TEMP 97.8
== END 2020-07-14 12:35 | disposition home or self-care (01) ==
LOC: JASU-SURG 04:12
PROVIDERS: ATTEND Pain Medicine Pain Medicine
PROC: 01HY3MZ Insertion of Neurostimulator Lead into Peripheral Nerve, Percutaneous Approach (ICD-10-PCS; principal; 2020-07-14 08:30)
DX: M96.1 Postlaminectomy syndrome, not elsewhere classified (principal)
CPT/HCPCS: 63650; C1897; 76000-TC-FY; 81025

== ENCOUNTER 2020-08-10 04:14 | Day surgery (SDC) | payer BC, OTHER ==
[2020-08-09 09:13] VITALS: BMI 25.5
[2020-08-10] MEDS ORDERED: SUCCINYLCHOLINE CHLORIDE 200 MG/10 ML SYRINGE ONE (07:05)
[2020-08-10] MEDS ORDERED: MIDAZOLAM HCL 2 MG/2 ML SINGLE DOSE VIAL ONE (07:05)
[2020-08-10] MEDS ORDERED: PROPOFOL 20 ML ONE ×2 (07:05→09:55)
[2020-08-10] MEDS ORDERED: LIDOCAINE 1%/EPI 1:100000 (50 ML MULTI DOSE VIAL) ONE ×2 (07:14→08:51)
[2020-08-10] MEDS ORDERED: BUPIVACAINE HCL/PF 0.5% (5MG/ML) 10 ML VIAL ONE (07:14)
[2020-08-10] MEDS ORDERED: GENTAMICIN SO4 80 MG/2 ML VIAL ONE (07:33)
[2020-08-10] MEDS ORDERED: THROMBIN (BOVINE) 5,000 UNIT VIAL TP ONE ×2 (07:36→09:11)
[2020-08-10] MEDS ORDERED: THROMBIN (BOVINE) 20,000 UNIT VIAL TP ONE (07:38)
[2020-08-10 07:51] LABS: EPI CELLS 11 /uL (0-25.1); HYALINE CASTS 1 /uL (0-3.1); URINE APPEARANCE CLEAR; URINE BACTERIA 753 /uL (0-1359); URINE BILIRUBIN NEGATIVE (NEGATIVE); URINE COLOR YELLOW; URINE GLUCOSE (UA) NEGATIVE (NEGATIVE); URINE KETONE NEGATIVE (NEGATIVE); URINE LEUK ESTERASE TRACE (NEGATIVE); URINE NITRITE NEGATIVE (NEGATIVE); URINE PROTEIN NEGATIVE (NEGATIVE); URINE RBC 27 /uL (0-23.9); URINE UROBILINOGEN 0.2 mg/dL (0.2-1.0); URINE WBC 26 /uL (0-25.8)
[2020-08-10] MEDS ORDERED: ROCURONIUM BROMIDE 50 MG/5 ML SYRINGE ONE (08:11)
[2020-08-10] MEDS ORDERED: LIDOCAINE HCL/PF 2% SDV 5ML VIAL ONE (08:12)
[2020-08-10] MEDS ORDERED: EPHEDRINE SULFATE/0.9% NACL/PF 50 MG/10 ML SYRINGE NR ONE (08:27)
[2020-08-10] MEDS ORDERED: ceFAZolin SODIUM 1 GM VIAL ONE (08:35)
[2020-08-10] MEDS ORDERED: VANCOMYCIN 1,000 MG VIAL (RESTRICTED TO ID ONLY) ONE (08:35)
[2020-08-10] MEDS ORDERED: LIDOCAINE 1%/EPI 1:100000 (20 ML MULTI DOSE VIAL) IJ ONE (09:09)
[2020-08-10] MEDS ORDERED: BUPIVACAINE HCL/PF 0.5% (5MG/ML) 10 ML VIAL IJ ONE (09:10)
[2020-08-10] MEDS ORDERED: GENTAMICIN SO4 80 MG/2 ML VIAL IVPB ONE (09:11)
[2020-08-10] MEDS ORDERED: BACITRACIN 50,000 UNITS VIAL NR ONE (09:11)
[2020-08-10] MEDS ORDERED: BUPIVACAINE LIPOSOME/PF (EXPAREL) 266 MG/20 ML VIAL NR ONE (09:12)
[2020-08-10] MEDS ORDERED: TRANEXAMIC ACID 1000 MG/10 ML VIAL ONE (09:14)
[2020-08-10] MEDS ORDERED: oxyCODONE HCL 5 MG TABLET PO PRN ×2 (09:22)
[2020-08-10] MEDS ORDERED: ONDANSETRON 4 MG/2 ML VIAL IVPUSH PRN (09:22)
[2020-08-10] MEDS ORDERED: BUPIVACAINE LIPOSOME/PF (EXPAREL) 266 MG/20 ML VIAL ONE (09:28)
[2020-08-10] MEDS ORDERED: LACTATED RINGERS SOLUTION 1,000 ML IV SCH (09:30)
[2020-08-10] MEDS ORDERED: DESFLURANE GAS 240 ML BOTTLE IH ONE (10:02)
[2020-08-10] MEDS ORDERED: GLYCOPYRROLATE 0.2 MG/1 ML VIAL ONE (10:11)
[2020-08-10] MEDS ORDERED: NEOSTIGMINE METHYLSULFATE 0.5 MG/1 ML - 10 ML MDV ONE (10:11)
[2020-08-10] MEDS ORDERED: PATIENT'S OWN MEDICATION (NON-FORMULARY) (Metaxalone [Skelaxin] 800 MG Tablet) PO SCH (14:00)
[2020-08-10 15:59] VITALS: BP 137/80; PULSE 73; TEMP 98
[2020-08-10] MEDS ORDERED: levETIRAcetam 250 MG TABLET PO SCH (22:00)
[2020-08-10] MEDS ORDERED: ZOLPIDEM TARTRATE 5 MG TABLET PO PRN (22:00)
[2020-08-11] MEDS ORDERED: LEVOTHYROXINE NA 100 MCG TABLET (FP) PO SCH (07:00)
[2020-08-11] MEDS ORDERED: HYDROCHLOROTHIAZIDE 12.5 MG CAPSULE (FP) PO SCH (10:00)
[2020-08-11] MEDS ORDERED: LOSARTAN POTASSIUM 50 MG TABLET PO SCH (10:00)
== END 2020-08-10 14:10 | disposition home or self-care (01) ==
LOC: JASUSAT 04:14
PROVIDERS: ATTEND Neurological Surgery
PROC: 00HU0MZ Insertion of Neurostimulator Lead into Spinal Canal, Open Approach (ICD-10-PCS; 2020-08-10)
PROC: 0JH70MZ Insertion of Stimulator Generator into Back Subcutaneous Tissue and Fascia, Open Approach (ICD-10-PCS; principal; 2020-08-10 08:00)
DX: G89.4 Chronic pain syndrome (principal)
CPT/HCPCS: 63655; 63685; C1778; L8679; 76000-TC-FY; 81003; 94760